=== PATIENT | female | born 1950 | race Caucasian/White ===

== ENCOUNTER → 2016-12-19 | Outpatient (CLI) | payer OTHER ==
[~2016-12-19] MED LIST: ACET-1256 PO; ANSHCCR/ TOP; ASPI-428 PO; ATOR10TA88 PO; CALC0.2510 PO; CALC500C70 PO; CARI350T28 PO; CLOT10TR2 MT; CLOTCRE33 TOP; DIPH1TAB PO; DOCU100C PO; FLUC100T4 PO; GABA-113 PO; GEMF600T3 PO; INSDGI SC; LAMO100T16 PO; LEVA45AE INH; METO50TA16 PO; MULT-513 PO; NVLGI SQ; OMEP20TA PO; OXYC-164 PO; PHYT100T PO; PRED20TA PO; PRED20TA2 PO; ROSU5TAB PO; VENL150C56 PO; WARF5TAB90 PO; WARF7.5T PO; [UNRECOGNIZED DRUG - CODE] PO
[2016-12-19 12:00] LABS: BASO % 0.4 %; BASO ABS # 0.03 K/uL (0-0.2); COMPLETE YES; EOS % 2.4 %; HEMATOCRIT 36.4 % (37-47); IG% 0.3 %; LYMPH % 24.5 %; MEAN CELL VOLUME 84.1 fL (80-100); MEAN CORPUSCULAR HGB CONC 32.1 g/dl (32-36); MEAN PLATELET VOLUME 10.1 fL (7.4-10.4); MONO % 7.7 %; NEUT % 64.7 %; PLATELET COUNT 346 K/uL (130-400); RED BLOOD COUNT 4.33 M/uL (4.2-5.4); WHITE BLOOD COUNT 7.36 K/uL (4.8-10.8)
[2016-12-19 12:26] LABS: ALT/SGPT 22 U/L (12-78); AST/SGOT 23 U/L (15-37); BLOOD UREA NITROGEN 24 mg/dl (7-18); BUN/CREATININE RATIO 20.1 (10-20); CALCIUM 10.3 mg/dl (8.5-10.1); CARBON DIOXIDE 26 mmol/L (21-32); CHLORIDE 106 mmol/L (98-107); GLUCOSE 118 mg/dl (70-99); MAGNESIUM 2.3 mg/dl (1.8-2.4); POTASSIUM 4.8 mmol/L (3.5-5.1); SODIUM 140 mmol/L (136-145)
[2016-12-19 12:31] LABS: ESTIMATED AVERAGE GLUCOSE 128 mg/dl; HA1C FLAG Normal (Normal)
[2016-12-19 12:37] LABS: ALB/GLOB RATIO 0.9 (0.9-2); ALKALINE PHOSPHATASE 154 U/L (45-117); FERRITIN 17.8 ng/ml (8.0-388.0)
--- NOTE | 2016-12-25 12:09 | CODING QUERY MEDICAL NECESSITY ---
SUPPORTING DIAGNOSIS NEEDED Dr. Thurman, A supporting diagnosis is required for the test/procedure performed on this patient in order for us to be reimbursed by the patient's insurance. Please provide a supporting diagnosis for the following test/procedure listed below next to the test name along with your signature. *If there is no additional diagnosis for this patient that would support the following test/procedure please document that below next to the test/procedure. Test(s)/Procedure(s) that require a supporting diagnosis: * ([id number]) B12 VITAMIN LEVEL DIAGNOSIS: DATE OF SERVICE: 12/19/16 Provider Signature: Date: Thank you Yovanny Britton [facility] Information Management Once completed, please kindly fax back to [phone] For questions please call [phone]
== END | disposition home or self-care (01) ==
LOC: C.LAB1850 11:29
PROVIDERS: ATTEND Nurse Practitioner Family
DX: D64.9 Anemia, unspecified (principal); E11.9 Type 2 diabetes mellitus without complications; N18.3 Chronic kidney disease, stage 3 (moderate); I12.9 Hypertensive chronic kidney disease with stage 1 through stage 4 chronic kidney disease, or unspecified chronic kidney disease; E21.3 Hyperparathyroidism, unspecified

== ENCOUNTER → 2017-04-03 | Outpatient (CLI) | payer OTHER ==
[~2017-04-03] MED LIST changes: +ATOR10TA82 PO; -ATOR10TA88 PO; +AUG0.05C12 TOP; -DIPH1TAB PO; +DIPH1TAB87 PO; +ENOX120I SQ; +FLUO0.0566 TOP; +NOVOLOG INJ; +[UNRECOGNIZED DRUG - CODE] TOP
[2017-04-03 12:28] LABS: CALCIUM 10.2 mg/dl (8.5-10.1)
[2017-04-03 12:34] LABS: ALKALINE PHOSPHATASE 148 U/L (45-117); ALT/SGPT 20 U/L (12-78); AST/SGOT 20 U/L (15-37)
== END | disposition home or self-care (01) ==
LOC: C.LAB1850 10:18
PROVIDERS: ATTEND Nurse Practitioner Family
DX: N18.3 Chronic kidney disease, stage 3 (moderate) (principal); B35.3 Tinea pedis; B35.1 Tinea unguium; Z51.81 Encounter for therapeutic drug level monitoring; Z79.01 Long term (current) use of anticoagulants; I48.91 Unspecified atrial fibrillation

== ENCOUNTER 2017-05-16 15:36 | Emergency (ER) | payer OTHER ==
[~2017-05-16] VITALS: Ht 160 cm; Wt 109.9 kg
[~2017-05-16 15:36] MED LIST changes: -ATOR10TA82 PO; -AUG0.05C12 TOP; -CALC0.2510 PO; -CLOT10TR2 MT; -DIPH1TAB87 PO; -ENOX120I SQ; -FLUC100T4 PO; -FLUO0.0566 TOP; -LEVA45AE INH; -NOVOLOG INJ; -PHYT100T PO; -PRED20TA PO; -PRED20TA2 PO; -[UNRECOGNIZED DRUG - CODE] PO; -[UNRECOGNIZED DRUG - CODE] TOP
--- NOTE | 2017-05-16 15:58 | EMERGENCY ROOM VISIT NOTE ---
History Report prepared by Odalysibamado: Stephanie Trejo Under the Supervision of: Dr. Misha Mccollum D.O. First contact with patient: 15:50 Chief Complaint: SHORTNESS OF BREATH Stated Complaint: TROUBLE BALANCING, SOB, SO ITCHY Nursing Triage Summary: Pt c/o itchiness since day before yesterday, and seemed better yesterday but worse today. Pt c/o SOB x 2 days. Hx CHF. Feels similar, can't breathe when lying down. Swelling in bilateral lower legs, "normal" per patient. Dry cough at night when lying down. History of Present Illness The patient is a 66 year old female who presents to the Emergency Room with complaints of worsening shortness of breath for the past 3 days. She has a history of CHF and states her current symptoms feel similar to her usual CHF exacerbation. Her breathing worsens with lying down. The patient also complains of itching "all over" her body. She denies any recent rashes or changes in body lotions or laundry products. She has tried taking Benadryl, but states it has provided no relief. She notes both her legs are swollen, but states this is "normal" for her. She denies any coughing. She notes she does feel diaphoretic at night when she tries to sleep but doesn't think she's been running a fever. The patient denies any recent sick contacts or changes in medications. She does admit to some intermittent chest pains, but states "they aren't constant". She also complains of some increased heart palpitations recently. 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 A total of 10 systems reviewed and were otherwise negative. Past Medical & Surgical Medical Problems: (1) C. difficile colitis (2) Diabetes (3) djd l/s spine (4) History of bladder suspension (5) Hyperlipidemia (6) Hypertension (7) MRSA (methicillin resistant Staphylococcus aureus) (8) recurrent meningitis (9) sinusitis (10) SOB (shortness of breath) Surgical Problems: (1) History of appendectomy (2) History of back surgery (3) History of heart valve replacement (4) History of hysterectomy (5) S/P T&A (status post tonsillectomy and adenoidectomy) Family History Diabetes mellitus FHx: cancer FHx: gallbladder disease FHx: heart disease Hypertension Social History Smoking Status: Current Every Day Smoker Alcohol Use: none Drug Use: none Marital Status: Housing Status: lives with family Occupation Status: disabled Current/Historical Medications Scheduled Aspirin (Ecotrin Low Strength), 81 MG PO QAM Calcitriol (Rocaltrol Cap), 0.25 MCG PO BID Gabapentin (Neurontin), 300 MG PO HS Insulin Aspart (Novolog), 20 UNITS SQ QID Insulin Glargine (Lantus), 20 UNITS SC AMPM Lamotrigine (Lamictal), 100 MG PO BID Metoprolol Tartrate (Lopressor) (Lopressor), 50 MG PO QAM Multivitamins/Minerals (Mvi With Minerals), 1 TAB PO DAILY Omeprazole (Omeprazole), 20 MG PO BID Phytonadione (Vitamin K), 100 MCG PO PRN Prednisone (Prednisone Tab), 40 MG PO DAILY Prednisone (Prednisone), 2 TAB PO DAILY Rosuvastatin Calcium (Crestor), 10 MG PO HS Venlafaxine Hcl (Effexor Extended Rel), 150 MG PO DAILY Warfarin Sodium (Coumadin), 5 MG PO 4XWK Warfarin Sodium (Coumadin), 7.5 MG PO 3XWK Scheduled PRN Acetaminophen (Tylenol), 1,000 MG PO HS PRN for Pain Carisoprodol (Carisoprodol), 250 MG PO DAILY PRN for SPASMS Clotrimazole W/ Betamethasone (Lotrisone), 1 APPLN TOP BID PRN for . Docusate Sodium (Stool Softener), 100 MG PO DAILY PRN for Constipation Hydrocortisone (Hydrocortisone 2.5%), 1 APPLN TOP BID PRN for hemorrhoids Oxycodone Hcl (Oxycodone Hcl), 10 MG PO BID PRN for Pain Allergies Coded Allergies: Latex1 -Allergic Contact Dermititis (Verified Allergy, Intermediate, RASH , 11/29/16) Adhesives (Verified Allergy, Unknown, ., 11/29/16) Erythromycin (Verified Allergy, Unknown, 11/29/16) Levofloxacin (Verified Allergy, Unknown, HIVES, 12/31/16) Physical Exam Vital Signs Date Time Temp Pulse Resp B/P (MAP) Pulse Ox O2 Delivery O2 Flow Rate FiO2 05/16/17 18:51 36.5 82 22 167/86 93 05/16/17 18:36 82 22 167/86 93 Room Air 05/16/17 18:06 80 21 92 05/16/17 17:06 81 19 94 05/16/17 16:36 87 26 05/16/17 16:30 89 05/16/17 16:16 99 Room Air 05/16/17 15:44 99 Room Air 05/16/17 15:44 82 20 167/80 100 Room Air Physical Exam GENERAL: Patient is awake, alert, mildly anxious appearing and does not appear to be in pain. EYES: The conjunctivae are clear. The pupils are round and reactive. EARS, NOSE, MOUTH AND THROAT: The nose is without any evidence of any deformity. Mucous membranes are moist tongue is midline NECK: The neck is nontender and supple. RESPIRATORY: Normal respiratory effort is noted there is no evidence of wheezing rhonchi or rales CARDIOVASCULAR: Regular rate and rhythm to auscultation, metallic click noted to auscultation. GASTROINTESTINAL: The abdomen is soft. Bowel sounds are present in all quadrants. Abdomen is nontender MUSCULOSKELETAL/EXTREMITIES: There is no evidence of gross deformity full range of motion is noted in the hips and shoulders SKIN: Trace pedal edema bilaterally, excoriations on the lower extremities as well as on the back where the patient had been scratching. No definite rash noted. There are no petechiae, pallor or cyanosis noted. NEUROLOGIC: Patient is awake alert and oriented x3 Medical Decision & Procedures ER Provider Diagnostic Interpretation: Radiology results as stated below per my review and radiologist interpretation: CHEST ONE VIEW PORTABLE CLINICAL HISTORY: EVALUATE RESPIRATORY DISTRESS. DYSPNEA COMPARISON STUDY: 11/29/2016 FINDINGS: Prior median sternotomy. Mild stable cardiomegaly. Lungs are clear. Diaphragms smooth. IMPRESSION: Mild stable cardiomegaly. Otherwise negative study Electronically signed by: Hernandez Briones M.D. 05/16/2017 4:49 PM Laboratory Results 05/16/17 16:20 Red Blood Count 4.18, Mean Corpuscular Volume 80.6, Mean Corpuscular Hemoglobin 25.8, Mean Corpuscular Hemoglobin Concent 32.0, Mean Platelet Volume 8.9, Neutrophils (%) (Auto) 69.4, Lymphocytes (%) (Auto) 22.6, Monocytes (%) (Auto) 5.6, Eosinophils (%) (Auto) 2.0, Basophils (%) (Auto) 0.2, Neutrophils # (Auto) 5.60, Lymphocytes # (Auto) 1.82, Monocytes # (Auto) 0.45, Eosinophils # (Auto) 0.16, Basophils # (Auto) 0.02 05/16/17 16:20 Test 05/16/17 16:20 White Blood Count 8.07 K/uL (4.8-10.8) Red Blood Count 4.18 M/uL (4.2-5.4) Hemoglobin 10.8 g/dL (12.0-16.0) Hematocrit 33.7 % (37-47) Mean Corpuscular Volume 80.6 fL (80-100) Mean Corpuscular Hemoglobin 25.8 pg (25-34) Mean Corpuscular Hemoglobin Concent 32.0 g/dl (32-36) Platelet Count 328 K/uL (130-400) Mean Platelet Volume 8.9 fL (7.4-10.4) Neutrophils (%) (Auto) 69.4 % Lymphocytes (%) (Auto) 22.6 % Monocytes (%) (Auto) 5.6 % Eosinophils (%) (Auto) 2.0 % Basophils (%) (Auto) 0.2 % Neutrophils # (Auto) 5.60 K/uL (1.4-6.5) Lymphocytes # (Auto) 1.82 K/uL (1.2-3.4) Monocytes # (Auto) 0.45 K/uL (0.11-0.59) Eosinophils # (Auto) 0.16 K/uL (0-0.5) Basophils # (Auto) 0.02 K/uL (0-0.2) RDW Standard Deviation 45.9 fL (36.4-46.3) RDW Coefficient of Variation 15.6 % (11.5-14.5) Immature Granulocyte % (Auto) 0.2 % Immature Granulocyte # (Auto) 0.02 K/uL (0.00-0.02) Prothrombin Time 23.8 SECONDS (9.0-12.0) Prothromb Time International Ratio 2.2 (0.9-1.1) Activated Partial Thromboplast Time 41.8 SECONDS (21.0-31.0) Partial Thromboplastin Ratio 1.6 Anion Gap 9.0 mmol/L (3-11) Est Creatinine Clear Calc Drug Dose 65.9 ml/min Estimated GFR () 68.0 Estimated GFR (Non- 58.7 BUN/Creatinine Ratio 23.6 (10-20) Calcium Level 10.0 mg/dl (8.5-10.1) Magnesium Level 2.3 mg/dl (1.8-2.4) Total Bilirubin 0.3 mg/dl (0.2-1) Direct Bilirubin < 0.1 mg/dl (0-0.2) Aspartate Amino Transf (AST/SGOT) 46 U/L (15-37) Alanine Aminotransferase (ALT/SGPT) 33 U/L (12-78) Alkaline Phosphatase 129 U/L (45-117) Total Creatine Kinase 781 U/L (26-192) Creatine Kinase MB 13.1 ng/ml (0.5-3.6) Creatine Kinase MB Ratio 1.7 (0-3.0) Troponin I < 0.015 ng/ml (0-0.045) Pro-B-Type Natriuretic Peptide 301 pg/ml (0-900) Total Protein 8.0 gm/dl (6.4-8.2) Albumin 4.0 gm/dl (3.4-5.0) Laboratory results per my review. Medications Administered Medications (Trade) Dose Ordered Sig/Norm Route Start Time Stop Time Status Last Admin Dose Admin Dexamethasone Sodium Phosphate (Decadron Inj) 10 mg NOW ONCE IV 05/16/17 16:00 05/16/17 16:01 DC 05/16/17 16:00 10 MG ECG Indication: SOB/dyspnea Rate (beats per minute): 84 Rhythm: normal sinus (normal sinus rhythm) Findings: nonspecific-ST abn (Lateral), PVC Change: no significant change (No significant change when compared to EKG from January 29, 2016) ED Course 1554: The patient was evaluated in room B8. A complete history and physical examination were performed. 1600: Decadron 10 mg IV. 1800: I reevaluated the patient. She is feeling well. I discussed her results and discharge instructions and she verbalized complete understanding and agreement. Medical Decision Medication Reconciliation: I attest that I have personally reviewed the patient' s current medications list. Blood pressure screening: Patient was found to have a slightly elevated blood pressure, due to situational issues, and was referred to their primary doctor for routine follow up. Prior records/ancillary studies reviewed. Triage Nursing notes reviewed. Additional history obtained from the family. The patient's history was concerning for respiratory difficulties. Differential diagnosis: Etiologies such as infections, reactive airway disease, pneumonia, pneumothorax , COPD, CHF, cardiac ischemia, pulmonary embolism, musculoskeletal, gastrointestinal, as well as others were entertained. The patient is a 66-year-old female who presented to the emergency department with multiple complaints. She complained of pruritus as well as difficulty breathing. She doesn't a history of congestive heart failure. The patient did not have significant hypoxia considering her baseline status. She was not tachycardic. The patient was found have an elevated CPK. Currently I think this could be due to the patient's medications. She was encouraged to stop taking her Lopid at this time. She was also treated with Decadron for the pruritus. This seemed to improve her symptoms. She was encouraged to follow-up with her family doctor soon as possible and continue taking Benadryl as directed. She was encouraged to continue all other medications as prescribed except the Lopid until she was reevaluated by her primary care physician. Otherwise she was encouraged to rest and avoid any strenuous activity. She was also encouraged to return to the emergency department immediately if symptoms change worsen or the need arises. Impression Primary Impression: Generalized pruritus Additional Impression: Myositis Scribe Attestation The scribe's documentation has been prepared under my direction and personally reviewed by me in its entirety. I confirm that the note above accurately reflects all work, treatment, procedures, and medical decision making performed by me. Departure Information Dispostion Home / Self-Care Prescriptions Prednisone (Prednisone Tab) 20 Mg Tab 40 MG PO DAILY, #10 TAB Prov: Misha Mccollum, DO 05/16/17 Referrals Sanya Thurman III, CRNP (PCP) Patient Instructions ED Erythema, ED Myositis, [facility] Additional Instructions Stop taking your Lopid until he follow-up with your family this week. Continue taking Benadryl as directed. Continue all medications as prescribed. Follow-up with your doctor this week for reevaluation. Return to the emergency department immediately symptoms change worsen or the need arises. Problem Qualifiers Additional Impression: Myositis Myositis type: unspecified type Myositis location: multiple sites Qualified Codes: M60.9 - Myositis, unspecified
[2017-05-16] MEDS ORDERED: DEXAMETHASONE SOD INJ 10 MG/ML VIAL IV ONE (16:00)
[2017-05-16 16:16] VITALS: O2SAT 99; Ht 160 cm; Wt 109.9 kg
[2017-05-16] MEDS ORDERED: CALC0.2510 PO (16:26)
[2017-05-16] MEDS ORDERED: [UNRECOGNIZED DRUG - CODE] PO (16:27)
[2017-05-16 16:43] LABS: BASO % 0.2 %; BASO ABS # 0.02 K/uL (0-0.2); COMPLETE YES; HEMATOCRIT 33.7 % (37-47); IG% 0.2 %; LYMPH % 22.6 %; LYMPH ABS # 1.82 K/uL (1.2-3.4); MEAN CELL VOLUME 80.6 fL (80-100); MEAN CORPUSCULAR HEMOGLOBIN 25.8 pg (25-34); MEAN PLATELET VOLUME 8.9 fL (7.4-10.4); MONO % 5.6 %; NEUT % 69.4 %; PLATELET COUNT 328 K/uL (130-400); RED BLOOD COUNT 4.18 M/uL (4.2-5.4); WHITE BLOOD COUNT 8.07 K/uL (4.8-10.8)
[2017-05-16] MEDS ORDERED: PHYT100T PO (16:44)
--- NOTE | 2017-05-16 16:50 | DIAGNOSTIC IMAGING REPORT ---
CHEST ONE VIEW PORTABLE CLINICAL HISTORY: EVALUATE RESPIRATORY DISTRESS. DYSPNEA COMPARISON STUDY: 11/29/2016 FINDINGS: Prior median sternotomy. Mild stable cardiomegaly. Lungs are clear. Diaphragms smooth. IMPRESSION: Mild stable cardiomegaly. Otherwise negative study Electronically signed by: Hernandez Briones M.D. 05/16/2017 4:49 PM Dictated Date/Time: 05/16/2017 4:48 PM
[2017-05-16 16:55] LABS: INR 2.2 (0.9-1.1); PARTIAL THROMBOPLASTIN RATIO 1.6; PROTHROMBIN TIME (PATIENT) 23.8 SECONDS (9.0-12.0)
[2017-05-16 16:57] LABS: ALT/SGPT 33 U/L (12-78); AST/SGOT 46 U/L (15-37); BLOOD UREA NITROGEN 24 mg/dl (7-18); BUN/CREATININE RATIO 23.6 (10-20); CARBON DIOXIDE 24 mmol/L (21-32); CHLORIDE 109 mmol/L (98-107); GLUCOSE 90 mg/dl (70-99); MAGNESIUM 2.3 mg/dl (1.8-2.4); POTASSIUM 4.1 mmol/L (3.5-5.1); SODIUM 142 mmol/L (136-145)
[2017-05-16 17:02] LABS: ALKALINE PHOSPHATASE 129 U/L (45-117); CKMB/CK RATIO 1.7 (0-3.0)
[2017-05-16] MEDS ORDERED: PRED20TA2 PO (17:46)
[2017-05-16 18:51] VITALS: BP 167/86; PULSE 82; TEMP 36.5; O2SAT 93
[2017-05-17] MEDS ORDERED: PRED20TA PO (10:09)
[2017-05-29] MEDS ORDERED: CLOT10TR2 MT (11:04)
[2017-05-29] MEDS ORDERED: DIPH1TAB87 PO (11:04)
[2017-05-29] MEDS ORDERED: FLUC100T4 PO (21:11)
[2017-06-03] MEDS ORDERED: LEVA45AE INH (12:35)
[2017-06-08] MEDS ORDERED: ATOR10TA82 PO (10:27)
[2017-09-10] MEDS ORDERED: FLUO0.0566 TOP (11:30)
[2017-09-10] MEDS ORDERED: AUG0.05C12 TOP (11:30)
[2017-10-02] MEDS ORDERED: GABA-113 PO (10:32)
[2017-10-21] MEDS ORDERED: NOVOLOG INJ (09:03)
[2017-10-21] MEDS ORDERED: [UNRECOGNIZED DRUG - CODE] TOP (09:03)
[2017-10-21] MEDS ORDERED: INSDGI SC (09:06)
[2017-10-21] MEDS ORDERED: ENOX120I SQ (12:23)
== END 2017-05-16 18:52 | disposition home or self-care (01) ==
LOC: C.EDB 15:37
DX: L29.9 Pruritus, unspecified (principal); M60.9 Myositis, unspecified; A04.7 Enterocolitis due to Clostridium difficile; E11.9 Type 2 diabetes mellitus without complications; E78.5 Hyperlipidemia, unspecified; I10 Essential (primary) hypertension; A49.02 Methicillin resistant Staphylococcus aureus infection, unspecified site; Z83.3 Family history of diabetes mellitus; Z82.49 Family history of ischemic heart disease and other diseases of the circulatory system; F17.200 Nicotine dependence, unspecified, uncomplicated; Z79.82 Long term (current) use of aspirin; Z79.4 Long term (current) use of insulin; Z79.01 Long term (current) use of anticoagulants; Z51.81 Encounter for therapeutic drug level monitoring

== ENCOUNTER → 2017-06-15 | Outpatient (CLI) | payer OTHER ==
[~2017-06-15] MED LIST changes: +ATOR10TA88 PO; +AUG0.05C12 TOP; +CALC0.2510 PO; -CALC500C70 PO; -CARI350T28 PO; +DIPH1TAB PO; +FLUC100T4 PO; +FLUO0.0566 TOP; -GEMF600T3 PO; +LEVA45AE INH; +PHYT100T PO; -ROSU5TAB PO; +[UNRECOGNIZED DRUG - CODE] PO
[2017-06-15 12:25] LABS: ESTIMATED AVERAGE GLUCOSE 140 mg/dl; HA1C FLAG Normal (Normal)
[2017-06-15 12:47] LABS: ALT/SGPT 33 U/L (12-78); BLOOD UREA NITROGEN 17 mg/dl (7-18); BUN/CREATININE RATIO 13.9 (10-20); CALCIUM 10.5 mg/dl (8.5-10.1); CARBON DIOXIDE 29 mmol/L (21-32); CHLORIDE 103 mmol/L (98-107); GLUCOSE 122 mg/dl (70-99); POTASSIUM 4.5 mmol/L (3.5-5.1); SODIUM 137 mmol/L (136-145)
[2017-06-15 12:50] LABS: ALKALINE PHOSPHATASE 109 U/L (45-117); AST/SGOT 29 U/L (15-37)
== END | disposition home or self-care (01) ==
LOC: C.LAB1850 11:30
PROVIDERS: ATTEND Internal Medicine Endocrinology, Diabetes & Metabolism
DX: E21.3 Hyperparathyroidism, unspecified (principal); R74.8 Abnormal levels of other serum enzymes; E11.9 Type 2 diabetes mellitus without complications; I48.91 Unspecified atrial fibrillation; Z51.81 Encounter for therapeutic drug level monitoring; Z79.01 Long term (current) use of anticoagulants

== ENCOUNTER 2017-10-12 11:06 | Emergency (ER) | payer OTHER ==
[~2017-10-12] VITALS: Ht 160 cm; Wt 114.0 kg
[~2017-10-12 11:06] MED LIST changes: +ATOR10TA82 PO; -ATOR10TA88 PO; -DIPH1TAB PO; +DIPH1TAB87 PO; -FLUC100T4 PO; -WARF5TAB90 PO
[2017-10-12 11:08] VITALS: TEMP 36.7; Ht 160 cm; Wt 114.0 kg
[2017-10-12] MEDS ORDERED: ALBUT/IPRATROP 3MG/0.5MG NEB 3 ML VIAL INH STA (12:09)
[2017-10-12 12:20] VITALS: O2SAT 96
[2017-10-12 12:20] LABS: BASO % 0.3 %; BASO ABS # 0.03 K/uL (0-0.2); COMPLETE YES; HEMATOCRIT 32.4 % (37-47); IG% 0.3 %; LYMPH % 16.9 %; MEAN CELL VOLUME 78.3 fL (80-100); MEAN CORPUSCULAR HEMOGLOBIN 24.2 pg (25-34); MEAN CORPUSCULAR HGB CONC 30.9 g/dl (32-36); MEAN PLATELET VOLUME 9.4 fL (7.4-10.4); MONO % 8.2 %; NEUT % 72.3 %; PLATELET COUNT 265 K/uL (130-400); RED BLOOD COUNT 4.14 M/uL (4.2-5.4); WHITE BLOOD COUNT 8.88 K/uL (4.8-10.8)
[2017-10-12 12:27] LABS: INR 2.4 (0.9-1.1); PARTIAL THROMBOPLASTIN RATIO 1.5; PROTHROMBIN TIME (PATIENT) 27.1 SECONDS (9.0-12.0)
[2017-10-12 12:28] LABS: BUN/CREATININE RATIO 14.3 (10-20); CALCIUM 10.7 mg/dl (8.5-10.1); CREATININE 1.25 mg/dl (0.60-1.20); POTASSIUM 4.3 mmol/L (3.5-5.1)
[2017-10-12 12:34] LABS: ALB/GLOB RATIO 0.9 (0.9-2); CKMB/CK RATIO 2.4 (0-3.0)
--- NOTE | 2017-10-12 12:34 | DIAGNOSTIC IMAGING REPORT ---
CHEST ONE VIEW PORTABLE CLINICAL HISTORY: Shortness of breath. COMPARISON STUDY: 05/16/2017 FINDINGS: There are postsurgical changes of midline sternotomy and valvular replacement. The heart is mildly enlarged. There is no failure. There is no focal pulmonary consolidation. No pleural effusions are visualized.[ IMPRESSION: No active disease in the chest. Electronically signed by: Casey Larson M.D. 10/12/2017 12:33 PM Dictated Date/Time: 10/12/2017 12:32 PM
--- NOTE | 2017-10-12 13:35 | EMERGENCY ROOM VISIT NOTE ---
History Report prepared by Shar: Danielle Sigala Under the Supervision of: Dr. Douglas Hearn D.O. First contact with patient: 12:02 Chief Complaint: SHORTNESS OF BREATH Stated Complaint: SOB AND DIZZNESS (OFF BALANCE) Nursing Triage Summary: Pt presents stating she is to be having pre-op testing today for left shoulder surgery. Pt reports difficulty breathing and shaky. Pt states "I feel like nothing is moving or spinning, but I could fall down if I stand up." Pt reports hx of CHF and states felt similar last night. History of Present Illness The patient is a 66 year old female who presents to the Emergency Room with complaints of constant shortness of breath beginning last night. The patient states that her symptoms were worse at night especially with laying flat. She feels like she can't breathe when she lays down. The patient reports feeling like she was drowning, which she states is how she felt previously with her CHF. She also notes that today she is feeling "extremely off-balance and shaky. " The patient is supposed to be in the hospital today for pre-op testing for left shoulder surgery. She states that she was just feeling too unwell for this testing and came to the ED for further evaluation instead. Source of History: patient Onset: last night Position: chest (respiratory) Quality: other (shortness of breath) Timing: constant Modifying Factors (Worsening): other (laying flat) Note: Pt notes feeling off-balance and shaky. Review of Systems See HPI for pertinent positives & negatives. A total of 10 systems reviewed and were otherwise negative. Past Medical & Surgical Medical Problems: (1) C. difficile colitis (2) Diabetes (3) djd l/s spine (4) History of bladder suspension (5) Hyperlipidemia (6) Hypertension (7) MRSA (methicillin resistant Staphylococcus aureus) (8) recurrent meningitis (9) sinusitis (10) SOB (shortness of breath) Surgical Problems: (1) History of appendectomy (2) History of back surgery (3) History of heart valve replacement (4) History of hysterectomy (5) S/P T&A (status post tonsillectomy and adenoidectomy) Family History Diabetes mellitus FHx: cancer FHx: gallbladder disease FHx: heart disease Hypertension Social History Smoking Status: Current Every Day Smoker Alcohol Use: none Drug Use: none Marital Status: Housing Status: lives with family Occupation Status: disabled Current/Historical Medications Scheduled Aspirin (Ecotrin Low Strength), 81 MG PO QAM Atorvastatin (Lipitor), 10 MG PO DAILY Betamethasone Dipropionate Jun (Diprolene Af), 1 APPLN TOP BID Diphenhydramine Hcl (Benadryl Allergy), 25 MG PO DAILY Fluocinonide (Fluocinonide), 1 APPLN TOP BID Gabapentin (Neurontin), 600 MG PO HS Gabapentin (Neurontin), 300 MG PO QAM Insulin Aspart (Novolog), 20 UNITS SQ QID Insulin Glargine (Lantus), 20 UNITS SC AMPM Lamotrigine (Lamictal), 100 MG PO BID Metoprolol Tartrate (Lopressor) (Lopressor), 50 MG PO QAM Multivitamins/Minerals (Mvi With Minerals), 1 TAB PO DAILY Omeprazole (Omeprazole), 20 MG PO BID Phytonadione (Vitamin K), 100 MCG PO PRN Venlafaxine Hcl (Effexor Extended Rel), 150 MG PO DAILY Warfarin Sodium (Coumadin), 7.5 MG PO DAILY Scheduled PRN Acetaminophen (Tylenol), 1,000 MG PO HS PRN for Pain Carisoprodol (Carisoprodol), 250 MG PO DAILY PRN for SPASMS Clotrimazole W/ Betamethasone (Lotrisone), 1 APPLN TOP BID PRN for . Docusate Sodium (Stool Softener), 100 MG PO DAILY PRN for Constipation Hydrocortisone (Hydrocortisone 2.5%), 1 APPLN TOP BID PRN for hemorrhoids Levalbuterol Tartrate (Levalbuterol Tartrate Hfa), 2 PUFFS INH Q4H PRN for SOB/ Wheezing Oxycodone Hcl (Oxycodone Hcl), 10 MG PO BID PRN for Pain Allergies Coded Allergies: Latex1 -Allergic Contact Dermititis (Verified Allergy, Intermediate, RASH , 10/12/17) Adhesives (Verified Allergy, Unknown, ., 10/12/17) Erythromycin (Verified Allergy, Unknown, 10/12/17) Levofloxacin (Verified Allergy, Unknown, HIVES, 10/12/17) Physical Exam Vital Signs Date Time Temp Pulse Resp B/P (MAP) Pulse Ox O2 Delivery O2 Flow Rate FiO2 10/12/17 12:39 86 20 154/71 96 10/12/17 12:22 80 10/12/17 12:20 96 Room Air 10/12/17 11:21 95 Room Air 10/12/17 11:08 96 Room Air 10/12/17 11:08 36.7 79 20 145/67 96 Room Air Physical Exam VITAL SIGNS: were reviewed as above. GENERAL:Non-toxic in appearance. SKIN: Warm dry and pink. HEAD: Normocephalic and atraumatic. OROPHARYNX: Is clear and moist NECK: Supple without lymphadenopathy or meningismus. LUNGS: clear. HEART: Regular rate and rhythm. ABDOMEN: Soft and nontender. EXTREMITIES: Warm and well perfused. NEUROLOGICALLY: Awake alert and oriented without focal deficit. Cranial nerves 2 -12 are intact. There is no pronator drift. Cerebellar testing is within normal limits. There is no nystagmus. There is no facial droop. Speech is clear. Vision is grossly normal. MUSCULOSKELETAL: Good muscle tone. No evidence of trauma. Medical Decision & Procedures ER Provider Diagnostic Interpretation: Radiology results as stated below per my review and radiologist interpretation: CHEST ONE VIEW PORTABLE CLINICAL HISTORY: Shortness of breath. COMPARISON STUDY: 05/16/2017 FINDINGS: There are postsurgical changes of midline sternotomy and valvular replacement. The heart is mildly enlarged. There is no failure. There is no focal pulmonary consolidation. No pleural effusions are visualized.[ IMPRESSION: No active disease in the chest. Electronically signed by: Casey Larson M.D. 10/12/2017 12:33 PM Dictated Date/Time: 10/12/2017 12:32 PM Laboratory Results 10/12/17 11:25 Red Blood Count 4.14, Mean Corpuscular Volume 78.3, Mean Corpuscular Hemoglobin 24.2, Mean Corpuscular Hemoglobin Concent 30.9, Mean Platelet Volume 9.4, Neutrophils (%) (Auto) 72.3, Lymphocytes (%) (Auto) 16.9, Monocytes (%) (Auto) 8.2, Eosinophils (%) (Auto) 2.0, Basophils (%) (Auto) 0.3, Neutrophils # (Auto) 6.41, Lymphocytes # (Auto) 1.50, Monocytes # (Auto) 0.73, Eosinophils # (Auto) 0.18, Basophils # (Auto) 0.03 10/12/17 11:25 Test 10/12/17 11:25 White Blood Count 8.88 K/uL (4.8-10.8) Red Blood Count 4.14 M/uL (4.2-5.4) Hemoglobin 10.0 g/dL (12.0-16.0) Hematocrit 32.4 % (37-47) Mean Corpuscular Volume 78.3 fL (80-100) Mean Corpuscular Hemoglobin 24.2 pg (25-34) Mean Corpuscular Hemoglobin Concent 30.9 g/dl (32-36) Platelet Count 265 K/uL (130-400) Mean Platelet Volume 9.4 fL (7.4-10.4) Neutrophils (%) (Auto) 72.3 % Lymphocytes (%) (Auto) 16.9 % Monocytes (%) (Auto) 8.2 % Eosinophils (%) (Auto) 2.0 % Basophils (%) (Auto) 0.3 % Neutrophils # (Auto) 6.41 K/uL (1.4-6.5) Lymphocytes # (Auto) 1.50 K/uL (1.2-3.4) Monocytes # (Auto) 0.73 K/uL (0.11-0.59) Eosinophils # (Auto) 0.18 K/uL (0-0.5) Basophils # (Auto) 0.03 K/uL (0-0.2) RDW Standard Deviation 51.9 fL (36.4-46.3) RDW Coefficient of Variation 18.3 % (11.5-14.5) Immature Granulocyte % (Auto) 0.3 % Immature Granulocyte # (Auto) 0.03 K/uL (0.00-0.02) Prothrombin Time 27.1 SECONDS (9.0-12.0) Prothromb Time International Ratio 2.4 (0.9-1.1) Activated Partial Thromboplast Time 39.2 SECONDS (21.0-31.0) Partial Thromboplastin Ratio 1.5 Anion Gap 9.0 mmol/L (3-11) Est Creatinine Clear Calc Drug Dose 53.8 ml/min Estimated GFR () 51.9 Estimated GFR (Non- 44.8 BUN/Creatinine Ratio 14.3 (10-20) Calcium Level 10.7 mg/dl (8.5-10.1) Total Bilirubin 0.3 mg/dl (0.2-1) Aspartate Amino Transf (AST/SGOT) 44 U/L (15-37) Alanine Aminotransferase (ALT/SGPT) 48 U/L (12-78) Alkaline Phosphatase 103 U/L (45-117) Total Creatine Kinase 468 U/L (26-192) Creatine Kinase MB 11.1 ng/ml (0.5-3.6) Creatine Kinase MB Ratio 2.4 (0-3.0) Troponin I 0.030 ng/ml (0-0.045) Pro-B-Type Natriuretic Peptide 690 pg/ml (0-900) Total Protein 7.6 gm/dl (6.4-8.2) Albumin 3.6 gm/dl (3.4-5.0) Globulin 4.0 gm/dl (2.5-4.0) Albumin/Globulin Ratio 0.9 (0.9-2) Laboratory results as stated above per my review. Medications Administered Medications (Trade) Dose Ordered Sig/Norm Route Start Time Stop Time Status Last Admin Dose Admin Albuterol/ Ipratropium (Duoneb) 3 ml NOW STAT INH 10/12/17 12:09 10/12/17 12:12 DC 10/12/17 12:20 3 ML ECG Indication: SOB/dyspnea Rate (beats per minute): 85 Rhythm: sinus rhythm Findings: PVC, no acute ischemic change ED Course 1202: Previous medical records were reviewed. The patient was evaluated in room C3. A complete history and physical examination was performed. 1209: DuoNeb 3 ml INH 1337: I reassessed the patient at this time. She is feeling better and resting comfortably. I discussed the results and treatment plan with the patient. I answered all pertaining questions that she had. She expressed understanding and verbalized agreement. The patient will be discharged home. Medical Decision Differentials considered include acute myocardial infarction, acute coronary syndrome, myocarditis, pericarditis, pericardial effusions /tamponade, esophageal perforation, pulmonary embolism, pneumonia, pneumothorax, cardiomyopathy, congestive heart, anemia, and COPD/asthma exacerbation. This is a 66-year-old female who presents to the ED with a chief complaint of shakiness and off balance. She also feels a little short of breath. She states that her shortness of breath was mostly last night. The patient initially came here for evaluation for preop testing but decided to come to the ED instead. The patient has a normal or lodging exam. Her lungs are clear. Vital signs are normal. Chest x-ray did not show acute disease. BNP was normal. Troponin was normal. Twelve-lead EKG reveals a sinus rhythm at a rate of 85 with PVCs. No acute injury. Complete metabolic panel reveals some chronic-appearing anemia. INR is 2.4. She is on Coumadin. Creatinine was slightly elevated at 1.25. Chemistry panel was otherwise unremarkable. The patient was told the results of the test. She is felt to be stable for discharge and outpatient follow-up. Medication Reconcilliation Current Medication List: was personally reviewed by me Blood Pressure Screening Patient's blood pressure: Normal blood pressure Impression Primary Impression: Generally unsteady Additional Impression: Weak Scribe Attestation The scribe's documentation has been prepared under my direction and personally reviewed by me in its entirety. I confirm that the note above accurately reflects all work, treatment, procedures, and medical decision making performed by me. Departure Information Dispostion Home / Self-Care Referrals Sanya Thurman III, CRNP (PCP) Patient Instructions My [facility] Additional Instructions Test results today did not show any significant abnormalities. Your INR today is 2.4. Follow-up with your doctor for recheck in 1-2 days. Return here should symptoms worsen or if you develop new or worsening symptoms. Problem Qualifiers
[2017-10-12 13:51] VITALS: BP 154/71; PULSE 91; O2SAT 94
== END 2017-10-12 13:52 | disposition home or self-care (01) ==
LOC: C.EDB 11:07 → C.EDC 13:52
DX: R26.81 Unsteadiness on feet (principal); R53.1 Weakness; R06.02 Shortness of breath; E11.9 Type 2 diabetes mellitus without complications; E78.5 Hyperlipidemia, unspecified; I10 Essential (primary) hypertension; M47.897 Other spondylosis, lumbosacral region; F17.200 Nicotine dependence, unspecified, uncomplicated; Z95.2 Presence of prosthetic heart valve; Z79.01 Long term (current) use of anticoagulants; Z79.82 Long term (current) use of aspirin; Z79.4 Long term (current) use of insulin; Z86.14 Personal history of Methicillin resistant Staphylococcus aureus infection; Z90.89 Acquired absence of other organs; Z90.710 Acquired absence of both cervix and uterus; Z83.3 Family history of diabetes mellitus; Z83.79 Family history of other diseases of the digestive system; Z82.49 Family history of ischemic heart disease and other diseases of the circulatory system

== ENCOUNTER → 2017-10-21 | Outpatient (CLI) | payer OTHER ==
[~2017-10-21] VITALS: Ht 160 cm; Wt 114.6 kg
[~2017-10-21] MED LIST changes: -CALC0.2510 PO; +CEFAZOLIN 2000MG IV PUSH 10 ML IV SCH; +ENOX120I SQ; +ERGO500037 PO; +LACTATED RINGER'S 1000ML 1,000 ML IV SCH; +NOVOLOG INJ; +[UNRECOGNIZED DRUG - CODE] TOP
[2017-10-21 09:08] VITALS: Ht 160 cm; Wt 114.6 kg
--- NOTE | 2017-10-21 09:26 | PAT Medication Instructions ---
Service Date Oct 21, 2017. Current Home Medication List Acetaminophen (Tylenol), 1,000 MG PO HS PRN for Pain Aspirin (Ecotrin Low Strength), 81 MG PO QAM Atorvastatin (Lipitor), 10 MG PO QAM Betamethasone Dipropionate Aug (Augmented Betamethasone D), 1 DOSE TOP PRN Carisoprodol (Carisoprodol), 250 MG PO DAILY PRN for SPASMS Clotrimazole W/ Betamethasone (Lotrisone), 1 APPLN TOP BID PRN for . Diphenhydramine Hcl (Benadryl Allergy), 25 MG PO QAM Docusate Sodium (Stool Softener), 100 MG PO DAILY PRN for Constipation Fluocinonide (Fluocinonide), 1 APPLN TOP BID PRN for PRN Gabapentin (Neurontin), 600 MG PO HS Hydrocortisone (Hydrocortisone 2.5%), 1 APPLN TOP BID PRN for hemorrhoids Insulin Glargine (Lantus), 20 SC AMPM Lamotrigine (Lamictal), 100 MG PO BID Levalbuterol Tartrate (Levalbuterol Tartrate Hfa), 2 PUFFS INH Q4H PRN for SOB/ Wheezing Metoprolol Tartrate (Lopressor) (Lopressor), 50 MG PO QPM Multivitamins/Minerals (Mvi With Minerals), 1 TAB PO QAM Omeprazole (Omeprazole), 20 MG PO BID Oxycodone Hcl (Oxycodone Hcl), 10 MG PO BID PRN for Pain Venlafaxine Hcl (Effexor Extended Rel), 150 MG PO QAM Warfarin Sodium (Coumadin), 7.5 MG PO QPM [Novolog], 20 UNITS INJ QIDM Medication Instructions For Your Scheduled Surgery - Contact your prescriber ([facility]) for instructions: Warfarin Sodium (Coumadin), 7.5 MG PO QPM - Hold the following medications 24 hours prior to surgery: Betamethasone Dipropionate Jun (Augmented Betamethasone D), 1 DOSE TOP PRN Clotrimazole W/ Betamethasone (Lotrisone), 1 APPLN TOP BID PRN for . Hydrocortisone (Hydrocortisone 2.5%), 1 APPLN TOP BID PRN for hemorrhoids Fluocinonide (Fluocinonide), 1 APPLN TOP BID PRN for PRN - Hold the following medications the morning of surgery: Diphenhydramine Hcl (Benadryl Allergy), 25 MG PO QAM Multivitamins/Minerals (Mvi With Minerals), 1 TAB PO QAM Carisoprodol (Carisoprodol), 250 MG PO DAILY PRN for SPASMS Docusate Sodium (Stool Softener), 100 MG PO DAILY PRN for Constipation [Novolog], 20 UNITS INJ QIDM - Take the following medications the morning of surgery with a sip of water: Acetaminophen (Tylenol), 1,000 MG PO HS PRN for Pain (if needed, can be taken up to four hours before surgery) Aspirin (Ecotrin Low Strength), 81 MG PO QAM Atorvastatin (Lipitor), 10 MG PO QAM Lamotrigine (Lamictal), 100 MG PO BID Levalbuterol Tartrate (Levalbuterol Tartrate Hfa), 2 PUFFS INH Q4H PRN for SOB/ Wheezing (if needed, and bring with you the day of surgery) Omeprazole (Omeprazole), 20 MG PO BID Oxycodone Hcl (Oxycodone Hcl), 10 MG PO BID PRN for Pain (if needed, can be taken up to four hours before surgery) Venlafaxine Hcl (Effexor Extended Rel), 150 MG PO QAM - Take the following medications as scheduled the night before surgery: Acetaminophen (Tylenol), 1,000 MG PO HS PRN for Pain (if needed) Insulin Glargine (Lantus), 20 SC AMPM Carisoprodol (Carisoprodol), 250 MG PO DAILY PRN for SPASMS (if needed) Gabapentin (Neurontin), 600 MG PO HS Docusate Sodium (Stool Softener), 100 MG PO DAILY PRN for Constipation (if needed) Lamotrigine (Lamictal), 100 MG PO BID Levalbuterol Tartrate (Levalbuterol Tartrate Hfa), 2 PUFFS INH Q4H PRN for SOB/ Wheezing (if needed) Metoprolol Tartrate (Lopressor) (Lopressor), 50 MG PO QPM [Novolog], 20 UNITS INJ QIDM Omeprazole (Omeprazole), 20 MG PO BID Oxycodone Hcl (Oxycodone Hcl), 10 MG PO BID PRN for Pain (if needed) - For Insulin Dependent Diabetic patients: Test blood sugar A.M. of surgery. - If BLOOD SUGAR IS GREATER THAN 150, take half of your regular dose of: Insulin Glargine (Lantus), 20 SC AMPM (TAKE 10 UNITS) - If BLOOD SUGAR IS LESS THAN 150, do not take any: Insulin Glargine ( Lantus), 20 SC AMPM If you have any questions please call us at [phone] or [phone] or [phone]
[2017-10-21 11:07] LABS: HEMOGLOBIN A1C 6.3 % (4.5-5.6)
--- NOTE | 2017-11-02 10:41 | History and Physical ---
History & Physical Date Nov 02, 2017. Chief Complaint Left shoulder pain History of Present Illness The patient is a 66 year old female with complaints of Left shoulder pain for several years. She has tried pain medications, PT and injections with minimal relief. She would like to proceed with a left shoulder SAD, DCE, debridement. Past Medical/Surgical History Medical Problems: (1) C. difficile colitis (2) Diabetes (3) djd l/s spine (4) History of bladder suspension (5) Hyperlipidemia (6) Hypertension (7) MRSA (methicillin resistant Staphylococcus aureus) (8) recurrent meningitis (9) sinusitis (10) SOB (shortness of breath) Surgical Problems: (1) History of appendectomy (2) History of back surgery (3) History of heart valve replacement (4) History of hysterectomy (5) S/P T&A (status post tonsillectomy and adenoidectomy) Additional History Hepatic Disease: No Endocrine Disorder: Yes Kidney Disease: No Hypertension: No Heart Disease: Yes Bleeding Tendencies: No Infectious Diseases: No Allergies Coded Allergies: Latex1 -Allergic Contact Dermititis (Verified Allergy, Intermediate, RASH , 10/12/17) Adhesives (Verified Allergy, Unknown, RASH, 10/21/17) Levofloxacin (Verified Allergy, Unknown, HIVES, 10/12/17) Erythromycin (Unverified Adverse Reaction, Mild, VAGINAL INFECTION AFTERWARDS, 10/21/17) Home Medications Scheduled Aspirin (Ecotrin Low Strength), 81 MG PO QAM Atorvastatin (Lipitor), 10 MG PO QAM Betamethasone Dipropionate Aug (Augmented Betamethasone D), 1 DOSE TOP PRN Diphenhydramine Hcl (Benadryl Allergy), 25 MG PO QAM Gabapentin (Neurontin), 600 MG PO HS Insulin Glargine (Lantus), 20 SC AMPM Lamotrigine (Lamictal), 100 MG PO BID Metoprolol Tartrate (Lopressor) (Lopressor), 50 MG PO QPM Multivitamins/Minerals (Mvi With Minerals), 1 TAB PO QAM Omeprazole (Omeprazole), 20 MG PO BID Venlafaxine Hcl (Effexor Extended Rel), 150 MG PO QAM Warfarin Sodium (Coumadin), 7.5 MG PO QPM [Novolog], 20 UNITS INJ QIDM Scheduled PRN Acetaminophen (Tylenol), 1,000 MG PO HS PRN for Pain Carisoprodol (Carisoprodol), 250 MG PO DAILY PRN for SPASMS Clotrimazole W/ Betamethasone (Lotrisone), 1 APPLN TOP BID PRN for . Docusate Sodium (Stool Softener), 100 MG PO DAILY PRN for Constipation Enoxaparin (Lovenox), 120 MG SQ Q12H PRN for . Fluocinonide (Fluocinonide), 1 APPLN TOP BID PRN for PRN Hydrocortisone (Hydrocortisone 2.5%), 1 APPLN TOP BID PRN for hemorrhoids Levalbuterol Tartrate (Levalbuterol Tartrate Hfa), 2 PUFFS INH Q4H PRN for SOB/ Wheezing Oxycodone Hcl (Oxycodone Hcl), 10 MG PO BID PRN for Pain Physical Examination Skin: warm/dry, no rash Eyes: normal inspection, EOMI ENT: normal ENT inspection Head: normocephalic, atraumatic Neck: supple, no adenopathy Respiratory/Chest: lungs clear, normal breath sounds Cardiovascular: regular rate, rhythm, + pertinent finding (audible click due to mitral and aortic valve replacement) Abdomen / GI: normal bowel sounds, non tender Extremities: + pertinent finding (decreased ROM and strength) Neurologic/Psych: no motor/sensory deficits, alert, oriented x 3 Diagnosis Primary osteoarthritis of left shoulder Plan of Treatment Patient is scheduled for a left shoulder SAD, DCE and debridement. Patient has failed conservative therapy and would like to proceed with scheduled surgery. Risks and benefits to surgery were discussed with the patient. She understands these risks and wishes to proceed. All questions were answered to her satisfaction.
== END | disposition home or self-care (01) ==
LOC: C.LAB 08:00 → EDSTATUS 11-06 14:47
PROVIDERS: ATTEND Orthopaedic Surgery
DX: M19.019 Primary osteoarthritis, unspecified shoulder (principal)

== ENCOUNTER → 2017-10-26 | Outpatient (CLI) | payer OTHER ==
[~2017-10-26] MED LIST changes: -AUG0.05C12 TOP; -CEFAZOLIN 2000MG IV PUSH 10 ML IV SCH; -ERGO500037 PO; -LACTATED RINGER'S 1000ML 1,000 ML IV SCH; -NVLGI SQ; -PHYT100T PO
[2017-10-26 16:51] LABS: CALCIUM URINE 11.9 mg/dl; CREATININE, URINE 57.3 mg/dl
== END | disposition home or self-care (01) ==
LOC: C.LAB1850 14:55
PROVIDERS: ATTEND Internal Medicine Endocrinology, Diabetes & Metabolism
DX: E21.3 Hyperparathyroidism, unspecified (principal); F31.9 Bipolar disorder, unspecified; E83.52 Hypercalcemia

== ENCOUNTER → 2017-12-09 | Outpatient (CLI) | payer OTHER ==
[~2017-12-09] MED LIST changes: -ENOX120I SQ
[2017-12-09 12:27] LABS: ALBUMIN 3.6 gm/dl (3.4-5.0); ALT/SGPT 27 U/L (12-78); BLOOD UREA NITROGEN 21 mg/dl (7-18); CALCIUM 9.8 mg/dl (8.5-10.1); CARBON DIOXIDE 27 mmol/L (21-32); CREATININE 1.05 mg/dl (0.60-1.20); GLUCOSE 124 mg/dl (70-99); POTASSIUM 4.3 mmol/L (3.5-5.1); SODIUM 137 mmol/L (136-145)
[2017-12-09 12:28] LABS: HEMOGLOBIN A1C 6.3 % (4.5-5.6)
[2017-12-09 12:30] LABS: ALKALINE PHOSPHATASE 96 U/L (45-117); AST/SGOT 25 U/L (15-37); TOTAL PROTEIN 7.4 gm/dl (6.4-8.2)
== END | disposition home or self-care (01) ==
LOC: C.LAB1850 11:17
PROVIDERS: ATTEND Nurse Practitioner Family
DX: E11.42 Type 2 diabetes mellitus with diabetic polyneuropathy (principal); E21.3 Hyperparathyroidism, unspecified; E83.52 Hypercalcemia

== ENCOUNTER → 2018-01-22 | Outpatient (CLI) | payer OTHER ==
--- NOTE | 2018-01-22 12:38 | DIAGNOSTIC IMAGING REPORT ---
PELVIS/BILATERAL HIP 2 VIEWS CLINICAL HISTORY: HIP PAIN pain COMPARISON STUDY: None FINDINGS: Moderate degenerative narrowing right hip joint spaces bilaterally. Mild degenerative sclerosis of the sacroiliac joints. Postoperative changes low lumbar spine. No evidence for acetabular protrusion. Small focus of sclerosis central aspect right femoral head most likely degenerative. A bone island may present in similar fashion. IMPRESSION: Moderate degenerative change of the hips bilaterally. No acute process. The above report was generated using voice recognition software. It may contain grammatical, syntax or spelling errors. Electronically signed by: Hernandez Birones M.D. 01/22/2018 12:37 PM Dictated Date/Time: 01/22/2018 12:35 PM
== END | disposition home or self-care (01) ==
LOC: C.RAD1850 12:09
PROVIDERS: ATTEND Nurse Practitioner Family
DX: M25.559 Pain in unspecified hip (principal)

== ENCOUNTER → 2018-03-17 | Outpatient (CLI) | payer OTHER ==
[2018-03-17 13:45] LABS: ALBUMIN 3.8 gm/dl (3.4-5.0); ALT/SGPT 25 U/L (12-78); AST/SGOT 24 U/L (15-37); BLOOD UREA NITROGEN 17 mg/dl (7-18); CALCIUM 10.2 mg/dl (8.5-10.1); CARBON DIOXIDE 27 mmol/L (21-32); CREATININE 1.08 mg/dl (0.60-1.20); GLUCOSE 59 mg/dl (70-99); POTASSIUM 4.2 mmol/L (3.5-5.1); SODIUM 138 mmol/L (136-145)
[2018-03-17 13:48] LABS: ALKALINE PHOSPHATASE 121 U/L (45-117); TOTAL PROTEIN 7.5 gm/dl (6.4-8.2)
== END | disposition home or self-care (01) ==
LOC: C.LAB1850 11:51
PROVIDERS: ATTEND Internal Medicine Endocrinology, Diabetes & Metabolism
DX: E21.3 Hyperparathyroidism, unspecified (principal)

== ENCOUNTER → 2018-07-13 | Outpatient (CLI) | payer OTHER ==
[~2018-07-13] MED LIST changes: -ANSHCCR/ TOP; +ANTIFUNGAL POWDER EXT; -CLOTCRE33 TOP; -FLUO0.0566 TOP; -INSDGI SC; +LVMI SC; +METO25TA56 PO; -METO50TA16 PO; +MULT-506 PO; -MULT-513 PO; -NOVOLOG INJ; +NVLG SC; +PHYT100T PO; +TIZA4CAP PO; -[UNRECOGNIZED DRUG - CODE] PO; -[UNRECOGNIZED DRUG - CODE] TOP
== END | disposition home or self-care (01) ==
LOC: C.LAB1850 11:19
PROVIDERS: ATTEND Internal Medicine Endocrinology, Diabetes & Metabolism
DX: E21.3 Hyperparathyroidism, unspecified (principal); E83.52 Hypercalcemia

== ENCOUNTER 2020-05-10 12:32 | Inpatient (IN) ==
[2020-05-10 13:25] LABS: Basophils # (auto) 0.03 K/uL (0-0.2); Basophils % (auto) 0.4 %; Eosinophils # (auto) 0.19 K/uL (0-0.5); Eosinophils % (auto) 2.3 %; Hematocrit (blood only) 35.6 % (37-47); Hemoglobin 10.8 g/dL (12.0-16.0); Immature Granulocytes # (auto) 0.02 K/uL (0.00-0.02); Immature Granulocytes % (auto) 0.2 %; Lymphocytes # (auto) 1.02 K/uL (1.2-3.4); Lymphocytes % (auto) 12.1 %; Mean Corpuscular Hemoglobin 25.1 pg (25-34); Mean Corpuscular Hgb Conc 30.3 g/dL (32-36); Mean Corpuscular Volume 82.6 fL (80-100); Mean Platelet Volume 9.3 fL (7.4-10.4); Monocytes # (auto) 0.72 K/uL (0.11-0.59); Monocytes % (auto) 8.6 %; Neutrophils # (auto) 6.42 K/uL (1.4-6.5); Neutrophils % (auto) 76.4 %; Platelet Count 266 K/uL (130-400); RDW Coefficient of Variation 15.8 % (11.5-14.5); RDW Standard Deviation 47.9 fL (36.4-46.3); Red Blood Count 4.31 M/uL (4.2-5.4)
--- NOTE | 2020-05-10 13:30 | XRay Report ---
XR chest 1V portable CLINICAL HISTORY: Shortness of breath COMPARISON STUDY: 11/03/2019 FINDINGS: There are postsurgical changes of a midline sternotomy. The heart is enlarged. Valvular pro sthesis is visualized. There is radiographic evidence of mild congestive failure/fluid overload. Ther e are bilateral areas of subsegmental atelectasis. There is no lobar consolidation. There are no larg e pleural effusions. IMPRESSION: Cardiomegaly and radiographic evidence of mild congestive failure/fluid overload. ACT 112: Negative or not required by law. Electronically signed by: Casey Larson M.D. 05/10/2020 1:28 PM
[2020-05-10 13:44] LABS: Albumin Level 3.5 gm/dl (3.4-5.0); BUN Creatinine Ratio 19.1 (10-20); Calcium 9.9 mg/dl (8.5-10.1); Creatinine Clr Calc Pharmacy 62.9 ml/min; Est GFR (African American) 67.4; Est GFR (Non-African American) 58.1; Potassium 4.4 mmol/L (3.5-5.1)
[2020-05-10 13:52] LABS: INR 3.3 (0.9-1.1); Partial Thromboplastin Ratio 1.8
[2020-05-10 13:55] LABS: Bilirubin,Total 0.4 mg/dl (0.2-1); Globulin 3.7 gm/dl (2.5-4.0); Total Protein 7.2 gm/dl (6.4-8.2); Troponin I 0.058 ng/ml (0-0.045)
[2020-05-10] MEDS ORDERED: ASPIRIN CHEW 324 MG PO STA (14:13)
[2020-05-10] MEDS ORDERED: FUROSEMIDE 40 MG/4 ML VIAL IV STA (14:13)
[2020-05-10 14:25] LABS: Partial Thromboplastin Time 49.6 Seconds (21.0-31.0)
--- NOTE | 2020-05-10 14:50 | Emergency Department Note ---
Impression & Plan CHF (congestive heart failure), Chronic anticoagulation, Elevated troponin ED Provider Note NAME: AURY SOSA AGE: 69 SEX: F : 1950 ARRIVES VIA: Walk-In INFORMANT: Patient ED PROVIDER(S): Ron Harding DO CHIEF COMPLAINT: Shortness of breath HPI: Patient is a 69-year-old female who presents the ER for shortness of breath. This has been getting worse over the past 3 to 4 weeks. She notes now she cannot sleep laying down but rather has to sit up. Patient admits to history of CHF, COPD and asthma. She notes that she just started taking her L asix again and has lost 10 pounds but is still short of breath. She notes she is dyspneic with any conversation. Denies any fevers or new cough. No belly pain nausea vomiting or diarrhea. No chest pain. No other exacerbating or remitting factors. She does take Coumadin. She also has 2 valve replacements. ROS: See above HPI for pertinent positives & negatives. A total of 10 systems reviewed and were otherwise negative. PAST MEDICAL HISTORY:See Below PAST SURGICAL HISTORY:See Below FAMILY HISTORY:See Below SOCIAL HISTORY:See Below HOME MEDICATIONS:See Below ALLERGIES:See Below VITALS:See Below PHYSICAL EXAMINATION: GENERAL: Sitting up in bed, alert, ill-appearing, dyspneic with conversation EYE EXAM: normal conjunctiva. OROPHARYNX: no exudate, no erythema, lips, buccal mucosa, and tongue normal and mucous membranes are moist NECK: supple, no nuchal rigidity, no adenopathy, non-tender LUNGS: Diminished bilaterally. Normal chest wall mechanics HEART: no murmurs, S1 normal and S2 normal ABDOMEN: abdomen soft, non-tender, normo-active bowel sounds, no masses, no rebound or guarding. BACK: Back is symmetrical on inspection and there is no deformity, no midline tenderness, no CVA tenderness. SKIN: no rashes and no bruising UPPER EXTREMITIES: upper extremities are grossly normal. LOWER EXTREMITIES: Pitting edema in the bilateral lower extremities tracking up to abdomen NEURO EXAM: Normal sensorium, cranial nerves II-XII grossly intact, normal speech, no gross weakness of arms, no gross weakness of legs. MEDICAL DECISION MAKING: Patient is a 69-year-old female with a past medical history of COPD, asthma and CHF with bowel transplants on Coumadin that presents the ER for shortness of breath. Shortness of breath has been present for the past 3 to 4 weeks. She started taking Lasix in hopes that this would improve her symptoms. She has l ost 10 pounds recently but is still short of breath. IV was established blood work was obtained and shows no significant leukocytosis. There is a mild anemia 10.8 thousand. INR was at 3.3. BMP with LFTs bilirubin was unremarkable. Troponin was positive at 0.058. EKG was nondiagnostic. She was given IV Lasix and aspirin. She was placed on 3 L nasal cannula. She notes that she does feel slightly better. She was updated bedside. Discussed with hospitalist admitted for further work-up. We will hold on heparin at this time as I favor this is likely secondary to CHF. Triage Nursing notes reviewed. Prior medical records reviewed Vital Signs: reviewed and remarkable for no significant abnormalities Differential diagnosis: Differential diagnoses includes but is not limited to pneumonia, bronchitis, COPD/Asthma exacerbation, pneumothorax, pulmonary embolism, congestive heart failure, acute coronary syndrome ER treatment provided: See below Diagnostics interpreted by me: ECG: Sinus rhythm rate 86 Left axis Left bundle Normal QTC TWI in the high lateral leads No PVCs Cardiac Monitoring: An order was placed for continuous cardiac monitoring. The monitor shows a rate of 82 with sinus rhythm. Laboratory studies: As stated above and show below. Imaging studies: Portable AP upright 1 view of the chest shows CHF m Consultation(s): Discussed with Dr. Obie Singleton ED COURSE: Procedures: none Critical Care: None Past Med/Surg History Social History Preferred Language: Romansh Communication Ability: Effective Visual Impairment: No Limitations Hearing Ability: Hard of Hearing Weeder Required: No Beliefs That Will Affect Care: None marital status: Single Current Living Situation: Family Current Living Situation Comment: lives with daughter current occupational status: retired Other Information That Helps Us Care for You: No Feels Safe at Home: Yes Safety Concerns: Feels Safe At This Time Smoking Status: Current every day smoker Tobacco Type: cigarettes ; Cigarettes Per Day: 15 ; Second Hand Exposure: No ; Hx Alcohol Use: No Hx Substance Use: No Childhood Exposure to Second-Hand Smoke: Yes Dental Care, Regularly: No Physical Activity Frequency: Does not Exercise Seatbelt Use: always Sunscreen Use: Yes Allergies Allergies Allergy/AdvReac Type Severity Reaction Status Date / Time fluticasone Allergy Unknown NAUSEA Verified 05/10/20 13:48 [From Advair Diskus] VOMITING lactose Allergy Unknown Diarrhea Verified 05/10/20 13:48 adhesive Allergy Rash Verified 05/10/20 13:48 cinacalcet [From Sensipar] Allergy Swelling Verified 05/10/20 13:48 of the Eye latex Allergy Rash Verified 05/10/20 13:48 levofloxacin [From Levaquin] Allergy Hives Verified 05/10/20 13:48 salmeterol Allergy NAUSEA Verified 05/10/20 13:48 [From Advair Diskus] VOMITING erythromycin base AdvReac Mild VAGINAL Verified 05/10/20 13:48 [From Erythrocin] INFECTION Home Meds Home Medications Medication Instructions Recorded Confirmed acetaminophen 1,000 mg PO HS 08/03/18 05/10/20 aspirin 81 mg PO QAM 08/03/18 05/10/20 albuterol sulfate [Ventolin HFA] 1 - 2 puff INH Q4 PRN 11/03/19 05/10/20 polyethylene glycol 3350 17 gram 10 gm PO DAILY PRN ea 12/02/19 05/10/20 oral powder packet salmeterol 50 mcg/dose blister 1 puffs INH BID PRN ea 12/02/19 05/10/20 powder for inhalation phytonadione (vitamin K1) 100 mcg 100 mcg PO UD PRN tab 12/28/19 05/10/20 tablet calcitriol 0.5 mcg capsule 0.5 mcg PO BID cap 01/10/20 05/10/20 venlafaxine [Effexor XR] 150 mg PO QAM 01/12/20 05/10/20 metoprolol succinate 25 mg 50 mg PO QAM tab 02/10/20 05/10/20 tablet,extended release 24 hr Previous Rx's Medication Instructions Recorded walker #1 ea 06/16/19 montelukast 10 mg tablet 10 mg PO DAILY PRN #90 tab 12/21/19 furosemide 40 mg tablet 40 mg PO DAILY PRN #90 tab 02/03/20 insulin aspart U-100 100 unit/mL 20 unit SUBCUT QID #70 ml 02/15/20 subcutaneous solution insulin detemir U-100 100 unit/mL 20 unit SUBCUT BID #40 ml 02/22/20 subcutaneous solution omeprazole 40 mg capsule,delayed 40 mg PO BID #90 cap 03/01/20 release tizanidine 4 mg tablet 4 mg PO TID PRN #90 tab 03/14/20 atorvastatin 40 mg tablet 40 mg PO QAM #90 tab 03/15/20 insulin syr/ndl U100 half tanner 0.3 #600 ea 03/15/20 mL 31 gauge x 5/16" warfarin 5 mg tablet 7.5 mg PO DAILY #60 tab 03/15/20 lamotrigine 100 mg tablet 100 mg PO BID #90 tab 03/16/20 gabapentin 600 mg tablet 600 mg PO BID 90 Days #180 tab 04/24/20 lisinopril 5 mg tablet 5 mg PO DAILY #90 tab 05/02/20 oxycodone 10 mg tablet 10 mg PO TID PRN #60 tab 05/10/20 Results & Data (ED) Vital Signs Vital Signs - 24 hr 05/10/20 12:35 05/10/20 13:14 05/10/20 13:30 Temperature 36.7 C Temperature Source Oral Pulse Rate 85 85 Pulse Rate from SpO2 Sensor 84 Pulse Rhythm Regular Pulse Strength Normal Respiratory Rate 28 H 17 Respiratory Effort / Characteristics Spontaneous Accessory Muscle Use Labored Short of Breath Respiratory Depth Retractive Respiratory Pattern Rapid/Shallow Blood Pressure 134/76 Blood Pressure Mean 95 Blood Pressure Position Sitting Pulse Oximetry 94 95 Oxygen Delivery Method Room Air Room Air Nasal Cannula Oxygen Flow Rate 2 Sepsis Recent Fever Within 48 Hours No Sepsis New/Unexplained Change in Mental Status No Sepsis Action Taken by Nursing No Action Required 05/10/20 13:39 05/10/20 14:00 05/10/20 14:16 Temperature Temperature Source Pulse Rate 80 88 Pulse Rate from SpO2 Sensor 80 88 Pulse Rhythm Pulse Strength Respiratory Rate 20 20 Respiratory Effort / Characteristics Respiratory Depth Respiratory Pattern Blood Pressure 141/66 H Blood Pressure Mean 91 Blood Pressure Position Pulse Oximetry 98 98 Oxygen Delivery Method Nasal Cannula Nasal Cannula Room Air Oxygen Flow Rate 2 2 Sepsis Recent Fever Within 48 Hours Sepsis New/Unexplained Change in Mental Status Sepsis Action Taken by Nursing 05/10/20 14:30 Temperature Temperature Source Pulse Rate 79 Pulse Rate from SpO2 Sensor 78 Pulse Rhythm Pulse Strength Respiratory Rate 14 Respiratory Effort / Characteristics Respiratory Depth Respiratory Pattern Blood Pressure 122/66 Blood Pressure Mean 85 Blood Pressure Position Pulse Oximetry 98 Oxygen Delivery Method Room Air Oxygen Flow Rate Sepsis Recent Fever Within 48 Hours Sepsis New/Unexplained Change in Mental Status Sepsis Action Taken by Nursing Laboratory Data Result diagrams: 05/10/20 13:05 05/10/20 13:05 Lab Results 05/10/20 05/10/20 05/10/20 Range/Units 13:05 13:05 13:05 WBC 8.40 (4.8-10.8) K/uL RBC 4.31 (4.2-5.4) M/uL Hgb 10.8 L (12.0-16.0) g/dL Hct 35.6 L (37-47) % MCV 82.6 (80-100) fL MCH 25.1 (25-34) pg MCHC 30.3 L (32-36) g/dL RDW Std Deviation 47.9 H (36.4-46.3) fL RDW Coeff of Bryon 15.8 H (11.5-14.5) % Plt Count 266 (130-400) K/uL MPV 9.3 (7.4-10.4) fL Immature Gran % (Auto) 0.2 % Neut % (Auto) 76.4 % Lymph % (Auto) 12.1 % [place] % (Auto) 8.6 % Eos % (Auto) 2.3 % Baso % (Auto) 0.4 % Immature Gran # (Auto) 0.02 (0.00-0.02) K/uL Neut # (Auto) 6.42 (1.4-6.5) K/uL Lymph # (Auto) 1.02 L (1.2-3.4) K/uL [place] # (Auto) 0.72 H (0.11-0.59) K/uL Eos # (Auto) 0.19 (0-0.5) K/uL Baso # (Auto) 0.03 (0-0.2) K/uL PT 33.0 H (9.0-12.0) Seconds INR 3.3 H (0.9-1.1) APTT 49.6 H* (21.0-31.0) Seconds PTT Ratio 1.8 Sodium 138 (136-145) mmol/L Potassium 4.4 (3.5-5.1) mmol/L Chloride 107 (98-107) mmol/L Carbon Dioxide 27 (21-32) mmol/L Anion Gap 5.0 (3-11) BUN 19 H (7-18) mg/dl Creatinine 0.99 (0.6-1.2) mg/dl Est Cr Clr Drug Dosing 62.9 ml/min Est GFR ( Amer) 67.4 Est GFR (Non-Af Amer) 58.1 BUN/Creatinine Ratio 19.1 (10-20) Glucose 142 H (70-99) mg/dl Calcium 9.9 (8.5-10.1) mg/dl Total Bilirubin 0.4 (0.2-1) mg/dl AST 18 (15-37) U/L ALT 20 (12-78) U/L Alkaline Phosphatase 111 (45-117) U/L Troponin I 0.058 H* (0-0.045) ng/ml Total Protein 7.2 (6.4-8.2) gm/dl Albumin 3.5 (3.4-5.0) gm/dl Globulin 3.7 (2.5-4.0) gm/dl Albumin/Globulin Ratio 1.0 (0.9-2) Administered Medications Insulin Aspart (Novolog Flexpen) 0 units SC ACHS [facility] Stop: 06/09/20 16:29 Last Admin: 05/10/20 18:13 Dose: 3 units Documented by: [id number] Cosigned by: [id number] Oxycodone HCl (Roxicodone Immediate Rel) 10 mg PO TID PRN PRN Reason: Pain Stop: 05/24/20 16:19 Last Admin: 05/10/20 17:18 Dose: 10 mg Documented by: [id number] Warfarin Sodium (Coumadin) 7.5 mg PO DAILY@1600 [facility] Stop: 06/09/20 17:29 Last Admin: 05/10/20 18:15 Dose: 7.5 mg Documented by: [id number] Discontinued Medications Aspirin (Aspirin) 324 mg PO NOW STA Stop: 05/10/20 14:14 Last Admin: 05/10/20 14:31 Dose: 324 mg Documented by: [id number] Furosemide (Lasix) 40 mg IV NOW STA Stop: 05/10/20 14:14 Last Admin: 05/10/20 14:31 Dose: 40 mg Documented by: [id number] Discharge Plan Visit Data *Final* Discharge Date/Time: 05/10/20 16:04 Chief Complaint: Respiratory Problems Stated Complaint: RESPIRATORY ISSUES ED Provider: oRn Harding Discharge Problem: CHF (congestive heart failure), Chronic anticoagulation, Elevated troponin Patient Disposition: Still a Patient Discharge Instructions Interventions: ED Discharge Assessment Last Done: 05/10/20 16:04 Discharge Problem: CHF (congestive heart failure) Qualifiers: Heart failure type: unspecified Heart failure chronicity: acute Qualified Code(s): I50.9 - Heart failure, unspecified
--- NOTE | 2020-05-10 16:14 | History & Physical Report ---
Date of Service May 10, 2020 Assessment & Plan (1) Chronic diastolic CHF (congestive heart failure): acute on chronic heart failure will check echocardiogram for EF she reports one month of progressive dyspnea, initially just on exertion now with dyspnea at rest, orthopnea (sleeps upright in recliner) CXR with pulmonary edema, has increased edema in legs she says her weight has been 235lbs at home she is not responding to Lasix at home like normally, she takes 40mg PO daily will give Lasix 40mg IV BID, fluid restrict to 1500mL/day, daily weights, strict I/O check BMP in the morning (2) Atrial fibrillation: h/o cardioversion INR is 3.3, continue Coumadin on Toprol 50mg daily (3) History of DVT (deep vein thrombosis): on Coumadin INR 3.3 (4) JOMAR (obstructive sleep apnea): admits to daytime somnolence not using her CPAP (5) Iron deficiency anemia: Hb is stable, > 10 (6) Chronic gastroesophageal reflux disease: no active symptoms continue PPI (7) COPD with chronic bronchitis: no wheezing on exam, no distress continue inhaled therapy (8) Major depression: (9) Chronic kidney disease (CKD), stage III (moderate): Cr is 0.99, electrolytes stable (10) Diabetes: continue Levemir at home dose Novolog diabetic diet monitor for hypoglycemia (11) Hypertension: BP well controlled History of Present Illness Chief Complaint: I feel short of breath Primary Care Provider: Sanya Thurman, III, CHEMICAL STRENGTH TESTER 69 yo female with history of chronic diastolic heart failure, presents to the ED with complaint of being short of breath for the past month. She says that it started as just dyspnea on exertion, was subtle at first. Then she noticed that she could not sleep flat, needed to sleep almost upright in recliner. Now she is short of breath at rest, cannot complete ADL and she was concerned so she came to the hospital. She says that she weighs herself and her weight has been around 235 consistently. She does admit to increased lower extremity edema. She is compliant with her Lasix 40mg every morning. She tries to limit her sodium and fluid intake. She says she gets an occasional stabbing chest pain on the left side, this is sporadic, does not occur with exertion to her recollection. She also says that she will have one to two spells a day where she loses consciousness. This only happens when she is sitting, she has not fallen at all. She has sleep apnea and she does not use CPAP due to claustrophobia. She admits to daytime somnolence. She says that the past few days she does not seem to be responding to Lasix as usual. In the ED she has evidence of CHF on her CXR and peripheral edema. She was given Lasix 40mg IV but it had not started working when I examined her. Vitals stable except that she required 2L NC for saturations > 90%, normally not on oxygen. CBC showed normal WBC, Hb 10.8m, INR 3.3 (on Coumadin), normal BMP, troponin 0.058. No ischemic changes on EKG. Allergies Allergy/AdvReac Type Severity Reaction Status Date / Time fluticasone Allergy Unknown NAUSEA Verified 05/10/20 13:48 [From Advair Diskus] VOMITING lactose Allergy Unknown Diarrhea Verified 05/10/20 13:48 adhesive Allergy Rash Verified 05/10/20 13:48 cinacalcet [From Sensipar] Allergy Swelling Verified 05/10/20 13:48 of the Eye latex Allergy Rash Verified 05/10/20 13:48 levofloxacin [From Levaquin] Allergy Hives Verified 05/10/20 13:48 salmeterol Allergy NAUSEA Verified 05/10/20 13:48 [From Advair Diskus] VOMITING erythromycin base AdvReac Mild VAGINAL Verified 05/10/20 13:48 [From Erythrocin] INFECTION Home Medications Home Medications Medication Instructions Recorded Confirmed Type acetaminophen 1,000 mg PO HS 08/03/18 05/10/20 History aspirin 81 mg PO QAM 08/03/18 05/10/20 History walker #1 ea 06/16/19 05/10/20 Rx albuterol sulfate [Ventolin HFA] 1 - 2 puff INH Q4 PRN 11/03/19 05/10/20 History polyethylene glycol 3350 17 gram 10 gm PO DAILY PRN ea 12/02/19 05/10/20 History oral powder packet salmeterol 50 mcg/dose blister 1 puffs INH BID PRN ea 12/02/19 05/10/20 History powder for inhalation montelukast 10 mg tablet 10 mg PO DAILY PRN #90 tab 12/21/19 05/10/20 Rx phytonadione (vitamin K1) 100 mcg 100 mcg PO UD PRN tab 12/28/19 05/10/20 History tablet calcitriol 0.5 mcg capsule 0.5 mcg PO BID cap 01/10/20 05/10/20 History venlafaxine [Effexor XR] 150 mg PO QAM 01/12/20 05/10/20 History furosemide 40 mg tablet 40 mg PO DAILY PRN #90 tab 02/03/20 05/10/20 Rx metoprolol succinate 25 mg 50 mg PO QAM tab 02/10/20 05/10/20 History tablet,extended release 24 hr insulin aspart U-100 100 unit/mL 20 unit SUBCUT QID #70 ml 02/15/20 05/10/20 Rx subcutaneous solution insulin detemir U-100 100 unit/mL 20 unit SUBCUT BID #40 ml 02/22/20 05/10/20 Rx subcutaneous solution omeprazole 40 mg capsule,delayed 40 mg PO BID #90 cap 03/01/20 05/10/20 Rx release tizanidine 4 mg tablet 4 mg PO TID PRN #90 tab 03/14/20 05/10/20 Rx atorvastatin 40 mg tablet 40 mg PO QAM #90 tab 03/15/20 05/10/20 Rx insulin syr/ndl U100 half tanner 0.3 #600 ea 03/15/20 05/10/20 Rx mL 31 gauge x 5/16" warfarin 5 mg tablet 7.5 mg PO DAILY #60 tab 03/15/20 05/10/20 Rx lamotrigine 100 mg tablet 100 mg PO BID #90 tab 03/16/20 05/10/20 Rx gabapentin 600 mg tablet 600 mg PO BID 90 Days #180 tab 04/24/20 05/10/20 Rx lisinopril 5 mg tablet 5 mg PO DAILY #90 tab 05/02/20 05/10/20 Rx oxycodone 10 mg tablet 10 mg PO TID PRN #60 tab 05/10/20 05/10/20 Rx Past Med/Surg History Social History Preferred Language: Nepalese Communication Ability: Effective Visual Impairment: No Limitations Hearing Ability: Hard of Hearing Nutrition Services Associate Required: No Beliefs That Will Affect Care: None marital status: Single Current Living Situation: Family Current Living Situation Comment: lives with daughter current occupational status: retired Other Information That Helps Us Care for You: No Feels Safe at Home: Yes Safety Concerns: Feels Safe At This Time Smoking Status: Current every day smoker Tobacco Type: cigarettes ; Cigarettes Per Day: 15 ; Second Hand Exposure: No ; Hx Alcohol Use: No Hx Substance Use: No Childhood Exposure to Second-Hand Smoke: Yes Dental Care, Regularly: No Physical Activity Frequency: Does not Exercise Seatbelt Use: always Sunscreen Use: Yes Review of Systems Review of Systems: All systems reviewed & are unremarkable except as noted in HPI & below Respiratory: + dyspnea and + dyspnea on exertion; no cough and no sputum production Cardiovascular: + chest pain, + dyspnea, + dyspnea at rest, + dyspnea on exertion, + orthopnea, + paroxysmal nocturnal dyspnea, + syncope and + edema; no chest pain with activity and no palpitations Physical Exam Constitutional: WD/WN, vitals as above + overweight; no acute distress Eyes: PERRL, conjunctivae normal, anicteric sclerae ENMT: external ear and nose normal, oropharynx normal Neck: trachea midline, no thyromegaly Respiratory: normal respiratory effort; no respiratory distress Auscultation: + rales (bases); no crackles, no rhonchi and no wheezes Cardiovascular: Rate/Rhythm: regular rate and regular rhythm Heart Sounds: normal S1 and normal S2 (artificial sounding); no murmur Vessels: + JVD Extremities: normal capillary refill and + edema (tense, to mid shins bilaterally) Gastrointestinal (Abdomen): normal bowel sounds, soft, nontender, no hepatosplenomegaly Musculoskeletal: no cyanosis or clubbing, extremities motor strength 5/5 Skin: no rashes, warm and dry Neurologic: patellar DTR's 2+ bilat, sensation intact and PERRL, EOMI, accommodation nl, no face palsy, no dysarthria Psychiatric: A+Ox3, euthymic affect Lymphatic: no cervical or axillary lymphadenopathy Results & Data Results & Data ([facility]) Vital Signs (Past 12 Hours) Vital Signs Temp Pulse Resp BP Pulse Ox 05/10/20 16:00 78 17 153/71 H 100 05/10/20 15:31 80 20 147/82 H 100 05/10/20 14:30 79 14 122/66 98 05/10/20 14:16 88 20 141/66 H 98 05/10/20 14:00 80 20 98 05/10/20 13:30 85 17 95 05/10/20 12:35 36.7 C 85 28 H 134/76 94 Laboratory Results Laboratory Results - last 24 hr 05/10/20 05/10/20 05/10/20 13:05 13:05 13:05 WBC 8.40 RBC 4.31 Hgb 10.8 L Hct 35.6 L MCV 82.6 MCH 25.1 MCHC 30.3 L RDW Std Deviation 47.9 H RDW Coeff of Bryon 15.8 H Plt Count 266 MPV 9.3 Immature Gran % (Auto) 0.2 Neut % (Auto) 76.4 Lymph % (Auto) 12.1 [place] % (Auto) 8.6 Eos % (Auto) 2.3 Baso % (Auto) 0.4 Immature Gran # (Auto) 0.02 Neut # (Auto) 6.42 Lymph # (Auto) 1.02 L [place] # (Auto) 0.72 H Eos # (Auto) 0.19 Baso # (Auto) 0.03 PT 33.0 H INR 3.3 H APTT 49.6 H* PTT Ratio 1.8 Sodium 138 Potassium 4.4 Chloride 107 Carbon Dioxide 27 Anion Gap 5.0 BUN 19 H Creatinine 0.99 Est Cr Clr Drug Dosing 62.9 Est GFR ( Amer) 67.4 Est GFR (Non-Af Amer) 58.1 BUN/Creatinine Ratio 19.1 Glucose 142 H POC Glucose Calcium 9.9 Total Bilirubin 0.4 AST 18 ALT 20 Alkaline Phosphatase 111 Troponin I 0.058 H* Total Protein 7.2 Albumin 3.5 Globulin 3.7 Albumin/Globulin Ratio 1.0 05/10/20 05/10/20 17:08 20:21 WBC RBC Hgb Hct MCV MCH MCHC RDW Std Deviation RDW Coeff of Bryon Plt Count MPV Immature Gran % (Auto) Neut % (Auto) Lymph % (Auto) [place] % (Auto) Eos % (Auto) Baso % (Auto) Immature Gran # (Auto) Neut # (Auto) Lymph # (Auto) [place] # (Auto) Eos # (Auto) Baso # (Auto) PT INR APTT PTT Ratio Sodium Potassium Chloride Carbon Dioxide Anion Gap BUN Creatinine Est Cr Clr Drug Dosing Est GFR ( Amer) Est GFR (Non-Af Amer) BUN/Creatinine Ratio Glucose POC Glucose 129 H 131 H Calcium Total Bilirubin AST ALT Alkaline Phosphatase Troponin I Total Protein Albumin Globulin Albumin/Globulin Ratio Diagnostic Findings XR chest 1V portable CLINICAL HISTORY: Shortness of breath COMPARISON STUDY: 11/03/2019 FINDINGS: There are postsurgical changes of a midline sternotomy. The heart is enlarged. Valvular prosthesis is visualized. There is radiographic evidence of mild congestive failure/fluid overload. There are bilateral areas of subsegmental atelectasis. There is no lobar consolidation. There are no large pleural effusions. IMPRESSION: Cardiomegaly and radiographic evidence of mild congestive failure/fluid overload. Code Status & VTE Plan VTE Prophylaxis Plan VTE Prophylaxis will be ordered: Yes PG Care Time/CCT Total # of Minutes Spent Total Time Spent with Patient: Total time spent is greater than 50% in coordination of care (as documented) at patient's floor/unit and/or counseling patient: Coding Level of Care Code 74646 Initial Inpt Care Lvl 3 Diagnoses Chronic diastolic CHF (congestive heart failure) I50.32 Atrial fibrillation I48.91 History of DVT (deep vein thrombosis) Z86.718 JOMAR (obstructive sleep apnea) G47.33 Iron deficiency anemia D50.9 Chronic gastroesophageal reflux disease K21.9 COPD with chronic bronchitis J44.9 Major depression F32.1 Active/Remission status: currently active Major depression episode severity: moderate Major depression recurrence: single episode Chronic kidney disease (CKD), stage III (moderate) N18.3 Diabetes E11.22; N18.3; Z79.4 Chronic kidney disease stage: stage 3 (moderate) Diabetes mellitus complication detail: with chronic kidney disease Diabetes mellitus complication status: with kidney complications Diabetes mellitus meterman insulin use: with meterman use Diabetes mellitus type: type 2 Hypertension I10 (1) Major depression Active/Remission status: currently active Major depression episode severity: moderate Major depression recurrence: single episode Qualified Code(s): F32.1 - Major depressive disorder, single episode, moderate (2) Diabetes Chronic kidney disease stage: stage 3 (moderate) Diabetes mellitus complication detail: with chronic kidney disease Diabetes mellitus complication status: with kidney complications Diabetes mellitus chcf insulin use: with chcf use Diabetes mellitus type: type 2 Qualified Code(s): E11.22 - Type 2 diabetes mellitus with diabetic chronic kidney disease; N18.3 - Chronic kidney disease, stage 3 (moderate); Z79.4 - shelter (current) use of insulin
[2020-05-10] MEDS ORDERED: POLYETHYLENE (MIRALAX) 17 GM PACK PO PRN (16:20)
[2020-05-10] MEDS ORDERED: ALBUTEROL HFA 8 GM INHALER INH PRN (16:20)
[2020-05-10] MEDS ORDERED: ONDANSETRON INJ 2 MG/ML 2 ML VIAL IV PRN (16:20)
[2020-05-10] MEDS: OXYCODONE HCL IR 5 MG TAB (IMMEDIATE RELEASE) PO PRN (17:18)
[2020-05-10] MEDS: INSULIN ASPART 100 UNITS/ML 3 ML PEN SC SCH ×2 (18:13→20:25)
[2020-05-10] MEDS: WARFARIN SOD 7.5 MG TAB PO SCH (18:15)
[2020-05-10] MEDS: ACETAMINOPHEN 500 MG TAB PO SCH (20:22)
[2020-05-10] MEDS: lamoTRIgine 100 MG TAB PO SCH (20:22)
[2020-05-10] MEDS: GABAPENTIN 600 MG TAB PO SCH (20:22)
[2020-05-10] MEDS: PANTOprazole 40 MG TAB PO SCH (20:22)
[2020-05-10] MEDS: TIZANIDINE HCL 4 MG TABLET PO PRN (20:22)
[2020-05-10] MEDS: FUROSEMIDE 40 MG in SYRINGE 0 ML IV SCH (20:25)
[2020-05-10] MEDS: INSULIN DETEMIR FLEXPEN/FLEX TOUCH 100 UNITS/ML 3ML SQ SCH (20:26)
--- NOTE | 2020-05-10 23:32 | Electrocardiogram Report ---
Test Reason : Blood Pressure : / mmHG Vent. Rate : 086 BPM Atrial Rate : 086 BPM P-R Int : 230 ms QRS Dur : 158 ms QT Int : 408 ms P-R-T Axes : 114 -49 100 degrees QTc Int : 488 ms Sinus rhythm with 1st degree A-V block Left axis deviation Left bundle branch block Abnormal ECG When compared with ECG of 03-NOV-2019 10:39, Premature ventricular complexes are no longer Present Confirmed by Mohamud Man ([id number]) on 05/10/2020 11:32:15 PM Referred By: Confirmed By:Mohamud Man
[2020-05-11 06:07] LABS: Hematocrit (blood only) 36.4 % (37-47); Hemoglobin 10.8 g/dL (12.0-16.0); Mean Corpuscular Hemoglobin 24.8 pg (25-34); Mean Corpuscular Hgb Conc 29.7 g/dL (32-36); Mean Corpuscular Volume 83.5 fL (80-100); Mean Platelet Volume 9.3 fL (7.4-10.4); Platelet Count 267 K/uL (130-400); RDW Coefficient of Variation 15.8 % (11.5-14.5); RDW Standard Deviation 48.1 fL (36.4-46.3); Red Blood Count 4.36 M/uL (4.2-5.4); White Blood Count 6.85 K/uL (4.8-10.8)
[2020-05-11 06:26] LABS: INR 3.1 (0.9-1.1); Prothrombin Time 30.8 Seconds (9.0-12.0)
[2020-05-11 06:39] LABS: BUN Creatinine Ratio 17.7 (10-20); Calcium 9.9 mg/dl (8.5-10.1); Creatinine Clr Calc Pharmacy 56.7 ml/min; Est GFR (Non-African American) 51.8; Potassium 4.4 mmol/L (3.5-5.1)
[2020-05-11] MEDS: ASPIRIN 81 MG ECTAB PO SCH (08:03)
[2020-05-11] MEDS: INSULIN ASPART 100 UNITS/ML 3 ML PEN SC SCH ×4 (08:03→20:27)
[2020-05-11] MEDS: PANTOprazole 40 MG TAB PO SCH ×2 (08:03→20:27)
[2020-05-11] MEDS: FUROSEMIDE 40 MG in SYRINGE 0 ML IV SCH ×2 (08:03→20:27)
[2020-05-11] MEDS: GABAPENTIN 600 MG TAB PO SCH ×2 (08:03→20:27)
[2020-05-11] MEDS: lamoTRIgine 100 MG TAB PO SCH ×2 (08:04→20:27)
[2020-05-11] MEDS: METOPROLOL SUCC 50MG EXT REL TAB PO SCH (08:04)
[2020-05-11] MEDS: ATORVASTATIN 40 MG TAB PO SCH (08:04)
[2020-05-11] MEDS: INSULIN DETEMIR FLEXPEN/FLEX TOUCH 100 UNITS/ML 3ML SQ SCH ×2 (08:04→20:28)
[2020-05-11] MEDS: lisinopriL 5 MG TAB PO SCH (08:04)
[2020-05-11] MEDS: VENLAFAXINE HCL XR 150 MG CAPXR PO SCH (08:04)
--- NOTE | 2020-05-11 09:29 | Cardiology Consultation ---
Date of Consultation May 11, 2020 Assessment & Plan (1) Acute on chronic combined systolic (congestive) and diastolic (congestive) heart failure: 2. Rheumatic heart disease --post mechanical AVR/MVR--mildly elevated transvalvular gradients 3. Atrial Flutter--sinus rhythm; on anticoagulation with warfarin 4. History of prosthetic mitral valve endocarditis 5. Hypertension 6. Chronic venous insufficiency--status post bilateral greater saphenous vein endovenous ablation 7. Cardiomyopathy 8. COPD/JOMAR 9. Depression 10. Type 2 diabetes Patient admitted with acute systolic congestive heart failure. She is responding well to IV Lasix 40 mg bid, negative >2L and weight down 2 kg. On exam appears well perfused with mild systemic vascular congestion. Continue current dose of Lasix. Monitor renal function/electrolytes. Daily weights. Low Na diet. CHF clinic on board. She continues to have atypical chest pain and also some chest tightness with exertion. Her echo shows further progression of her LV dysfunction and stress testing in the past was abnormal. Recommend ischemic evaluation with coronary angiography. She is agreeable and this will likely be performed Thursday morning. History of Present Illness Attending Physician: Gurvinder Ramires DO History of Present Illness Ms. Mendoza is a 69 year-old woman with a complex past medical history including rheumatic heart disease status post [facility] mechanical aortic and mitral valve replacement (2003), now with moderate LV dysfunction EF 35-40%, atrial flutter, diabetes, hypertension, hyperlipidemia, chronic kidney disease, obstructive sleep apnea, bipolar disease, hyperparathyroidism, prosthetic valve endocarditis (Strep Salivarius), and chronic venous insufficiency post bilateral GSV RFA. She is well known to us from the outpatient setting. She has a history of LV dysfunction dating back to 2018. She declined ischemic workup. In March 2019 echo showed progression in LV dysfunction with inferior/ septal wall motion abnormalities. In July 2019 endorsed atypical chest pain. Dobutamine stress echo again demonstrated severe inferior, septal resting wall motion abnormality with EF 35 to 40%. Remaining segments augmented appropriately with dobutamine. Cardiac catheterization was recommended but patient declined. She has also had difficulty with recurrent congestive heart failure. She was admitted yesterday with worsening shortness of breath and orthopnea. She states her symptoms started about 3-4 weeks ago and she has been sleeping in a recliner due to her orthopnea. She has shortness of breath with little exertion. No PND. Increased lower extremity edema. Not consistently weighing herself at home. She has been taking Lasix 40 mg daily. Also continues to have atypical chest pain she describes as "an arrow being shot from my left chest into the right side." The pain is sharp and occurs at random. Also has chest tightness/pressure when climbing her stairs with associated significant dyspnea. Chest xray on admission showed pulmonary vascular congestion. Placed on IV Lasix 40 mg bid with good diuresis, negative greater than 2L so far. Echo shows further decline of LV systolic function. Troponin is mildly elevated at 0.058. Allergies Allergy/AdvReac Type Severity Reaction Status Date / Time fluticasone Allergy Unknown NAUSEA Verified 05/10/20 13:48 [From Advair Diskus] VOMITING lactose Allergy Unknown Diarrhea Verified 05/10/20 13:48 adhesive Allergy Rash Verified 05/10/20 13:48 cinacalcet [From Sensipar] Allergy Swelling Verified 05/10/20 13:48 of the Eye latex Allergy Rash Verified 05/10/20 13:48 levofloxacin [From Levaquin] Allergy Hives Verified 05/10/20 13:48 salmeterol Allergy NAUSEA Verified 05/10/20 13:48 [From Advair Diskus] VOMITING erythromycin base AdvReac Mild VAGINAL Verified 05/10/20 13:48 [From Erythrocin] INFECTION Home Medications Home Medications Medication Instructions Recorded Confirmed Type acetaminophen 1,000 mg PO HS 08/03/18 05/10/20 History aspirin 81 mg PO QAM 08/03/18 05/10/20 History walker #1 ea 06/16/19 05/10/20 Rx albuterol sulfate [Ventolin HFA] 1 - 2 puff INH Q4 PRN 11/03/19 05/10/20 History polyethylene glycol 3350 17 gram 10 gm PO DAILY PRN ea 12/02/19 05/10/20 History oral powder packet salmeterol 50 mcg/dose blister 1 puffs INH BID PRN ea 12/02/19 05/10/20 History powder for inhalation montelukast 10 mg tablet 10 mg PO DAILY PRN #90 tab 12/21/19 05/10/20 Rx phytonadione (vitamin K1) 100 mcg 100 mcg PO UD PRN tab 12/28/19 05/10/20 History tablet calcitriol 0.5 mcg capsule 0.5 mcg PO BID cap 01/10/20 05/10/20 History venlafaxine [Effexor XR] 150 mg PO QAM 01/12/20 05/10/20 History furosemide 40 mg tablet 40 mg PO DAILY PRN #90 tab 02/03/20 05/10/20 Rx metoprolol succinate 25 mg 50 mg PO QAM tab 02/10/20 05/10/20 History tablet,extended release 24 hr insulin aspart U-100 100 unit/mL 20 unit SUBCUT QID #70 ml 02/15/20 05/10/20 Rx subcutaneous solution insulin detemir U-100 100 unit/mL 20 unit SUBCUT BID #40 ml 02/22/20 05/10/20 Rx subcutaneous solution omeprazole 40 mg capsule,delayed 40 mg PO BID #90 cap 03/01/20 05/10/20 Rx release tizanidine 4 mg tablet 4 mg PO TID PRN #90 tab 03/14/20 05/10/20 Rx atorvastatin 40 mg tablet 40 mg PO QAM #90 tab 03/15/20 05/10/20 Rx insulin syr/ndl U100 half tanner 0.3 #600 ea 03/15/20 05/10/20 Rx mL 31 gauge x /" warfarin 5 mg tablet 7.5 mg PO DAILY #60 tab 03/15/20 05/10/20 Rx lamotrigine 100 mg tablet 100 mg PO BID #90 tab 03/16/20 05/10/20 Rx gabapentin 600 mg tablet 600 mg PO BID 90 Days #180 tab 04/24/20 05/10/20 Rx lisinopril 5 mg tablet 5 mg PO DAILY #90 tab 05/02/20 05/10/20 Rx oxycodone 10 mg tablet 10 mg PO TID PRN #60 tab 05/10/20 05/10/20 Rx Patient History Social History Preferred Language: Azeri Communication Ability: Effective Visual Impairment: No Limitations Hearing Ability: Hard of Hearing Optical Element Coater Required: No Beliefs That Will Affect Care: None marital status: Single Current Living Situation: Family Current Living Situation Comment: lives with daughter current occupational status: retired Other Information That Helps Us Care for You: No Feels Safe at Home: Yes Safety Concerns: Feels Safe At This Time Smoking Status: Current every day smoker Tobacco Type: cigarettes ; Cigarettes Per Day: 15 ; Second Hand Exposure: No ; Hx Alcohol Use: No Hx Substance Use: No Childhood Exposure to Second-Hand Smoke: Yes Dental Care, Regularly: No Physical Activity Frequency: Does not Exercise Seatbelt Use: always Sunscreen Use: Yes Review of Systems Review of Systems: All systems reviewed & are unremarkable except as noted in HPI & below Physical Exam Physical Exam: General: No acute distress. Weight down 3 pounds HEENT: Head is normal. PERRLA. EOMI. Sclerae anicteric. Ears, nose and th roat unremarkable. Mucous membranes moist. Neck: JVD difficult to assess Lungs: Clear to auscultation bilaterally without rales, rhonchi or wheezes. Cardiac: Regular rate and rhythm. [place] mechanical valve sounds. Grade 2/6 systolic murmur. Abdomen: Soft and nontender. Bowel sounds normal. No mass or organomegaly. No CVA tenderness. No abdominal bruit. Extremities/vascular: --Well perfused. 1+ lower extremity edema bilaterally --Radial, DP and PT pulses 2+ bilaterally --few telangiectasias and reticular veins bilaterally Skin: No rash or abnormal lesions. Normal turgor. Neurologic: Nonfocal Psychiatric: Affect appropriate. Alert and oriented. Results & Data ([facility]) Vital Signs (Past 12 Hours) Vital Signs Temp Pulse Pulse Resp BP Pulse Ox 05/11/20 07:43 81 05/11/20 01:45 77 18 116/59 L 98 05/11/20 01:00 89 05/10/20 23:09 36.7 C 82 19 126/73 96 Laboratory Results Laboratory Results - last 24 hr 05/10/20 05/10/20 05/11/20 17:08 20:21 01:42 WBC RBC Hgb Hct MCV MCH MCHC RDW Std Deviation RDW Coeff of Bryon Plt Count MPV PT INR Sodium Potassium Chloride Carbon Dioxide Anion Gap BUN Creatinine Est Cr Clr Drug Dosing Est GFR ( Amer) Est GFR (Non-Af Amer) BUN/Creatinine Ratio Glucose POC Glucose 129 H 131 H 119 H Calcium 05/11/20 05/11/20 05/11/20 05:34 05:34 05:34 WBC 6.85 RBC 4.36 Hgb 10.8 L Hct 36.4 L MCV 83.5 MCH 24.8 L MCHC 29.7 L RDW Std Deviation 48.1 H RDW Coeff of Bryon 15.8 H Plt Count 267 MPV 9.3 PT 30.8 H INR 3.1 H Sodium 140 Potassium 4.4 Chloride 105 Carbon Dioxide 33 H Anion Gap 2.0 L BUN 19 H Creatinine 1.09 Est Cr Clr Drug Dosing 56.7 Est GFR ( Amer) 60.0 Est GFR (Non-Af Amer) 51.8 BUN/Creatinine Ratio 17.7 Glucose 102 H POC Glucose Calcium 9.9 05/11/20 05/11/20 07:16 11:33 WBC RBC Hgb Hct MCV MCH MCHC RDW Std Deviation RDW Coeff of Bryon Plt Count MPV PT INR Sodium Potassium Chloride Carbon Dioxide Anion Gap BUN Creatinine Est Cr Clr Drug Dosing Est GFR ( Amer) Est GFR (Non-Af Amer) BUN/Creatinine Ratio Glucose POC Glucose 115 H 113 H Calcium PG Care Time/CCT Total # of Minutes Spent Total Time Spent with Patient: Total time spent is greater than 50% in coordination of care (as documented) at patient's floor/unit and/or counseling patient: Coding Level of Care Code 19350 Initial Inpt Care Lvl 3 Diagnoses Acute on chronic combined systolic (congestive) and diastolic (congestive) heart failure I50.43
[2020-05-11] MEDS ORDERED: ACETAMINOPHEN 1,000 MG/100 ML VIAL IV STA (10:43)
--- NOTE | 2020-05-11 10:43 | Hospitalist Progress Note ---
Date of Service May 11, 2020 Assessment & Plan (1) Acute on chronic combined systolic (congestive) and diastolic (congestive) heart failure: she reports one month of progressive dyspnea, initially just on exertion now with dyspnea at rest, orthopnea (sleeps upright in recliner) CXR with pulmonary edema, has increased edema in legs she says her weight has been 235lbs at home she is not responding to Lasix at home like normally, she takes 40mg PO daily excellent response to Lasix 40mg IV BID, negative 2700mL so far, continue on Lasix BID Cr is stable, K is normal fluid restrict to 1500mL / day weight is 232lb today, follow daily appreciate input for Dr. Friedman, plan for heart cath today (2) Arteriosclerosis of coronary artery: h/o poor performance with stress echocardiogram refused heart cath in the past, now needs heart cath Dr. Friedman will take for [facility] this afternoon to assess severity of coronary disease and how much it is contributing to cardiomyopathy troponin 0.05 on admission has some intermittent chest pain when walking up stairs on aspirin, Lipitor, metoprolol (3) Chronic diastolic CHF (congestive heart failure): now with acute component diuresis with Lasix (4) Atrial fibrillation: h/o cardioversion INR is 3.1 on Toprol 50mg daily, HR is in 80's (5) History of DVT (deep vein thrombosis): on Coumadin INR 3.1 (6) JOMAR (obstructive sleep apnea): admits to daytime somnolence not using her CPAP (7) Iron deficiency anemia: Hb is stable, 10.8 (8) Chronic gastroesophageal reflux disease: no active symptoms continue PPI (9) COPD with chronic bronchitis: no wheezing on exam, no distress continue inhaled therapy (10) Major depression: (11) Chronic kidney disease (CKD), stage III (moderate): Cr is 0.99, electrolytes stable (12) Diabetes: continue Levemir at home dose Novolog diabetic diet monitor for hypoglycemia (13) Hypertension: BP well controlled (14) Headache: likely just tension headache give Tylenol 1000mg IV x 1 since she in NPO for heart cath Admission and Anticipated Discharge Date Admission Date: May 10, 2020 Subjective patient breathing better, diuresed 2700 thus far no chest pain/pressure today, she is c/o headache between eyes, gets better with Tylenol at home reviewed labs, Cr is stable, K normal, INR 3.1 discussed with cardiology, Dr. Friedman plans for heart cath this afternoon she has h/o EF of 35-40%, has refused work up in the past, had a poor stress test in the past she now admits that she gets shooting chest pain on left side when walking up steps echo was cancelled at this time, plan for heart cath Review of Systems Review of Systems: All systems reviewed & are unremarkable except as noted in HPI & below Constitutional: no fever, no fatigue and no weakness Respiratory: + dyspnea on exertion; no dyspnea Cardiovascular: + edema; no chest pain, no palpitations and no syncope Gastrointestinal: no abdominal pain, no nausea, no vomiting, no constipation and no diarrhea/loose stools Neurologic: + headache(s) (between eyes) Physical Exam Constitutional: WD/WN, vitals as above + overweight; no acute distress Eyes: PERRL, conjunctivae normal, anicteric sclerae ENMT: external ear and nose normal, oropharynx normal Neck: trachea midline, no thyromegaly Respiratory: normal respiratory effort; no respiratory distress Auscultation: + rales (bases); no crackles, no rhonchi and no wheezes Cardiovascular: Rate/Rhythm: regular rate and regular rhythm Heart Sounds: normal S1 and normal S2 (artificial sounding); no murmur Vessels: + JVD Extremities: normal capillary refill and + edema (improved today) Gastrointestinal (Abdomen): normal bowel sounds, soft, nontender, no hepatosplenomegaly Musculoskeletal: no cyanosis or clubbing, extremities motor strength 5/5 Skin: no rashes, warm and dry Neurologic: patellar DTR's 2+ bilat, sensation intact and PERRL, EOMI, accommodation nl, no face palsy, no dysarthria Psychiatric: A+Ox3, euthymic affect Lymphatic: no cervical or axillary lymphadenopathy Results & Data Results & Data ([facility]) Vital Signs (Past 12 Hours) Vital Signs Temp Pulse Pulse Resp BP Pulse Ox 05/11/20 09:00 91 05/11/20 07:43 81 05/11/20 01:45 77 18 116/59 L 98 05/11/20 01:00 89 05/10/20 23:09 36.7 C 82 19 126/73 96 Laboratory Results Laboratory Results - last 24 hr 05/10/20 05/10/2020 13:05 13:05 13:05 WBC 8.40 RBC 4.31 Hgb 10.8 L Hct 35.6 L MCV 82.6 MCH 25.1 MCHC 30.3 L RDW Std Deviation 47.9 H RDW Coeff of Bryon 15.8 H Plt Count 266 MPV 9.3 Immature Gran % (Auto) 0.2 Neut % (Auto) 76.4 Lymph % (Auto) 12.1 Lawrence % (Auto) 8.6 Eos % (Auto) 2.3 Baso % (Auto) 0.4 Immature Gran # (Auto) 0.02 Neut # (Auto) 6.42 Lymph # (Auto) 1.02 L Lawrence # (Auto) 0.72 H Eos # (Auto) 0.19 Baso # (Auto) 0.03 PT 33.0 H INR 3.3 H APTT 49.6 H* PTT Ratio 1.8 Sodium 138 Potassium 4.4 Chloride 107 Carbon Dioxide 27 Anion Gap 5.0 BUN 19 H Creatinine 0.99 Est Cr Clr Drug Dosing 62.9 Est GFR ( Amer) 67.4 Est GFR (Non-Af Amer) 58.1 BUN/Creatinine Ratio 19.1 Glucose 142 H POC Glucose Calcium 9.9 Total Bilirubin 0.4 AST 18 ALT 20 Alkaline Phosphatase 111 Troponin I 0.058 H* Total Protein 7.2 Albumin 3.5 Globulin 3.7 Albumin/Globulin Ratio 1.0 05/10/20 05/10/20 05/11/20 17:08 20:21 01:42 WBC RBC Hgb Hct MCV MCH MCHC RDW Std Deviation RDW Coeff of Bryon Plt Count MPV Immature Gran % (Auto) Neut % (Auto) Lymph % (Auto) Lawrence % (Auto) Eos % (Auto) Baso % (Auto) Immature Gran # (Auto) Neut # (Auto) Lymph # (Auto) Lawrence # (Auto) Eos # (Auto) Baso # (Auto) PT INR APTT PTT Ratio Sodium Potassium Chloride Carbon Dioxide Anion Gap BUN Creatinine Est Cr Clr Drug Dosing Est GFR ( Amer) Est GFR (Non-Af Amer) BUN/Creatinine Ratio Glucose POC Glucose 129 H 131 H 119 H Calcium Total Bilirubin AST ALT Alkaline Phosphatase Troponin I Total Protein Albumin Globulin Albumin/Globulin Ratio 05/11/20 05/11/20 05/11/20 05:34 05:34 05:34 WBC 6.85 RBC 4.36 Hgb 10.8 L Hct 36.4 L MCV 83.5 MCH 24.8 L MCHC 29.7 L RDW Std Deviation 48.1 H RDW Coeff of Bryon 15.8 H Plt Count 267 MPV 9.3 Immature Gran % (Auto) Neut % (Auto) Lymph % (Auto) Lawrence % (Auto) Eos % (Auto) Baso % (Auto) Immature Gran # (Auto) Neut # (Auto) Lymph # (Auto) Lawrence # (Auto) Eos # (Auto) Baso # (Auto) PT 30.8 H INR 3.1 H APTT PTT Ratio Sodium 140 Potassium 4.4 Chloride 105 Carbon Dioxide 33 H Anion Gap 2.0 L BUN 19 H Creatinine 1.09 Est Cr Clr Drug Dosing 56.7 Est GFR ( Amer) 60.0 Est GFR (Non-Af Amer) 51.8 BUN/Creatinine Ratio 17.7 Glucose 102 H POC Glucose Calcium 9.9 Total Bilirubin AST ALT Alkaline Phosphatase Troponin I Total Protein Albumin Globulin Albumin/Globulin Ratio 05/11/20 07:16 WBC RBC Hgb Hct MCV MCH MCHC RDW Std Deviation RDW Coeff of Bryon Plt Count MPV Immature Gran % (Auto) Neut % (Auto) Lymph % (Auto) Lawrence % (Auto) Eos % (Auto) Baso % (Auto) Immature Gran # (Auto) Neut # (Auto) Lymph # (Auto) Lawrence # (Auto) Eos # (Auto) Baso # (Auto) PT INR APTT PTT Ratio Sodium Potassium Chloride Carbon Dioxide Anion Gap BUN Creatinine Est Cr Clr Drug Dosing Est GFR ( Amer) Est GFR (Non-Af Amer) BUN/Creatinine Ratio Glucose POC Glucose 115 H Calcium Total Bilirubin AST ALT Alkaline Phosphatase Troponin I Total Protein Albumin Globulin Albumin/Globulin Ratio Medications Administered Current Inpatient Medications Acetaminophen (Tylenol) 1,000 mg PO HS МАРИНА Stop: 06/09/20 20:59 Last Admin: 05/10/20 20:22 Dose: 1,000 mg Documented by: Albuterol (Ventolin Hfa) 2 puffs INH Q4 PRN PRN Reason: shortness of breath or wheezin Stop: 06/09/20 16:19 Aspirin (Ecotrin Ectab) 81 mg PO QAM МАРИНА Stop: 07/12/20 08:59 Last Admin: 05/11/20 08:03 Dose: 81 mg Documented by: Atorvastatin Calcium (Lipitor) 40 mg PO QAM [facility] Stop: 06/10/20 08:59 Last Admin: 05/11/20 08:04 Dose: 40 mg Documented by: Gabapentin (Neurontin) 600 mg PO BID [facility] Stop: 06/09/20 20:59 Last Admin: 05/11/20 08:03 Dose: 600 mg Documented by: Furosemide 40 mg/ Syringe 4 mls @ 4 mls/min IV Q12 МАРИНА Stop: 06/09/20 20:59 Last Admin: 05/11/20 08:03 Dose: 4 mls/min Documented by: Insulin Aspart (Novolog Flexpen) 0 units SC ACHS МАРИНА Stop: 06/09/20 16:29 Last Admin: 05/11/20 08:03 Dose: 4 units Documented by: Insulin Detemir (Levemir Flextouch) 20 units SQ BID МАРИНА Stop: 06/09/20 20:59 Last Admin: 05/11/20 08:04 Dose: 20 units Documented by: Lamotrigine (Lamictal) 100 mg PO BID [facility] Stop: 06/09/20 20:59 Last Admin: 05/11/20 08:04 Dose: 100 mg Documented by: Lisinopril (Zestril) 5 mg PO DAILY [facility] Stop: 06/10/20 08:59 Last Admin: 05/11/20 08:04 Dose: 5 mg Documented by: Metoprolol Succinate (Toprol Xl) 50 mg PO QAM [facility] Stop: 06/10/20 08:59 Last Admin: 05/11/20 08:04 Dose: 50 mg Documented by: Ondansetron HCl (Zofran) 4 mg IV Q6H PRN PRN Reason: Nausea Stop: 06/09/20 16:19 Oxycodone HCl (Roxicodone Immediate Rel) 10 mg PO TID PRN PRN Reason: Pain Stop: 05/24/20 16:19 Last Admin: 05/10/20 17:18 Dose: 10 mg Documented by: Pantoprazole Sodium (Protonix) 40 mg PO BID [facility] Stop: 06/09/20 20:59 Last Admin: 05/11/20 08:03 Dose: 40 mg Documented by: Polyethylene Glycol (Miralax Powder Packet) 17 gm PO DAILY PRN PRN Reason: Constipation Stop: 06/09/20 16:19 Tizanidine HCl (Zanaflex) 4 mg PO TID PRN PRN Reason: muscle spasticity Stop: 06/09/20 16:19 Last Admin: 05/10/20 20:22 Dose: 4 mg Documented by: Venlafaxine HCl (Effexor Extended Release) 150 mg PO QAM [facility] Stop: 06/10/20 08:59 Last Admin: 05/11/20 08:04 Dose: 150 mg Documented by: Warfarin Sodium (Coumadin) 7.5 mg PO DAILY@1600 [facility] Stop: 06/09/20 17:29 Last Admin: 05/10/20 18:15 Dose: 7.5 mg Documented by: PG Care Time/CCT Total # of Minutes Spent Total Time Spent with Patient: Total time spent is greater than 50% in coordination of care (as documented) at patient's floor/unit and/or counseling patient: Coding Level of Care Code 39725 Subseq Hosp Care Lvl 3 Diagnoses Acute on chronic combined systolic (congestive) and diastolic (congestive) heart failure I50.43 Arteriosclerosis of coronary artery I25.10 Chronic diastolic CHF (congestive heart failure) I50.32 Atrial fibrillation I48.91 History of DVT (deep vein thrombosis) Z86.718 JOMAR (obstructive sleep apnea) G47.33 Iron deficiency anemia D50.9 Chronic gastroesophageal reflux disease K21.9 COPD with chronic bronchitis J44.9 Major depression F32.1 Major depression recurrence: single episode Active/Remission status: currently active Major depression episode severity: moderate Chronic kidney disease (CKD), stage III (moderate) N18.3 Diabetes E11.22; N18.3; Z79.4 Diabetes mellitus type: type 2 Diabetes mellitus senior living insulin use: with remote computer terminal operator use Diabetes mellitus complication status: with kidney complications Diabetes mellitus complication detail: with chronic kidney disease Chronic kidney disease stage: stage 3 (moderate) Hypertension I10 Headache R51 (1) Major depression Major depression recurrence: single episode Active/Remission status: currently active Major depression episode severity: moderate Qualified Code(s): F32.1 - Major depressive disorder, single episode, moderate (2) Diabetes Diabetes mellitus type: type 2 Diabetes mellitus remote computer terminal operator insulin use: with senior living use Diabetes mellitus complication status: with kidney complications Diabetes mellitus complication detail: with chronic kidney disease Chronic kidney disease stage: stage 3 (moderate) Qualified Code(s): E11.22 - Type 2 diabetes mellitus with diabetic chronic kidney disease; N18.3 - Chronic kidney disease, stage 3 (moderate); Z79.4 - intermediate (current) use of insulin
--- NOTE | 2020-05-11 14:32 | Heart Failure Progress Note ---
Date of Service May 11, 2020 Assessment & Plan (1) Acute on chronic combined systolic (congestive) and diastolic (congestive) heart failure: (2) Cardiomyopathy: Patient has been admitted with acute systolic congestive heart failure and progression of left ventricular systolic dysfunction. Patient has been referred to the heart failure program by the hospitalist. Met with the patient today and discussed the nature and goals of the heart failure program. She is agreeable to participation. Will initiate CHF protocol and facilitate heart failure discharge planning. Discharge date uncertain at this time but will continue to follow. Anticipate hospital follow up in the heart failure program within 7 days of discharge. She has a [facility] primary care provider so will also involve [facility] care coordination. Patient was also evaluated by general cardiology today, cardiac cath recommended and anticipated this afternoon. -Continue diuresis, responding well to Lasix at current dose, monitor labs. -Continue and eventually titrate appropriate GDMT- Lisinopril/Metoprolol. -Daily weights -Low sodium diet, less than 2,000 mg daily -HF program follow up within 7 days. Results & Data Vital Signs (Past 12 Hours) Vital Signs Temp Pulse Pulse Resp BP Pulse Ox 05/11/20 11:18 98.4 F 74 18 122/72 92 05/11/20 09:00 91 05/11/20 07:43 81 PG Care Time/CCT Total # of Minutes Spent Total Time Spent with Patient: Total time spent is greater than 50% in coordination of care (as documented) at patient's floor/unit and/or counseling patient: Coding Level of Care Code None Diagnoses Acute on chronic combined systolic (congestive) and diastolic (congestive) heart failure I50.43 Cardiomyopathy I42.9
[2020-05-11] MEDS: WARFARIN SOD 7.5 MG TAB PO SCH (15:58)
[2020-05-11] MEDS: OXYCODONE HCL IR 5 MG TAB (IMMEDIATE RELEASE) PO PRN (15:58)
[2020-05-11] MEDS: ACETAMINOPHEN 500 MG TAB PO SCH (20:27)
[2020-05-11] MEDS: TIZANIDINE HCL 4 MG TABLET PO PRN (21:16)
[2020-05-12] MEDS: OXYCODONE HCL IR 5 MG TAB (IMMEDIATE RELEASE) PO PRN ×3 (01:24→22:32)
[2020-05-12 07:18] LABS: Hematocrit (blood only) 38.1 % (37-47); Hemoglobin 11.1 g/dL (12.0-16.0); Mean Corpuscular Hemoglobin 24.2 pg (25-34); Mean Corpuscular Hgb Conc 29.1 g/dL (32-36); Mean Corpuscular Volume 83.2 fL (80-100); Mean Platelet Volume 9.2 fL (7.4-10.4); Platelet Count 280 K/uL (130-400); RDW Coefficient of Variation 15.9 % (11.5-14.5); RDW Standard Deviation 47.9 fL (36.4-46.3); Red Blood Count 4.58 M/uL (4.2-5.4); White Blood Count 7.28 K/uL (4.8-10.8)
[2020-05-12 07:46] LABS: INR 3.6 (0.9-1.1); Prothrombin Time 35.1 Seconds (9.0-12.0)
[2020-05-12 07:50] LABS: BUN Creatinine Ratio 20.8 (10-20); Calcium 9.3 mg/dl (8.5-10.1); Est GFR (African American) 50.3; Est GFR (Non-African American) 43.4; Potassium 4.2 mmol/L (3.5-5.1)
[2020-05-12] MEDS: INSULIN ASPART 100 UNITS/ML 3 ML PEN SC SCH ×4 (08:44→20:44)
[2020-05-12] MEDS: FUROSEMIDE 40 MG in SYRINGE 0 ML IV SCH (08:44)
[2020-05-12] MEDS: METOPROLOL SUCC 50MG EXT REL TAB PO SCH (08:44)
[2020-05-12] MEDS: VENLAFAXINE HCL XR 150 MG CAPXR PO SCH (08:44)
[2020-05-12] MEDS: lamoTRIgine 100 MG TAB PO SCH ×2 (08:45→20:43)
[2020-05-12] MEDS: PANTOprazole 40 MG TAB PO SCH ×2 (08:45→20:43)
[2020-05-12] MEDS: INSULIN DETEMIR FLEXPEN/FLEX TOUCH 100 UNITS/ML 3ML SQ SCH ×2 (08:45→20:43)
[2020-05-12] MEDS: ASPIRIN 81 MG ECTAB PO SCH (08:45)
[2020-05-12] MEDS: ATORVASTATIN 40 MG TAB PO SCH (08:45)
[2020-05-12] MEDS: GABAPENTIN 600 MG TAB PO SCH ×2 (08:45→20:43)
[2020-05-12] MEDS: lisinopriL 5 MG TAB PO SCH (08:45)
--- NOTE | 2020-05-12 12:23 | XCELERA ---
[id number]
--- NOTE | 2020-05-12 12:30 | Hospitalist Progress Note ---
Date of Service May 12, 2020 Assessment & Plan (1) Acute on chronic combined systolic (congestive) and diastolic (congestive) heart failure: she reports one month of progressive dyspnea, initially just on exertion now with dyspnea at rest, orthopnea (sleeps upright in recliner) CXR with pulmonary edema, has increased edema in legs she says her weight has been 235lbs at home she is not responding to Lasix at home like normally, she takes 40mg PO daily excellent response to Lasix 40mg IV BID, negative 3100mL so far Cr, BUN and HCO3 drifting up slightly, no more edema in legs, lungs clear, feel that she is intravascularly contracted change Lasix to 40mg PO qAM starting tomorrow, no IV Lasix this evening fluid restrict to 1500mL / day weight is inaccurate this morning, down 15 lbs overnight? plan for [facility] on Thursday (2) Arteriosclerosis of coronary artery: h/o poor performance with stress echocardiogram refused heart cath in the past, now needs heart cath Dr. Friedman will take for [facility] on Monday 05/14 troponin 0.05 on admission has some intermittent chest pain when walking up stairs on aspirin, Lipitor, metoprolol (3) Chronic diastolic CHF (congestive heart failure): now with acute component diuresis with Lasix, change to 40mg PO daily (4) Atrial fibrillation: h/o cardioversion INR is 3.6 on Toprol 50mg daily, HR is in 80's (5) History of DVT (deep vein thrombosis): on Coumadin INR 3.6 (6) JOMAR (obstructive sleep apnea): admits to daytime somnolence not using her CPAP (7) Iron deficiency anemia: Hb is stable, 10.8 (8) Chronic gastroesophageal reflux disease: no active symptoms continue PPI (9) COPD with chronic bronchitis: no wheezing on exam, no distress continue inhaled therapy (10) Major depression: (11) Chronic kidney disease (CKD), stage III (moderate): Cr is up to 1.2 with diuresis, electrolytes stable (12) Diabetes: continue Levemir at home dose Novolog SS diabetic diet monitor for hypoglycemia, no episodes (13) Hypertension: BP well controlled (14) Headache: likely just tension headache give Tylenol 1000mg IV x 1 since she in NPO for heart cath (15) History of heart valve replacement: mechanical AVR and MVR due to rheumatic heart disease done 2003 at [place] on Coumadin chronically, goal INR is 2.5-3.5, it is 3.6 today Admission and Anticipated Discharge Date Admission Date: May 10, 2020 Subjective patient breathing a lot better, no dyspnea when she walks to the bathroom she still has not tried to lay flat, this makes her nervous no chest pain or dyspnea at rest, no fever, no cough, she is eating well talked with Dr. Friedman, cath cancelled yesterday due to emergent caths that came in plan for C on Thursday, patient agrees with this reviewed labs, Cr and BUN and HCO3 drifting up slightly, will cut back Lasix to 40mg daily Review of Systems Review of Systems: All systems reviewed & are unremarkable except as noted in HPI & below Physical Exam Constitutional: WD/WN, vitals as above + overweight; no acute distress Eyes: PERRL, conjunctivae normal, anicteric sclerae ENMT: external ear and nose normal, oropharynx normal Neck: trachea midline, no thyromegaly Respiratory: normal respiratory effort; no respiratory distress Auscultation: lungs clear to auscultation bilaterally; no crackles, no rales, no rhonchi and no wheezes Cardiovascular: Rate/Rhythm: regular rate and regular rhythm Heart Sounds: normal S1 and normal S2 (artificial sounding); no murmur Vessels: no JVD Extremities: normal capillary refill; no edema Gastrointestinal (Abdomen): normal bowel sounds, soft, nontender, no hepatosplenomegaly Musculoskeletal: no cyanosis or clubbing, extremities motor strength 5/5 Skin: no rashes, warm and dry Neurologic: patellar DTR's 2+ bilat, sensation intact and PERRL, EOMI, accommodation nl, no face palsy, no dysarthria Psychiatric: A+Ox3, euthymic affect Lymphatic: no cervical or axillary lymphadenopathy Results & Data Results & Data ([facility]) Vital Signs (Past 12 Hours) Vital Signs Temp Pulse Pulse Resp BP Pulse Ox 05/12/20 11:27 36.5 C 71 18 109/65 99 05/12/20 08:19 36.7 C 72 18 119/51 L 98 05/12/20 07:42 71 05/12/20 03:51 36.8 C 86 18 108/66 94 Laboratory Results Laboratory Results - last 24 hr 05/11/20 05/11/20 05/12/20 16:55 19:56 06:59 WBC 7.28 RBC 4.58 Hgb 11.1 L Hct 38.1 MCV 83.2 MCH 24.2 L MCHC 29.1 L RDW Std Deviation 47.9 H RDW Coeff of Bryon 15.9 H Plt Count 280 MPV 9.2 PT INR Sodium Potassium Chloride Carbon Dioxide Anion Gap BUN Creatinine Est Cr Clr Drug Dosing Est GFR ( Amer) Est GFR (Non-Af Amer) BUN/Creatinine Ratio Glucose POC Glucose 112 H 147 H Calcium 05/12/20 05/12/20 05/12/20 06:59 06:59 07:48 WBC RBC Hgb Hct MCV MCH MCHC RDW Std Deviation RDW Coeff of Bryon Plt Count MPV PT 35.1 H INR 3.6 H Sodium 138 Potassium 4.2 Chloride 102 Carbon Dioxide 32 Anion Gap 4.0 BUN 26 H Creatinine 1.26 H Est Cr Clr Drug Dosing 47.0 Est GFR ( Amer) 50.3 Est GFR (Non-Af Amer) 43.4 BUN/Creatinine Ratio 20.8 H Glucose 94 POC Glucose 105 H Calcium 9.3 05/12/20 11:36 WBC RBC Hgb Hct MCV MCH MCHC RDW Std Deviation RDW Coeff of Bryon Plt Count MPV PT INR Sodium Potassium Chloride Carbon Dioxide Anion Gap BUN Creatinine Est Cr Clr Drug Dosing Est GFR ( Amer) Est GFR (Non-Af Amer) BUN/Creatinine Ratio Glucose POC Glucose 94 Calcium Medications Administered Current Inpatient Medications Acetaminophen (Tylenol) 1,000 mg PO [facility] Stop: 06/09/20 20:59 Last Admin: 05/11/20 20:27 Dose: 1,000 mg Documented by: Albuterol (Ventolin Hfa) 2 puffs INH Q4 PRN PRN Reason: shortness of breath or wheezin Stop: 06/09/20 16:19 Aspirin (Ecotrin Ectab) 81 mg PO [facility] Stop: 06/10/20 08:59 Last Admin: 05/12/20 08:45 Dose: 81 mg Documented by: Atorvastatin Calcium ([facility]) [facility] [place] [facility] Stop: 06/10/20 08:59 Last Admin: 05/12/20 08:45 Dose: 40 mg Documented by: Furosemide (Lasix) 40 mg PO [facility] Stop: 06/12/20 08:59 Gabapentin (Neurontin) 600 mg PO BID [facility] Stop: 06/09/20 20:59 Last Admin: 05/12/20 08:45 Dose: 600 mg Documented by: Insulin Aspart (Novolog Flexpen) 0 units SC ACHS [facility] Stop: 06/09/20 16:29 Last Admin: 05/12/20 12:17 Dose: 7 units Documented by: Insulin Detemir (Levemir Flextouch) 20 units SQ BID [facility] Stop: 06/09/20 20:59 Last Admin: 05/12/20 08:45 Dose: 20 units Documented by: Lamotrigine (Lamictal) 100 mg PO BID [facility] Stop: 06/09/20 20:59 Last Admin: 05/12/20 08:45 Dose: 100 mg Documented by: Lisinopril (Zestril) 5 mg PO DAILY [facility] Stop: 06/10/20 08:59 Last Admin: 05/12/20 08:45 Dose: 5 mg Documented by: Metoprolol Succinate (Toprol Xl) [facility] [place] Stop: 06/10/20 08:59 Last Admin: 05/12/20 08:44 Dose: 50 mg Documented by: Ondansetron HCl (Zofran) 4 mg IV Q6H PRN PRN Reason: Nausea Stop: 06/09/20 16:19 Oxycodone HCl (Roxicodone Immediate Rel) 10 mg PO TID PRN PRN Reason: Pain Stop: 05/24/20 16:19 Last Admin: 05/12/20 01:24 Dose: 10 mg Documented by: Pantoprazole Sodium (Protonix) 40 mg PO BID [facility] Stop: 06/09/20 20:59 Last Admin: 05/12/20 08:45 Dose: 40 mg Documented by: Polyethylene Glycol (Miralax Powder Packet) 17 gm PO DAILY PRN PRN Reason: Constipation Stop: 06/09/20 16:19 Tizanidine HCl (Zanaflex) 4 mg PO TID PRN PRN Reason: muscle spasticity Stop: 06/09/20 16:19 Last Admin: 05/11/20 21:16 Dose: 4 mg Documented by: Venlafaxine HCl (Effexor Extended Release) 150 [facility] [place] Stop: 06/10/20 08:59 Last Admin: 05/12/20 08:44 Dose: 150 mg Documented by: Warfarin Sodium (Coumadin) 7.5 mg PO DAILY@1600 [facility] Stop: 06/09/20 17:29 Last Admin: 05/11/20 15:58 Dose: 7.5 mg Documented by: PG Care Time/CCT Total # of Minutes Spent Total Time Spent with Patient: Total time spent is greater than 50% in coordination of care (as documented) at patient's floor/unit and/or counseling patient: Coding Level of Care Code 07518 Subseq Hosp Care Lvl 3 Diagnoses Acute on chronic combined systolic (congestive) and diastolic (congestive) heart failure I50.43 Arteriosclerosis of coronary artery I25.10 Chronic diastolic CHF (congestive heart failure) I50.32 Atrial fibrillation I48.91 History of DVT (deep vein thrombosis) Z86.718 JOMAR (obstructive sleep apnea) G47.33 Iron deficiency anemia D50.9 Chronic gastroesophageal reflux disease K21.9 COPD with chronic bronchitis J44.9 Major depression F32.1 Major depression recurrence: single episode Active/Remission status: currently active Major depression episode severity: moderate Chronic kidney disease (CKD), stage III (moderate) N18.3 Diabetes E11.22; N18.3; Z79.4 Diabetes mellitus type: type 2 Diabetes mellitus mcc insulin use: with mcc use Diabetes mellitus complication status: with kidney complications Diabetes mellitus complication detail: with chronic kidney disease Chronic kidney disease stage: stage 3 (moderate) Hypertension I10 Headache R51 History of heart valve replacement Z95.2 (1) Major depression Major depression recurrence: single episode Active/Remission status: currently active Major depression episode severity: moderate Qualified Code(s): F32.1 - Major depressive disorder, single episode, moderate (2) Diabetes Diabetes mellitus type: type 2 Diabetes mellitus mcc insulin use: with exterminator termite use Diabetes mellitus complication status: with kidney complications Diabetes mellitus complication detail: with chronic kidney disease Chronic kidney disease stage: stage 3 (moderate) Qualified Code(s): E11.22 - Type 2 diabetes mellitus with diabetic chronic kidney disease; N18.3 - Chronic kidney disease, stage 3 (moderate); Z79.4 - jail (current) use of insulin
--- NOTE | 2020-05-12 13:45 | Cardiology Progress Note ---
Date of Service May 12, 2020 Assessment & Plan (1) Acute on chronic combined systolic (congestive) and diastolic (congestive) heart failure: 2. Rheumatic heart disease --post mechanical AVR/MVR--mildly elevated transvalvular gradients 3. Paroxysmal atrial flutter 4. Severe LV dysfunction 5. Hypertension 6. COPD/JOMAR 7. Type 2 diabetes Breathing comfortably on room air. Well-perfused today with minimal residual congestion. Down 3 L since admission Agree with transition to p.o. diuretics tomorrow Continue Toprol-XL, lisinopril Plan for cardiac catheterization on Thursday We will plan on doing procedure via radial artery on therapeutic warfarin. Ideally would have INR closer to 2.5 Hold warfarin tonight and tomorrow. Admission and Anticipated Discharge Date Admission Date: May 10, 2020 Subjective Feeling okay today. No real chest pain. Occasional right-sided/flank pain brief lasting seconds. Breathing improved not quite at baseline. Telemetry unremarkable. Review of Systems Review of Systems: All systems reviewed & are unremarkable except as noted in HPI & below Physical Exam Physical Exam: General: Comfortable, no acute distress HEENT: Sclerae anicteric, mucous membranes moist Lungs: Scant crackles at bases Cardiac: Regular rate and rhythm, crisp mechanical closures of aortic, mitral valves. JVP around 7 Abdomen: Soft, nontender, nondistended, positive bowel sounds. Extremities: Warm, well perfused, trace edema Skin: No rashes or lesions. Neuro: Nonfocal Psych: Alert orient x3, normal affect and mood Results & Data ([facility]) Vital Signs (Past 12 Hours) Vital Signs Temp Pulse Pulse Resp BP Pulse Ox 05/12/20 11:27 97.7 F 71 18 109/65 99 05/12/20 08:19 98.1 F 72 18 119/51 L 98 05/12/20 07:42 71 05/12/20 03:51 98.2 F 86 18 108/66 94 PG Care Time/CCT Total # of Minutes Spent Total Time Spent with Patient: Total time spent is greater than 50% in coordination of care (as documented) at patient's floor/unit and/or counseling patient: Coding Level of Care Code 12801 Subseq Hosp Care Lvl 3 Diagnoses Acute on chronic combined systolic (congestive) and diastolic (congestive) heart failure I50.43
[2020-05-12] MEDS: ACETAMINOPHEN 500 MG TAB PO SCH (19:14)
[2020-05-12 19:29] LABS: BUN Creatinine Ratio 23.6 (10-20); Calcium 9.7 mg/dl (8.5-10.1); Creatinine Clr Calc Pharmacy 45.2 ml/min; Est GFR (Non-African American) 41.4; Potassium 4.3 mmol/L (3.5-5.1)
[2020-05-12 19:33] LABS: Troponin I 0.022 ng/ml (0-0.045)
[2020-05-13] MEDS: OXYCODONE HCL IR 5 MG TAB (IMMEDIATE RELEASE) PO PRN ×3 (06:22→20:51)
[2020-05-13 06:30] LABS: INR 2.8 (0.9-1.1); Prothrombin Time 27.7 Seconds (9.0-12.0)
[2020-05-13 06:54] LABS: BUN Creatinine Ratio 27.8 (10-20); Calcium 9.5 mg/dl (8.5-10.1); Creatinine Clr Calc Pharmacy 48.9 ml/min; Est GFR (African American) 50.8; Est GFR (Non-African American) 43.9; Potassium 4.3 mmol/L (3.5-5.1)
[2020-05-13] MEDS: PANTOprazole 40 MG TAB PO SCH ×2 (08:11→20:51)
[2020-05-13] MEDS: METOPROLOL SUCC 50MG EXT REL TAB PO SCH (08:11)
[2020-05-13] MEDS: ATORVASTATIN 40 MG TAB PO SCH (08:11)
[2020-05-13] MEDS: FUROSEMIDE 40 MG TAB PO SCH (08:12)
[2020-05-13] MEDS: ASPIRIN 81 MG ECTAB PO SCH (08:12)
[2020-05-13] MEDS: GABAPENTIN 600 MG TAB PO SCH ×2 (08:12→20:51)
[2020-05-13] MEDS: VENLAFAXINE HCL XR 150 MG CAPXR PO SCH (08:12)
[2020-05-13] MEDS: lisinopriL 5 MG TAB PO SCH (08:12)
[2020-05-13] MEDS: lamoTRIgine 100 MG TAB PO SCH ×2 (08:12→20:51)
[2020-05-13] MEDS: INSULIN ASPART 100 UNITS/ML 3 ML PEN SC SCH ×5 (08:14→20:50)
[2020-05-13] MEDS: INSULIN DETEMIR FLEXPEN/FLEX TOUCH 100 UNITS/ML 3ML SQ SCH ×2 (08:14→20:52)
--- NOTE | 2020-05-13 10:23 | Electrocardiogram Report ---
Test Reason : Blood Pressure : / mmHG Vent. Rate : 066 BPM Atrial Rate : 073 BPM P-R Int : 000 ms QRS Dur : 162 ms QT Int : 458 ms P-R-T Axes : 000 -57 096 degrees QTc Int : 480 ms Atrial fibrillation Left axis deviation Left bundle branch block Abnormal ECG When compared with ECG of 10-MAY-2020 12:52, Atrial fibrillation has replaced Sinus rhythm Confirmed by Matthew Ribera ([id number]) on 05/13/2020 10:23:30 AM Referred By: Sanya Thurman Confirmed By:Matthew Ribera
--- NOTE | 2020-05-13 13:45 | Hospitalist Progress Note ---
Date of Service May 13, 2020 Assessment & Plan (1) Acute on chronic combined systolic (congestive) and diastolic (congestive) heart failure: she reports one month of progressive dyspnea, initially just on exertion now with dyspnea at rest, orthopnea (sleeps upright in recliner) CXR with pulmonary edema, has increased edema in legs she says her weight has been 235lbs at home she is not responding to Lasix at home like normally, she takes 40mg PO daily excellent response to Lasix 40mg IV BID, negative 3300mL so far Cr, BUN and HCO3 drifting up slightly, no more edema in legs, lungs clear, feel that she is intravascularly contracted change Lasix to 40mg PO qAM starting today, no further IV Lasix fluid restrict to 1500mL / day weight is down to 227 from 232 on admission plan for [facility] on Monday 05/[address] Friedman (2) Arteriosclerosis of coronary artery: h/o poor performance with stress echocardiogram refused heart cath in the past, now needs heart cath Dr. Friedman will take for [facility] on Monday 05/14 troponin 0.05 on admission has some intermittent chest pain when walking up stairs had diaphoresis and un-easy feeling evening of 05/12 no ischemic changes on EKG, troponin negative on aspirin, Lipitor, metoprolol (3) Chronic diastolic CHF (congestive heart failure): now with acute component diuresis with Lasix, change to 40mg PO daily (4) Atrial fibrillation: h/o cardioversion INR is 2.8 on Toprol 50mg daily, HR is in 80's intermittently in afib while here (5) History of DVT (deep vein thrombosis): on Coumadin INR 2.8 (6) JOMAR (obstructive sleep apnea): admits to daytime somnolence not using her CPAP (7) Iron deficiency anemia: Hb is stable, 10.8 when last checked (8) Chronic gastroesophageal reflux disease: no active symptoms continue PPI (9) COPD with chronic bronchitis: no wheezing on exam, no distress continue inhaled therapy (10) Major depression: (11) Chronic kidney disease (CKD), stage III (moderate): Cr is stable at 1.2 with diuresis, electrolytes stable (12) Diabetes: continue Levemir at home dose Novolog diabetic diet monitor for hypoglycemia, no episodes (13) Hypertension: BP well controlled (14) Headache: resolved (15) History of heart valve replacement: mechanical AVR and MVR due to rheumatic heart disease done 2003 at [place] on Coumadin chronically, goal INR is 2.5-3.5, it is 2.8 today Admission and Anticipated Discharge Date Admission Date: May 10, 2020 Subjective patient had episode of diaphoresis last evening, felt poorly EKG without ischemic changes, she was in afib but rate controlled, h/o this troponin negative and BMP stable today she says she just "hurts all over, muscles and joints" otherwise she is doing well, no chest pain, no dyspnea at rest, less orthopnea reviewed labs, Cr down slightly to 1.2, BUN 35, HCO3 33, K 4.3 and INR is 2.8 plan for [facility] tomorrow with Dr. Friedman Review of Systems Review of Systems: All systems reviewed & are unremarkable except as noted in HPI & below Constitutional: + body aches, + fatigue, + malaise and + weakness; no fever Respiratory: + dyspnea on exertion; no cough and no dyspnea Cardiovascular: + orthopnea; no chest pain, no dyspnea at rest, no syncope and no edema Gastrointestinal: no abdominal pain, no nausea, no vomiting, no constipation and no diarrhea/loose stools Physical Exam Constitutional: WD/WN, vitals as above + overweight; no acute distress Eyes: PERRL, conjunctivae normal, anicteric sclerae ENMT: external ear and nose normal, oropharynx normal Neck: trachea midline, no thyromegaly Respiratory: normal respiratory effort; no respiratory distress Auscultation: lungs clear to auscultation bilaterally; no crackles, no rales, no rhonchi and no wheezes Cardiovascular: Rate/Rhythm: regular rate and + irregularly irregular Heart Sounds: normal S1 and normal S2 (artificial sounding); no murmur Vessels: no JVD Extremities: normal capillary refill; no edema Gastrointestinal (Abdomen): normal bowel sounds, soft, nontender, no hepatosplenomegaly Musculoskeletal: no cyanosis or clubbing, extremities motor strength 5/5 Skin: no rashes, warm and dry Neurologic: patellar DTR's 2+ bilat, sensation intact and PERRL, EOMI, accommodation nl, no face palsy, no dysarthria Psychiatric: A+Ox3, euthymic affect Lymphatic: no cervical or axillary lymphadenopathy Results & Data Results & Data ([place]) Vital Signs (Past 12 Hours) Vital Signs Temp Pulse Pulse Resp BP Pulse Ox 05/13/20 12:26 36.6 C 62 22 128/71 91 05/13/20 07:31 36.7 C 62 17 116/53 L 96 05/13/20 07:14 67 05/13/20 03:48 36.7 C 62 18 118/75 92 Laboratory Results Laboratory Results - last 24 hr 05/12/20 05/12/20 05/12/20 16:55 18:54 20:12 PT INR Sodium 138 Potassium 4.3 Chloride 101 Carbon Dioxide 33 H Anion Gap 4.0 BUN 31 H Creatinine 1.31 H Est Cr Clr Drug Dosing 45.2 Est GFR ( Amer) 48.0 Est GFR (Non-Af Amer) 41.4 BUN/Creatinine Ratio 23.6 H Glucose 93 POC Glucose 124 H 115 H Calcium 9.7 Troponin I 0.022 05/13/20 05/13/20 05/13/20 05:30 05:30 07:52 PT 27.7 H INR 2.8 H Sodium 138 Potassium 4.3 Chloride 101 Carbon Dioxide 33 H Anion Gap 4.0 BUN 35 H Creatinine 1.25 H Est Cr Clr Drug Dosing 48.9 Est GFR ( Amer) 50.8 Est GFR (Non-Af Amer) 43.9 BUN/Creatinine Ratio 27.8 H Glucose 88 POC Glucose 105 H Calcium 9.5 Troponin I 05/13/20 11:45 PT INR Sodium Potassium Chloride Carbon Dioxide Anion Gap BUN Creatinine Est Cr Clr Drug Dosing Est GFR ( Amer) Est GFR (Non-Af Amer) BUN/Creatinine Ratio Glucose POC Glucose 113 H Calcium Troponin I Medications Administered Current Inpatient Medications Acetaminophen (Tylenol) 1,000 mg PO [facility] Stop: 06/09/20 20:59 Last Admin: 05/12/20 19:14 Dose: 1,000 mg Documented by: Albuterol (Ventolin Hfa) 2 puffs INH Q4 PRN PRN Reason: shortness of breath or wheezin Stop: 06/09/20 16:19 Aspirin (Ecotrin Ectab) 81 mg PO [facility] Stop: 06/10/20 08:59 Last Admin: 05/13/20 08:12 Dose: 81 mg Documented by: Atorvastatin Calcium (Lipitor) 40 mg PO [facility] Stop: 06/10/20 08:59 Last Admin: 05/13/20 08:11 Dose: 40 mg Documented by: Furosemide (Lasix) 40 mg PO QAM [facility] Stop: 06/12/20 08:59 Last Admin: 05/13/20 08:12 Dose: 40 mg Documented by: Gabapentin (Neurontin) 600 mg PO BID [facility] Stop: 06/09/20 20:59 Last Admin: 05/13/20 08:12 Dose: 600 mg Documented by: Insulin Aspart (Novolog Flexpen) 0 units SC [facility] Stop: 06/09/20 16:29 Last Admin: 05/13/20 12:25 Dose: 4 units Documented by: Insulin Detemir (Levemir Flextouch) 20 units SQ BID [facility] Stop: 06/09/20 20:59 Last Admin: 05/13/20 08:14 Dose: 20 units Documented by: Lamotrigine (Lamictal) 100 mg PO BID [facility] Stop: 06/09/20 20:59 Last Admin: 05/13/20 08:12 Dose: 100 mg Documented by: Lisinopril (Zestril) 5 mg PO DAILY [facility] Stop: 06/10/20 08:59 Last Admin: 05/13/20 08:12 Dose: 5 mg Documented by: Metoprolol Succinate (Toprol Xl) 50 mg PO [facility] Stop: 06/10/20 08:59 Last Admin: 05/13/20 08:11 Dose: 50 mg Documented by: Ondansetron HCl (Zofran) 4 mg IV Q6H PRN PRN Reason: Nausea Stop: 06/09/20 16:19 Oxycodone HCl (Roxicodone Immediate Rel) 10 mg PO TID PRN PRN Reason: Pain Stop: 05/24/20 16:19 Last Admin: 05/13/20 06:22 Dose: 10 mg Documented by: Pantoprazole Sodium (Protonix) 40 mg PO BID [facility] Stop: 06/09/20 20:59 Last Admin: 05/13/20 08:11 Dose: 40 mg Documented by: Polyethylene Glycol (Miralax Powder Packet) 17 gm PO DAILY PRN PRN Reason: Constipation Stop: 06/09/20 16:19 Tizanidine HCl (Zanaflex) 4 mg PO TID PRN PRN Reason: muscle spasticity Stop: 06/09/20 16:19 Last Admin: 05/11/20 21:16 Dose: 4 mg Documented by: Venlafaxine HCl (Effexor Extended Release) 150 mg PO QAM [facility] Stop: 06/10/20 08:59 Last Admin: 05/13/20 08:12 Dose: 150 mg Documented by: Warfarin Sodium (Coumadin) 7.5 mg PO DAILY@1600 [facility] Stop: 06/09/20 17:29 Last Admin: 05/11/20 15:58 Dose: 7.5 mg Documented by: PG Care Time/CCT Total # of Minutes Spent Total Time Spent with Patient: Total time spent is greater than 50% in coordination of care (as documented) at patient's floor/unit and/or counseling patient: Coding Level of Care Code 10106 Subseq Hosp Care Lvl 3 Diagnoses Acute on chronic combined systolic (congestive) and diastolic (congestive) heart failure I50.43 Arteriosclerosis of coronary artery I25.10 Chronic diastolic CHF (congestive heart failure) I50.32 Atrial fibrillation I48.91 History of DVT (deep vein thrombosis) Z86.718 JOMAR (obstructive sleep apnea) G47.33 Iron deficiency anemia D50.9 Chronic gastroesophageal reflux disease K21.9 COPD with chronic bronchitis J44.9 Major depression F32.1 Major depression recurrence: single episode Active/Remission status: currently active Major depression episode severity: moderate Chronic kidney disease (CKD), stage III (moderate) N18.3 Diabetes E11.22; N18.3; Z79.4 Diabetes mellitus type: type 2 Diabetes mellitus client services coordinator insulin use: with long-term use Diabetes mellitus complication status: with kidney complications Diabetes mellitus complication detail: with chronic kidney disease Chronic kidney disease stage: stage 3 (moderate) Hypertension I10 Headache R51 History of heart valve replacement Z95.2 (1) Major depression Major depression recurrence: single episode Active/Remission status: currently active Major depression episode severity: moderate Qualified Code(s): F32.1 - Major depressive disorder, single episode, moderate (2) Diabetes Diabetes mellitus type: type 2 Diabetes mellitus long-term insulin use: with long-term use Diabetes mellitus complication status: with kidney complications Diabetes mellitus complication detail: with chronic kidney disease Chronic kidney disease stage: stage 3 (moderate) Qualified Code(s): E11.22 - Type 2 diabetes mellitus with diabetic chronic kidney disease; N18.3 - Chronic kidney disease, stage 3 (moderate); Z79.4 - manager action (current) use of insulin
[2020-05-13] MEDS: ACETAMINOPHEN 500 MG TAB PO SCH (20:51)
[2020-05-13] MEDS: TIZANIDINE HCL 4 MG TABLET PO PRN (20:55)
[2020-05-14 07:35] LABS: BUN Creatinine Ratio 32.4 (10-20); Calcium 9.1 mg/dl (8.5-10.1); Creatinine Clr Calc Pharmacy 46.7 ml/min; Est GFR (African American) 48.9; Est GFR (Non-African American) 42.2; Potassium 4.4 mmol/L (3.5-5.1)
[2020-05-14] MEDS: INSULIN ASPART 100 UNITS/ML 3 ML PEN SC SCH ×4 (08:41→21:31)
[2020-05-14] MEDS: METOPROLOL SUCC 50MG EXT REL TAB PO SCH (08:52)
[2020-05-14] MEDS: ASPIRIN 81 MG ECTAB PO SCH (08:55)
[2020-05-14] MEDS: GABAPENTIN 600 MG TAB PO SCH ×2 (08:55→21:21)
[2020-05-14] MEDS: VENLAFAXINE HCL XR 150 MG CAPXR PO SCH (08:55)
[2020-05-14] MEDS: INSULIN DETEMIR FLEXPEN/FLEX TOUCH 100 UNITS/ML 3ML SQ SCH ×2 (08:55→21:31)
[2020-05-14] MEDS: lisinopriL 5 MG TAB PO SCH (08:55)
[2020-05-14] MEDS: ATORVASTATIN 40 MG TAB PO SCH (08:55)
[2020-05-14] MEDS: lamoTRIgine 100 MG TAB PO SCH ×2 (08:55→21:20)
[2020-05-14] MEDS: PANTOprazole 40 MG TAB PO SCH ×2 (08:55→21:21)
[2020-05-14] MEDS: FUROSEMIDE 40 MG TAB PO SCH (08:55)
--- NOTE | 2020-05-14 10:09 | Cardiology Progress Note ---
Date of Service May 14, 2020 Assessment & Plan (1) Acute on chronic combined systolic (congestive) and diastolic (congestive) heart failure: 2. Rheumatic heart disease --post mechanical AVR/MVR--mildly elevated transvalvular gradients 3. Paroxysmal atrial flutter 4. Severe LV dysfunction 5. Hypertension 6. COPD/JOMAR 7. Type 2 diabetes Proceed with cardiac catheterization today. Resume coumadin this evening. Further recs pending cath findings. Admission and Anticipated Discharge Date Admission Date: May 10, 2020 Subjective feeling fine this morning. still with intermittent episodes of right sided chest discomfort. one episode of diaphoresis over weekend. Review of Systems Review of Systems: All systems reviewed & are unremarkable except as noted in HPI & below Physical Exam Physical Exam: General: Comfortable, no acute distress HEENT: Sclerae anicteric, mucous membranes moist Lungs: clear Cardiac: Regular rate and rhythm, crisp mechanical closures of aortic, mitral valves. JVP around 7 Abdomen: Soft, nontender, nondistended, positive bowel sounds. Extremities: Warm, well perfused, trace edema Skin: No rashes or lesions. Neuro: Nonfocal Psych: Alert orient x3, normal affect and mood Results & Data ([facility]) Vital Signs (Past 12 Hours) Vital Signs Temp Pulse Pulse Resp BP BP Pulse Ox 05/14/20 09:28 64 16 120/36 L 90 05/14/20 08:51 58 L 116/63 05/14/20 07:32 60 05/14/20 07:30 98.1 F 59 L 18 94/41 L 96 05/14/20 03:58 99.0 F 65 20 90/51 L 97 05/14/20 00:10 64 05/13/20 22:19 98.1 F 47 L 20 100/56 L 97 PG Care Time/CCT Total # of Minutes Spent Total Time Spent with Patient: Total time spent is greater than 50% in coordination of care (as documented) at patient's floor/unit and/or counseling patient: Coding Level of Care Code 89930 Subseq Hosp Care Lvl 2 Diagnoses Acute on chronic combined systolic (congestive) and diastolic (congestive) heart failure I50.43
[2020-05-14] MEDS ORDERED: NiCARDipine HCL INJ 2.5 MG/ML 10 ML AMP ONE (10:16)
[2020-05-14] MEDS ORDERED: HEPARIN (PORCINE) 1000 UNIT/ML 10 ML (CATH LAB USE ONLY) ONE (10:16)
[2020-05-14] MEDS ORDERED: NITROGLYCERIN/D5W 100MCG/ML 20ML SYR ONE (10:17)
[2020-05-14] MEDS ORDERED: MIDAZOLAM HCL 1 MG/ML 2ML VIAL ONE ×2 (10:17→11:18)
[2020-05-14] MEDS ORDERED: fentaNYL citrate 100 MCG/2 ML VIAL ONE (10:17)
--- NOTE | 2020-05-14 10:22 | Pre Anesthesia Assessment ---
Date of Service May 14, 2020 Pre Sedation Assessment Vital Signs Temp Pulse Pulse Resp BP BP Pulse Ox 05/14/20 09:28 64 16 120/36 L 90 05/14/20 08:51 58 L 116/63 05/14/20 07:32 60 05/14/20 07:30 98.1 F 59 L 18 94/41 L 96 05/14/20 03:58 99.0 F 65 20 90/51 L 97 05/14/20 00:10 64 05/13/20 22:19 98.1 F 47 L 20 100/56 L 97 05/13/20 19:57 97.3 F L 65 20 98/61 L 93 05/13/20 15:24 98.2 F 64 18 110/67 93 05/13/20 14:50 62 05/13/20 12:26 97.9 F 62 22 128/71 91 Cardiovascular RRR, no murmur, no edema Respiratory normal respiratory effort, lungs clear to auscultation Pre-Sedation Airway Assessment Smoking Status: Current every day smoker Hx Sleep Apnea: Yes Hx Difficult Intubation: No Short, Thick Neck: No Thyromental Distance: > or= 3.5 Finger Breadths Oral Cavity: + Dentures Mallampati Class: III ASA: ASA4 NPO Status Date of Last Intake of Fluids: 05/14/20 Time of Last Intake of Fluids: 08:00 Last Oral Intake of Fluids Comment: sip with meds Date of Last Intake of Solid Food: 05/13/20 Time of Last Intake of Solid Foods: 18:30 Procedure Planning Contraindications for Sedation: none Current Medications Reviewed: Yes Notes The planned sedation has been discussed with the patient. Informed Consent was obtained. I have identified the patient, determined the appropriateness of sedation and have assessed the patient immediately prior to the procedure. All medicine(s) and interventions are by my order.
[2020-05-14] MEDS ORDERED: ADENOSINE IV SOLN 3 MG/ML 20 ML VIAL IV ONE (10:45)
[2020-05-14] MEDS ORDERED: CLOPIDOGREL BISULFATE 300 MG TAB ONE ×2 (11:28→11:50)
--- NOTE | 2020-05-14 11:37 | Post Anesthesia Assessment ---
Date of Service May 14, 2020 Post Sedation Assessment Vital Signs Temp Pulse Pulse Resp BP BP Pulse Ox 05/14/20 09:28 64 16 120/36 L 90 05/14/20 08:51 58 L 116/63 05/14/20 07:32 60 05/14/20 07:30 98.1 F 59 L 18 94/41 L 96 05/14/20 03:58 99.0 F 65 20 90/51 L 97 05/14/20 00:10 64 05/13/20 22:19 98.1 F 47 L 20 100/56 L 97 05/13/20 19:57 97.3 F L 65 20 98/61 L 93 05/13/20 15:24 98.2 F 64 18 110/67 93 05/13/20 14:50 62 05/13/20 12:26 97.9 F 62 22 128/71 91 Recovery Score Activity: Moves 4 extremities Respiration: Deep Breath/Cough Circulation: +/-20% PreAnes Value Consciousness: Fully Awake Oxygen Saturation: O2 needed for >90% Discharge Sedation Level of Care: Fast Track Phase II Post Sedation Plan On clinical assessment, the patient appears to have tolerated the sedation without complications. Patient is recovering as anticipated. Patient will continue to be monitored by nursing and may be discharged when sedation discharge criteria are met per below protocol. Upon Completions of procedure up to 15 minutes continue every 5 minute vital signs and the P.A.R. score; then discharge to a Phase I or Fast Track to Phase II per the following guidelines: * Discharge Patient to appropriate Phase II area if PAR is 8 or greater or return to pre- procedure baseline. The post - procedure orders will be as directed. * If PAR score is less than 8 or not return to pre-procedure baseline then patient will follow Phase I monitoring till PAR is reached for Phase II. The Phase I may be done in procedure room or may call to secure a Phase I area. * If naloxone or flumazenil are used for reversal, hold in Phase I for continued monitoring from when last reversal dose was given for a minimum of 60 minutes or longer pending the nurse and/or physician discretion of patient condition before discharge to Phase II. Please call the Sedation Physician to re-evaluate and complete post-note for discharge to Phase II area. Do NOT discharge from procedure sedation or Phase 1 until post- sedation evaluation note is complete by procedure /sedation MD Sedation Discharge Instructions to be given to the patient at discharge to home.
[2020-05-14] MEDS ORDERED: SODIUM CHLORIDE 0.9% 1000ML 1,000 ML IV SCH (11:45)
--- NOTE | 2020-05-14 11:46 | Cardiac Catheterization ---
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 Cardiac Status Clinical evaluation leading to the procedure CAD Presenation: Non STEMI Anginal Classification: CCS IV Heart Failure: NYHA Class: CCS IV Cardiogenic Shock within 24 Hours: No Cardiac Arrest within 24 Hours: No Imaging Studies Past 6 Months: Yes Stress Studies Past 6 Months: No Diagnostic Physicians Name: Thierno Friedman MD Status: Elective Closure Device Percutaneous Entry Location: Radial Closure Device: Radial Band Recommendations: PCI without planned CABG PCI Indication: PCI for high risk Non-KEN Lesion Segment Name: Mid LAD Culprit Artery: Yes Chronic Total Occlusion: No IVUS: No FFR: Yes Ratio: greater than 0.75% Pre-Procedure ANGELIQUE Flow: 2 Previously Treated Lesion: No Lesion Complexity: Non-High/Non-C Lesion Length (mm): 12 Thrombus Present: No Bifurcation Lesion: No Guidewire Across Lesion: Stenosis Post-Procedure (%): 0 Post-Procedure ANGELIQUE Flow: 3 Devices(s) Deployed: Yes Yes Intraprocedure Events Significant Disection: No Perforation: No Cardiac Cath Procedure Full Procedure Date May 14, 2020 Pre-Procedure Diagnosis Pre-Procedure Diagnosis: Non STEMI, CHF and Cardiomyopathy AUC Score AUC Score: 7 Post-Procedure Diagnosis Post-Procedure Diagnosis: Severe CAD and Successful PCI Procedure(s) Performed Procedure(s) Performed: Coronary Angiography, Drug Eluting Stent and Fractional Flow [place] Geodetic Surveyor Thierno Friedman MD [employer] Business Administrator(s) Melissa Estimated Blood Loss Estimated Blood Loss: 10 Medication(s) Medication(s): Adenosine, Clopidogrel, Fentanyl, Heparin, Lidocaine 1%, Nicardipine, Nitroglycerin and Versed Summary of Findings Indication: Cardiomyopathy, acute systolic heart failure, NSTEMI Access: 6 Fr slender right radial artery Catheters: [place], JL 3.5, EBU 3.5 guide Findings: LM -large caliber, angiographically normal LAD -medium caliber vessel, 30% proximal stenosis, 70% mid stenosis after takeoff of large second diagonal. Distal vessel is small and wraps around apex. Second diagonal without significant disease. Circumflex -dominant, large caliber, proximal luminal irregularities. Gives off to medium caliber OM's, 1 left PLB and small caliber left PDA without significant disease. RCA -medium caliber, nondominant FFR of mid LAD Left main cannulated with EBU 3.5 guide BMW wire placed into distal LAD ACIST FFR placed across mid LAD stenosis Pd/Pa 0.85 FFR 0.79 -- PCI -- Antithrombotic therapy: Heparin, clopidogrel Procedure: ACIST FFR catheter removed from LAD Pro-water wire placed into second diagonal Mid LAD lesion predilated with 2.5 compliant balloon Dilated lesion stented with 2.5 x 15 mm [place] drug-eluting stent Stent post-dilated with 2.75 noncompliant balloon IC vasodilators administered for spasm Post procedure ANGELIQUE 3 flow, stent well expanded with minimal residual stenosis and no apparent cardiac complications. Arterial Closure: TR band Summary: 1. Severe single vessel coronary artery disease -70% mid LAD (FFR 0.79) 2. Successful PCI of mid LAD with single drug-eluting stent (2.5 x 15 mm Alli; postdilated with 2.75 NC). Recommendations: To PCU for continued monitoring Loaded with clopidogrel 600 mg in Acid Crane Operator Continue triple therapy with aspirin, clopidogrel, Coumadin while hospitalized. Discharged on dual therapy with clopidogrel, Coumadin LV dysfunction out of proportion to coronary artery disease. Continue guideline directed medical therapy for severe LV dysfunction. Hemodynamics Rest Ao:: 121/51/76 Final Ao: 122/53/82 LV: -- Recommendations Recommendations: PCI without planned CABG Radiation Exposure (mGy) 3079 Contrast (mls) 180 Drains Drains: None Anesthesia Moderate Procedural Complication(s) None Disposition PCU I attest to the content of the Intraoperative Record and any orders documented therein. Any exceptions are noted below. [facility] Card Cath Procedure Codes Cardiac Catheterization Procedure 1: Cardiovascular Cath Procedures: 46395 Coronaries Procedure 2: Cardiovascular Cath Procedures: 65997 (Doppler) Pressure Wire Moderate Sedation Procedure 1: Sedation/Anesthesia: 85235 Mod Sedation by the same physician;Init15 Min Child Age 5 & Up Procedure 2: Sedation/Anesthesia: 67437 Mod Sedation by the same physician; Ea [id number] Minutes Stenting Procedure 1: Cardiovascular Stent Procedures: 36290 Perc transcatheter placement of intracoronary stent(s), with ang PG Care Time/CCT Total # of Minutes Spent Total Time Spent with Patient: Total time spent is greater than 50% in coordination of care (as documented) at patient's floor/unit and/or counseling patient:
[2020-05-14] MEDS: WARFARIN SOD 7.5 MG TAB PO SCH (16:09)
--- NOTE | 2020-05-14 16:31 | Hospitalist Progress Note ---
Date of Service May 14, 2020 Assessment & Plan (1) Acute on chronic combined systolic (congestive) and diastolic (congestive) heart failure: she reports one month of progressive dyspnea, initially just on exertion now with dyspnea at rest, orthopnea (sleeps upright in recliner) CXR with pulmonary edema, has increased edema in legs on admission she says her weight has been 235lbs at home she was not responding to Lasix at home like normally, she takes 40mg PO daily She has had an excellent response to Lasix 40mg IV BID, negative 2.6 L thus far but did gain some fluid weight back since yesterday, weight is down 5.8 kg Cr, BUN and HCO3 were drifting up slightly, no more edema in legs, lungs clear, feel that she is intravascularly contracted, remains with some orthopnea -Continue Lasix 40mg PO qAM Continue to fluid restrict to 1500mL / day Now status post [facility] on Monday 05/[address] Friedman-with 70% stenosis in the mid LAD with SENA placed x1-does not explain her degree of severe cardiomyopathy -Continue medical management with lisinopril 5 mg daily, Toprol-XL 50 mg daily -Needs outpatient [id number] reports she would decline an ICD if recommended in the future -Continue daily weights, strict I's and O's, low-sodium diet -Follow BMP, magnesium (2) Arteriosclerosis of coronary artery: h/o poor performance with stress echocardiogram and wall motion abnormalities refused heart cath in the past, now status post heart cath as above with SENA to the mid LAD troponin 0.05 on admission has some intermittent chest pain when walking up stairs had diaphoresis and un-easy feeling evening of 05/12 no ischemic changes on EKG, troponin negative -Continue on aspirin, and added Plavix along with Coumadin-cardiology recommends triple therapy while in the hospital and then discharging to home only on Coumadin and Plavix -Continue Lipitor, metoprolol (3) Chronic diastolic CHF (congestive heart failure): now with acute component diuresis with Lasix, as above (4) Atrial fibrillation: h/o cardioversion, is in sinus bradycardia and normal sinus rhythm here now but has been intermittently in A. fib INR is 2.8 on 05/13-INR was not checked today -Held Coumadin for 2 days and now will restart on 05/14 on Toprol 50mg daily, HR is in 80's (5) History of DVT (deep vein thrombosis): on Coumadin INR 2.8 (6) JOMAR (obstructive sleep apnea): admits to daytime somnolence not using her CPAP (7) Iron deficiency anemia: Hb is stable, 10.8 when last checked (8) Chronic gastroesophageal reflux disease: no active symptoms continue PPI (9) COPD with chronic bronchitis: no wheezing on exam, no distress continue inhaled therapy (10) Major depression: Has declined psychiatric evaluation in the past Follows with PCP -Continue venlafaxine 150 mg once daily and lamotrigine 100 mg p.o. twice daily (11) Chronic kidney disease (CKD), stage III (moderate): Cr is stable at 1.2 with diuresis, electrolytes stable -Avoid nephrotoxins -renally dose meds when appropriate -follow BMP (12) Diabetes: Blood glucose well controlled here -Continue Levemir at home dose Novolog SS diabetic diet monitor for hypoglycemia, no episodes (13) Hypertension: BP well controlled -Continue metoprolol, lisinopril (14) Headache: resolved (15) History of heart valve replacement: mechanical AVR and MVR due to rheumatic heart disease, also with a history of prosthetic valve endocarditis done 2003 at [place] on Coumadin chronically, goal INR is 2.5-3.5, it is 2.8 as of 05/13 -Resuming Coumadin on 05/14 -Follow INR in the morning (16) DVT prophylaxis: Coumadin Disposition-hopeful for discharge to home tomorrow if doing well CODE STATUS-patient wishes adamantly to be a DNR/DNI-I have changed this order today Admission and Anticipated Discharge Date Admission Date: May 10, 2020 Subjective Patient had just returned from cardiac catheterization when I saw her. Her TR band was still in place and she had a stent placed in the mid LAD. She was complaining of pain in the wrist and continued shortness of breath with lying flat. She also complains of chronic pain in her neck and lower back and a lot of her joints. When discussing her severe CHF and the possibility for an ICD in the future, she stated "I am ready to ." She denies depressed mood, but states that she has a lot of chronic pain issues and has had numerous surgeries and does not want to go through any more procedures. She has no thoughts of harming herself, but notes that if she has cardiac arrest, she does not want to be resuscitated. Telemetry with sinus rhythm with first-degree AV block with rates in the 50s to 70s with PVCs Review of Systems Review of Systems: All systems reviewed & are unremarkable except as noted in HPI & below Physical Exam Constitutional: WD/WN, vitals as above + obese Eyes: + anicteric sclerae Neck: trachea midline, no thyromegaly Respiratory: normal respiratory effort, lungs clear to auscultation Cardiovascular: Rate/Rhythm: regular rate and regular rhythm Heart Sounds: + murmur (2/6 at the left lower sternal border) Chest (Breasts): Chest: normal inspection of chest Gastrointestinal (Abdomen): normal bowel sounds, soft, nontender, no hepatosplenomegaly Musculoskeletal: Extremities: + extremities abnormal to inspection (Right wrist with TR band in place without hematoma or bleeding), no cyanosis and no clubbing Skin: no rashes, warm and dry Neurologic: moves all extremities and awake; no focal motor deficits Psychiatric: A+Ox3, euthymic affect Lymphatic: no lymphedema Results & Data Results & Data ([facility]) Vital Signs (Past 12 Hours) Vital Signs Temp Pulse Pulse Resp BP BP Pulse Ox 05/14/20 15:23 72 16 93/53 L 95 05/14/20 15:01 63 05/14/20 14:23 65 16 95/44 L 99 05/14/20 13:23 62 16 101/51 L 98 05/14/20 12:53 60 18 106/65 97 05/14/20 12:34 61 05/14/20 12:23 18 105/55 L 96 05/14/20 12:21 36.4 C L 62 18 100/55 L 98 05/14/20 11:54 61 18 111/45 L 97 05/14/20 11:40 64 18 92/72 L 93 05/14/20 09:28 64 16 120/36 L 90 05/14/20 08:51 58 L 116/63 05/14/20 07:32 60 05/14/20 07:30 36.7 C 59 L 18 94/41 L 96 Laboratory Results 05/14/20 05/14/20 05/14/20 Range/Units 16:51 13:07 11:11 Activ Coag Time Kaolin 230 H (94-140) SECONDS Sodium (136-145) mmol/L Potassium (3.5-5.1) mmol/L Chloride (98-107) mmol/L Carbon Dioxide (21-32) mmol/L Anion Gap (3-11) BUN (7-18) mg/dl Creatinine (0.6-1.2) mg/dl Est Cr Clr Drug Dosing ml/min Est GFR ( Amer) Est GFR (Non-Af Amer) BUN/Creatinine Ratio (10-20) Glucose (70-99) mg/dl POC Glucose 124 H 101 H (70-99) mg/dl Calcium (8.5-10.1) mg/dl 05/14/20 05/14/20 Range/Units 07:20 06:44 Activ Coag Time Kaolin (94-140) SECONDS Sodium 138 (136-145) mmol/L Potassium 4.4 (3.5-5.1) mmol/L Chloride 102 (98-107) mmol/L Carbon Dioxide 33 H (21-32) mmol/L Anion Gap 3.0 (3-11) BUN 42 H (7-18) mg/dl Creatinine 1.29 H (0.6-1.2) mg/dl Est Cr Clr Drug Dosing 46.7 ml/min Est GFR ( Amer) 48.9 Est GFR (Non-Af Amer) 42.2 BUN/Creatinine Ratio 32.4 H (10-20) Glucose 121 H (70-99) mg/dl POC Glucose 127 H (70-99) mg/dl Calcium 9.1 (8.5-10.1) mg/dl PG Care Time/CCT Total # of Minutes Spent Total Time Spent with Patient: Total time spent is greater than 50% in coordination of care (as documented) at patient's floor/unit and/or counseling patient: Coding Level of Care Code 83764 Subseq Hosp Care Lvl 3 Diagnoses Acute on chronic combined systolic (congestive) and diastolic (congestive) heart failure I50.43 Arteriosclerosis of coronary artery I25.10 Chronic diastolic CHF (congestive heart failure) I50.32 Atrial fibrillation I48.91 History of DVT (deep vein thrombosis) Z86.718 JOMAR (obstructive sleep apnea) G47.33 Iron deficiency anemia D50.9 Chronic gastroesophageal reflux disease K21.9 COPD with chronic bronchitis J44.9 Major depression F32.1 Active/Remission status: currently active Major depression episode severity: moderate Major depression recurrence: single episode Chronic kidney disease (CKD), stage III (moderate) N18.3 Diabetes E11.22; N18.3; Z79.4 Chronic kidney disease stage: stage 3 (moderate) Diabetes mellitus complication detail: with chronic kidney disease Diabetes mellitus complication status: with kidney complications Diabetes mellitus vermin exterminator insulin use: with vermin exterminator use Diabetes mellitus type: type 2 Hypertension I10 Headache R51 History of heart valve replacement Z95.2 DVT prophylaxis Z29.9 (1) Major depression Active/Remission status: currently active Major depression episode severity: moderate Major depression recurrence: single episode Qualified Code(s): F32.1 - Major depressive disorder, single episode, moderate (2) Diabetes Chronic kidney disease stage: stage 3 (moderate) Diabetes mellitus complication detail: with chronic kidney disease Diabetes mellitus complication status: with kidney complications Diabetes mellitus halfway insulin use: with halfway use Diabetes mellitus type: type 2 Qualified Code(s): E11.22 - Type 2 diabetes mellitus with diabetic chronic kidney disease; N18.3 - Chronic kidney disease, stage 3 (moderate); Z79.4 - exterminator (current) use of insulin
[2020-05-14] MEDS ORDERED: FUROSEMIDE 40 MG in SYRINGE 0 ML IV ONE (18:15)
[2020-05-14] MEDS: DOCUSATE SODIUM/SENNA 50/8.6MG TAB PO SCH (21:20)
[2020-05-14] MEDS: ACETAMINOPHEN 500 MG TAB PO SCH (21:21)
[2020-05-14] MEDS: OXYCODONE HCL IR 5 MG TAB (IMMEDIATE RELEASE) PO PRN (21:32)
[2020-05-14] MEDS: TIZANIDINE HCL 4 MG TABLET PO PRN (21:47)
[2020-05-15 08:02] LABS: INR 1.4 (0.9-1.1); Prothrombin Time 14.9 Seconds (9.0-12.0)
[2020-05-15 08:24] LABS: Calcium 9.4 mg/dl (8.5-10.1); Creatinine Clr Calc Pharmacy 54.3 ml/min; Est GFR (Non-African American) 50.1; Magnesium 2.3 mg/dl (1.8-2.4); Potassium 4.1 mmol/L (3.5-5.1)
[2020-05-15] MEDS: INSULIN ASPART 100 UNITS/ML 3 ML PEN SC SCH ×2 (08:41→12:24)
[2020-05-15] MEDS: ASPIRIN 81 MG ECTAB PO SCH (08:43)
[2020-05-15] MEDS: PANTOprazole 40 MG TAB PO SCH (08:44)
[2020-05-15] MEDS: FUROSEMIDE 40 MG TAB PO SCH (08:44)
[2020-05-15] MEDS: METOPROLOL SUCC 50MG EXT REL TAB PO SCH (08:44)
[2020-05-15] MEDS: ATORVASTATIN 40 MG TAB PO SCH (08:45)
[2020-05-15] MEDS: DOCUSATE SODIUM/SENNA 50/8.6MG TAB PO SCH (08:45)
[2020-05-15] MEDS: GABAPENTIN 600 MG TAB PO SCH (08:45)
[2020-05-15] MEDS: lisinopriL 5 MG TAB PO SCH (08:45)
[2020-05-15] MEDS: lamoTRIgine 100 MG TAB PO SCH (08:46)
[2020-05-15] MEDS: INSULIN DETEMIR FLEXPEN/FLEX TOUCH 100 UNITS/ML 3ML SQ SCH (08:46)
[2020-05-15] MEDS: VENLAFAXINE HCL XR 150 MG CAPXR PO SCH (08:46)
[2020-05-15] MEDS ORDERED: CLOPIDOGREL BISULFATE 75 MG TAB PO SCH (09:00)
[2020-05-15] MEDS ORDERED: ENOXAPARIN 1 MG/KG SQ SCH (09:00)
--- NOTE | 2020-05-15 09:00 | Cardiology Progress Note ---
Date of Service May 15, 2020 Assessment & Plan (1) Acute on chronic combined systolic (congestive) and diastolic (congestive) heart failure: 2. Rheumatic heart disease --post mechanical AVR/MVR--mildly elevated transvalvular gradients 3. Paroxysmal atrial flutter/atrial tachycardia 4. Severe LV dysfunction 5. Hypertension 6. COPD/JOMAR 7. Type 2 diabetes Chest pain-free. Hemodynamically electrically stable overnight. Good urine output from IV diuretic with improved dyspnea, and minimal residual congestion on exam No access site complications post procedure INR subtherapeutic Okay with discharge later today if stable off oxygen Will need to be bridged with Lovenox until therapeutic INR Can discontinue aspirin and continue on clopidogrel and Coumadin long-term Continue Toprol-XL, lisinopril Home on Lasix 40 mg daily Follow-up with me in 2 weeks and with heart failure clinic Admission and Anticipated Discharge Date Admission Date: May 10, 2020 Subjective Feeling better today. Feels breathing at baseline and orthopnea improved. Reports good urine output after IV Lasix yesterday. Telemetry reviewedbrief periods of atrial tachycardia but largely well rate controlled Review of Systems Review of Systems: All systems reviewed & are unremarkable except as noted in HPI & below Physical Exam Physical Exam: General: Comfortable, no acute distress HEENT: Sclerae anicteric, mucous membranes moist Lungs: Clear this morning Cardiac: Regular rate and rhythm, crisp mechanical closures of aortic, mitral valves. Abdomen: Soft, nontender, nondistended, positive bowel sounds. Extremities: Warm, well perfused, trace edema. Right radial artery access site with no ecchymosis, hematoma. Distal pulse and sensation intact. Skin: No rashes or lesions. Neuro: Nonfocal Psych: Alert orient x3, normal affect and mood Results & Data ([facility]) Vital Signs (Past 12 Hours) Vital Signs Temp Pulse Pulse Pulse Resp BP Pulse Ox 05/15/20 07:35 98.2 F 71 17 120/66 97 05/15/20 04:20 98.2 F 78 18 106/68 95 05/14/20 23:38 98.4 F 70 19 108/69 95 05/14/20 23:20 73 PG Care Time/CCT Total # of Minutes Spent Total Time Spent with Patient: Total time spent is greater than 50% in coordination of care (as documented) at patient's floor/unit and/or counseling patient: Coding Level of Care Code 34432 Subseq Hosp Care Lvl 3 Diagnoses Acute on chronic combined systolic (congestive) and diastolic (congestive) heart failure I50.43
[2020-05-15] MEDS: ENOXAPARIN 100 MG/1ML SYR SQ SCH ×2 (09:55→12:26)
--- NOTE | 2020-05-15 12:32 | Discharge Summary ---
Date of Service May 15, 2020 Admission HPI Per Admitting Provider 69 yo female with history of chronic diastolic heart failure, presents to the ED with complaint of being short of breath for the past month. She says that it started as just dyspnea on exertion, was subtle at first. Then she noticed that she could not sleep flat, needed to sleep almost upright in recliner. Now she is short of breath at rest, cannot complete ADL and she was concerned so she came to the hospital. She says that she weighs herself and her weight has been around 235 consistently. She does admit to increased lower extremity edema. She is compliant with her Lasix 40mg every morning. She tries to limit her sodium and fluid intake. She says she gets an occasional stabbing chest pain on the left side, this is sporadic, does not occur with exertion to her recollection. She also says that she will have one to two spells a day where she loses consciousness. This only happens when she is sitting, she has not fallen at all. She has sleep apnea and she does not use CPAP due to claustrophobia. She admits to daytime somnolence. She says that the past few days she does not seem to be responding to Lasix as usual. In the ED she has evidence of CHF on her CXR and peripheral edema. She was given Lasix 40mg IV but it had not started working when I examined her. Vitals stable except that she required 2L NC for saturations > 90%, normally not on oxygen. CBC showed normal WBC, Hb 10.8m, INR 3.3 (on Coumadin), normal BMP, troponin 0.058. No ischemic changes on EKG. Principal Diagnosis Acute on chronic systolic CHF, CAD Discharge Exam Constitutional WD/WN, vitals as above + obese Eyes + anicteric sclerae Neck trachea midline, no thyromegaly Respiratory normal respiratory effort, lungs clear to auscultation Cardiovascular Rate/Rhythm: regular rate and regular rhythm Heart Sounds: + murmur (2/6 at the left lower sternal border) Chest (Breasts) Chest: normal inspection of chest Gastrointestinal (Abdomen) normal bowel sounds, soft, nontender, no hepatosplenomegaly Musculoskeletal Extremities: no cyanosis and no clubbing Skin no rashes, warm and dry Neurologic moves all extremities and awake; no focal motor deficits Psychiatric A+Ox3, euthymic affect Lymphatic no lymphedema Discharge Data Allergies Allergy/AdvReac Type Severity Reaction Status Date / Time fluticasone Allergy Unknown NAUSEA Verified 05/10/20 13:48 [From Advair Diskus] VOMITING lactose Allergy Unknown Diarrhea Verified 05/10/20 13:48 adhesive Allergy Rash Verified 05/10/20 13:48 cinacalcet [From Sensipar] Allergy Swelling Verified 05/10/20 13:48 of the Eye latex Allergy Rash Verified 05/10/20 13:48 levofloxacin [From Levaquin] Allergy Hives Verified 05/10/20 13:48 salmeterol Allergy NAUSEA Verified 05/10/20 13:48 [From Advair Diskus] VOMITING erythromycin base AdvReac Mild VAGINAL Verified 05/10/20 13:48 [From Erythrocin] INFECTION Consultations 05/10/20 14:26 ED Decision to Admit Stat 05/10/20 16:20 Consult Case Management - Discharge Planning Routine [facility] CHF Program Referral Routine 05/11/20 10:32 Consult Cardiology Routine 05/14/20 11:39 Consult Cardiac Rehabilitation Routine Procedures Performed Operation Date: 05/11/20 15:00 <No data on this case meets the specified criteria> Operation Date: 05/14/20 09:30 Actual Procedures p Cath, Left with Cors and Vent - Deuce Friedman MD s Drug Eluting Stent SGl Vessel - Deuce Friedman MD s Cineradiography w/Routine Exam - Deuce Friedman MD s Fraction Flow [place] SGL Ves - Deuce Friedman MD Ordered Studies ECHO CXR 05/11/20 09:22 CL Cath Imgs for PACS use only Stat 05/14/20 10:08 CL Cath Imgs for PACS use only Stat Hospital Course (1) Acute on chronic combined systolic (congestive) and diastolic (congestive) heart failure: she reports one month of progressive dyspnea, initially just on exertion now with dyspnea at rest, orthopnea (sleeps upright in recliner) CXR with pulmonary edema, has increased edema in legs on admission she says her weight has been 235lbs at home she was not responding to Lasix at home like normally, she takes 40mg PO daily She has had an excellent response to Lasix 40mg IV BID, negative 1.8 L and lost 3kg BW, orthopnea improved -Continue Lasix 40mg PO qAM Now status post [facility] on Monday 05/[address] Friedman-with 70% stenosis in the mid LAD with SENA placed x1-does not explain her degree of severe cardiomyopathy -Continue medical management with lisinopril 5 mg daily, Toprol-XL 50 mg daily -Needs outpatient [id number] reports she would decline an ICD if recommended in the future -Continue daily weights, low-sodium diet, fluid restriction at home although question if will be compliant as complained about fluid restriction here (2) Arteriosclerosis of coronary artery: h/o poor performance with stress echocardiogram and wall motion abnormalities refused heart cath in the past, now status post heart cath as above with SENA to the mid LAD troponin 0.05 on admission had some intermittent chest pain when walking up stairs prior to admission had diaphoresis and un-easy feeling evening of 05/12 no ischemic changes on EKG, troponin negative No chest pain or symptoms since stent placement -Continue on aspirin, and added Plavix along with Coumadin-cardiology recommends triple therapy while in the hospital and then discharging to home only on Coumadin and Plavix -Continue Lipitor, metoprolol (3) Chronic diastolic CHF (congestive heart failure): now with acute component diuresis with Lasix, as above (4) Atrial fibrillation: h/o cardioversion, is in sinus bradycardia and normal sinus rhythm here now but has been intermittently in A. fib -Held Coumadin for 2 days and then was restarted on 05/14 INR subtherapeutic at discharge--. bridging with Lovenox on Toprol 50mg daily, HR is in 80's (5) History of DVT (deep vein thrombosis): on Coumadin INR 1.4 on day of discharge bridge with Lovenox (6) JOMAR (obstructive sleep apnea): admits to daytime somnolence not using her CPAP (7) Iron deficiency anemia: Hb is stable, 10.8 when last checked f/u as outpt (8) Chronic gastroesophageal reflux disease: no active symptoms continue PPI (9) COPD with chronic bronchitis: no wheezing on exam, no distress continue inhaled therapy (10) Major depression: Has declined psychiatric evaluation in the past Follows with PCP -Continue venlafaxine 150 mg once daily and lamotrigine 100 mg p.o. twice daily (11) Chronic kidney disease (CKD), stage III (moderate): Cr is stable at 1.12 with diuresis, electrolytes stable -Avoid nephrotoxins -renally dose meds when appropriate -follow BMP (12) Diabetes: Blood glucose well controlled here -Continue Levemir at home dose Novolog SS diabetic diet (13) Hypertension: BP well controlled -Continue metoprolol, lisinopril (14) Headache: resolved (15) History of heart valve replacement: mechanical AVR and MVR due to rheumatic heart disease, also with a history of prosthetic valve endocarditis done 2003 at [place] on Coumadin chronically, goal INR is 2.5-3.5, it is 1.4 on day of discharge -Resumed Coumadin on 05/14 -Follow INR in 2 days, bridge with Lovenox (16) Obesity: Morbid obesity (17) DVT prophylaxis: Coumadin Disposition- discharge to home today Passed 2 step walk test, no O2 required DNR/DNI Total Time Total Time Spent Total Time Spent (In Minutes): >30 min Total Time Includes: Examination of the Patient, Discharge Planning, Medication Reconciliation and Communication With Other Providers (Cardiology) Discharge Plan Discharge Items Patient Disposition: Home - Self-Care Reason For Visit: ACUTE ON CHRONIC HEART FAILURE Discharge Diagnosis: Acute on chronic systolic CHF, CAD Condition on Discharge: Fair Activity: As commented below Exercise/Sports: As tolerated Non-emergency contact: Primary Care Provider and [employer]pper Call non-emergency contact if: you have any medication questions and your symptoms worsen Follow-up/Referrals: Sanya Thurman III, CRNP [Primary Care Provider] - 05/22/20 9:20 am Jhoana Ramirez MD, PhD [Pathologist] - 05/17/20 10:30 am Deuce Friedman MD [Physician] - (Please follow up in the CHF clinic within 2 weeks-Ms. Mayra Starr PA-C will be contacting you with the appointment information.) Diet: Carb Consistent or DM2 and Low Sodium (2gm) Fluids: 1800ml (7 cups) Addtl Attending Provider Instructions: Please continue the Lovenox injections twice daily until your INR is back in goal range. Please go to the [facility] clinic as scheduled on at 10:30 to have your INR checked. Continue the lasix 40mg once daily for your water pill to keep fluid off so you don't have to come back to the hospital. You were started on Plavix as a blood thinner because of the stent placed in your heart. You should STOP taking your aspirin. You will also continue on your Coumadin as usual (and the temporary Lovenox until your INR is in goal range). Call your Primary Care doctor if any of the following symptoms or problems start or get worse: * Shortness of breath or difficulty breathing * Wake up at night short of breath * Chest pain * Cough * Swelling of your hands, feet, or legs * More fatigued or tired with your normal activity * Palpitations - sudden fast heart beats WEIGHT * Weigh yourself every morning after using the bathroom. * Use the same scale. * Wear the same amount of clothing. * Write your weight down on a chart. * Call your Primary Care doctor if you gain more than 2-3 pounds in 1-2 days. MEDICATIONS * Use this discharge instruction sheet for medication instructions. * Take your medications at the time your doctor ordered. * Do not skip a dose of your medicines. * If you miss a dose of medicine, take it as soon as possible, but DO NOT DOUBLE A DOSE. * Read your medicine information when you get home. * Know all of the side effects of your medicine. If in doubt, ask your pharmacist * Call your Primary Care doctor's office if you have any side effects. * Be sure all of your doctors know what medicine and herbs you take (including cold, flu, and herbal medicine). Take the following with you to your follow-up doctor appointments: * Weight Chart * Medication List * List of questions Do not drink excessive alcohol, beer or wine. ACTIVITY RECOMMENDATIONS: Excess manipulation of the wrist should be avoided for the next 24-48 hours. * No lifting over 2 pounds (approximately a 1/2 gallon of milk) with the utilized arm for 24 hours. * No strenuous activity such as bowling or tennis for 3 days. * Keep the site of the procedure covered with a bandage for 24 hours. *You may shower the day after the procedure. Do not take a tub bath or submerge the puncture site in water for the next 3 days. *Do not operate any motorized equipment for 3 days. SPECIAL CARE INSTRUCTIONS: The site may be slightly bruised and sore following your procedure. Should any of the following occur, contact the DrSammy who performed your procedure. 1. Redness/inflammation, swelling, chills, or fever, or colored drainage at procedure site within 3-7 days after your procedure. 2. Coldness, discoloration, ongoing numbness, severe pain, or swelling. Expect mild tingling of hand and tenderness at the puncture site for up to three days. If this persists beyond three days, or other symptoms develop, notify the Dr. who performed your procedure. BLEEDING: If the procedure site on your wrist begins to bleed, do not panic 1. Place 1 or 2 fingers firmly just slightly above the insertion site to stop the bleeding. You may be able to feel your pulse as you hold pressure. 2. Lift your finger after 5 minutes to see if the bleeding has stopped. 3. Once the bleeding has stopped, gently wipe the wrist area clean with a bandage. * If the bleeding from your wrist does not stop after 10 minutes, or if there is a large amount of bleeding or spurting, call 911 (do not drive yourself to the hospital). SKIN IRRITATION: * You may experience some redness and/or swelling in the area where radiation was administered. If any skin irritation occurs, please contact your family physician. FOLLOW UP VISIT: Keep any scheduled doctor appointments. Pending Studies at Discharge: No Stand-Alone Forms: [facility], Smoking Cessation Medications and DC Order Prescriptions: New clopidogrel 75 mg Tablet 75 mg PO QAM Qty: 30 RF: 0 Continued acetaminophen 500 mg Tablet 1,000 mg PO HS RF: 0 phytonadione (vitamin K1) 100 mcg tablet 100 mcg PO UD PRN (Reason: Bleeding) RF: 0 calcitriol 0.5 mcg capsule 0.5 mcg PO BID RF: 0 polyethylene glycol 3350 [Miralax] 17 gram powder in packet 10 gm PO DAILY PRN (Reason: constipation) RF: 0 Serevent Diskus 50 mcg/dose blister with device 1 puffs INH BID PRN (Reason: Shortness Of Breath Or Wheezing) RF: 0 montelukast 10 mg tablet 10 mg PO DAILY PRN (Reason: Allergy Symptoms) Qty: 90 RF: 1 Novolog U-100 Insulin aspart 100 unit/mL solution 20 unit SUBCUT QID Qty: 70 RF: 1 Levemir U-100 Insulin 100 unit/mL solution 20 unit SUBCUT BID Qty: 40 RF: 1 omeprazole 40 mg capsule,delayed release(DR/EC) 40 mg PO BID Qty: 90 RF: 1 tizanidine 4 mg tablet 4 mg PO TID PRN (Reason: muscle spasticity) Qty: 90 RF: 1 warfarin 5 mg tablet 7.5 mg PO DAILY Qty: 60 RF: 3 (DME) BD Insulin Syringe Half Unit 0.3 mL 31 gauge x 5/16" syringe See Dose Instructions .ROUTE .MEDSUPPLY Qty: 600 RF: 1 atorvastatin 40 mg tablet 40 mg PO QAM Qty: 90 RF: 1 lamotrigine [Lamictal] 100 mg tablet 100 mg PO BID Qty: 90 RF: 2 gabapentin 600 mg tablet 600 mg PO BID 90 Days Qty: 180 RF: 1 lisinopril 5 mg tablet 5 mg PO DAILY Qty: 90 RF: 2 (DME) walker misc See Dose Instructions .ROUTE .MEDSUPPLY Qty: 1 RF: 0 oxycodone 10 mg tablet 10 mg PO TID PRN (Reason: PAIN) Qty: 60 RF: 0 albuterol sulfate [Ventolin HFA] 90 mcg/actuation HFA aerosol inhaler 1 - 2 puff INH Q4 PRN (Reason: shortness of breath or wheezing) RF: 0 venlafaxine [Effexor XR] 150 mg capsule,extended release 24hr 150 mg PO QAM RF: 0 metoprolol succinate 25 mg tablet extended release 24 hr 50 mg PO QAM RF: 0 Changed furosemide [Lasix] 40 mg tablet 40 mg PO DAILY Qty: 90 RF: 3 Discontinued aspirin 81 mg Tablet,Delayed Release (Dr/Ec) 81 mg PO QAM RF: 0 No Action enoxaparin 100 mg/mL syringe 100 mg subcut BID Qty: 10 RF: 1 Discharge Orders: Discharge Order (Routine); Ordered 05/15/20 Ordered By: Neha Francis/Other Patient Handouts: Having Cardiac Catheterization, Cardiac Catheterization Dc, Enoxaparin injection, Clopidogrel tablets Admission Data Admit Date/Time: 05/10/20 15:13 Attending Provider: Neha Patel Admit Provider: Gurvinder Ramires Primary Care Provider: Sanya Thurman III Other Providers: Obie Singleton ; Mayra Starr ; Deuce Friedman Other Interventions: Discharge Summary Assessment (RN) Last Done: 05/15/20 12:46 DC Date/Time DO NOT enter until pt leaves facility: 05/15/20 13:38 Coding Level of Care Code D/C Day Management >30 mins Diagnoses Acute on chronic combined systolic (congestive) and diastolic (congestive) heart failure I50.43 Arteriosclerosis of coronary artery I25.10 Chronic diastolic CHF (congestive heart failure) I50.32 Atrial fibrillation I48.91 History of DVT (deep vein thrombosis) Z86.718 JOMAR (obstructive sleep apnea) G47.33 Iron deficiency anemia D50.9 Chronic gastroesophageal reflux disease K21.9 COPD with chronic bronchitis J44.9 Major depression F32.1 Active/Remission status: currently active Major depression episode severity: moderate Major depression recurrence: single episode Chronic kidney disease (CKD), stage III (moderate) N18.3 Diabetes E11.22; N18.3; Z79.4 Chronic kidney disease stage: stage 3 (moderate) Diabetes mellitus complication detail: with chronic kidney disease Diabetes mellitus complication status: with kidney complications Diabetes mellitus senior living insulin use: with senior living use Diabetes mellitus type: type 2 Hypertension I10 Headache R51 History of heart valve replacement Z95.2 Obesity E66.9 DVT prophylaxis Z29.9
== END 2020-05-15 13:38 | disposition home or self-care (01) | DRG 246 ==
LOC: ED 12:32 → SUATTDRO 15:13 → 2W 15:13 → 2S 05-14 12:18
DX: J44.9 Chronic obstructive pulmonary disease, unspecified; I48.91 Unspecified atrial fibrillation; Z66 Do not resuscitate; G47.33 Obstructive sleep apnea (adult) (pediatric); I50.41 Acute combined systolic (congestive) and diastolic (congestive) heart failure; N18.3 Chronic kidney disease, stage 3 (moderate); E11.22 Type 2 diabetes mellitus with diabetic chronic kidney disease; Z68.41 Body mass index [BMI] 40.0-44.9, adult; R51 Headache; I48.92 Unspecified atrial flutter; I13.0 Hypertensive heart and chronic kidney disease with heart failure and stage 1 through stage 4 chronic kidney disease, or unspecified chronic kidney disease; Z86.718 Personal history of other venous thrombosis and embolism; F17.210 Nicotine dependence, cigarettes, uncomplicated; D64.9 Anemia, unspecified; Z79.4 Long term (current) use of insulin; E66.01 Morbid (severe) obesity due to excess calories; F32.9 Major depressive disorder, single episode, unspecified; Z79.01 Long term (current) use of anticoagulants; K21.9 Gastro-esophageal reflux disease without esophagitis

== ENCOUNTER 2020-05-25 20:50 | Inpatient (IN) ==
[2020-05-25] MEDS ORDERED: HYDROmorphone INJ 0.5 MG/0.5 ML SYR IV PRN (23:00)
[2020-05-25] MEDS ORDERED: ONDANSETRON INJ 2 MG/ML 2 ML VIAL IV STA (23:00)
[2020-05-25] MEDS ORDERED: MAGNESIUM SULFATE / D5W 1 GM/100 ML BAG IV ONE (23:00)
[2020-05-25 23:15] LABS: Basophils # (auto) 0.01 K/uL (0-0.2); Basophils % (auto) 0.1 %; Eosinophils # (auto) 0.17 K/uL (0-0.5); Hematocrit (blood only) 35.8 % (37-47); Immature Granulocytes # (auto) 0.02 K/uL (0.00-0.02); Immature Granulocytes % (auto) 0.2 %; Lymphocytes % (auto) 17.7 %; Mean Corpuscular Hgb Conc 30.7 g/dL (32-36); Mean Corpuscular Volume 81.4 fL (80-100); Mean Platelet Volume 9.4 fL (7.4-10.4); Monocytes # (auto) 0.72 K/uL (0.11-0.59); Monocytes % (auto) 8.5 %; Neutrophils # (auto) 6.05 K/uL (1.4-6.5); Neutrophils % (auto) 71.5 %; Platelet Count 295 K/uL (130-400); RDW Coefficient of Variation 16.1 % (11.5-14.5); RDW Standard Deviation 47.7 fL (36.4-46.3); White Blood Count 8.47 K/uL (4.8-10.8)
[2020-05-25 23:29] LABS: INR 3.2 (0.9-1.1); Partial Thromboplastin Ratio 1.6; Partial Thromboplastin Time 44.3 Seconds (21.0-31.0); Prothrombin Time 31.4 Seconds (9.0-12.0)
[2020-05-25 23:39] LABS: Alanine Aminotransferase 24 U/L (12-78); Albumin Level 3.8 gm/dl (3.4-5.0); Aspartate Aminotransferase 18 U/L (15-37); BUN Creatinine Ratio 22.2 (10-20); Blood Urea Nitrogen 23 mg/dl (7-18); C Reactive Protein 0.65 mg/dl (0-0.29); Calcium 10.2 mg/dl (8.5-10.1); Carbon Dioxide 29 mmol/L (21-32); Chloride 108 mmol/L (98-107); Est GFR (African American) 64.2; Est GFR (Non-African American) 55.4; Glucose 100 mg/dl (70-99); Lipase 150 U/L (73-393); Potassium 4.4 mmol/L (3.5-5.1); Sodium 140 mmol/L (136-145)
[2020-05-25] MEDS ORDERED: OPTIRAY 320 125ml IV PRN (23:44)
[2020-05-25] MEDS ORDERED: NITROGLYCERIN 2% OINTMENT 30GM TUBE EXT SCH (23:45)
[2020-05-25 23:49] LABS: Albumin Globulin Ratio 0.9 (0.9-2); Alkaline Phosphatase 114 U/L (45-117); Bilirubin,Total 0.3 mg/dl (0.2-1); Creatine Kinase 192 U/L (26-192); Creatine Kinase MB 7.2 ng/ml (0.5-3.6); Ferritin 40.3 ng/ml (8-388); Globulin 4.1 gm/dl (2.5-4.0); NT Pro B Type Natriuretic Pept 3162 pg/ml (0-900); Total Protein 7.9 gm/dl (6.4-8.2); Troponin I 0.136 ng/ml (0-0.045)
[2020-05-25] MEDS ORDERED: ASPIRIN CHEW 324 MG PO STA (23:55)
--- NOTE | 2020-05-25 23:55 | Emergency Department Note ---
History of Present Illness General Chief complaint: Cardiac Assessment Stated complaint: SOB, CHEST PAINS - STENT PUT IN WEEK AGO Time Seen by Provider: 05/25/20 22:18 Source: patient, RN notes reviewed and old records reviewed Mode of arrival: ambulatory Limitations: no limitations History of Present Illness Provider complaint: chest pain Onset (ago): day(s) 1 Location: chest Radiation: extremity Severity: moderate Pain Consistency: + colicky Maximum Pain Intensity: 6 Current Pain Intensity: 6 Quality: + burning Relieved By: + immobilization Exacerbated By: + movement Associated symptoms: + denies other symptoms; no fever/chills, no headaches, no malaise, no nausea/vomiting and no shortness of breath Treatments prior to arrival: none This is a 69-year-old female who presents emergency department complaining of chest pain. The patient rates the chest pain as a burning sensation radiates into her left arm. She reports it is on the left side of her chest. She reports immobilization makes the chest pain better however exertion makes the chest pain worse. She has not taken anything for the pain. Home Medications Home Medications Medication Instructions Recorded Confirmed Type acetaminophen 1,000 mg PO HS 08/03/18 05/26/20 History walker #1 ea 06/16/19 05/22/20 Rx albuterol sulfate [Ventolin HFA] 1 - 2 puff INH Q4 PRN 11/03/19 05/26/20 History polyethylene glycol 3350 17 gram 10 gm PO DAILY PRN ea 12/02/19 05/26/20 History oral powder packet salmeterol 50 mcg/dose blister 1 puffs INH BID PRN ea 12/02/19 05/26/20 History powder for inhalation montelukast 10 mg tablet 10 mg PO DAILY PRN #90 tab 12/21/19 05/26/20 Rx phytonadione (vitamin K1) 100 mcg 100 mcg PO UD PRN tab 12/28/19 05/26/20 History tablet calcitriol 0.5 mcg capsule 0.5 mcg PO BID cap 01/10/20 05/26/20 History venlafaxine [Effexor XR] 150 mg PO QAM 01/12/20 05/26/20 History metoprolol succinate 25 mg 25 mg PO QAM tab 02/10/20 05/26/20 History tablet,extended release 24 hr insulin aspart U-100 100 unit/mL 20 unit SUBCUT QID #70 ml 02/15/20 05/26/20 Rx subcutaneous solution insulin detemir U-100 100 unit/mL 20 unit SUBCUT BID #40 ml 02/22/20 05/26/20 Rx subcutaneous solution omeprazole 40 mg capsule,delayed 40 mg PO BID #90 cap 03/01/20 05/26/20 Rx release tizanidine 4 mg tablet 4 mg PO TID PRN #90 tab 03/14/20 05/26/20 Rx atorvastatin 40 mg tablet 40 mg PO QAM #90 tab 03/15/20 05/26/20 Rx insulin syr/ndl U100 half tanner 0.3 #600 ea 03/15/20 05/22/20 Rx mL 31 gauge x 04/14" warfarin 5 mg tablet 7.5 mg PO DAILY #60 tab 03/15/20 05/26/20 Rx lamotrigine 100 mg tablet 100 mg PO BID #90 tab 03/16/20 05/26/20 Rx gabapentin 600 mg tablet 600 mg PO BID 90 Days #180 tab 04/24/20 05/26/20 Rx lisinopril 5 mg tablet 5 mg PO DAILY #90 tab 05/02/20 05/26/20 Rx oxycodone 10 mg tablet 10 mg PO TID PRN #60 tab 05/10/20 05/26/20 Rx clopidogrel 75 mg PO QAM #30 tab 05/15/20 05/26/20 Rx furosemide [Lasix] 40 mg PO DAILY #90 tab 05/15/20 05/26/20 Rx tramadol 50 mg tablet See Rx Instructions PO TID PRN #60 05/22/20 05/26/20 Rx tab triamcinolone acetonide 0.5 % 1 appln TOP TID #15 gm 05/22/20 05/26/20 Rx topical cream Allergies Allergy/AdvReac Type Severity Reaction Status Date / Time levofloxacin [From Levaquin] Allergy Intermediate Hives Verified 05/26/20 00:26 adhesive Allergy Mild Rash Verified 05/26/20 00:26 cinacalcet [From Sensipar] Allergy Mild Swelling Verified 05/26/20 00:26 of the Eye fluticasone AdvReac Intermediate NAUSEA Verified 05/26/20 00:26 [From Advair Diskus] VOMITING lactose AdvReac Intermediate Diarrhea Verified 05/26/20 00:26 salmeterol AdvReac Intermediate NAUSEA Verified 05/26/20 00:26 [From Advair Diskus] VOMITING erythromycin base AdvReac Mild VAGINAL Verified 05/26/20 00:26 [From Erythrocin] INFECTION latex AdvReac Mild Rash Verified 05/26/20 00:26 Past Med/Surg History Medical History Anemia Anxiety Arteriosclerosis of coronary artery Asthma RESCUE INHALER 1-2x per month Atrial fibrillation Dx "many years ago" - s/p cardioversion - follows w/ Dr. Stein - on warfarin Atrial flutter Balance problem (Resolved) Bipolar disorder Chronic anticoagulation (Acute) Chronic back pain Chronic kidney disease Chronic kidney disease (CKD), stage III (moderate) F/U DR RUBY Chronic obstructive pulmonary disease Chronic pain Congestive heart failure Depression Diabetes mellitus, type 2 Diabetic peripheral neuropathy Fibromyalgia GERD (gastroesophageal reflux disease) Hx MRSA infection Per infection control 10/21/17: "Patient has a history of MRSA in 2007, but has since been cleared with multiple negative cultures and nasal screens. No contact precautions necessary." Hx of deep venous thrombosis 1968 - RL Hypercalcemia Hyperlipidemia Hyperparathyroidism Major depression Meralgia paresthetica Microalbuminuria Mild neurocognitive disorder Morbid obesity with BMI of 40.0-44.9, adult Obesity Osteoarthritis Osteoarthritis Osteopenia Peripheral neuropathy ALL OVER Rheumatic heart disease Sleep apnea noncompliant with CPAP SOB (shortness of breath) on exertion Valvular disease Venous insufficiency (chronic) (peripheral) Vitamin D deficiency Surgical History Fusion of spine LUMBAR History of appendectomy History of arthroscopy RIGHT AND LEFT KNEE History of back surgery History of bladder surgery History of bowel resection partial colectomy History of cardiac cath multiple caths -[facility] - no stents/angioplasty - most recent 2013 [facility] History of cardioversion History of carpal tunnel release LEFT/RIGHT History of colonoscopy History of esophagogastroduodenoscopy (EGD) History of heart valve replacement 2004 [facility], MITRAL AND AORTIC VALVE, F/U WITH DR STEIN (NOT GOOD HISTORIAN) History of hysterectomy total abdominal hysterectomy with removal of both ovaries History of parathyroidectomy History of shoulder replacement - 07/2018 [facility] S/P cardiac catheterization 05/14/20 Dr. Thierno Stein- 1 SENA to mid LAD S/P T&A (status post tonsillectomy and adenoidectomy) Family History Mother , in her 40s Cardiomyopathy Myocardial infarction Father , in his 50s Myocardial infarction Daughter , age 17 Heart disease Congenital heart disease Other Diabetes Hypertension Denies family history of Pancreatic cancer Ovarian cancer Prostate cancer Breast cancer Colorectal cancer Uterine cancer Social History Preferred Language: Icelandic Communication Ability: Effective Visual Impairment: No Limitations Hearing Ability: Hard of Hearing Parts Identification Technician Required: No Beliefs That Will Affect Care: None marital status: Single Current Living Situation: Family Current Living Situation Comment: lives with daughter current occupational status: retired Other Information That Helps Us Care for You: No Feels Safe at Home: Yes Safety Concerns: Feels Safe At This Time Smoking Status: Current every day smoker Tobacco Type: cigarettes ; Cigarettes Per Day: 15 ; Do You Dip or Chew Tobacco: No ; Second Hand Exposure: No ; Tobacco Cessation Education Requested by Patient: No Hx Alcohol Use: No Hx Substance Use: No Childhood Exposure to Second-Hand Smoke: Yes Dental Care, Regularly: No Physical Activity Frequency: Does not Exercise Seatbelt Use: always Sunscreen Use: Yes Review of Systems A total of 10 systems reviewed and were otherwise negative Physical Exam Vital Signs Vital Signs - 24 hr 05/25/20 22:35 05/25/20 22:40 05/25/20 22:46 Pulse Rate 73 74 73 Pulse Rate [Right Finger] Pulse Rate from SpO2 Sensor 73 73 Respiratory Rate 23 24 20 Respiratory Depth Blood Pressure 122/65 Blood Pressure [Right Arm] Blood Pressure Mean 72 Blood Pressure Mean [Right Arm] Blood Pressure Position [Right Arm] Pulse Oximetry 95 95 96 Oxygen Delivery Method Room Air Oxygen Flow Rate 05/26/20 00:05 05/26/20 00:30 05/26/20 01:39 Pulse Rate Pulse Rate [Right Finger] 70 67 65 Pulse Rate from SpO2 Sensor Respiratory Rate 16 18 18 Respiratory Depth Normal Normal Normal Blood Pressure Blood Pressure [Right Arm] 117/56 L 114/54 L 116/51 L Blood Pressure Mean Blood Pressure Mean [Right Arm] 76 74 72 Blood Pressure Position [Right Arm] Lying Lying Pulse Oximetry 96 98 96 Oxygen Delivery Method Nasal Cannula Nasal Cannula Room Air Oxygen Flow Rate 2 2 VITAL SIGNS - Vital signs and nursing notes were reviewed. GENERAL - 69-year-old female appearing stated age who is in no acute distress. Communicates well with provider and answers questions appropriately. SKIN - Without rashes. HEAD - NC/AT. EYES - PERRL with EOMI bilaterally. Sclera anicteric. Palpebral conjunctiva pink and moist with no injection noted. EARS - No deformities of external structures noted on gross examination b ilaterally. No pain elicited with palpation of the tragus bilaterally. External auditory canals without discharge or otorrhea. Tympanic membranes pearly giles without retraction or bulging. No fluid or purulent material visualized behind the TM. Handle of malleus, umbo, cone of light, pars tensa/flaccid all easily visualized. NOSE - Midline and without cyanosis. No epistaxis or purulent drainage noted. Septum midline without deviation or septal hematoma noted. MOUTH/OROPHARYNX - Without perioral cyanosis. Buccal mucosa pink and moist and without leukoplakia. Tongue midline with equal elevation of palate bilaterally. No tonsillar hypertrophy, erythema, or exudates noted. dentition noted. NECK - Neck with FROM. Supple to palpation. lymphadenopathy noted. No nuchal rigidity. LUNGS - Chest wall symmetric without accessory muscle use, intercostals retractions, or central cyanosis. Normal vesicular breath sounds CTA B/L. No wheezes, rales, or rhonchi appreciated. CARDIAC - RRR with S1/S2. No murmur, rubs, or gallops appreciated. ABDOMEN - Abdominal contour without pulsations or visible masses. BS normoactive all four quadrants. No tenderness, palpable masses, hepatosplenomegaly, or ascites noted. EXTREMITIES - No clubbing or peripheral cyanosis. No pretibial edema present. +3/5 radial, posterior tibial, and dorsalis pedis pulses palpated throughout. +5/5 strength noted in UE/LE bilaterally. NEUROLOGIC - Cranial nerves II through XII grossly intact. Sensory intact to light touch throughout. Patellar reflexes +2/4. PSYCH - A&Ox3 and cooperates fully with examiner. Pt is very pleasant and interacts well with examiner. Course Administered Medications Acetaminophen (Tylenol) 1,000 mg PO HS МАРИНА Stop: 06/25/20 20:59 Last Admin: 05/28/20 20:07 Dose: 1,000 mg Documented by: [id number] Admin: 05/27/20 20:22 Dose: 1,000 mg Documented by: [id number] Admin: 05/26/20 20:40 Dose: 1,000 mg Documented by: [id number] Atorvastatin Calcium (Lipitor) 40 mg PO [facility] Stop: 06/25/20 08:59 Last Admin: 05/29/20 08:21 Dose: 40 mg Documented by: [id number] Admin: 05/28/20 07:56 Dose: 40 mg Documented by: [id number] Admin: 05/27/20 08:32 Dose: 40 mg Documented by: [id number] Admin: 05/26/20 08:37 Dose: 40 mg Documented by: [id number] Calcitriol (Rocaltrol) 0.5 mcg PO BID [facility] Stop: 06/25/20 08:59 Last Admin: 05/29/20 08:20 Dose: 0.5 mcg Documented by: [id number] Admin: 05/28/20 20:07 Dose: 0.5 mcg Documented by: [id number] Admin: 05/28/20 07:56 Dose: 0.5 mcg Documented by: [id number] Admin: 05/27/20 20:30 Dose: 0.5 mcg Documented by: [id number] Admin: 05/27/20 08:32 Dose: 0.5 mcg Documented by: [id number] Admin: 05/26/20 20:42 Dose: 0.5 mcg Documented by: [id number] Admin: 05/26/20 08:37 Dose: 0.5 mcg Documented by: [id number] Clopidogrel Bisulfate (Plavix) 75 mg PO [facility] Stop: 06/25/20 08:59 Last Admin: 05/29/20 08:22 Dose: 75 mg Documented by: [id number] Admin: 05/28/20 07:56 Dose: 75 mg Documented by: [id number] Admin: 05/27/20 08:32 Dose: 75 mg Documented by: [id number] Admin: 05/26/20 08:37 Dose: 75 mg Documented by: [id number] Diclofenac Sodium (Voltaren 1% Top) 2 gm EXT BID [facility] Stop: 06/26/20 16:59 Last Admin: 05/29/20 08:22 Dose: 2 gm Documented by: [id number] Admin: 05/28/20 20:09 Dose: 2 gm Documented by: [id number] Admin: 05/28/20 07:53 Dose: 2 gm Documented by: [id number] Admin: 05/27/20 20:29 Dose: 2 gm Documented by: [id number] Admin: 05/27/20 16:48 Dose: 2 gm Documented by: [id number] Gabapentin (Neurontin) 600 mg PO BID МАРИНА Stop: 06/25/20 08:59 Last Admin: 05/29/20 08:20 Dose: 600 mg Documented by: [id number] Admin: 05/28/20 20:07 Dose: 600 mg Documented by: [id number] Admin: 05/28/20 07:57 Dose: 600 mg Documented by: [id number] Admin: 05/27/20 20:31 Dose: 600 mg Documented by: [id number] Admin: 05/27/20 08:32 Dose: 600 mg Documented by: [id number] Admin: 05/26/20 20:41 Dose: 600 mg Documented by: [id number] Admin: 05/26/20 08:37 Dose: 600 mg Documented by: [id number] Furosemide 40 mg/ Syringe 4 mls @ 4 mls/min IV BID17 МАРИНА Stop: 06/28/20 16:59 Last Admin: 05/29/20 16:24 Dose: 4 mls/min Documented by: [id number] Insulin Aspart (Novolog Flexpen) 0 units SC ACHS МАРИНА Stop: 06/25/20 07:29 Last Admin: 05/29/20 17:39 Dose: 5 units Documented by: [id number] Cosigned by: [id number] Admin: 05/29/20 12:15 Dose: 5 units Documented by: [id number] Cosigned by: [id number] Admin: 05/29/20 08:24 Dose: 5 units Documented by: [id number] Cosigned by: [id number] Admin: 05/28/20 21:35 Dose: Not Given Documented by: [id number] Cosigned by: [id number] Admin: 05/28/20 17:35 Dose: 5 units Documented by: [id number] Cosigned by: [id number] Admin: 05/28/20 13:09 Dose: 9 units Documented by: [id number] Cosigned by: [id number] Admin: 05/28/20 08:32 Dose: 6 units Documented by: [id number] Cosigned by: [id number] Admin: 05/27/20 20:27 Dose: 1 units Documented by: [id number] Cosigned by: [id number] Admin: 05/27/20 17:25 Dose: 3 units Documented by: [id number] Cosigned by: [id number] Admin: 05/27/20 12:10 Dose: 8 units Documented by: [id number] Cosigned by: [id number] Admin: 05/27/20 08:30 Dose: 5 units Documented by: [id number] Cosigned by: [id number] Admin: 05/26/20 20:40 Dose: Not Given Documented by: [id number] Cosigned by: [id number] Admin: 05/26/20 17:13 Dose: 7 units Documented by: [id number] Cosigned by: [id number] Admin: 05/26/20 12:38 Dose: 7 units Documented by: [id number] Cosigned by: [id number] Admin: 05/26/20 08:39 Dose: 5 units Documented by: [id number] Cosigned by: [id number] Insulin Detemir (Levemir Flextouch) 15 units SC BID МАРИНА Stop: 06/25/20 08:59 Last Admin: 05/29/20 09:06 Dose: 15 units Documented by: [id number] Cosigned by: [id number] Admin: 05/28/20 21:34 Dose: 15 units Documented by: [id number] Cosigned by: [id number] Admin: 05/28/20 08:33 Dose: 15 units Documented by: [id number] Cosigned by: [id number] Admin: 05/27/20 20:28 Dose: 15 units Documented by: [id number] Cosigned by: [id number] Admin: 05/27/20 08:30 Dose: 15 units Documented by: [id number] Cosigned by: [id number] Admin: 05/26/20 20:38 Dose: 15 units Documented by: [id number] Cosigned by: [id number] Admin: 05/26/20 08:39 Dose: 15 units Documented by: [id number] Cosigned by: [id number] Lamotrigine (Lamictal) 100 mg PO BID МАРИНА Stop: 06/25/20 08:59 Last Admin: 05/29/20 08:20 Dose: 100 mg Documented by: [id number] Admin: 05/28/20 20:08 Dose: 100 mg Documented by: [id number] Admin: 05/28/20 07:55 Dose: 100 mg Documented by: [id number] Admin: 05/27/20 20:29 Dose: 100 mg Documented by: [id number] Admin: 05/27/20 08:33 Dose: 100 mg Documented by: [id number] Admin: 05/26/20 20:39 Dose: 100 mg Documented by: [id number] Admin: 05/26/20 08:38 Dose: 100 mg Documented by: [id number] Lisinopril (Zestril) 5 mg PO DAILY МАРИНА Stop: 06/25/20 08:59 Last Admin: 05/29/20 08:22 Dose: 5 mg Documented by: [id number] Admin: 05/28/20 07:54 Dose: 5 mg Documented by: [id number] Admin: 05/27/20 08:32 Dose: 5 mg Documented by: [id number] Admin: 05/26/20 10:06 Dose: Not Given Documented by: [id number] Metoprolol Succinate (Toprol Xl) 25 mg PO QAM МАРИНА Stop: 06/25/20 08:59 Last Admin: 05/29/20 08:21 Dose: 25 mg Documented by: [id number] Admin: 05/28/20 07:55 Dose: 25 mg Documented by: [id number] Admin: 05/27/20 08:33 Dose: 25 mg Documented by: [id number] Admin: 05/26/20 10:06 Dose: Not Given Documented by: [id number] Nitroglycerin (Nitrostat) 0.4 mg SL PRN PRN PRN Reason: Chest Pain Stop: 06/25/20 02:51 Last Admin: 05/28/20 09:48 Dose: 0.4 mg Documented by: [id number] Oxycodone HCl (Roxicodone Immediate Rel) 10 mg PO TID PRN PRN Reason: Pain Stop: 06/09/20 02:51 Last Admin: 05/28/20 15:28 Dose: 10 mg Documented by: [id number] Admin: 05/27/20 20:23 Dose: 10 mg Documented by: [id number] Admin: 05/27/20 08:44 Dose: 10 mg Documented by: [id number] Admin: 05/26/20 15:57 Dose: 10 mg Documented by: [id number] Pantoprazole Sodium (Protonix) 40 mg PO BID [facility] Stop: 06/25/20 08:59 Last Admin: 05/29/20 08:20 Dose: 40 mg Documented by: [id number] Admin: 05/28/20 20:07 Dose: 40 mg Documented by: [id number] Admin: 05/28/20 07:55 Dose: 40 mg Documented by: [id number] Admin: 05/27/20 20:32 Dose: 40 mg Documented by: [id number] Admin: 05/27/20 08:33 Dose: 40 mg Documented by: [id number] Admin: 05/26/20 20:43 Dose: 40 mg Documented by: [id number] Admin: 05/26/20 08:37 Dose: 40 mg Documented by: [id number] Polyethylene Glycol (Miralax Powder Packet) 10 gm PO DAILY PRN PRN Reason: constipation Stop: 06/25/20 02:51 Last Admin: 05/29/20 10:37 Dose: 10 gm Documented by: [id number] Tizanidine HCl (Zanaflex) 4 mg PO TID PRN PRN Reason: muscle spasticity Stop: 06/25/20 02:51 Last Admin: 05/26/20 22:49 Dose: 4 mg Documented by: [id number] Triamcinolone Acetonide (Kenalog 0.5%) 1 appln TOP TID [facility] Stop: 06/25/20 08:59 Last Admin: 05/29/20 14:23 Dose: 1 appln Documented by: [id number] Admin: 05/29/20 08:28 Dose: 1 appln Documented by: [id number] Admin: 05/28/20 20:06 Dose: 1 appln Documented by: [id number] Admin: 05/28/20 13:09 Dose: 1 appln Documented by: [id number] Admin: 05/28/20 07:54 Dose: 1 appln Documented by: [id number] Admin: 05/27/20 20:28 Dose: 1 appln Documented by: [id number] Admin: 05/27/20 15:37 Dose: 1 appln Documented by: [id number] Admin: 05/27/20 08:33 Dose: 1 appln Documented by: [id number] Admin: 05/26/20 20:38 Dose: 1 appln Documented by: [id number] Admin: 05/26/20 14:44 Dose: 1 appln Documented by: [id number] Admin: 05/26/20 11:04 Dose: 1 appln Documented by: [id number] [facility]lafaxine [facility] ([facility]xor Extended Release) [facility] Stop: 06/25/20 08:59 Last Admin: 05/29/20 08:19 Dose: 150 mg Documented by: [id number] Admin: 05/28/20 07:55 Dose: 150 mg Documented by: [id number] Admin: 05/27/20 08:32 Dose: 150 mg Documented by: [id number] Admin: 05/26/20 08:37 Dose: 150 mg Documented by: [id number] Warfarin Sodium (Coumadin) 7.5 mg PO DAILY@1600 [facility] Stop: 06/25/20 15:59 Last Admin: 05/29/20 16:52 Dose: 7.5 mg Documented by: [id number] Admin: 05/28/20 15:29 Dose: 7.5 mg Documented by: [id number] Admin: 05/27/20 16:50 Dose: 7.5 mg Documented by: [id number] Admin: 05/26/20 15:58 Dose: 7.5 mg Documented by: [id number] Discontinued Medications Aspirin (Aspirin) 324 mg PO NOW STA Stop: 05/25/20 23:56 Last Admin: 05/26/20 00:08 Dose: 324 mg Documented by: [id number] Bisacodyl (Dulcolax) 5 mg PO NOW ONE Stop: 05/29/20 10:36 Last Admin: 05/29/20 12:17 Dose: 5 mg Documented by: [id number] Enoxaparin Sodium (Lovenox) 100 mg SQ Q12H МАРИНА Stop: 06/27/20 08:59 Last Admin: 05/29/20 08:23 Dose: 100 mg Documented by: [id number] Admin: 05/28/20 20:09 Dose: 100 mg Documented by: [id number] Admin: 05/28/20 09:32 Dose: 100 mg Documented by: [id number] Furosemide (Lasix) 40 mg PO DAILY МАРИНА Stop: 06/25/20 08:59 Last Admin: 05/26/20 08:37 Dose: 40 mg Documented by: [id number] Furosemide (Lasix) 40 mg PO BID МАРИНА Stop: 06/25/20 20:59 Last Admin: 05/28/20 20:08 Dose: 40 mg Documented by: [id number] Admin: 05/28/20 07:55 Dose: 40 mg Documented by: [id number] Admin: 05/27/20 20:31 Dose: 40 mg Documented by: [id number] Admin: 05/27/20 08:33 Dose: 40 mg Documented by: [id number] Admin: 05/26/20 20:43 Dose: 40 mg Documented by: [id number] Hydromorphone HCl (Dilaudid) 0.5 mg IV Q15M PRN PRN Reason: Pain Stop: 06/08/20 22:59 Last Admin: 05/25/20 23:36 Dose: 0.5 mg Documented by: [id number] Magnesium Sulfate/Dextrose (Magnesium Sulfate / D5w) 1 gm in 100 mls @ 50 mls/hr IV ONE ONE Stop: 05/26/20 00:59 Last Infusion: 05/26/20 01:36 Dose: 0 mls/hr Documented by: [id number] Admin: 05/25/20 23:36 Dose: 50 mls/hr Documented by: [id number] Furosemide 40 mg/ Syringe 4 mls @ 4 mls/min IV ONE ONE Stop: 05/26/20 03:16 Last Admin: 05/26/20 03:28 Dose: 4 mls/min Documented by: [id number] Furosemide 40 mg/ Syringe 4 mls @ 4 mls/min IV ONE ONE Stop: 05/29/20 07:51 Last Admin: 05/29/20 08:19 Dose: 4 mls/min Documented by: [id number] Ioversol (Optiray 320 125ml) 119 ml IV ONCE PRN PRN Reason: Interaction Checking Stop: 05/29/20 23:43 Last Admin: 05/25/20 23:45 Dose: 119 ml Documented by: [id number] Nitroglycerin (Nitro-Bid 2%) 1 inch EXT Q6H МАРИНА Stop: 06/24/20 23:44 Last Admin: 05/26/20 00:08 Dose: 1 inch Documented by: [id number] Ondansetron HCl (Zofran) 4 mg IV NOW STA Stop: 05/25/20 23:01 Last Admin: 05/25/20 23:35 Dose: 4 mg Documented by: [id number] Warfarin Sodium (Coumadin) 2.5 mg PO NOW ONE Stop: 05/27/20 17:01 Last Admin: 05/27/20 16:49 Dose: 2.5 mg Documented by: [id number] Medical Decision Making Differential Diagnosis Cardiac ischemia, aortic dissection, pulmonary embolism, pneumothorax, pneumonia, pericarditis, myocarditis, esophageal rupture, GERD, cholecystitis, pancreatitis, musculoskeletal, as well as other pathologies. Medical Records Attestation: I reviewed the patient's medical records. Home Medications Current Medication List: was personally reviewed by me Laboratory Data Attestation: I reviewed the patient's lab results. Result diagrams: 05/29/20 07:53 05/29/20 07:53 Lab Results 05/25/20 05/25/20 05/25/20 Range/Units 23:05 23:05 23:05 WBC (4.8-10.8) K/uL RBC (4.2-5.4) M/uL Hgb (12.0-16.0) g/dL Hct (37-47) % MCV (80-100) fL MCH (25-34) pg MCHC (32-36) g/dL RDW Std Deviation (36.4-46.3) fL RDW Coeff of Bryon (11.5-14.5) % Plt Count (130-400) K/uL MPV (7.4-10.4) fL Immature Gran % (Auto) % Neut % (Auto) % Lymph % (Auto) % [place] % (Auto) % Eos % (Auto) % Baso % (Auto) % Neut # (Auto) (1.4-6.5) K/uL Lymph # (Auto) (1.2-3.4) K/uL [place] # (Auto) (0.11-0.59) K/uL Eos # (Auto) (0-0.5) K/uL Baso # (Auto) (0-0.2) K/uL Immature Gran # (Auto) (0.00-0.02) K/uL ESR 26 H (0-21) mm/hr PT (9.0-12.0) Seconds INR (0.9-1.1) APTT (21.0-31.0) Seconds PTT Ratio Sodium 140 (136-145) mmol/L Potassium 4.4 (3.5-5.1) mmol/L Chloride 108 H (98-107) mmol/L Carbon Dioxide 29 (21-32) mmol/L Anion Gap 2.0 L (3-11) BUN 23 H (7-18) mg/dl Creatinine 1.03 (0.6-1.2) mg/dl Est Cr Clr Drug Dosing Not Reportable Est GFR ( Amer) 64.2 Est GFR (Non-Af Amer) 55.4 BUN/Creatinine Ratio 22.2 H (10-20) Glucose 100 H (70-99) mg/dl POC Glucose (70-99) mg/dl Calcium 10.2 H (8.5-10.1) mg/dl Magnesium (1.8-2.4) mg/dl Ferritin 40.3 (8-388) ng/ml Total Bilirubin 0.3 (0.2-1) mg/dl AST 18 (15-37) U/L ALT 24 (12-78) U/L Alkaline Phosphatase 114 (45-117) U/L Lactate Dehydrogenase 307 H (84-246) U/L Total Creatine Kinase 192 (26-192) U/L CK-MB (CK-2) 7.2 H (0.5-3.6) ng/ml CK/CKMB % Calc 3.8 H (0-3.0) Troponin I 0.136 H* (0-0.045) ng/ml C-Reactive Protein 0.65 H (0-0.29) mg/dl NT-Pro-B Natriuret Pep 3162 H (0-900) pg/ml Total Protein 7.9 (6.4-8.2) gm/dl Albumin 3.8 (3.4-5.0) gm/dl Globulin 4.1 H (2.5-4.0) gm/dl Albumin/Globulin Ratio 0.9 (0.9-2) Lipase 150 (73-393) U/L 05/25/20 05/25/20 05/26/20 Range/Units 23:05 23:05 07:24 WBC 8.47 (4.8-10.8) K/uL RBC 4.40 (4.2-5.4) M/uL Hgb 11.0 L (12.0-16.0) g/dL Hct 35.8 L (37-47) % MCV 81.4 (80-100) fL MCH 25.0 (25-34) pg MCHC 30.7 L (32-36) g/dL RDW Std Deviation 47.7 H (36.4-46.3) fL RDW Coeff of Bryon 16.1 H (11.5-14.5) % Plt Count 295 (130-400) K/uL MPV 9.4 (7.4-10.4) fL Immature Gran % (Auto) 0.2 % Neut % (Auto) 71.5 % Lymph % (Auto) 17.7 % [place] % (Auto) 8.5 % Eos % (Auto) 2.0 % Baso % (Auto) 0.1 % Neut # (Auto) 6.05 (1.4-6.5) K/uL Lymph # (Auto) 1.50 (1.2-3.4) K/uL [place] # (Auto) 0.72 H (0.11-0.59) K/uL Eos # (Auto) 0.17 (0-0.5) K/uL Baso # (Auto) 0.01 (0-0.2) K/uL Immature Gran # (Auto) 0.02 (0.00-0.02) K/uL ESR (0-21) mm/hr PT 31.4 H (9.0-12.0) Seconds INR 3.2 H (0.9-1.1) APTT 44.3 H (21.0-31.0) Seconds PTT Ratio 1.6 Sodium (136-145) mmol/L Potassium (3.5-5.1) mmol/L Chloride (98-107) mmol/L Carbon Dioxide (21-32) mmol/L Anion Gap (3-11) BUN (7-18) mg/dl Creatinine (0.6-1.2) mg/dl Est Cr Clr Drug Dosing Est GFR ( Amer) Est GFR (Non-Af Amer) BUN/Creatinine Ratio (10-20) Glucose (70-99) mg/dl POC Glucose 148 H (70-99) mg/dl Calcium (8.5-10.1) mg/dl Magnesium (1.8-2.4) mg/dl Ferritin (8-388) ng/ml Total Bilirubin (0.2-1) mg/dl AST (15-37) U/L ALT (12-78) U/L Alkaline Phosphatase (45-117) U/L Lactate Dehydrogenase (84-246) U/L Total Creatine Kinase (26-192) U/L CK-MB (CK-2) (0.5-3.6) ng/ml CK/CKMB % Calc (0-3.0) Troponin I (0-0.045) ng/ml C-Reactive Protein (0-0.29) mg/dl NT-Pro-B Natriuret Pep (0-900) pg/ml Total Protein (6.4-8.2) gm/dl Albumin (3.4-5.0) gm/dl Globulin (2.5-4.0) gm/dl Albumin/Globulin Ratio (0.9-2) Lipase (73-393) U/L 05/26/20 05/26/20 05/26/20 Range/Units 07:45 11:37 12:31 WBC (4.8-10.8) K/uL RBC (4.2-5.4) M/uL Hgb (12.0-16.0) g/dL Hct (37-47) % MCV (80-100) fL MCH (25-34) pg MCHC (32-36) g/dL RDW Std Deviation (36.4-46.3) fL RDW Coeff of Bryon (11.5-14.5) % Plt Count (130-400) K/uL MPV (7.4-10.4) fL Immature Gran % (Auto) % Neut % (Auto) % Lymph % (Auto) % H[place] % (Auto) % Eos % (Auto) % Baso % (Auto) % Neut # (Auto) (1.4-6.5) K/uL Lymph # (Auto) (1.2-3.4) K/uL Horry # (Auto) (0.11-0.59) K/uL Eos # (Auto) (0-0.5) K/uL Baso # (Auto) (0-0.2) K/uL Immature Gran # (Auto) (0.00-0.02) K/uL ESR (0-21) mm/hr PT (9.0-12.0) Seconds INR (0.9-1.1) APTT (21.0-31.0) Seconds PTT Ratio Sodium (136-145) mmol/L Potassium (3.5-5.1) mmol/L Chloride (98-107) mmol/L Carbon Dioxide (21-32) mmol/L Anion Gap (3-11) BUN (7-18) mg/dl Creatinine (0.6-1.2) mg/dl Est Cr Clr Drug Dosing Est GFR ( Amer) Est GFR (Non-Af Amer) BUN/Creatinine Ratio (10-20) Glucose (70-99) mg/dl POC Glucose 122 H (70-99) mg/dl Calcium (8.5-10.1) mg/dl Magnesium (1.8-2.4) mg/dl Ferritin (8-388) ng/ml Total Bilirubin (0.2-1) mg/dl AST (15-37) U/L ALT (12-78) U/L Alkaline Phosphatase (45-117) U/L Lactate Dehydrogenase (84-246) U/L Total Creatine Kinase (26-192) U/L CK-MB (CK-2) (0.5-3.6) ng/ml CK/CKMB % Calc (0-3.0) Troponin I 0.136 H* 0.137 H* (0-0.045) ng/ml C-Reactive Protein (0-0.29) mg/dl NT-Pro-B Natriuret Pep (0-900) pg/ml Total Protein (6.4-8.2) gm/dl Albumin (3.4-5.0) gm/dl Globulin (2.5-4.0) gm/dl Albumin/Globulin Ratio (0.9-2) Lipase (73-393) U/L 05/26/20 05/26/20 05/27/20 Range/Units 16:27 20:05 06:55 WBC (4.8-10.8) K/uL RBC (4.2-5.4) M/uL Hgb (12.0-16.0) g/dL Hct (37-47) % MCV (80-100) fL MCH (25-34) pg MCHC (32-36) g/dL RDW Std Deviation (36.4-46.3) fL RDW Coeff of Bryon (11.5-14.5) % Plt Count (130-400) K/uL MPV (7.4-10.4) fL Immature Gran % (Auto) % Neut % (Auto) % Lymph % (Auto) % [place] % (Auto) % Eos % (Auto) % Baso % (Auto) % Neut # (Auto) (1.4-6.5) K/uL Lymph # (Auto) (1.2-3.4) K/uL H[place] # (Auto) (0.11-0.59) K/uL Eos # (Auto) (0-0.5) K/uL Baso # (Auto) (0-0.2) K/uL Immature Gran # (Auto) (0.00-0.02) K/uL ESR (0-21) mm/hr PT 22.2 H (9.0-12.0) Seconds INR 2.2 H (0.9-1.1) APTT (21.0-31.0) Seconds PTT Ratio Sodium (136-145) mmol/L Potassium (3.5-5.1) mmol/L Chloride (98-107) mmol/L Carbon Dioxide (21-32) mmol/L Anion Gap (3-11) BUN (7-18) mg/dl Creatinine (0.6-1.2) mg/dl Est Cr Clr Drug Dosing Est GFR ( Amer) Est GFR (Non-Af Amer) BUN/Creatinine Ratio (10-20) Glucose (70-99) mg/dl POC Glucose 131 H 118 H (70-99) mg/dl Calcium (8.5-10.1) mg/dl Magnesium (1.8-2.4) mg/dl Ferritin (8-388) ng/ml Total Bilirubin (0.2-1) mg/dl AST (15-37) U/L ALT (12-78) U/L Alkaline Phosphatase (45-117) U/L Lactate Dehydrogenase (84-246) U/L Total Creatine Kinase (26-192) U/L CK-MB (CK-2) (0.5-3.6) ng/ml CK/CKMB % Calc (0-3.0) Troponin I (0-0.045) ng/ml C-Reactive Protein (0-0.29) mg/dl NT-Pro-B Natriuret Pep (0-900) pg/ml Total Protein (6.4-8.2) gm/dl Albumin (3.4-5.0) gm/dl Globulin (2.5-4.0) gm/dl Albumin/Globulin Ratio (0.9-2) Lipase (73-393) U/L 05/27/20 05/27/20 05/27/20 Range/Units 07:34 07:47 07:47 WBC 6.23 (4.8-10.8) K/uL RBC 3.93 L (4.2-5.4) M/uL Hgb 9.8 L (12.0-16.0) g/dL Hct 32.2 L (37-47) % MCV 81.9 (80-100) fL MCH 24.9 L (25-34) pg MCHC 30.4 L (32-36) g/dL RDW Std Deviation 48.4 H (36.4-46.3) fL RDW Coeff of Bryon 16.2 H (11.5-14.5) % Plt Count 225 (130-400) K/uL MPV 9.0 (7.4-10.4) fL Immature Gran % (Auto) % Neut % (Auto) % Lymph % (Auto) % [place] % (Auto) % Eos % (Auto) % Baso % (Auto) % Neut # (Auto) (1.4-6.5) K/uL Lymph # (Auto) (1.2-3.4) K/uL [place] # (Auto) (0.11-0.59) K/uL Eos # (Auto) (0-0.5) K/uL Baso # (Auto) (0-0.2) K/uL Immature Gran # (Auto) (0.00-0.02) K/uL ESR (0-21) mm/hr PT (9.0-12.0) Seconds INR (0.9-1.1) APTT (21.0-31.0) Seconds PTT Ratio Sodium 138 (136-145) mmol/L Potassium 4.0 (3.5-5.1) mmol/L Chloride 104 (98-107) mmol/L Carbon Dioxide 29 (21-32) mmol/L Anion Gap 4.0 (3-11) BUN 25 H (7-18) mg/dl Creatinine 1.08 (0.6-1.2) mg/dl Est Cr Clr Drug Dosing 56.7 Est GFR ( Amer) 60.7 Est GFR (Non-Af Amer) 52.3 BUN/Creatinine Ratio 23.0 H (10-20) Glucose 101 H (70-99) mg/dl POC Glucose 114 H (70-99) mg/dl Calcium 9.5 (8.5-10.1) mg/dl Magnesium 2.1 (1.8-2.4) mg/dl Ferritin (8-388) ng/ml Total Bilirubin (0.2-1) mg/dl AST (15-37) U/L ALT (12-78) U/L Alkaline Phosphatase (45-117) U/L Lactate Dehydrogenase (84-246) U/L Total Creatine Kinase (26-192) U/L CK-MB (CK-2) (0.5-3.6) ng/ml CK/CKMB % Calc (0-3.0) Troponin I (0-0.045) ng/ml C-Reactive Protein (0-0.29) mg/dl NT-Pro-B Natriuret Pep (0-900) pg/ml Total Protein (6.4-8.2) gm/dl Albumin (3.4-5.0) gm/dl Globulin (2.5-4.0) gm/dl Albumin/Globulin Ratio (0.9-2) Lipase (73-393) U/L 05/27/20 Range/Units 11:38 WBC (4.8-10.8) K/uL RBC (4.2-5.4) M/uL Hgb (12.0-16.0) g/dL Hct (37-47) % MCV (80-100) fL MCH (25-34) pg MCHC (32-36) g/dL RDW Std Deviation (36.4-46.3) fL RDW Coeff of Bryon (11.5-14.5) % Plt Count (130-400) K/uL MPV (7.4-10.4) fL Immature Gran % (Auto) % Neut % (Auto) % Lymph % (Auto) % [place] % (Auto) % Eos % (Auto) % Baso % (Auto) % Neut # (Auto) (1.4-6.5) K/uL Lymph # (Auto) (1.2-3.4) K/uL [place] # (Auto) (0.11-0.59) K/uL Eos # (Auto) (0-0.5) K/uL Baso # (Auto) (0-0.2) K/uL Immature Gran # (Auto) (0.00-0.02) K/uL ESR (0-21) mm/hr PT (9.0-12.0) Seconds INR (0.9-1.1) APTT (21.0-31.0) Seconds PTT Ratio Sodium (136-145) mmol/L Potassium (3.5-5.1) mmol/L Chloride (98-107) mmol/L Carbon Dioxide (21-32) mmol/L Anion Gap (3-11) BUN (7-18) mg/dl Creatinine (0.6-1.2) mg/dl Est Cr Clr Drug Dosing Est GFR ( Amer) Est GFR (Non-Af Amer) BUN/Creatinine Ratio (10-20) Glucose (70-99) mg/dl POC Glucose 103 H (70-99) mg/dl Calcium (8.5-10.1) mg/dl Magnesium (1.8-2.4) mg/dl Ferritin (8-388) ng/ml Total Bilirubin (0.2-1) mg/dl AST (15-37) U/L ALT (12-78) U/L Alkaline Phosphatase (45-117) U/L Lactate Dehydrogenase (84-246) U/L Total Creatine Kinase (26-192) U/L CK-MB (CK-2) (0.5-3.6) ng/ml CK/CKMB % Calc (0-3.0) Troponin I (0-0.045) ng/ml C-Reactive Protein (0-0.29) mg/dl NT-Pro-B Natriuret Pep (0-900) pg/ml Total Protein (6.4-8.2) gm/dl Albumin (3.4-5.0) gm/dl Globulin (2.5-4.0) gm/dl Albumin/Globulin Ratio (0.9-2) Lipase (73-393) U/L Imaging Data Attestation: I personally reviewed and interpreted this imaging study as follows: My Impression: 1 view of the chest was interpreted by me shows an enlarged heart as well as what appears to be pulmonary edema versus pneumonia ECG Data Attestation: I personally reviewed and interpreted this ECG as follows: Indication: + chest pain Rate (beats per minute): 76 Rhythm: + normal sinus ECG Intervals/blocks: + Left bundle branch block and + Normal QT-c (490) ECG Nebo: + Left axis deviation ECG ST segments: no ST depression and no ST elevation Comparison ECG Date: from (05/12/2020) Change: the following changes noted (NSR has replaced A fib) Blood Pressure Blood Pressure Findings: Normal blood pressure MDM Narrative Patient was seen and evaluated as above in room B9. Review was performed of nursing notes and vital signs. I did review pertinent previous visits and patient history. After obtaining a thorough history and physical examination the above work up was performed. This is a 69-year-old female who presents emergency department complaining of left-sided chest pain. Patient reports she feels she is back in congestive heart failure. Her EKG shows a left bundle branch block which is unchanged from previous although she is now in a normal sinus rhythm. Her troponin is slightly elevated. Here in the emergency department the patient was given nitro as well as Dilaudid for her pain. I did discuss her case with the hospitalist service who did agree to meet the patient. An order was placed for continuous cardiac monitoring. The monitor shows a rate of 73 with Normal Sinus rhythm. I attest that I have personally reviewed the patient medication list. The patient was evaluated during the global COVID-19 pandemic, and that diagnosis was suspected/considered upon their initial presentation. Their evaluation, treatment and testing was consistent with current guidelines for patients who present with complaints or symptoms that may be related to COVID-1 9. Impression & Plan Chest pain, CHF (congestive heart failure) Discharge Plan Visit Data *Final* Discharge Date/Time: 05/26/20 02:31 Chief Complaint: Cardiac Assessment Stated Complaint: SOB, CHEST PAINS - STENT PUT IN WEEK AGO ED Provider: Douglas Louie Discharge Problem: Chest pain, CHF (congestive heart failure) Patient Disposition: Admitted As Inpatient Discharge Instructions Interventions: ED Discharge Assessment Last Done: 05/26/20 02:31 Discharge Problem: Chest pain Qualifiers: Chest pain type: unspecified Qualified Code(s): R07.9 - Chest pain, unspecified CHF (congestive heart failure) Qualifiers: Heart failure type: unspecified Heart failure chronicity: unspecified Qualified Code(s): I50.9 - Heart failure, unspecified
[2020-05-26] MEDS ORDERED: DEXTROSE 50% 50 ML SYRINGE IV PRN (02:52)
[2020-05-26] MEDS ORDERED: CARBOHYDRATES FOR HYPOGLYCEMIA PO PRN (02:52)
[2020-05-26] MEDS ORDERED: FUROSEMIDE 40 MG/4 ML VIAL IV STA (02:52)
[2020-05-26] MEDS ORDERED: GLUCOSE 40% GEL 15 GM TUBE PO PRN (02:52)
[2020-05-26] MEDS ORDERED: GLUCOSE 10 TABS/TUBE PO PRN (02:52)
[2020-05-26] MEDS ORDERED: GLUCAGON FOR INJ 1 MG VIAL SQ PRN (02:52)
[2020-05-26] MEDS ORDERED: POLYETHYLENE (MIRALAX) 17 GM PACK PO PRN (02:52)
[2020-05-26] MEDS ORDERED: NITROGLYCERIN SL 0.4 MG/TAB TAB SL PRN (02:52)
[2020-05-26] MEDS ORDERED: ALBUTEROL HFA 8 GM INHALER INH PRN (02:52)
[2020-05-26] MEDS ORDERED: ONDANSETRON INJ 2 MG/ML 2 ML VIAL IV PRN (02:52)
[2020-05-26] MEDS ORDERED: FUROSEMIDE 40 MG in SYRINGE 0 ML IV ONE (03:15)
[2020-05-26] MEDS ORDERED: OLODATEROL HCL 2.5MCG/ACTUATION 60 PUFFS/INHALER INH PRN (03:33)
--- NOTE | 2020-05-26 06:20 | History & Physical Report ---
Date of Service May 26, 2020 Assessment & Plan (1) Shortness of breath: Concern for CHF as etiology of SOB -Admit to med/tele -Trend troponin q 8 hours x 3 sets -Lasix 40mg IV x 1, monitor output, daily weights, electrolytes and renal function -Continue Lasix 40mg po daily -Cardiology consultation appreciated - patient with recent catheterization with SENA placed to mid-LAD Present on Admission?: Yes (2) S/P cardiac catheterization: Cath with SENA to LAD on 05/14. Patient on DAPT briefly with ASA and Plavix, Was discharged home on Plavix and Coumadin -Continue Plavix, Atorvastatin, Lisinoprol, Toprol XL -Continue Coumadin Present on Admission?: Yes (3) Cardiomyopathy: As above Present on Admission?: Yes (4) Diabetes: Chronic. HM=760 -Continue Levemir 15u BID -ISS -Continue to monitor Present on Admission?: Yes (5) Hypertension: Blood pressure stable -Continue Metoprolol, Lisinopril -Continue to monitor Present on Admission?: Yes (6) Atrial fibrillation: Rate controlled, INR=3.2 -Continue Metoprolol -Continue Coumadin -Monitor INR Present on Admission?: Yes (7) COPD with chronic bronchitis: Chronic. Stable. No wheeze -Continue Albuterol PRN, Olodaterol (8) Bipolar disorder: Chronic. Stable -Continue Venlavaxine 150mg po qAM -Continue Lamictal -Continue to monitor Present on Admission?: Yes (9) Mechanical heart valve present: Mechanical AVR and MVR due to rheumatic heart disease, also with a history of prosthetic valve endocarditis. Valves placed in 2003 at [facility] -Continue Coumadin,goal INR is 2.5-3.5 Present on Admission?: Yes (10) Hyperlipidemia: Chronic. Stable -Continue Atorvastatin F/E/N - Hearth healthy/CC diet as tolerated Ppx - Conitnue Protonix, Coumadin for AF as above Code - DNR/DNI per discussion with patient Dispo - Observation to med/tele Present on Admission?: Yes Admission and Anticipated Discharge Date Admission Date: May 26, 2020 History of Present Illness Chief Complaint: SOB Primary Care Provider: Sanya Thurman III, CRNP Jennifer Mendoza is a 69yo C female with history of chronic diastolic heart failure, CAD, Asthma, AF, CKD, COPD and Bipolar disorder presenting with SOB. Patient was recently admitted to [facility] on 05/10/20 with complaint of one month of progressive SOB, orthopnea and left sided stabbing chest pain. She was successfully treated with IV Lasix for presumed CHF exacerbation. She had a left heart catheterization performed by Dr. Friedman on 05/14/20 which revealed 70% stenosis of the mid-LAD. She had DEX x 1 placed and was discharged home in stable condition with PO Lasix. She reports compliance with all her medications. She returns to the ER today with complaint of SOB, orthopnea, inability to lay flat. She slept in the rocking chair last night due to symptoms. Weight has been stable 219-220# on her home scale. +dry cough +chills +intermitted chest discomfort, shooting/sharp in nature, last appx one hour, non-exertiona./non-positional/non-pleuritic +palpitations +Headache and neck stiffness. Allergies Allergy/AdvReac Type Severity Reaction Status Date / Time levofloxacin [From Levaquin] Allergy Intermediate Hives Verified 05/26/20 00:26 adhesive Allergy Mild Rash Verified 05/26/20 00:26 cinacalcet [From Sensipar] Allergy Mild Swelling Verified 05/26/20 00:26 of the Eye fluticasone AdvReac Intermediate NAUSEA Verified 05/26/20 00:26 [From Advair Diskus] VOMITING lactose AdvReac Intermediate Diarrhea Verified 05/26/20 00:26 salmeterol AdvReac Intermediate NAUSEA Verified 05/26/20 00:26 [From Advair Diskus] VOMITING erythromycin base AdvReac Mild VAGINAL Verified 05/26/20 00:26 [From Erythrocin] INFECTION latex AdvReac Mild Rash Verified 05/26/20 00:26 Home Medications Home Medications Medication Instructions Recorded Confirmed Type acetaminophen 1,000 mg PO HS 08/03/18 05/26/20 History walker #1 ea 06/16/19 05/22/20 Rx albuterol sulfate [Ventolin HFA] 1 - 2 puff INH Q4 PRN 11/03/19 05/26/20 History polyethylene glycol 3350 17 gram 10 gm PO DAILY PRN ea 12/02/19 05/26/20 History oral powder packet salmeterol 50 mcg/dose blister 1 puffs INH BID PRN ea 12/02/19 05/26/20 History powder for inhalation montelukast 10 mg tablet 10 mg PO DAILY PRN #90 tab 12/21/19 05/26/20 Rx phytonadione (vitamin K1) 100 mcg 100 mcg PO UD PRN tab 12/28/19 05/26/20 History tablet calcitriol 0.5 mcg capsule 0.5 mcg PO BID cap 01/10/20 05/26/20 History venlafaxine [Effexor XR] 150 mg PO QAM 01/12/20 05/26/20 History metoprolol succinate 25 mg 25 mg PO QAM tab 02/10/20 05/26/20 History tablet,extended release 24 hr insulin aspart U-100 100 unit/mL 20 unit SUBCUT QID #70 ml 02/15/20 05/26/20 Rx subcutaneous solution insulin detemir U-100 100 unit/mL 20 unit SUBCUT BID #40 ml 02/22/20 05/26/20 Rx subcutaneous solution omeprazole 40 mg capsule,delayed 40 mg PO BID #90 cap 03/01/20 05/26/20 Rx release tizanidine 4 mg tablet 4 mg PO TID PRN #90 tab 03/14/20 05/26/20 Rx atorvastatin 40 mg tablet 40 mg PO QAM #90 tab 03/15/20 05/26/20 Rx insulin syr/ndl U100 half tanner 0.3 #600 ea 03/15/20 05/22/20 Rx mL 31 gauge x 04/14" warfarin 5 mg tablet 7.5 mg PO DAILY #60 tab 03/15/20 05/26/20 Rx lamotrigine 100 mg tablet 100 mg PO BID #90 tab 03/16/20 05/26/20 Rx gabapentin 600 mg tablet 600 mg PO BID 90 Days #180 tab 04/24/20 05/26/20 Rx lisinopril 5 mg tablet 5 mg PO DAILY #90 tab 05/02/20 05/26/20 Rx oxycodone 10 mg tablet 10 mg PO TID PRN #60 tab 05/10/20 05/26/20 Rx clopidogrel 75 mg PO QAM #30 tab 05/15/20 05/26/20 Rx furosemide [Lasix] 40 mg PO DAILY #90 tab 05/15/20 05/26/20 Rx tramadol 50 mg tablet See Rx Instructions PO TID PRN #60 05/22/20 05/26/20 Rx tab triamcinolone acetonide 0.5 % 1 appln TOP TID #15 gm 05/22/20 05/26/20 Rx topical cream Past Med/Surg History Social History Preferred Language: Maltese Communication Ability: Effective Visual Impairment: No Limitations Hearing Ability: Hard of Hearing 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 Required: No Beliefs That Will Affect Care: None marital status: Single Current Living Situation: Family Current Living Situation Comment: lives with daughter current occupational status: retired Other Information That Helps Us Care for You: No Feels Safe at Home: Yes Safety Concerns: Feels Safe At This Time Smoking Status: Current every day smoker Tobacco Type: cigarettes ; Cigarettes Per Day: 15 ; Do You Dip or Chew Tobacco: No ; Second Hand Exposure: No ; Tobacco Cessation Education Requested by Patient: No Hx Alcohol Use: No Hx Substance Use: No Childhood Exposure to Second-Hand Smoke: Yes Dental Care, Regularly: No Physical Activity Frequency: Does not Exercise Seatbelt Use: always Sunscreen Use: Yes Review of Systems Review of Systems: All systems reviewed & are unremarkable except as noted in HPI & below Physical Exam Physical Exam: Lab Results 05/25/20 05/25/20 05/25/20 Range/Units 23:05 23:05 23:05 WBC (4.8-10.8) K/uL RBC (4.2-5.4) M/uL Hgb (12.0-16.0) g/dL Hct (37-47) % MCV (80-100) fL MCH (25-34) pg MCHC (32-36) g/dL RDW Std Deviation (36.4-46.3) fL RDW Coeff of Bryon (11.5-14.5) % Plt Count (130-400) K/uL MPV (7.4-10.4) fL Immature Gran % (A uto) % Neut % (Auto) % Lymph % (Auto) % Meade % (Auto) % Eos % (Auto) % Baso % (Auto) % Neut # (Auto) (1.4-6.5) K/uL Lymph # (Auto) (1.2-3.4) K/uL Meade # (Auto) (0.11-0.59) K/uL Eos # (Auto) (0-0.5) K/uL Baso # (Auto) (0-0.2) K/uL Immature Gran # (A uto) (0.00-0.02) K/uL ESR 26 H (0-21) mm/hr PT (9.0-12.0) Secon ds INR (0.9-1.1) APTT (21.0-31.0) Seco nds PTT Ratio Sodium 140 (136-145) mmol/L Potassium 4.4 (3.5-5.1) mmol/L Chloride 108 H (98-107) mmol/L Carbon Dioxide 29 (21-32) mmol/L Anion Gap 2.0 L (3-11) BUN 23 H (7-18) mg/dl Creatinine 1.03 (0.6-1.2) mg/dl Est Cr Clr Drug Do sing Not Reportable Est GFR ( A kelsey) 64.2 Est GFR (Non-Af Am er) 55.4 BUN/Creatinine Rat io 22.2 H (10-20) Glucose 100 H (70-99) mg/dl Calcium 10.2 H (8.5-10.1) mg/dl Ferritin 40.3 (8-388) ng/ml Total Bilirubin 0.3 (0.2-1) mg/dl AST 18 (15-37) U/L ALT 24 (12-78) U/L Alkaline Phosphata se 114 (45-117) U/L Lactate Dehydrogen ase 307 H (84-246) U/L Total Creatine Kin ase 192 (26-192) U/L CK-MB (CK-2) 7.2 H (0.5-3.6) ng/ml CK/CKMB % Calc 3.8 H (0-3.0) Troponin I 0.136 H* (0-0.045) ng/ml C-Reactive Protein 0.65 H (0-0.29) mg/dl NT-Pro-B Natriuret Pep 3162 H (0-900) pg/ml Total Protein 7.9 (6.4-8.2) gm/dl Albumin 3.8 (3.4-5.0) gm/dl Globulin 4.1 H (2.5-4.0) gm/dl Albumin/Globulin R atio 0.9 (0.9-2) Lipase 150 (73-393) U/L 05/25/20 05/25/20 Range/Units 23:05 23:05 WBC 8.47 (4.8-10.8) K/uL RBC 4.40 (4.2-5.4) M/uL Hgb 11.0 L (12.0-16.0) g/dL Hct 35.8 L (37-47) % MCV 81.4 (80-100) fL MCH 25.0 (25-34) pg MCHC 30.7 L (32-36) g/dL RDW Std Deviation 47.7 H (36.4-46.3) fL RDW Coeff of Bryon 16.1 H (11.5-14.5) % Plt Count 295 (130-400) K/uL MPV 9.4 (7.4-10.4) fL Immature Gran % (A uto) 0.2 % Neut % (Auto) 71.5 % Lymph % (Auto) 17.7 % Meade % (Auto) 8.5 % Eos % (Auto) 2.0 % Baso % (Auto) 0.1 % Neut # (Auto) 6.05 (1.4-6.5) K/uL Lymph # (Auto) 1.50 (1.2-3.4) K/uL Meade # (Auto) 0.72 H (0.11-0.59) K/uL Eos # (Auto) 0.17 (0-0.5) K/uL Baso # (Auto) 0.01 (0-0.2) K/uL Immature Gran # (A uto) 0.02 (0.00-0.02) K/uL ESR (0-21) mm/hr PT 31.4 H (9.0-12.0) Secon ds INR 3.2 H (0.9-1.1) APTT 44.3 H (21.0-31.0) Seco nds PTT Ratio 1.6 Sodium (136-145) mmol/L Potassium (3.5-5.1) mmol/L Chloride (98-107) mmol/L Carbon Dioxide (21-32) mmol/L Anion Gap (3-11) BUN (7-18) mg/dl Creatinine (0.6-1.2) mg/dl Est Cr Clr Drug Do sing Est GFR ( A kelsey) Est GFR (Non-Af Am er) BUN/Creatinine Rat io (10-20) Glucose (70-99) mg/dl Calcium (8.5-10.1) mg/dl Ferritin (8-388) ng/ml Total Bilirubin (0.2-1) mg/dl AST (15-37) U/L ALT (12-78) U/L Alkaline Phosphata se (45-117) U/L Lactate Dehydrogen ase (84-246) U/L Total Creatine Kin ase (26-192) U/L CK-MB (CK-2) (0.5-3.6) ng/ml CK/CKMB % Calc (0-3.0) Troponin I (0-0.045) ng/ml C-Reactive Protein (0-0.29) mg/dl NT-Pro-B Natriuret Pep (0-900) pg/ml Total Protein (6.4-8.2) gm/dl Albumin (3.4-5.0) gm/dl Globulin (2.5-4.0) gm/dl Albumin/Globulin R atio (0.9-2) Lipase (73-393) U/L Results & Data Results & Data ([facility]) Vital Signs (Past 12 Hours) Vital Signs Temp Pulse Pulse Resp BP BP Pulse Ox 05/26/20 05:28 69 05/26/20 05:02 69 05/26/20 02:52 36.7 C 65 18 108/55 L 92 05/26/20 02:31 66 20 108/60 96 05/26/20 01:39 65 18 116/51 L 96 05/26/20 00:30 67 18 114/54 L 98 05/26/20 00:05 70 16 117/56 L 96 05/25/20 22:46 73 20 96 05/25/20 22:40 74 24 95 05/25/20 22:35 73 23 122/65 95 05/25/20 20:54 36.7 C 71 20 107/59 L 96 Laboratory Results Lab Results 05/25/20 05/25/20 05/25/20 Range/Units 23:05 23:05 23:05 WBC (4.8-10.8) K/uL RBC (4.2-5.4) M/uL Hgb (12.0-16.0) g/dL Hct (37-47) % MCV (80-100) fL MCH (25-34) pg MCHC (32-36) g/dL RDW Std Deviation (36.4-46.3) fL RDW Coeff of Bryon (11.5-14.5) % Plt Count (130-400) K/uL MPV (7.4-10.4) fL Immature Gran % (Auto) % Neut % (Auto) % Lymph % (Auto) % Meade % (Auto) % Eos % (Auto) % Baso % (Auto) % Neut # (Auto) (1.4-6.5) K/uL Lymph # (Auto) (1.2-3.4) K/uL Meade # (Auto) (0.11-0.59) K/uL Eos # (Auto) (0-0.5) K/uL Baso # (Auto) (0-0.2) K/uL Immature Gran # (Auto) (0.00-0.02) K/uL ESR 26 H (0-21) mm/hr PT (9.0-12.0) Seconds INR (0.9-1.1) APTT (21.0-31.0) Seconds PTT Ratio Sodium 140 (136-145) mmol/L Potassium 4.4 (3.5-5.1) mmol/L Chloride 108 H (98-107) mmol/L Carbon Dioxide 29 (21-32) mmol/L Anion Gap 2.0 L (3-11) BUN 23 H (7-18) mg/dl Creatinine 1.03 (0.6-1.2) mg/dl Est Cr Clr Drug Dosing Not Reportable Est GFR ( Amer) 64.2 Est GFR (Non-Af Amer) 55.4 BUN/Creatinine Ratio 22.2 H (10-20) Glucose 100 H (70-99) mg/dl Calcium 10.2 H (8.5-10.1) mg/dl Ferritin 40.3 (8-388) ng/ml Total Bilirubin 0.3 (0.2-1) mg/dl AST 18 (15-37) U/L ALT 24 (12-78) U/L Alkaline Phosphatase 114 (45-117) U/L Lactate Dehydrogenase 307 H (84-246) U/L Total Creatine Kinase 192 (26-192) U/L CK-MB (CK-2) 7.2 H (0.5-3.6) ng/ml CK/CKMB % Calc 3.8 H (0-3.0) Troponin I 0.136 H* (0-0.045) ng/ml C-Reactive Protein 0.65 H (0-0.29) mg/dl NT-Pro-B Natriuret Pep 3162 H (0-900) pg/ml Total Protein 7.9 (6.4-8.2) gm/dl Albumin 3.8 (3.4-5.0) gm/dl Globulin 4.1 H (2.5-4.0) gm/dl Albumin/Globulin Ratio 0.9 (0.9-2) Lipase 150 (73-393) U/L 05/25/20 05/25/20 Range/Units 23:05 23:05 WBC 8.47 (4.8-10.8) K/uL RBC 4.40 (4.2-5.4) M/uL Hgb 11.0 L (12.0-16.0) g/dL Hct 35.8 L (37-47) % MCV 81.4 (80-100) fL MCH 25.0 (25-34) pg MCHC 30.7 L (32-36) g/dL RDW Std Deviation 47.7 H (36.4-46.3) fL RDW Coeff of Bryon 16.1 H (11.5-14.5) % Plt Count 295 (130-400) K/uL MPV 9.4 (7.4-10.4) fL Immature Gran % (Auto) 0.2 % Neut % (Auto) 71.5 % Lymph % (Auto) 17.7 % Meade % (Auto) 8.5 % Eos % (Auto) 2.0 % Baso % (Auto) 0.1 % Neut # (Auto) 6.05 (1.4-6.5) K/uL Lymph # (Auto) 1.50 (1.2-3.4) K/uL Meade # (Auto) 0.72 H (0.11-0.59) K/uL Eos # (Auto) 0.17 (0-0.5) K/uL Baso # (Auto) 0.01 (0-0.2) K/uL Immature Gran # (Auto) 0.02 (0.00-0.02) K/uL ESR (0-21) mm/hr PT 31.4 H (9.0-12.0) Seconds INR 3.2 H (0.9-1.1) APTT 44.3 H (21.0-31.0) Seconds PTT Ratio 1.6 Sodium (136-145) mmol/L Potassium (3.5-5.1) mmol/L Chloride (98-107) mmol/L Carbon Dioxide (21-32) mmol/L Anion Gap (3-11) BUN (7-18) mg/dl Creatinine (0.6-1.2) mg/dl Est Cr Clr Drug Dosing Est GFR ( Amer) Est GFR (Non-Af Amer) BUN/Creatinine Ratio (10-20) Glucose (70-99) mg/dl Calcium (8.5-10.1) mg/dl Ferritin (8-388) ng/ml Total Bilirubin (0.2-1) mg/dl AST (15-37) U/L ALT (12-78) U/L Alkaline Phosphatase (45-117) U/L Lactate Dehydrogenase (84-246) U/L Total Creatine Kinase (26-192) U/L CK-MB (CK-2) (0.5-3.6) ng/ml CK/CKMB % Calc (0-3.0) Troponin I (0-0.045) ng/ml C-Reactive Protein (0-0.29) mg/dl NT-Pro-B Natriuret Pep (0-900) pg/ml Total Protein (6.4-8.2) gm/dl Albumin (3.4-5.0) gm/dl Globulin (2.5-4.0) gm/dl Albumin/Globulin Ratio (0.9-2) Lipase (73-393) U/L Diagnostic Findings CXR - bilateral airspace disease CT Chest wtih contrast - No PE. THoracic aorta is mildly calcified. No di ssection, No LAD or mass. Moderate cardiomegaly with sternotomy changes and previous mitral valvuloplasty. Severe coronary calcification? No pericardial effusion. Prominent pulmonary vascularity tih infrahilar haziness suggesting mild pulmonary edema. ECG Additional Comments: No acute ischemic changes Code Status & VTE Plan Code Status DNR/DNI PG Care Time/CCT Total # of Minutes Spent Total Time Spent with Patient: Total time spent is greater than 50% in coordination of care (as documented) at patient's floor/unit and/or counseling patient: Coding Level of Care Code 17912 OBS Care - Level 3 Diagnoses Shortness of breath R06.02 S/P cardiac catheterization Z98.890 Cardiomyopathy I42.9 Diabetes E11.22; N18.3; Z79.4 Chronic kidney disease stage: stage 3 (moderate) Diabetes mellitus complication detail: with chronic kidney disease Diabetes mellitus complication status: with kidney complications 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 mellitus exterminator helper insulin use: with halfway use Diabetes mellitus type: type 2 Hypertension I10 Hypertension type: essential hypertension Atrial fibrillation I48.91 Atrial fibrillation type: unspecified COPD with chronic bronchitis J44.9 Bipolar disorder F31.9 Active/Remission status: remission status unspecified Mechanical heart valve present Z95.2 Hyperlipidemia E78.5 (1) Diabetes Chronic kidney disease stage: stage 3 (moderate) Diabetes mellitus complication detail: with chronic kidney disease Diabetes mellitus complication status: with kidney complications Diabetes mellitus halfway insulin use: with exterminator helper use Diabetes mellitus type: type 2 Qualified Code(s): E11.22 - Type 2 diabetes mellitus with diabetic chronic kidney disease; N18.3 - Chronic kidney disease, stage 3 (moderate); Z79.4 - buttermaker continuous churn (current) use of insulin (2) Bipolar disorder Active/Remission status: remission status unspecified Qualified Code(s): F31.9 - Bipolar disorder, unspecified (3) Atrial fibrillation Atrial fibrillation type: unspecified Qualified Code(s): I48.91 - Unspecified atrial fibrillation (4) Hypertension Hypertension type: essential hypertension Qualified Code(s): I10 - Essential (primary) hypertension
--- NOTE | 2020-05-26 06:30 | XRay Report ---
XR chest 1V portable CLINICAL HISTORY: Chest Pain dyspnea COMPARISON STUDY: 05/10/2020 FINDINGS: Moderate cardiomegaly. Prior median sternotomy and valve replacement. Prominent pulmonary vasculature. IMPRESSION: Mild congestive heart failure ACT 112: Negative or not required by law. The above report was generated using voice recognition software. It may contain grammatical, syntax or spelling errors. Electronically signed by: Hernandez Briones M.D. 05/26/2020 6:29 AM
--- NOTE | 2020-05-26 06:53 | CT Scan Report ---
CT angio chest PE protocol CT DOSE: 901.33 mGy.cm HISTORY: Dyspnea PE TECHNIQUE: Multiaxial CT images of the chest were performed following the intravenous administration of contrast to evaluate the pulmonary arteries. Maximal intensity projection images were also obtaine d. A dose lowering technique was utilized adhering to the principles of ALARA. COMPARISON STUDY: None. FINDINGS: There is a normal caliber thoracic aorta with no evidence for dissection. There is no evide nce for pulmonary embolus. No pleural effusions. No pneumothorax. The liver and spleen are unremarkab le. No mediastinal or hilar lymphadenopathy. The central airways are patent. The lungs are clear. Mil d prominence of pulmonary vasculature suggesting component of cardiac decompensation. IMPRESSION: 1. No evidence of pulmonary embolus. 2. Moderate cardiomegaly with findings of mild congestive failure. ACT 112: Negative or not required by law. The above report was generated using voice recognition software. It may contain grammatical, syntax or spelling errors. Electronically signed by: Hernandez Briones M.D. 05/26/2020 6:52 AM
[2020-05-26] MEDS: VENLAFAXINE HCL XR 150 MG CAPXR PO SCH (08:37)
[2020-05-26] MEDS: CLOPIDOGREL BISULFATE 75 MG TAB PO SCH (08:37)
[2020-05-26] MEDS: GABAPENTIN 600 MG TAB PO SCH ×2 (08:37→20:41)
[2020-05-26] MEDS: PANTOprazole 40 MG TAB PO SCH ×2 (08:37→20:43)
[2020-05-26] MEDS: ATORVASTATIN 40 MG TAB PO SCH (08:37)
[2020-05-26] MEDS: CALCITRIOL 0.25 MCG CAPSULE PO SCH ×2 (08:37→20:42)
[2020-05-26] MEDS: lamoTRIgine 100 MG TAB PO SCH ×2 (08:38→20:39)
[2020-05-26] MEDS: INSULIN ASPART 100 UNITS/ML 3 ML PEN SC SCH ×4 (08:39→20:40)
[2020-05-26] MEDS: INSULIN DETEMIR FLEXPEN/FLEX TOUCH 100 UNITS/ML 3ML SC SCH ×2 (08:39→20:38)
[2020-05-26] MEDS ORDERED: FUROSEMIDE 40 MG TAB PO SCH (09:00)
[2020-05-26] MEDS: lisinopriL 5 MG TAB PO SCH (10:06)
[2020-05-26] MEDS: METOPROLOL SUCC 25MG EXT REL TAB PO SCH (10:06)
--- NOTE | 2020-05-26 10:13 | Cardiology Consultation ---
Date of Consultation May 26, 2020 Assessment & Plan (1) CHF (congestive heart failure): While her weight is appear to be study at home, her symptoms are consistent with pulmonary edema. She has some findings on examination as well as chest x-ray and CT scan suggestive of mild pulmonary edema. Her N terminal proBNP is also markedly elevated, more so than during her last admission. I would continue diuresis. I would increase her current dose of Lasix to 40 milligrams IV twice daily to affect better diuresis. We can monitor her electrolytes and renal function closely. She was advised to consider less sodium in her diet. This would affect better diuresis at home. She will likely require high dose of diuretic at the time of discharge. Perhaps 80 milligrams daily be sufficient. A change to Bumex 1 milligram daily could also be entertained. I think we will see how she does w ith her diuresis in the hospital make a determination on her outpatient regimen prior to discharge. (2) Cardiomyopathy: Likely nonischemic given her known coronary anatomy. She has been maintained on lisinopril and metoprolol succinate. Her LV function can be reassessed in a couple of months in her heart failure regimen intensified to include an aldosterone antagonist and possibly switch to Entresto if her LV function continues to be low. In the absence of improvement of her ejection fraction, consideration could be given for an ICD as primary prevention against sudden cardiac . Use of an ICD in her population has some controversy as the etiology of her cardiomyopathy appears to be nonischemic. (3) Mechanical heart valve present: She was noted to have mildly elevated transvalvular gradient some both her mitral and aortic prosthesis during her last admission. Unlikely this degree of dysfunction results in her current symptoms. She will continue her systemic anticoagulation. (4) Atrial fibrillation: Currently in sinus rhythm. Recent outpatient monitoring did not reveal any atrial arrhythmias. It does not sound like periods of atrial fibrillation or other arrhythmia contributed to her current decompensation. She will continue on systemic anticoagulation (5) Arteriosclerosis of coronary artery: Recently discovered to have obstructive disease involving the left anterior descending artery. She has been continued on warfarin, Plavix and high- dose atorvastatin. (6) Chest pain: Her symptoms are atypical. I think hours of symptoms every day would have resulted in much higher elevations in her biomarkers. Also, acute stent thrombosis which would be the likely mechanism of an acute coronary syndrome at this stage would likely presented much more dramatic fashion. She has had a variety of atypical chest pains over the years. I do not think we need to pursue ischemic evaluation currently. Unfortunately, her left bundle branch block precludes use of the EKG for diagnostic purposes. History of Present Illness Reason for Consultation: Shortness of breath, chest pain Requesting Physician: Gadiel Attending Physician: Adrian Hagen MD History of Present Illness The patient is a 69-year-old woman with a history rheumatic heart disease status post mechanical aortic valve replacement and mechanical mitral valve replacement who also suffers from a nonischemic cardiomyopathy and recently underwent percutaneous intervention to the mid LAD. Patient initially presented earlier this month with symptoms of dyspnea and chest discomfort. She was known to have an element of reduced LV systolic dysfunction leading up to her admission and had previously undergone stress testing suggestive of ischemic heart disease. She underwent a diuresis and cardiac catheterization which did reveal a significant lesion in the mid LAD. She underwent percutaneous intervention at that site and was discharged the following day. Patient states that even upon returning to home she continued to have an element of dyspnea. This dyspnea apparently became progressively worse over the course of the past 2 weeks to the point where she has significant orthopnea breathing difficulty with little exertion and lower extremity edema. She has been monitoring her weight at home and states that it has been stable between 219 and 220 pounds. She claims to be compliant with her medical therapy including a daily dose of diuretic. She admits to a diet high in sodium intake. She has also been having symptoms of chest discomfort. She describes this discomfort as a bubble in the left axillary area. This tends to transit the precordium and also involved the right chest. The symptoms occur randomly without any particular provocation. Patient states that they generally last from 30 minutes to an hour. They resolved spontaneously and then recurred again throughout the day. She states she has several episodes per day and has had these episodes since discharge. Patient did have some chest discomfort leading up to her last admission she feels the symptoms are somewhat distinct from her prior symptoms. She does not experience presyncope but does admit to being dizzy. This dizziness is not new and is unchanged. It does not appear to be positional in nature. She also endorses symptoms of fluttering. This involves very trans ient sensation of a rapid heartbeat it also occurs randomly. Allergies Allergy/AdvReac Type Severity Reaction Status Date / Time levofloxacin [From Levaquin] Allergy Intermediate Hives Verified 05/26/20 00:26 adhesive Allergy Mild Rash Verified 05/26/20 00:26 cinacalcet [From Sensipar] Allergy Mild Swelling Verified 05/26/20 00:26 of the Eye fluticasone AdvReac Intermediate NAUSEA Verified 05/26/20 00:26 [From Advair Diskus] VOMITING lactose AdvReac Intermediate Diarrhea Verified 05/26/20 00:26 salmeterol AdvReac Intermediate NAUSEA Verified 05/26/20 00:26 [From Advair Diskus] VOMITING erythromycin base AdvReac Mild VAGINAL Verified 05/26/20 00:26 [From Erythrocin] INFECTION latex AdvReac Mild Rash Verified 05/26/20 00:26 Home Medications Home Medications Medication Instructions Recorded Confirmed Type acetaminophen 1,000 mg PO HS 08/03/18 05/26/20 History walker #1 ea 06/16/19 05/22/20 Rx albuterol sulfate [Ventolin HFA] 1 - 2 puff INH Q4 PRN 11/03/19 05/26/20 History polyethylene glycol 3350 17 gram 10 gm PO DAILY PRN ea 12/02/19 05/26/20 History oral powder packet salmeterol 50 mcg/dose blister 1 puffs INH BID PRN ea 12/02/19 05/26/20 History powder for inhalation montelukast 10 mg tablet 10 mg PO DAILY PRN #90 tab 12/21/19 05/26/20 Rx phytonadione (vitamin K1) 100 mcg 100 mcg PO UD PRN tab 12/28/19 05/26/20 History tablet calcitriol 0.5 mcg capsule 0.5 mcg PO BID cap 01/10/20 05/26/20 History venlafaxine [Effexor XR] 150 mg PO QAM 01/12/20 05/26/20 History metoprolol succinate 25 mg 25 mg PO QAM tab 02/10/20 05/26/20 History tablet,extended release 24 hr insulin aspart U-100 100 unit/mL 20 unit SUBCUT QID #70 ml 02/15/20 05/26/20 Rx subcutaneous solution insulin detemir U-100 100 unit/mL 20 unit SUBCUT BID #40 ml 02/22/20 05/26/20 Rx subcutaneous solution omeprazole 40 mg capsule,delayed 40 mg PO BID #90 cap 03/01/20 05/26/20 Rx release tizanidine 4 mg tablet 4 mg PO TID PRN #90 tab 03/14/20 05/26/20 Rx atorvastatin 40 mg tablet 40 mg PO QAM #90 tab 03/15/20 05/26/20 Rx insulin syr/ndl U100 half tanner 0.3 #600 ea 03/15/20 05/22/20 Rx mL 31 gauge x 04/14" warfarin 5 mg tablet 7.5 mg PO DAILY #60 tab 03/15/20 05/26/20 Rx lamotrigine 100 mg tablet 100 mg PO BID #90 tab 03/16/20 05/26/20 Rx gabapentin 600 mg tablet 600 mg PO BID 90 Days #180 tab 04/24/20 05/26/20 Rx lisinopril 5 mg tablet 5 mg PO DAILY #90 tab 05/02/20 05/26/20 Rx oxycodone 10 mg tablet 10 mg PO TID PRN #60 tab 05/10/20 05/26/20 Rx clopidogrel 75 mg PO QAM #30 tab 05/15/20 05/26/20 Rx furosemide [Lasix] 40 mg PO DAILY #90 tab 05/15/20 05/26/20 Rx tramadol 50 mg tablet See Rx Instructions PO TID PRN #60 05/22/20 05/26/20 Rx tab triamcinolone acetonide 0.5 % 1 appln TOP TID #15 gm 05/22/20 05/26/20 Rx topical cream Patient History Medical History Anemia Anxiety Arteriosclerosis of coronary artery Asthma RESCUE INHALER 1-2x per month Atrial fibrillation Dx "many years ago" - s/p cardioversion - follows w/ Dr. Stein - on warfarin Atrial flutter Balance problem (Resolved) Bipolar disorder Chronic anticoagulation (Acute) Chronic back pain Chronic kidney disease Chronic kidney disease (CKD), stage III (moderate) F/U DR RUBY Chronic obstructive pulmonary disease Chronic pain Congestive heart failure Depression Diabetes mellitus, type 2 Diabetic peripheral neuropathy Fibromyalgia GERD (gastroesophageal reflux disease) Hx MRSA infection Per infection control 10/21/17: "Patient has a history of MRSA in 2007, but has since been cleared with multiple negative cultures and nasal screens. No contact precautions necessary." Hx of deep venous thrombosis 1968 - [facility] Hypercalcemia Hyperlipidemia Hyperparathyroidism Major depression Meralgia paresthetica Microalbuminuria Mild neurocognitive disorder Morbid obesity with BMI of 40.0-44.9, adult Obesity Osteoarthritis Osteoarthritis Osteopenia Peripheral neuropathy ALL OVER Rheumatic heart disease Sleep apnea noncompliant with CPAP SOB (shortness of breath) on exertion Valvular disease Venous insufficiency (chronic) (peripheral) Vitamin D deficiency Surgical History Fusion of spine LUMBAR History of appendectomy History of arthroscopy RIGHT AND LEFT KNEE History of back surgery History of bladder surgery History of bowel resection partial colectomy History of cardiac cath multiple caths -[facility] - no stents/angioplasty - most recent 2013 [facility] History of cardioversion History of carpal tunnel release LEFT/RIGHT History of colonoscopy History of esophagogastroduodenoscopy (EGD) History of heart valve replacement 2003 [facility], MITRAL AND AORTIC VALVE, F/U WITH DR STEIN (NOT GOOD HISTORIAN) History of hysterectomy total abdominal hysterectomy with removal of both ovaries History of parathyroidectomy History of shoulder replacement - 07/2018 [facility] S/P cardiac catheterization 05/14/20 Dr. 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 Processing Required: No Beliefs That Will Affect Care: None marital status: Single Current Living Situation: Family Current Living Situation Comment: lives with daughter current occupational status: retired Other Information That Helps Us Care for You: No Feels Safe at Home: Yes Safety Concerns: Feels Safe At This Time Smoking Status: Current every day smoker Tobacco Type: cigarettes ; Cigarettes Per Day: 15 ; Do You Dip or Chew Tobacco: No ; Second Hand Exposure: No ; Tobacco Cessation Education Requested by Patient: No Hx Alcohol Use: No Hx Substance Use: No Childhood Exposure to Second-Hand Smoke: Yes Dental Care, Regularly: No Physical Activity Frequency: Does not Exercise Seatbelt Use: always Sunscreen Use: Yes Review of Systems Review of Systems: All systems reviewed & are unremarkable except as noted in HPI & below No recent fevers or chills. No swelling in the arms. Does suffer from back discomfort as well which limits mobility. Generally ambulates with a 4 wheeled walker. Physical Exam Physical Exam: She is alert and oriented x3. Mood affect appear normal. She answered all questions appropriately. HEENT: Sclerae are anicteric. Pupils are equal and reactive to light and accommodation. Extraocular movements were intact. Neuro: Cranial nerves intact Neck: Examination of the submandibular region did not reveal any significant lymphadenopathy. Carotids are palpable bilaterally and free of bruits on auscultation. There was no evidence of jugular venous distention. The thyroid was not enlarged. Some tenderness with palpation of the left neck in the trapezius area. Lungs: Some crackles at the bases bilaterally. No expiratory wheezing. Normal respiratory effort. Cardiac: The rhythm was regular. Mechanical S1 and S2. Very soft holosystolic murmur. The PMI was not markedly displaced on palpation. Abdomen: The abdomen was soft and nontender. Extremities: Patient has bilateral radial pulses that are equal in intensity. There is no evidence cyanosis or clubbing. Mild to moderate lower extremity edema. Skin: There are no rashes noted on examination today. Results & Data ([facility]) Vital Signs (Past 12 Hours) Vital Signs Temp Pulse Pulse Resp BP BP Pulse Ox 05/26/20 07:36 36.6 C 71 16 115/55 L 99 05/26/20 07:22 64 05/26/20 05:28 69 05/26/20 05:02 69 05/26/20 02:52 36.7 C 65 18 108/55 L 92 05/26/20 02:31 66 20 108/60 96 05/26/20 01:39 65 18 116/51 L 96 05/26/20 00:30 67 18 114/54 L 98 05/26/20 00:05 70 16 117/56 L 96 05/25/20 22:46 73 20 96 05/25/20 22:40 74 24 95 05/25/20 22:35 73 23 122/65 95 Laboratory Results Abnormal Lab Results 05/25/20 05/25/20 05/25/20 23:05 23:05 23:05 WBC RBC Hgb Hct MCV MCH MCHC RDW Std Deviation RDW Coeff of Bryon Plt Count MPV Immature Gran % (Auto) Neut % (Auto) Lymph % (Auto) Appling % (Auto) Eos % (Auto) Baso % (Auto) Neut # (Auto) Lymph # (Auto) Appling # (Auto) Eos # (Auto) Baso # (Auto) Immature Gran # (Auto) ESR 26 H PT INR APTT PTT Ratio Sodium 140 Potassium 4.4 Chloride 108 H Carbon Dioxide 29 Anion Gap 2.0 L BUN 23 H Creatinine 1.03 Est Cr Clr Drug Dosing Not Reportable Est GFR ( Amer) 64.2 Est GFR (Non-Af Amer) 55.4 BUN/Creatinine Ratio 22.2 H Glucose 100 H POC Glucose Calcium 10.2 H Ferritin 40.3 Total Bilirubin 0.3 AST 18 ALT 24 Alkaline Phosphatase 114 Lactate Dehydrogenase 307 H Total Creatine Kinase 192 CK-MB (CK-2) 7.2 H CK/CKMB % Calc 3.8 H Troponin I 0.136 H* C-Reactive Protein 0.65 H NT-Pro-B Natriuret Pep 3162 H Total Protein 7.9 Albumin 3.8 Globulin 4.1 H Albumin/Globulin Ratio 0.9 Lipase 150 05/25/20 05/25/20 05/26/20 23:05 23:05 07:24 WBC 8.47 RBC 4.40 Hgb 11.0 L Hct 35.8 L MCV 81.4 MCH 25.0 MCHC 30.7 L RDW Std Deviation 47.7 H RDW Coeff of Bryon 16.1 H Plt Count 295 MPV 9.4 Immature Gran % (Auto) 0.2 Neut % (Auto) 71.5 Lymph % (Auto) 17.7 Appling % (Auto) 8.5 Eos % (Auto) 2.0 Baso % (Auto) 0.1 Neut # (Auto) 6.05 Lymph # (Auto) 1.50 Appling # (Auto) 0.72 H Eos # (Auto) 0.17 Baso # (Auto) 0.01 Immature Gran # (Auto) 0.02 ESR PT 31.4 H INR 3.2 H APTT 44.3 H PTT Ratio 1.6 Sodium Potassium Chloride Carbon Dioxide Anion Gap BUN Creatinine Est Cr Clr Drug Dosing Est GFR ( Amer) Est GFR (Non-Af Amer) BUN/Creatinine Ratio Glucose POC Glucose 148 H Calcium Ferritin Total Bilirubin AST ALT Alkaline Phosphatase Lactate Dehydrogenase Total Creatine Kinase CK-MB (CK-2) CK/CKMB % Calc Troponin I C-Reactive Protein NT-Pro-B Natriuret Pep Total Protein Albumin Globulin Albumin/Globulin Ratio Lipase 05/26/20 07:45 WBC RBC Hgb Hct MCV MCH MCHC RDW Std Deviation RDW Coeff of Bryon Plt Count MPV Immature Gran % (Auto) Neut % (Auto) Lymph % (Auto) Appling % (Auto) Eos % (Auto) Baso % (Auto) Neut # (Auto) Lymph # (Auto) Appling # (Auto) Eos # (Auto) Baso # (Auto) Immature Gran # (Auto) ESR PT INR APTT PTT Ratio Sodium Potassium Chloride Carbon Dioxide Anion Gap BUN Creatinine Est Cr Clr Drug Dosing Est GFR ( Amer) Est GFR (Non-Af Amer) BUN/Creatinine Ratio Glucose POC Glucose Calcium Ferritin Total Bilirubin AST ALT Alkaline Phosphatase Lactate Dehydrogenase Total Creatine Kinase CK-MB (CK-2) CK/CKMB % Calc Troponin I 0.136 H* C-Reactive Protein NT-Pro-B Natriuret Pep Total Protein Albumin Globulin Albumin/Globulin Ratio Lipase Diagnostic Findings Chest x-ray as well as CT scan of the chest both suggest an element of mild congestive heart failure. No evidence of pulmonary embolism. Echocardiogram performed 05/12/2020: Ejection fraction 25-30 percent. Global hypokinesis with akinesis of the inferior, mid inferolateral and inferoseptal shabazz. Severe left atrial dilation. Mild increase in the mitral and aortic transvalvular velocities suggestive of mild stenosis. The Dobutamine echocardiogram performed 10/26/2019: Ejection fraction 35-40 percent. Inferior and septal wall motion abnormalities noted. Cardiac catheterization 05/14/2020: 70 percent mid LAD lesion with FFR 0.79. 30 percent proximal LAD stenosis. Left dominant system without significant obstructive disease. PG Care Time/CCT Total # of Minutes Spent Total Time Spent with Patient: Total time spent is greater than 50% in coordination of care (as documented) at patient's floor/unit and/or counseling patient: Coding Level of Care Code 41657 OBS Care - Level 3 Diagnoses CHF (congestive heart failure) I50.9 Heart failure chronicity: acute Heart failure type: unspecified Cardiomyopathy I42.9 Mechanical heart valve present Z95.2 Atrial fibrillation I48.91 Atrial fibrillation type: unspecified Arteriosclerosis of coronary artery I25.10 Chest pain R07.9 (1) CHF (congestive heart failure) Heart failure chronicity: acute Heart failure type: unspecified Qualified Code(s): I50.9 - Heart failure, unspecified (2) Atrial fibrillation Atrial fibrillation type: unspecified Qualified Code(s): I48.91 - Unspecified atrial fibrillation
--- NOTE | 2020-05-26 10:49 | Electrocardiogram Report ---
Test Reason : Blood Pressure : / mmHG Vent. Rate : 076 BPM Atrial Rate : 076 BPM P-R Int : 190 ms QRS Dur : 168 ms QT Int : 436 ms P-R-T Axes : 034 -51 099 degrees QTc Int : 490 ms Normal sinus rhythm Left axis deviation Left bundle branch block Abnormal ECG When compared with ECG of 12-MAY-2020 18:39, Sinus rhythm has replaced Atrial fibrillation Confirmed by Thierno Richards ([id number]) on 05/26/2020 10:49:07 AM Referred By: REFERRED SELF Confirmed By:Rufino Richards
[2020-05-26] MEDS: TRIAMCINOLONE ACET 0.5% CR 15 GM TUBE TOP SCH ×3 (11:04→20:38)
[2020-05-26] MEDS: OXYCODONE HCL IR 5 MG TAB (IMMEDIATE RELEASE) PO PRN (15:57)
[2020-05-26] MEDS: WARFARIN SOD 7.5 MG TAB PO SCH (15:58)
--- NOTE | 2020-05-26 17:06 | History & Physical Bridge Note ---
Date of Service May 26, 2020 History & Physical Bridge Note Less shortness of breath today. Feeling better already, though not able to lie flat yet. - Continue diuresis - Monitor Cr; breathing
[2020-05-26] MEDS: ACETAMINOPHEN 500 MG TAB PO SCH (20:40)
[2020-05-26] MEDS: FUROSEMIDE 40 MG TAB PO SCH (20:43)
[2020-05-26] MEDS: TIZANIDINE HCL 4 MG TABLET PO PRN (22:49)
[2020-05-27 07:20] LABS: INR 2.2 (0.9-1.1); Prothrombin Time 22.2 Seconds (9.0-12.0)
[2020-05-27 07:59] LABS: Hematocrit (blood only) 32.2 % (37-47); Hemoglobin 9.8 g/dL (12.0-16.0); Mean Corpuscular Hemoglobin 24.9 pg (25-34); Mean Corpuscular Hgb Conc 30.4 g/dL (32-36); Mean Corpuscular Volume 81.9 fL (80-100); Platelet Count 225 K/uL (130-400); RDW Coefficient of Variation 16.2 % (11.5-14.5); RDW Standard Deviation 48.4 fL (36.4-46.3); Red Blood Count 3.93 M/uL (4.2-5.4); White Blood Count 6.23 K/uL (4.8-10.8)
[2020-05-27] MEDS: INSULIN ASPART 100 UNITS/ML 3 ML PEN SC SCH ×4 (08:30→20:27)
[2020-05-27] MEDS: INSULIN DETEMIR FLEXPEN/FLEX TOUCH 100 UNITS/ML 3ML SC SCH ×2 (08:30→20:28)
[2020-05-27] MEDS: CALCITRIOL 0.25 MCG CAPSULE PO SCH ×2 (08:32→20:30)
[2020-05-27] MEDS: CLOPIDOGREL BISULFATE 75 MG TAB PO SCH (08:32)
[2020-05-27] MEDS: ATORVASTATIN 40 MG TAB PO SCH (08:32)
[2020-05-27] MEDS: lisinopriL 5 MG TAB PO SCH (08:32)
[2020-05-27] MEDS: VENLAFAXINE HCL XR 150 MG CAPXR PO SCH (08:32)
[2020-05-27] MEDS: GABAPENTIN 600 MG TAB PO SCH ×2 (08:32→20:31)
[2020-05-27] MEDS: TRIAMCINOLONE ACET 0.5% CR 15 GM TUBE TOP SCH ×3 (08:33→20:28)
[2020-05-27] MEDS: PANTOprazole 40 MG TAB PO SCH ×2 (08:33→20:32)
[2020-05-27] MEDS: METOPROLOL SUCC 25MG EXT REL TAB PO SCH (08:33)
[2020-05-27] MEDS: FUROSEMIDE 40 MG TAB PO SCH ×2 (08:33→20:31)
[2020-05-27] MEDS: lamoTRIgine 100 MG TAB PO SCH ×2 (08:33→20:29)
[2020-05-27] MEDS: OXYCODONE HCL IR 5 MG TAB (IMMEDIATE RELEASE) PO PRN ×2 (08:44→20:23)
[2020-05-27 08:49] LABS: Calcium 9.5 mg/dl (8.5-10.1); Creatinine Clr Calc Pharmacy 56.7 ml/min; Est GFR (African American) 60.7; Est GFR (Non-African American) 52.3; Magnesium 2.1 mg/dl (1.8-2.4)
--- NOTE | 2020-05-27 11:31 | Cardiology Progress Note ---
Date of Service May 27, 2020 Assessment & Plan (1) CHF (congestive heart failure): Clinically improved. Unfortunately, no objective evidence of diuresis was recorded with the exception of a slight improvement in her weight. She appears to have lost about a kilogram. Her renal function is stable. I think she should continue her intravenous diuresis while she is here. Her BUN is rising suggesting an element of intravascular depletion. It is very possible that a lot of her symptoms are simply related to her cardiomyopathy and not overt pulmonary edema. I think we can obtain N terminal proBNP again in the morning compared to her admission value to see if we have achieved improvement. She will likely be able to be discharged tomorrow or the following day depending on her response. She will likely need to go home on intensified diuretic regimen. (2) Cardiomyopathy: Likely nonischemic. Continue outpatient regimen of lisinopril metoprolol succinate (3) Mechanical heart valve present: She was noted to have mildly elevated transvalvular gradient some both her mitral and aortic prosthesis during her last admission. Unlikely this degree of dysfunction results in her current symptoms. She will continue her systemic anticoagulation. INR slightly low today but her dose of warfarin will be increased. (4) Atrial fibrillation: Currently in sinus rhythm. (5) Arteriosclerosis of coronary artery: Recently discovered to have obstructive disease involving the left anterior descending artery. She has been continued on warfarin, Plavix and high- dose atorvastatin. (6) Chest pain: Her symptoms are atypical. Improved. Admission and Anticipated Discharge Date Admission Date: May 26, 2020 Subjective This morning patient claims to be feeling somewhat better than yesterday. She is able to sleep slightly more flat last night. She continues to have element of dyspnea with activity, but not at rest. The chest pain that she described re cently also appears to have improved. She states it is still present on occasion but much improved. She does have some back pain. Review of Systems Review of Systems: Per HPI Physical Exam Physical Exam: She is alert and oriented x3. Mood affect appear normal. She answered all questions appropriately. HEENT: Sclerae are anicteric. Pupils are equal and reactive to light and accommodation. Extraocular movements were intact. Neuro: Cranial nerves intact Neck: Examination of the submandibular region did not reveal any significant lymphadenopathy. Carotids are palpable bilaterally and free of bruits on auscultation. There was no evidence of jugular venous distention. The thyroid was not enlarged. Some tenderness with palpation of the left neck in the trapezius area. Lungs: Lung sound clear. Prep slightly diminished at the right base otherwise no rales. No expiratory wheezing. Normal respiratory effort. Cardiac: The rhythm was regular. Mechanical S1 and S2. Very soft holosystolic murmur. The PMI was not markedly displaced on palpation. Abdomen: The abdomen was soft and nontender. Extremities: Patient has bilateral radial pulses that are equal in intensity. There is no evidence cyanosis or clubbing. Mild to moderate lower extremity edema, possibly improved from yesterday. Skin: There are no rashes noted on examination today. Results & Data ([facility]) Vital Signs (Past 12 Hours) Vital Signs Temp Pulse Pulse Resp BP Pulse Ox 05/27/20 07:42 36.5 C 73 16 127/75 95 05/27/20 07:25 69 05/27/20 04:02 36.8 C 74 20 110/66 93 Laboratory Results Abnormal Lab Results 05/26/20 05/26/20 05/26/20 11:37 12:31 16:27 WBC RBC Hgb Hct MCV MCH MCHC RDW Std Deviation RDW Coeff of Bryon Plt Count MPV PT INR Sodium Potassium Chloride Carbon Dioxide Anion Gap BUN Creatinine Est Cr Clr Drug Dosing Est GFR ( Amer) Est GFR (Non-Af Amer) BUN/Creatinine Ratio Glucose POC Glucose 122 H 131 H Calcium Magnesium Troponin I 0.137 H* 05/26/20 05/27/20 05/27/20 20:05 06:55 07:34 WBC RBC Hgb Hct MCV MCH MCHC RDW Std Deviation RDW Coeff of Bryon Plt Count MPV PT 22.2 H INR 2.2 H Sodium Potassium Chloride Carbon Dioxide Anion Gap BUN Creatinine Est Cr Clr Drug Dosing Est GFR ( Amer) Est GFR (Non-Af Amer) BUN/Creatinine Ratio Glucose POC Glucose 118 H 114 H Calcium Magnesium Troponin I 05/27/20 05/27/20 07:47 07:47 WBC 6.23 RBC 3.93 L Hgb 9.8 L Hct 32.2 L MCV 81.9 MCH 24.9 L MCHC 30.4 L RDW Std Deviation 48.4 H RDW Coeff of Bryon 16.2 H Plt Count 225 MPV 9.0 PT INR Sodium 138 Potassium 4.0 Chloride 104 Carbon Dioxide 29 Anion Gap 4.0 BUN 25 H Creatinine 1.08 Est Cr Clr Drug Dosing 56.7 Est GFR ( Amer) 60.7 Est GFR (Non-Af Amer) 52.3 BUN/Creatinine Ratio 23.0 H Glucose 101 H POC Glucose Calcium 9.5 Magnesium 2.1 Troponin I ECG Additional Comments: Telemetry revealed sinus rhythm without significant arrhythmia PG Care Time/CCT Total # of Minutes Spent Total Time Spent with Patient: Total time spent is greater than 50% in coordination of care (as documented) at patient's floor/unit and/or counseling patient: Coding Level of Care Code 97992 Subseq Hosp Care Lvl 3 Diagnoses CHF (congestive heart failure) I50.9 Heart failure chronicity: acute Heart failure type: unspecified Cardiomyopathy I42.9 Mechanical heart valve present Z95.2 Atrial fibrillation I48.91 Atrial fibrillation type: unspecified Arteriosclerosis of coronary artery I25.10 Chest pain R07.9 (1) CHF (congestive heart failure) Heart failure chronicity: acute Heart failure type: unspecified Qualified Code(s): I50.9 - Heart failure, unspecified (2) Atrial fibrillation Atrial fibrillation type: unspecified Qualified Code(s): I48.91 - Unspecified atrial fibrillation
--- NOTE | 2020-05-27 16:13 | Hospitalist Progress Note ---
Date of Service May 27, 2020 Assessment & Plan (1) Shortness of breath: Concern for CHF as etiology of SOB. -Admit to med/tele -Cardiology consultation appreciated - patient with recent catheterization with SENA placed to mid-LAD - Continue Lasix 40 mg PO BID per cardiology; monitor I&Os, weights (2) S/P cardiac catheterization: Cath with SENA to LAD on 05/14. Patient on DAPT briefly with ASA and Plavix, Was discharged home on Plavix and Coumadin. -Continue Plavix, Atorvastatin, Lisinoprol, Toprol XL -Continue Coumadin (3) Cardiomyopathy: As above (4) Diabetes: Chronic. [id number] -Continue Levemir 15u BID -ISS -Continue to monitor (5) Hypertension: Blood pressure stable -Continue Metoprolol, Lisinopril -Continue to monitor (6) Atrial fibrillation: Rate controlled, INR=3.2 -Continue Metoprolol -Continue Coumadin -Monitor INR (7) COPD with chronic bronchitis: Chronic. Stable. No wheeze -Continue Albuterol PRN, Olodaterol (8) Bipolar disorder: Chronic. Stable -Continue Venlavaxine 150mg po qAM -Continue Lamictal -Continue to monitor (9) Mechanical heart valve present: Mechanical AVR and MVR due to rheumatic heart disease, also with a history of prosthetic valve endocarditis. Valves placed in 2003 at [place]. -Continue Coumadin,goal INR is 2.5-3.5. - Gave extra 2.5 mg on 05/27 (for a total of 10 mg) to bump INR above 2.5. (10) Hyperlipidemia: Chronic. Stable -Continue Atorvastatin F/E/N - Hearth healthy/CC diet as tolerated Ppx - Conitnue Protonix, Coumadin for AF as above Code - DNR/DNI per discussion with patient Dispo - Observation to med/tele Admission and Anticipated Discharge Date Admission Date: May 26, 2020 Subjective Improved shortness of breath today. Less swelling in the legs. Reports no fevers/chills, chest pain, abdominal pain, nausea, or vomiting. Physical Exam Constitutional: WD/WN, vitals as above Eyes: EOM intact bilaterally; no conjunctival abnormality ENMT: external ear and nose normal, oropharynx normal Neck: trachea midline, no thyromegaly normal visual inspection Respiratory: normal respiratory effort, lungs clear to auscultation no respiratory distress Cardiovascular: Rate/Rhythm: regular rate and regular rhythm Vessels: no JVD Extremities: + edema Gastrointestinal (Abdomen): Inspection/Auscultation: abdomen normal to inspection; abdomen not distended Musculoskeletal: no cyanosis or clubbing, extremities motor strength 5/5 Skin: no rashes, warm and dry Neurologic: moves all extremities and awake Psychiatric: Orientation: alert, oriented to person and cooperative Results & Data Results & Data ([facility]) Vital Signs (Past 12 Hours) Vital Signs Temp Pulse Pulse Resp BP Pulse Ox 05/27/20 15:00 36.7 C 69 16 104/51 L 94 05/27/20 11:55 36.7 C 70 16 119/76 96 05/27/20 07:42 36.5 C 73 16 127/75 95 05/27/20 07:25 69 PG Care Time/CCT Total # of Minutes Spent Total Time Spent with Patient: Total time spent is greater than 50% in coordination of care (as documented) at patient's floor/unit and/or counseling patient: Coding Level of Care Code 32589 Subseq Hosp Care Lvl 2 Diagnoses Shortness of breath R06.02 S/P cardiac catheterization Z98.890 Cardiomyopathy I42.9 Diabetes E11.22; N18.3; Z79.4 Diabetes mellitus type: type 2 Diabetes mellitus halfway insulin use: with bill clerk use Diabetes mellitus complication status: with kidney complications Diabetes mellitus complication detail: with chronic kidney disease Chronic kidney disease stage: stage 3 (moderate) Hypertension I10 Hypertension type: essential hypertension Atrial fibrillation I48.91 Atrial fibrillation type: unspecified COPD with chronic bronchitis J44.9 Bipolar disorder F31.9 Active/Remission status: remission status unspecified Mechanical heart valve present Z95.2 Hyperlipidemia E78.5 (1) Diabetes Diabetes mellitus type: type 2 Diabetes mellitus bill clerk insulin use: with halfway use Diabetes mellitus complication status: with kidney complications Diabetes mellitus complication detail: with chronic kidney disease Chronic kidney disease stage: stage 3 (moderate) Qualified Code(s): E11.22 - Type 2 diabetes mellitus with diabetic chronic kidney disease; N18.3 - Chronic kidney disease, stage 3 (moderate); Z79.4 - death claim clerk (current) use of insulin (2) Hypertension Hypertension type: essential hypertension Qualified Code(s): I10 - Essential (primary) hypertension (3) Atrial fibrillation Atrial fibrillation type: unspecified Qualified Code(s): I48.91 - Unspecified atrial fibrillation (4) Bipolar disorder Active/Remission status: remission status unspecified Qualified Code(s): F31.9 - Bipolar disorder, unspecified
[2020-05-27] MEDS: DICLOFENAC SOD 1% GEL 100 GM TUBE EXT SCH ×2 (16:48→20:29)
[2020-05-27] MEDS: WARFARIN SOD 7.5 MG TAB PO SCH (16:50)
[2020-05-27] MEDS ORDERED: WARFARIN SOD 2.5 MG TAB PO ONE (17:00)
[2020-05-27] MEDS: ACETAMINOPHEN 500 MG TAB PO SCH (20:22)
[2020-05-28 07:28] LABS: Hematocrit (blood only) 34.9 % (37-47); Hemoglobin 10.4 g/dL (12.0-16.0); Mean Corpuscular Hemoglobin 24.6 pg (25-34); Mean Corpuscular Hgb Conc 29.8 g/dL (32-36); Mean Corpuscular Volume 82.7 fL (80-100); Mean Platelet Volume 9.1 fL (7.4-10.4); Platelet Count 285 K/uL (130-400); RDW Coefficient of Variation 16.3 % (11.5-14.5); RDW Standard Deviation 49.2 fL (36.4-46.3); Red Blood Count 4.22 M/uL (4.2-5.4); White Blood Count 8.28 K/uL (4.8-10.8)
[2020-05-28] MEDS: DICLOFENAC SOD 1% GEL 100 GM TUBE EXT SCH ×2 (07:53→20:09)
[2020-05-28] MEDS: TRIAMCINOLONE ACET 0.5% CR 15 GM TUBE TOP SCH ×3 (07:54→20:06)
[2020-05-28] MEDS: lisinopriL 5 MG TAB PO SCH (07:54)
[2020-05-28] MEDS: METOPROLOL SUCC 25MG EXT REL TAB PO SCH (07:55)
[2020-05-28] MEDS: PANTOprazole 40 MG TAB PO SCH ×2 (07:55→20:07)
[2020-05-28] MEDS: VENLAFAXINE HCL XR 150 MG CAPXR PO SCH (07:55)
[2020-05-28] MEDS: FUROSEMIDE 40 MG TAB PO SCH ×2 (07:55→20:08)
[2020-05-28] MEDS: lamoTRIgine 100 MG TAB PO SCH ×2 (07:55→20:08)
[2020-05-28] MEDS: CLOPIDOGREL BISULFATE 75 MG TAB PO SCH (07:56)
[2020-05-28] MEDS: CALCITRIOL 0.25 MCG CAPSULE PO SCH ×2 (07:56→20:07)
[2020-05-28] MEDS: ATORVASTATIN 40 MG TAB PO SCH (07:56)
[2020-05-28] MEDS: GABAPENTIN 600 MG TAB PO SCH ×2 (07:57→20:07)
[2020-05-28 08:00] LABS: BUN Creatinine Ratio 21.6 (10-20); Calcium 9.5 mg/dl (8.5-10.1); Creatinine Clr Calc Pharmacy 47.5 ml/min; Est GFR (African American) 48.9; Est GFR (Non-African American) 42.2; Magnesium 2.2 mg/dl (1.8-2.4); Potassium 4.2 mmol/L (3.5-5.1)
[2020-05-28] MEDS ORDERED: ENOXAPARIN 1 MG/KG SQ SCH (08:00)
[2020-05-28] MEDS: INSULIN ASPART 100 UNITS/ML 3 ML PEN SC SCH ×4 (08:32→21:35)
[2020-05-28] MEDS: INSULIN DETEMIR FLEXPEN/FLEX TOUCH 100 UNITS/ML 3ML SC SCH ×2 (08:33→21:34)
[2020-05-28] MEDS: ENOXAPARIN 100 MG/1ML SYR SQ SCH ×3 (09:03→20:09)
--- NOTE | 2020-05-28 10:13 | Hospitalist Progress Note ---
Date of Service May 28, 2020 Assessment & Plan (1) CHF (congestive heart failure): Acute on chronic combined systolic and diastolic CHF Feels a little better than on admission but cannot tell accurately her I/Os. Weight down 1.6kg Has been on po lasix bid the last few days-now survey researcher increasing so will not revert back to IV lasix at this point -follow I/Os, daily weights, low Na+ diet (2) Chest pain: Recurrent, atypical, relieved with nitro LBBB on ECG serial trops mildly elevated and stable had recurrence of pain on AM of 05/28 -no evidence of in stent thrombosis follow and consider adding on antianginal medication if persists (3) S/P cardiac catheterization: Cath with SENA to LAD on 05/14. Patient on DAPT briefly with ASA and Plavix, Was discharged home on Plavix and Coumadin. -Continue Plavix, Atorvastatin, Lisinoprol, Toprol XL -Continue Coumadin (4) Cardiomyopathy: As above Nonischemic mostly LAD stent does not account for degree of severity of her CM (5) Diabetes: Chronic. ES=[id number] -Continue Levemir 15u BID -ISS -Continue to monitor (6) Hypertension: Blood pressure stable -Continue Metoprolol, Lisinopril -Continue to monitor (7) Atrial fibrillation: In sinus rhythm here Rate controlled, INR=2.0 today and has been low for several days (goal 2.5-3.5) -Continue Metoprolol -Continue Coumadin -Monitor INR and bridge with Lovenox (8) COPD with chronic bronchitis: Chronic. Stable. No wheeze -Continue Albuterol PRN, Olodaterol (9) Bipolar disorder: Chronic. Stable -Continue Venlafaxine 150mg po qAM -Continue Lamictal -Continue to monitor (10) Mechanical heart valve present: Mechanical AVR and MVR due to rheumatic heart disease, also with a history of prosthetic valve endocarditis. Valves placed in 2003 at [place]. -Continue Coumadin,goal INR is 2.5-3.5. - Gave extra 2.5 mg on 05/27 (for a total of 10 mg) and INR remains low at 2.0 today -bridge with Lovenox 1mg/kg q12 until therapeutic as has been subtherapeutic now for 3 days -continue coumadin 7.5mg daily today follow INR (11) JOMAR (obstructive sleep apnea): noncompliant with CPAP (12) Iron deficiency anemia: hgb stable at 10 follow (13) Chronic kidney disease (CKD), stage III (moderate): -Avoid nephrotoxins -renally dose meds when appropriate -follow BMP survey researcher at baseline 1.2 (14) Hyperlipidemia: Chronic. Stable -Continue Atorvastatin F/E/N - Hearth healthy/CC diet as tolerated Ppx - Conitnue Protonix, Coumadin for AF as above Code - DNR/DNI per discussion with patient Dispo - continued stay Admission and Anticipated Discharge Date Admission Date: May 27, 2020 Subjective Pt had some substernal CP this AM that was an 8/10 in severity, nonradiating, no associated diaphoresis or nausea, but did associate with some SOB. It went away after taking a nitroglycerin. SHe was sitting in the bed when it came on. Reports this feels very similar to all her previous chest pains recently. ECG showed LBBB no changes from previous. Trop serially stable and mildly elevated. Still has some orthopnea. Tele with NSR, IVCD, 1st degree AV block, PACs, PVCs, rates 70s-60s. Review of Systems Review of Systems: All systems reviewed & are unremarkable except as noted in HPI & below Physical Exam Constitutional: WD/WN, vitals as above Eyes: + anicteric sclerae ENMT: external ear and nose normal, oropharynx normal Neck: trachea midline, no thyromegaly Respiratory: Auscultation: + crackles (at bases bilat); no wheezes Cardiovascular: Rate/Rhythm: regular rate and regular rhythm Heart Sounds: + murmur (2/6 LILLIANA at apex) Chest (Breasts): Chest: normal inspection of chest Gastrointestinal (Abdomen): normal bowel sounds, soft, nontender, no hepatosplenomegaly Musculoskeletal: Extremities: extremities normal to inspection; no cyanosis and no clubbing Skin: no rashes, warm and dry Neurologic: moves all extremities and awake; no focal motor deficits Psychiatric: A+Ox3, euthymic affect Lymphatic: no lymphedema Results & Data Results & Data ([facility]) Vital Signs (Past 12 Hours) Vital Signs Temp Pulse Pulse Resp BP Pulse Ox 05/28/20 09:48 75 18 101/61 96 05/28/20 07:51 36.6 C 65 18 107/69 92 05/28/20 07:40 63 05/28/20 03:29 37.0 C 68 18 107/64 95 05/28/20 00:04 68 PG Care Time/CCT Total # of Minutes Spent Total Time Spent with Patient: Total time spent is greater than 50% in coor dination of care (as documented) at patient's floor/unit and/or counseling patient: Coding Level of Care Code 66503 Subseq Hosp Care Lvl 3 Diagnoses CHF (congestive heart failure) I50.9 Heart failure chronicity: acute Heart failure type: unspecified Chest pain R07.9 S/P cardiac catheterization Z98.890 Cardiomyopathy I42.9 Diabetes E11.22; N18.3; Z79.4 Chronic kidney disease stage: stage 3 (moderate) Diabetes mellitus complication detail: with chronic kidney disease Diabetes mellitus complication status: with kidney complications Diabetes mellitus intermodal owner operator truck driver insulin use: with intermodal owner operator truck driver use Diabetes mellitus type: type 2 Hypertension I10 Hypertension type: essential hypertension Atrial fibrillation I48.91 Atrial fibrillation type: unspecified COPD with chronic bronchitis J44.9 Bipolar disorder F31.9 Active/Remission status: remission status unspecified Mechanical heart valve present Z95.2 JOMAR (obstructive sleep apnea) G47.33 Iron deficiency anemia D50.9 Chronic kidney disease (CKD), stage III (moderate) N18.3 Hyperlipidemia E78.5 (1) Diabetes Chronic kidney disease stage: stage 3 (moderate) Diabetes mellitus complication detail: with chronic kidney disease Diabetes mellitus complication status: with kidney complications Diabetes mellitus intermodal owner operator truck driver insulin use: with detention use Diabetes mellitus type: type 2 Qualified Code(s): E11.22 - Type 2 diabetes mellitus with diabetic chronic kidney disease; N18.3 - Chronic kidney disease, stage 3 (moderate); Z79.4 - senior care (current) use of insulin (2) CHF (congestive heart failure) Heart failure chronicity: acute Heart failure type: unspecified Qualified Code(s): I50.9 - Heart failure, unspecified (3) Bipolar disorder Active/Remission status: remission status unspecified Qualified Code(s): F31.9 - Bipolar disorder, unspecified (4) Atrial fibrillation Atrial fibrillation type: unspecified Qualified Code(s): I48.91 - Unspecified atrial fibrillation (5) Hypertension Hypertension type: essential hypertension Qualified Code(s): I10 - Essential (primary) hypertension
--- NOTE | 2020-05-28 14:42 | Electrocardiogram Report ---
Test Reason : Blood Pressure : / mmHG Vent. Rate : 068 BPM Atrial Rate : 068 BPM P-R Int : 234 ms QRS Dur : 142 ms QT Int : 430 ms P-R-T Axes : 070 -37 123 degrees QTc Int : 457 ms Sinus rhythm with 1st degree A-V block Left axis deviation Left bundle branch block Abnormal ECG When compared with ECG of 25-MAY-2020 20:59, No significant change Confirmed by Brock Cummins ([id number]) on 05/28/2020 2:42:26 PM Referred By: REFERRED SELF Confirmed By:Brock Cummins
[2020-05-28] MEDS: OXYCODONE HCL IR 5 MG TAB (IMMEDIATE RELEASE) PO PRN (15:28)
[2020-05-28] MEDS: WARFARIN SOD 7.5 MG TAB PO SCH (15:29)
[2020-05-28] MEDS: ACETAMINOPHEN 500 MG TAB PO SCH (20:07)
[2020-05-29] MEDS ORDERED: FUROSEMIDE 40 MG in SYRINGE 0 ML IV ONE (07:50)
[2020-05-29 08:17] LABS: Basophils # (auto) 0.02 K/uL (0-0.2); Basophils % (auto) 0.4 %; Eosinophils # (auto) 0.16 K/uL (0-0.5); Eosinophils % (auto) 2.8 %; Hematocrit (blood only) 33.4 % (37-47); Hemoglobin 10.1 g/dL (12.0-16.0); Immature Granulocytes # (auto) 0.01 K/uL (0.00-0.02); Immature Granulocytes % (auto) 0.2 %; Lymphocytes % (auto) 17.8 %; Mean Corpuscular Hemoglobin 24.5 pg (25-34); Mean Corpuscular Hgb Conc 30.2 g/dL (32-36); Mean Corpuscular Volume 81.1 fL (80-100); Mean Platelet Volume 9.3 fL (7.4-10.4); Monocytes # (auto) 0.56 K/uL (0.11-0.59); Monocytes % (auto) 9.9 %; Neutrophils # (auto) 3.88 K/uL (1.4-6.5); Neutrophils % (auto) 68.9 %; Platelet Count 242 K/uL (130-400); RDW Coefficient of Variation 16.2 % (11.5-14.5); RDW Standard Deviation 47.2 fL (36.4-46.3); Red Blood Count 4.12 M/uL (4.2-5.4); White Blood Count 5.63 K/uL (4.8-10.8)
[2020-05-29] MEDS: VENLAFAXINE HCL XR 150 MG CAPXR PO SCH (08:19)
[2020-05-29] MEDS: CALCITRIOL 0.25 MCG CAPSULE PO SCH ×2 (08:20→20:51)
[2020-05-29] MEDS: GABAPENTIN 600 MG TAB PO SCH ×2 (08:20→20:53)
[2020-05-29] MEDS: lamoTRIgine 100 MG TAB PO SCH ×2 (08:20→20:51)
[2020-05-29] MEDS: PANTOprazole 40 MG TAB PO SCH ×2 (08:20→20:53)
[2020-05-29] MEDS: ATORVASTATIN 40 MG TAB PO SCH (08:21)
[2020-05-29] MEDS: METOPROLOL SUCC 25MG EXT REL TAB PO SCH (08:21)
[2020-05-29] MEDS: DICLOFENAC SOD 1% GEL 100 GM TUBE EXT SCH ×2 (08:22→20:52)
[2020-05-29] MEDS: CLOPIDOGREL BISULFATE 75 MG TAB PO SCH (08:22)
[2020-05-29] MEDS: lisinopriL 5 MG TAB PO SCH (08:22)
[2020-05-29] MEDS: ENOXAPARIN 100 MG/1ML SYR SQ SCH (08:23)
[2020-05-29] MEDS: INSULIN ASPART 100 UNITS/ML 3 ML PEN SC SCH ×4 (08:24→20:50)
[2020-05-29 08:25] LABS: INR 2.5 (0.9-1.1); Prothrombin Time 24.7 Seconds (9.0-12.0)
[2020-05-29] MEDS: TRIAMCINOLONE ACET 0.5% CR 15 GM TUBE TOP SCH ×3 (08:28→20:53)
[2020-05-29 08:47] LABS: Calcium 9.7 mg/dl (8.5-10.1); Creatinine Clr Calc Pharmacy 58.1 ml/min; Est GFR (African American) 62.8; Est GFR (Non-African American) 54.1; Magnesium 2.2 mg/dl (1.8-2.4); Potassium 4.1 mmol/L (3.5-5.1)
[2020-05-29] MEDS: INSULIN DETEMIR FLEXPEN/FLEX TOUCH 100 UNITS/ML 3ML SC SCH ×2 (09:06→20:49)
[2020-05-29] MEDS ORDERED: bisacodyL 5 MG TABEC PO ONE (10:35)
[2020-05-29] MEDS: FUROSEMIDE 40 MG in SYRINGE 0 ML IV SCH (16:24)
[2020-05-29] MEDS: WARFARIN SOD 7.5 MG TAB PO SCH (16:52)
--- NOTE | 2020-05-29 19:35 | Hospitalist Progress Note ---
Date of Service May 29, 2020 Assessment & Plan (1) CHF (congestive heart failure): Acute on chronic combined systolic and diastolic CHF Finally feeling better since being restarted on IV Lasix on 05/29, weight is down from admission, lower extremity edema improved -Follow BMP, continue Lasix 40 mg IV twice daily -follow I/Os, daily weights, low Na+ diet (2) Chest pain: Recurrent, atypical, relieved with nitro-none further since 05/28 LBBB on ECG serial trops mildly elevated and stable -no evidence of in stent thrombosis follow and consider adding on antianginal medication if persists Seems to be related to volume overload (3) S/P cardiac catheterization: Cath with SENA to LAD on 05/14. Patient on DAPT briefly with ASA and Plavix, Was discharged home on Plavix and Coumadin. -Continue Plavix, Atorvastatin, Lisinoprol, Toprol XL -Continue Coumadin (4) Cardiomyopathy: As above Nonischemic mostly LAD stent does not account for degree of severity of her CM Continue Toprol, lisinopril (5) Diabetes: Chronic. Blood sugars well controlled here -Continue Levemir 15u BID which is a reduction from home dose -ISS -Continue to monitor -Check hemoglobin A1c in the morning (6) Hypertension: Blood pressure controlled -Continue Metoprolol, Lisinopril, Lasix -Continue to monitor (7) Atrial fibrillation: Remains in sinus rhythm here Rate controlled, INR= 2.5 today and at goal -Continue Metoprolol -Continue Coumadin (8) COPD with chronic bronchitis: Chronic. Stable. No wheeze -Continue Albuterol PRN, Olodaterol (9) Bipolar disorder: Chronic. Stable -Continue Venlafaxine 150mg po qAM -Continue Lamictal -Continue to monitor (10) Mechanical heart valve present: Mechanical AVR and MVR due to rheumatic heart disease, also with a history of prosthetic valve endocarditis. Valves placed in 2003 at [place]. -Continue Coumadin,goal INR is 2.5-3.5. - INR finally up to goal at 2.5 -We will discontinue bridging Lovenox -continue coumadin 7.5mg daily follow INR (11) JOMAR (obstructive sleep apnea): noncompliant with CPAP (12) Iron deficiency anemia: hgb stable at 10 (13) Chronic kidney disease (CKD), stage III (moderate): -Avoid nephrotoxins -renally dose meds when appropriate -follow BMP maritime pilot at baseline 1.05 (14) Hyperlipidemia: Chronic. Stable -Continue Atorvastatin F/E/N - Hearth healthy/CC diet as tolerated Ppx - Conitnue Protonix, Coumadin as above Code - DNR/DNI per discussion with patient Dispo - continued stay but possible discharge tomorrow if continues to improve Admission and Anticipated Discharge Date Admission Date: May 27, 2020 Subjective Feeling better today, less SOB, denies any further chest pain. Has been urinating quite a bit with the IV Lasix today. Overall much improved. Feels her leg swelling is the best she seen in a very long time. She is not had a bowel movement in 5 days. She was given Dulcolax and MiraLAX today and is now having some mild right lower quadrant cramping. Telemetry with normal sinus rhythm rates in the 60s. Review of Systems Review of Systems: All systems reviewed & are unremarkable except as noted in HPI & below Physical Exam Constitutional: WD/WN, vitals as above Eyes: PERRL, conjunctivae normal, anicteric sclerae + anicteric sclerae Neck: trachea midline, no thyromegaly Respiratory: normal respiratory effort, lungs clear to auscultation Cardiovascular: Rate/Rhythm: regular rate and regular rhythm Heart Sounds: + murmur (2/6 LILLIANA at apex) Extremities: no edema Chest (Breasts): Chest: normal inspection of chest Gastrointestinal (Abdomen): normal bowel sounds, soft, nontender, no hepatosplenomegaly Musculoskeletal: Extremities: extremities normal to inspection; no cyanosis and no clubbing Skin: no rashes, warm and dry Neurologic: moves all extremities and awake; no focal motor deficits Psychiatric: A+Ox3, euthymic affect Lymphatic: no lymphedema Results & Data Results & Data ([facility]) Vital Signs (Past 12 Hours) Vital Signs Temp Pulse Pulse Resp BP Pulse Ox 05/29/20 15:15 36.8 C 67 20 106/67 97 05/29/20 15:07 65 05/29/20 11:44 36.7 C 68 18 101/65 97 05/29/20 07:43 36.8 C 48 L 16 120/70 95 Laboratory Results 05/29/20 05/29/20 05/29/20 Range/Units 16:36 11:32 07:53 WBC (4.8-10.8) K/uL RBC (4.2-5.4) M/uL Hgb (12.0-16.0) g/dL Hct (37-47) % MCV (80-100) fL MCH (25-34) pg MCHC (32-36) g/dL RDW Std Deviation (36.4-46.3) fL RDW Coeff of Bryon (11.5-14.5) % Plt Count (130-400) K/uL MPV (7.4-10.4) fL Immature Gran % (Auto) % Neut % (Auto) % Lymph % (Auto) % Hudson % (Auto) % Eos % (Auto) % Baso % (Auto) % Neut # (Auto) (1.4-6.5) K/uL Lymph # (Auto) (1.2-3.4) K/uL Hudson # (Auto) (0.11-0.59) K/uL Eos # (Auto) (0-0.5) K/uL Baso # (Auto) (0-0.2) K/uL Immature Gran # (Auto) (0.00-0.02) K/uL PT (9.0-12.0) Seconds INR (0.9-1.1) Sodium 140 (136-145) mmol/L Potassium 4.1 (3.5-5.1) mmol/L Chloride 105 (98-107) mmol/L Carbon Dioxide 31 (21-32) mmol/L Anion Gap 4.0 (3-11) BUN 24 H (7-18) mg/dl Creatinine 1.05 (0.6-1.2) mg/dl Est Cr Clr Drug Dosing 58.1 ml/min Est GFR ( Amer) 62.8 Est GFR (Non-Af Amer) 54.1 BUN/Creatinine Ratio 23.0 H (10-20) Glucose 77 (70-99) mg/dl POC Glucose 104 H 126 H (70-99) mg/dl Calcium 9.7 (8.5-10.1) mg/dl Magnesium 2.2 (1.8-2.4) mg/dl 05/29/20 05/29/20 05/29/20 Range/Units 07:53 07:53 07:43 WBC 5.63 (4.8-10.8) K/uL RBC 4.12 L (4.2-5.4) M/uL Hgb 10.1 L (12.0-16.0) g/dL Hct 33.4 L (37-47) % MCV 81.1 (80-100) fL MCH 24.5 L (25-34) pg MCHC 30.2 L (32-36) g/dL RDW Std Deviation 47.2 H (36.4-46.3) fL RDW Coeff of Bryon 16.2 H (11.5-14.5) % Plt Count 242 (130-400) K/uL MPV 9.3 (7.4-10.4) fL Immature Gran % (Auto) 0.2 % Neut % (Auto) 68.9 % Lymph % (Auto) 17.8 % Hudson % (Auto) 9.9 % Eos % (Auto) 2.8 % Baso % (Auto) 0.4 % Neut # (Auto) 3.88 (1.4-6.5) K/uL Lymph # (Auto) 1.00 L (1.2-3.4) K/uL Hudson # (Auto) 0.56 (0.11-0.59) K/uL Eos # (Auto) 0.16 (0-0.5) K/uL Baso # (Auto) 0.02 (0-0.2) K/uL Immature Gran # (Auto) 0.01 (0.00-0.02) K/uL PT 24.7 H (9.0-12.0) Seconds INR 2.5 H (0.9-1.1) Sodium (136-145) mmol/L Potassium (3.5-5.1) mmol/L Chloride (98-107) mmol/L Carbon Dioxide (21-32) mmol/L Anion Gap (3-11) BUN (7-18) mg/dl Creatinine (0.6-1.2) mg/dl Est Cr Clr Drug Dosing ml/min Est GFR ( Amer) Est GFR (Non-Af Amer) BUN/Creatinine Ratio (10-20) Glucose (70-99) mg/dl POC Glucose 90 (70-99) mg/dl Calcium (8.5-10.1) mg/dl Magnesium (1.8-2.4) mg/dl 05/28/20 Range/Units 20:45 WBC (4.8-10.8) K/uL RBC (4.2-5.4) M/uL Hgb (12.0-16.0) g/dL Hct (37-47) % MCV (80-100) fL MCH (25-34) pg MCHC (32-36) g/dL RDW Std Deviation (36.4-46.3) fL RDW Coeff of Bryon (11.5-14.5) % Plt Count (130-400) K/uL MPV (7.4-10.4) fL Immature Gran % (Auto) % Neut % (Auto) % Lymph % (Auto) % Hudson % (Auto) % Eos % (Auto) % Baso % (Auto) % Neut # (Auto) (1.4-6.5) K/uL Lymph # (Auto) (1.2-3.4) K/uL Hudson # (Auto) (0.11-0.59) K/uL Eos # (Auto) (0-0.5) K/uL Baso # (Auto) (0-0.2) K/uL Immature Gran # (Auto) (0.00-0.02) K/uL PT (9.0-12.0) Seconds INR (0.9-1.1) Sodium (136-145) mmol/L Potassium (3.5-5.1) mmol/L Chloride (98-107) mmol/L Carbon Dioxide (21-32) mmol/L Anion Gap (3-11) BUN (7-18) mg/dl Creatinine (0.6-1.2) mg/dl Est Cr Clr Drug Dosing ml/min Est GFR ( Amer) Est GFR (Non-Af Amer) BUN/Creatinine Ratio (10-20) Glucose (70-99) mg/dl POC Glucose 124 H (70-99) mg/dl Calcium (8.5-10.1) mg/dl Magnesium (1.8-2.4) mg/dl PG Care Time/CCT Total # of Minutes Spent Total Time Spent with Patient: Total time spent is greater than 50% in coordination of care (as documented) at patient's floor/unit and/or counseling patient: Coding Level of Care Code 33351 Subseq Hosp Care Lvl 3 Diagnoses CHF (congestive heart failure) I50.9 Heart failure chronicity: acute Heart failure type: unspecified Chest pain R07.9 S/P cardiac catheterization Z98.890 Cardiomyopathy I42.9 Diabetes E11.22; N18.3; Z79.4 Chronic kidney disease stage: stage 3 (moderate) Diabetes mellitus complication detail: with chronic kidney disease Diabetes mellitus complication status: with kidney complications Diabetes mellitus retirement insulin use: with terminal operator use Diabetes mellitus type: type 2 Hypertension I10 Hypertension type: essential hypertension Atrial fibrillation I48.91 Atrial fibrillation type: unspecified COPD with chronic bronchitis J44.9 Bipolar disorder F31.9 Active/Remission status: remission status unspecified Mechanical heart valve present Z95.2 JOMAR (obstructive sleep apnea) G47.33 Iron deficiency anemia D50.9 Chronic kidney disease (CKD), stage III (moderate) N18.3 Hyperlipidemia E78.5 (1) Diabetes Chronic kidney disease stage: stage 3 (moderate) Diabetes mellitus complication detail: with chronic kidney disease Diabetes mellitus complication status: with kidney complications Diabetes mellitus retirement insulin use: with retirement use Diabetes mellitus type: type 2 Qualified Code(s): E11.22 - Type 2 diabetes mellitus with diabetic chronic kidney disease; N18.3 - Chronic kidney disease, stage 3 (moderate); Z79.4 - [facility] (current) use of insulin (2) CHF (congestive heart failure) Heart failure chronicity: acute Heart failure type: unspecified Qualified Code(s): I50.9 - Heart failure, unspecified (3) Bipolar disorder Active/Remission status: remission status unspecified Qualified Code(s): F31.9 - Bipolar disorder, unspecified (4) Atrial fibrillation Atrial fibrillation type: unspecified Qualified Code(s): I48.91 - Unspecified atrial fibrillation (5) Hypertension Hypertension type: essential hypertension Qualified Code(s): I10 - Essential (primary) hypertension
[2020-05-29] MEDS: OXYCODONE HCL IR 5 MG TAB (IMMEDIATE RELEASE) PO PRN (20:47)
[2020-05-29] MEDS: ACETAMINOPHEN 500 MG TAB PO SCH (20:48)
[2020-05-30] MEDS: TIZANIDINE HCL 4 MG TABLET PO PRN (03:53)
[2020-05-30] MEDS: CALCITRIOL 0.25 MCG CAPSULE PO SCH ×2 (07:39→20:50)
[2020-05-30] MEDS: VENLAFAXINE HCL XR 150 MG CAPXR PO SCH (07:40)
[2020-05-30] MEDS: GABAPENTIN 600 MG TAB PO SCH ×2 (07:40→20:49)
[2020-05-30] MEDS: CLOPIDOGREL BISULFATE 75 MG TAB PO SCH (07:41)
[2020-05-30] MEDS: ATORVASTATIN 40 MG TAB PO SCH (07:41)
[2020-05-30] MEDS: METOPROLOL SUCC 25MG EXT REL TAB PO SCH (07:41)
[2020-05-30] MEDS: lamoTRIgine 100 MG TAB PO SCH ×2 (07:41→20:48)
[2020-05-30] MEDS: DICLOFENAC SOD 1% GEL 100 GM TUBE EXT SCH ×2 (07:42→20:50)
[2020-05-30] MEDS: TRIAMCINOLONE ACET 0.5% CR 15 GM TUBE TOP SCH ×3 (07:42→20:48)
[2020-05-30] MEDS: PANTOprazole 40 MG TAB PO SCH ×2 (07:43→20:49)
[2020-05-30 07:48] LABS: INR 2.4 (0.9-1.1); Prothrombin Time 24.2 Seconds (9.0-12.0)
[2020-05-30 08:02] LABS: BUN Creatinine Ratio 21.4 (10-20); Creatinine Clr Calc Pharmacy 47.8 ml/min; Est GFR (African American) 50.3; Est GFR (Non-African American) 43.4; Magnesium 2.4 mg/dl (1.8-2.4); Potassium 4.2 mmol/L (3.5-5.1)
[2020-05-30] MEDS: FUROSEMIDE 40 MG in SYRINGE 0 ML IV SCH ×2 (08:24→17:09)
[2020-05-30] MEDS: INSULIN DETEMIR FLEXPEN/FLEX TOUCH 100 UNITS/ML 3ML SC SCH ×2 (08:27→20:48)
[2020-05-30] MEDS: INSULIN ASPART 100 UNITS/ML 3 ML PEN SC SCH ×4 (08:27→20:49)
[2020-05-30 09:46] LABS: Estimated Average Glucose 126 mg/dl
[2020-05-30] MEDS: lisinopriL 5 MG TAB PO SCH (10:46)
[2020-05-30] MEDS ORDERED: WARFARIN SOD 10 MG TAB PO SCH (16:00)
--- NOTE | 2020-05-30 18:25 | Hospitalist Progress Note ---
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 Patient on DAPT briefly with ASA and Plavix, Was discharged home on Plavix and Coumadin. -Continue Plavix, Atorvastatin, Lisinoprol, Toprol XL -Continue Coumadin (4) Cardiomyopathy: As above Nonischemic mostly LAD stent does not account for degree of severity of her CM Continue Toprol, lisinopril (5) Diabetes: Chronic. Blood sugars well controlled here and HgbA1C only 6.0% -Continue Levemir 15u BID which is a reduction from home dose -ISS -Continue to monitor (6) Hypertension: Blood pressure controlled -Continue Metoprolol, Lisinopril, Lasix -Continue to monitor (7) Atrial fibrillation: Remains in sinus rhythm here Rate controlled, INR= 2.4 today which is slightly subtherapeutic -Continue Metoprolol -Continue Coumadin and increase dose today to 10mg (8) COPD with chronic bronchitis: Chronic. Stable. No wheeze -Continue Albuterol PRN, Olodaterol (9) Bipolar disorder: Chronic. Stable -Continue Venlafaxine 150mg po qAM -Continue Lamictal -Continue to monitor (10) Mechanical heart valve present: Mechanical AVR and MVR due to rheumatic heart disease, also with a history of prosthetic valve endocarditis. Valves placed in 2003 at [facility]. -Continue Coumadin,goal INR is 2.5-3.5. 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 Stable -Continue Atorvastatin (15) Constipation: No BM in 6 days. Thinks this is why she is feeling nauseated later in the day, requesting further bisacodyl -give another dose of bisacodyl 5mg now -continue Miralax prn (16) DVT prophylaxis: Coumadin Code - DNR/DNI per discussion with patient Dispo - continued stay but possible discharge tomorrow if feeling better than today Admission and Anticipated Discharge Date Admission Date: May 27, 2020 Anticipated date of discharge: 05/31/20 Subjective Pt very tired today. When I saw her earlier she was very drowsy and could barely stay awake to talk to me. She had been up for breakfast and then back to sleep.I saw her again later in the day and she was more awake but was not feeling up for going home. She reports her SOB is improved. She did walk with RT today and did not need O2, however when I saw her later, she had the O2 back on just for comfort and because she was feeling SOB. Also reported feeling a little nauseated and felt hot later in the day. Tele with NSR, 1st deg AV block, PVCs, and rates 60-70s. Review of Systems Review of Systems: All systems reviewed & are unremarkable except as noted in HPI & below Still no BM in 6 days Physical Exam Constitutional: WD/WN, vitals as above Eyes: + anicteric sclerae Neck: trachea midline, no thyromegaly Respiratory: normal respiratory effort, lungs clear to auscultation Cardiovascular: Rate/Rhythm: regular rate and regular rhythm Heart Sounds: + murmur (2/6 LILLIANA at apex) Extremities: no edema Chest (Breasts): Chest: normal inspection of chest Gastrointestinal (Abdomen): normal bowel sounds, soft, nontender, no hepatosplenomegaly Musculoskeletal: Extremities: extremities normal to inspection; no cyanosis and no clubbing Skin: no rashes, warm and dry Neurologic: moves all extremities and awake; no focal motor deficits Psychiatric: A+Ox3, euthymic affect Lymphatic: no lymphedema Results & Data Results & Data ([facility]) Vital Signs (Past 12 Hours) Vital Signs Temp Pulse Pulse Pulse Pulse Pulse Resp 05/30/20 14:57 36.9 C 66 18 05/30/20 14:20 67 05/30/20 13:26 76 70 68 05/30/20 11:26 36.9 C 61 18 05/30/20 07:19 36.5 C 64 18 05/30/20 07:00 62 Resp Resp Resp BP BP Pulse Ox Pulse Ox 05/30/20 14:57 124/79 90 05/30/20 14:20 05/30/20 13:26 20 20 16 95 05/30/20 11:26 131/81 98 05/30/20 07:19 115/72 98 05/30/20 07:00 Pulse Ox Pulse Ox 05/30/20 14:57 05/30/20 14:20 05/30/20 13:26 96 93 05/30/20 11:26 05/30/20 07:19 05/30/20 07:00 Laboratory Results 05/30/20 05/30/20 05/30/20 Range/Units 20:20 16:42 11:27 PT (9.0-12.0) Seconds INR (0.9-1.1) Sodium (136-145) mmol/L Potassium (3.5-5.1) mmol/L Chloride (98-107) mmol/L Carbon Dioxide (21-32) mmol/L Anion Gap (3-11) BUN (7-18) mg/dl Creatinine (0.6-1.2) mg/dl Est Cr Clr Drug Dosing ml/min Est GFR ( Amer) Est GFR (Non-Af Amer) BUN/Creatinine Ratio (10-20) Glucose (70-99) mg/dl POC Glucose 132 H 107 H 103 H (70-99) mg/dl Estimat Average Glucose mg/dl Hemoglobin A1c (4.5-5.6) % Calcium (8.5-10.1) mg/dl Magnesium (1.8-2.4) mg/dl 05/30/20 05/30/20 05/30/20 Range/Units 07:38 07:06 07:06 PT (9.0-12.0) Seconds INR (0.9-1.1) Sodium 139 (136-145) mmol/L Potassium 4.2 (3.5-5.1) mmol/L Chloride 102 (98-107) mmol/L Carbon Dioxide 34 H (21-32) mmol/L Anion Gap 3.0 (3-11) BUN 27 H (7-18) mg/dl Creatinine 1.26 H (0.6-1.2) mg/dl Est Cr Clr Drug Dosing 47.8 ml/min Est GFR ( Amer) 50.3 Est GFR (Non-Af Amer) 43.4 BUN/Creatinine Ratio 21.4 H (10-20) Glucose 89 (70-99) mg/dl POC Glucose 100 H (70-99) mg/dl Estimat Average Glucose 126 mg/dl Hemoglobin A1c 6.0 H (4.5-5.6) % Calcium 10.0 (8.5-10.1) mg/dl Magnesium 2.4 (1.8-2.4) mg/dl 05/30/20 Range/Units 07:06 PT 24.2 H (9.0-12.0) Seconds INR 2.4 H (0.9-1.1) Sodium (136-145) mmol/L Potassium (3.5-5.1) mmol/L Chloride (98-107) mmol/L Carbon Dioxide (21-32) mmol/L Anion Gap (3-11) BUN (7-18) mg/dl Creatinine (0.6-1.2) mg/dl Est Cr Clr Drug Dosing ml/min Est GFR ( Amer) Est GFR (Non-Af Amer) BUN/Creatinine Ratio (10-20) Glucose (70-99) mg/dl POC Glucose (70-99) mg/dl Estimat Average Glucose mg/dl Hemoglobin A1c (4.5-5.6) % Calcium (8.5-10.1) mg/dl Magnesium (1.8-2.4) mg/dl PG Care Time/CCT Total # of Minutes Spent Total Time Spent with Patient: Total time spent is greater than 50% in coordination of care (as documented) at patient's floor/unit and/or counseling patient: Coding Level of Care Code 87090 Subseq Hosp Care Lvl 2 Diagnoses CHF (congestive heart failure) I50.9 Heart failure chronicity: unspecified Heart failure type: unspecified Chest pain R07.9 S/P cardiac catheterization Z98.890 Cardiomyopathy I42.9 Diabetes E11.22; N18.3; Z79.4 Chronic kidney disease stage: stage 3 (moderate) Diabetes mellitus complication detail: with chronic kidney disease Diabetes mellitus complication status: with kidney complications Diabetes mellitus superintendent marine oil terminal insulin use: with nursing home use Diabetes mellitus type: type 2 Hypertension I10 Hypertension type: essential hypertension Atrial fibrillation I48.91 Atrial fibrillation type: unspecified COPD with chronic bronchitis J44.9 Bipolar disorder F31.9 Active/Remission status: remission status unspecified Mechanical heart valve present Z95.2 JOMAR (obstructive sleep apnea) G47.33 Iron deficiency anemia D50.9 Chronic kidney disease (CKD), stage III (moderate) N18.3 Hyperlipidemia E78.5 Constipation K59.00 DVT prophylaxis Z29.9 (1) Diabetes Chronic kidney disease stage: stage 3 (moderate) Diabetes mellitus complication detail: with chronic kidney disease Diabetes mellitus complication status: with kidney complications Diabetes mellitus superintendent marine oil terminal insulin use: with superintendent marine oil terminal use Diabetes mellitus type: type 2 Qualified Code(s): E11.22 - Type 2 diabetes mellitus with diabetic chronic kidney disease; N18.3 - Chronic kidney disease, stage 3 (moderate); Z79.4 - 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
[2020-05-30] MEDS ORDERED: bisacodyL 5 MG TABEC PO ONE ×2 (18:29→20:45)
[2020-05-30] MEDS: ACETAMINOPHEN 500 MG TAB PO SCH (20:49)
[2020-05-31] MEDS: OXYCODONE HCL IR 5 MG TAB (IMMEDIATE RELEASE) PO PRN (00:14)
[2020-05-31 05:27] LABS: Basophils # (auto) 0.02 K/uL (0-0.2); Basophils % (auto) 0.3 %; Eosinophils # (auto) 0.19 K/uL (0-0.5); Eosinophils % (auto) 3.1 %; Hematocrit (blood only) 35.8 % (37-47); Hemoglobin 10.5 g/dL (12.0-16.0); Immature Granulocytes # (auto) 0.01 K/uL (0.00-0.02); Immature Granulocytes % (auto) 0.2 %; Mean Corpuscular Hemoglobin 24.2 pg (25-34); Mean Corpuscular Hgb Conc 29.3 g/dL (32-36); Mean Corpuscular Volume 82.5 fL (80-100); Mean Platelet Volume 9.2 fL (7.4-10.4); Monocytes # (auto) 0.51 K/uL (0.11-0.59); Monocytes % (auto) 8.4 %; Neutrophils # (auto) 4.27 K/uL (1.4-6.5); Platelet Count 253 K/uL (130-400); RDW Coefficient of Variation 16.3 % (11.5-14.5); RDW Standard Deviation 49.5 fL (36.4-46.3); Red Blood Count 4.34 M/uL (4.2-5.4)
[2020-05-31 05:49] LABS: INR 2.2 (0.9-1.1); Prothrombin Time 22.5 Seconds (9.0-12.0)
[2020-05-31 05:59] LABS: BUN Creatinine Ratio 24.7 (10-20); Calcium 9.9 mg/dl (8.5-10.1); Creatinine Clr Calc Pharmacy 45.6 ml/min; Est GFR (African American) 47.6; Est GFR (Non-African American) 41.1; Magnesium 2.3 mg/dl (1.8-2.4); Potassium 4.1 mmol/L (3.5-5.1)
[2020-05-31] MEDS ORDERED: ENOXAPARIN 1 MG/KG SQ SCH (08:00)
[2020-05-31] MEDS ORDERED: FUROSEMIDE 40 MG TAB PO SCH (09:00)
[2020-05-31] MEDS ORDERED: ENOXAPARIN 100 MG/1ML SYR SQ SCH (09:00)
[2020-05-31] MEDS: INSULIN ASPART 100 UNITS/ML 3 ML PEN SC SCH ×2 (09:58→13:21)
[2020-05-31] MEDS: ATORVASTATIN 40 MG TAB PO SCH (10:03)
[2020-05-31] MEDS: TRIAMCINOLONE ACET 0.5% CR 15 GM TUBE TOP SCH ×3 (10:03→13:23)
[2020-05-31] MEDS: PANTOprazole 40 MG TAB PO SCH (10:03)
[2020-05-31] MEDS: CLOPIDOGREL BISULFATE 75 MG TAB PO SCH (10:03)
[2020-05-31] MEDS: VENLAFAXINE HCL XR 150 MG CAPXR PO SCH (10:03)
[2020-05-31] MEDS: lamoTRIgine 100 MG TAB PO SCH (10:03)
[2020-05-31] MEDS: CALCITRIOL 0.25 MCG CAPSULE PO SCH (10:03)
[2020-05-31] MEDS: GABAPENTIN 600 MG TAB PO SCH (10:03)
[2020-05-31] MEDS: DICLOFENAC SOD 1% GEL 100 GM TUBE EXT SCH ×2 (10:04→10:12)
[2020-05-31] MEDS: INSULIN DETEMIR FLEXPEN/FLEX TOUCH 100 UNITS/ML 3ML SC SCH (10:07)
[2020-05-31] MEDS: lisinopriL 5 MG TAB PO SCH (10:23)
[2020-05-31] MEDS: METOPROLOL SUCC 25MG EXT REL TAB PO SCH (11:04)
--- NOTE | 2020-05-31 14:07 | Discharge Summary ---
Date of Service May 31, 2020 Admission HPI Per Admitting Provider Jennifer Mendoza is a 69yo C female with history of chronic diastolic heart failure, CAD, Asthma, AF, CKD, COPD and Bipolar disorder presenting with SOB. Patient was recently admitted to [facility] on 05/10/20 with complaint of one month of progressive SOB, orthopnea and left sided stabbing chest pain. She was successfully treated with IV Lasix for presumed CHF exacerbation. She had a left heart catheterization performed by Dr. Friedman on 05/14/20 which revealed 70% stenosis of the mid-LAD. She had DEX x 1 placed and was discharged home in stable condition with PO Lasix. She reports compliance with all her medications . She returns to the ER today with complaint of SOB, orthopnea, inability to lay flat. She slept in the rocking chair last night due to symptoms. Weight has been stable 219-220# on her home scale. +dry cough +chills +intermitted chest discomfort, shooting/sharp in nature, last appx one hour, non-exertiona./non-positional/non-pleuritic +palpitations +Headache and neck stiffness. Principal Diagnosis Acute on chronic systolic CHF Discharge Exam Constitutional WD/WN, vitals as above Eyes + anicteric sclerae ENMT external ear and nose normal, oropharynx normal Neck trachea midline, no thyromegaly Respiratory normal respiratory effort, lungs clear to auscultation Cardiovascular Rate/Rhythm: regular rate and regular rhythm Heart Sounds: + murmur (2/6 LILLIANA at apex) Extremities: + edema (Trace pitting edema bilaterally legs) Chest (Breasts) Chest: normal inspection of chest Gastrointestinal (Abdomen) normal bowel sounds, soft, nontender, no hepatosplenomegaly Musculoskeletal Extremities: extremities normal to inspection; no cyanosis and no clubbing Skin no rashes, warm and dry Neurologic moves all extremities and awake; no focal motor deficits Psychiatric A+Ox3, euthymic affect Lymphatic no lymphedema Discharge Data Allergies Allergy/AdvReac Type Severity Reaction Status Date / Time levofloxacin [From Levaquin] Allergy Intermediate Hives Verified 05/26/20 00:26 adhesive Allergy Mild Rash Verified 05/26/20 00:26 cinacalcet [From Sensipar] Allergy Mild Swelling Verified 05/26/20 00:26 of the Eye fluticasone AdvReac Intermediate NAUSEA Verified 05/26/20 00:26 [From Advair Diskus] VOMITING lactose AdvReac Intermediate Diarrhea Verified 05/26/20 00:26 salmeterol AdvReac Intermediate NAUSEA Verified 05/26/20 00:26 [From Advair Diskus] VOMITING erythromycin base AdvReac Mild VAGINAL Verified 05/26/20 00:26 [From Erythrocin] INFECTION latex AdvReac Mild Rash Verified 05/26/20 00:26 Consultations 05/26/20 00:10 ED Decision to Admit Stat 05/26/20 02:52 Consult Cardiology Routine Ordered Studies 05/25/20 23:00 CT angio chest PE protocol Urgent Chest x-ray Hospital Course (1) CHF (congestive heart failure): Acute on chronic combined systolic and diastolic CHF Finally feeling better since being restarted on IV Lasix on 05/29, weight is down from admission, lower extremity edema improved Continues to diurese further today, 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 twice daily for discharge -continue Toprol XL, lisinopril at current doses -CHF instructions given-she will continue daily weights, low Na+ diet, and fluid restriction 1800 mL's per day -Follow-up with CHF clinic as scheduled (2) Chest pain: Recurrent, atypical, relieved with nitro-none further since 05/28 LBBB on ECG serial trops mildly elevated and stable -no evidence of in stent thrombosis follow and consider adding on antianginal medication if persists Seems to be related to volume overload (3) S/P cardiac catheterization: Cath with [facility] to LAD on 05/14. Patient on DAPT briefly with ASA and Plavix, Was discharged home on Plavix and Coumadin. -Continue Plavix, Atorvastatin, Lisinoprol, Toprol XL -Continue Coumadin (4) Cardiomyopathy: As above Nonischemic mostly LAD stent does not account for degree of severity of her CM Continue Toprol, lisinopril (5) Diabetes: Chronic. Blood sugars well controlled here and HgbA1C only 6.0% -Continue Levemir 15u BID which is a reduction from home dose -ISS with meals -Continue to monitor (6) Hypertension: Blood pressure controlled -Continue Metoprolol, Lisinopril, Lasix -Continue to monitor (7) Atrial fibrillation: Remains in sinus rhythm here Rate controlled, INR= 2.2 today which is slightly subtherapeutic again -Continue Metoprolol for rate control -Continue Coumadin-received an increased dose of 10 mg on 05/30, and will give 15 mg on 05/31-then revert to 7.5 mg daily and go to [facility] clinic on Thursday for repeat INR -Will not bridge with Lovenox as she will most likely be therapeutic by tomorrow and she will be unable to have her INR checked through the weekend (8) COPD with chronic bronchitis: Chronic. Stable. No wheeze -Continue Albuterol PRN, Olodaterol (9) Bipolar disorder: Chronic. Stable -Continue Venlafaxine 150mg po qAM -Continue Lamictal -Continue to monitor (10) Mechanical heart valve present: Mechanical AVR and MVR due to rheumatic heart disease, also with a history of prosthetic valve endocarditis. Valves placed in 2003 at [place]. -Continue Coumadin,goal INR is 2.5-3.5. 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 Stable -Continue Atorvastatin (15) Constipation: Finally had 2 small bowel movements after no bowel movement for the last 6 days Continue bowel movement regimen at home as needed (16) DVT prophylaxis: Coumadin Code - DNR/DNI per discussion with patient Dispo -otically stable for discharge to home today Total Time Total Time Spent Total Time Spent (In Minutes): Greater than 30 minutes Total Time Includes: Examination of the Patient, Discharge Planning and Medication Reconciliation Discharge Plan Discharge Items Patient Disposition: Home - Self-Care Reason For Visit: CHEST PAIN, SOB Discharge Diagnosis: Acute on chronic systolic congestive heart failure Chest pain Condition on Discharge: Fair Activity: Resume your previous activity Non-emergency contact: Primary Care Provider and Admin Dir Call non-emergency contact if: you have any medication questions and your symptoms worsen Follow-up/Referrals: Sanya Thurman III, CRNP [Primary Care Provider] - (Please follow-up with your PCP within 1 to 2 weeks.) Jhoana Ramirez MD, PhD [Pathologist] - 06/04/20 12:30 pm (A hospital follow up appt. has been made for you with the co[facility]. clinic pharmacist on June 04 at 12:30 pm. Please keep your Thursday06/08/20 appt. until seen on Thursday and they will further instruct you.) Mayra Starr PA-C [Physician Poultry Picking Machine Tender] - 06/04/20 2:00 pm (Congestive Heart Failure Program Appointment Information Early follow up is essential to managing your heart failure. An appointment has been scheduled for you with the [facility] Heart [facility] Program within 7 days of discharge. Anticipate this visit to be 30-60 minutes long. Please expect a customer support associate phone call from one of our nurses approximately 48 hours from discharge. They will also be placing an order for lab work to be completed 1-2 days prior to your heart failure follow up appointment. Please be sure to have this done so we can go over the results when you come in. Office Location The cardiology office building is located in front of the hospital at [address] [facility]. Bring the following with you to your follow-up doctor appointments: Please bring your daily weight log any discharge paperwork all of your medication bottles with you to this visit. ) Diet: Low Sodium (2gm) Fluids: 1800ml (7 cups) Addtl Attending Provider Instructions: You had extra fluid taken off with IV Lasix and your home Lasix dose will be increased to 40 mg by mouth twice a day. Please keep all of your follow-up appointments as scheduled for you above. Please take 15 mg of Coumadin today, and then return to 7.5 mg daily until your Coumadin clinic appointment on Thursday. Call your Primary Care doctor if any of the following symptoms or problems start or get worse: * Shortness of breath or difficulty breathing * Wake up at night short of breath * Chest pain * Cough * Swelling of your hands, feet, or legs * More fatigued or tired with your normal activity * Palpitations - sudden fast heart beats WEIGHT * Weigh yourself every morning after using the bathroom. * Use the same scale. * Wear the same amount of clothing. * Write your weight down on a chart. * Call your Primary Care doctor if you gain more than 2-3 pounds in 1-2 days. MEDICATIONS * Use this discharge instruction sheet for medication instructions. * Take your medications at the time your doctor ordered. * Do not skip a dose of your medicines. * If you miss a dose of medicine, take it as soon as possible, but DO NOT DOUBLE A DOSE. * Read your medicine information when you get home. * Know all of the side effects of your medicine. If in doubt, ask your pharmacist * Call your Primary Care doctor's office if you have any side effects. * Be sure all of your doctors know what medicine and herbs you take (including cold, flu, and herbal medicine). Take the following with you to your follow-up doctor appointments: * Weight Chart * Medication List * List of questions Do not drink excessive alcohol, beer or wine. Pending Studies at Discharge: No Stand-Alone Forms: My [facility] [employer], Smoking Cessation Medications and DC Order Prescriptions: New diclofenac sodium [Voltaren] 1 % Gel 2 g EXT BID Qty: 100 RF: 0 Continued acetaminophen 500 mg Tablet 1,000 mg PO HS RF: 0 phytonadione (vitamin K1) 100 mcg tablet 100 mcg PO UD PRN (Reason: Bleeding) RF: 0 calcitriol 0.5 mcg capsule 0.5 mcg PO BID RF: 0 polyethylene glycol 3350 [Miralax] 17 gram powder in packet 10 gm PO DAILY PRN (Reason: constipation) RF: 0 Serevent Diskus 50 mcg/dose blister with device 1 puffs INH BID PRN (Reason: Shortness Of Breath Or Wheezing) RF: 0 montelukast 10 mg tablet 10 mg PO DAILY PRN (Reason: Allergy Symptoms) Qty: 90 RF: 1 Novolog U-100 Insulin aspart 100 unit/mL solution 20 unit SUBCUT QID Qty: 70 RF: 1 omeprazole 40 mg capsule,delayed release(DR/EC) 40 mg PO BID Qty: 90 RF: 1 tizanidine 4 mg tablet 4 mg PO TID PRN (Reason: muscle spasticity) Qty: 90 RF: 1 (DME) BD Insulin Syringe Half Unit 0.3 mL 31 gauge x 5/16" syringe See Dose Instructions .ROUTE .MEDSUPPLY Qty: 600 RF: 1 atorvastatin 40 mg tablet 40 mg PO QAM Qty: 90 RF: 1 lamotrigine [Lamictal] 100 mg tablet 100 mg PO BID Qty: 90 RF: 2 gabapentin 600 mg tablet 600 mg PO BID 90 Days Qty: 180 RF: 1 lisinopril 5 mg tablet 5 mg PO DAILY Qty: 90 RF: 2 (DME) walker misc See Dose Instructions .ROUTE .MEDSUPPLY Qty: 1 RF: 0 oxycodone 10 mg tablet 10 mg PO TID PRN (Reason: PAIN) Qty: 60 RF: 0 triamcinolone acetonide 0.5 % cream 1 appln TOP TID Qty: 15 RF: 2 tramadol 50 mg tablet See Rx Instructions PO TID PRN (Reason: pain) Qty: 60 RF: 0 albuterol sulfate [Ventolin HFA] 90 mcg/actuation HFA aerosol inhaler 1 - 2 puff INH Q4 PRN (Reason: shortness of breath or wheezing) RF: 0 clopidogrel 75 mg Tablet 75 mg PO QAM Qty: 30 RF: 0 venlafaxine [Effexor XR] 150 mg capsule,extended release 24hr 150 mg PO QAM RF: 0 metoprolol succinate 25 mg tablet extended release 24 hr 25 mg PO QAM RF: 0 warfarin 5 mg tablet 7.5 mg PO DAILY Qty: 60 RF: 3 Changed furosemide [Lasix] 40 mg tablet 40 mg PO BID Qty: 60 RF: 0 Levemir U-100 Insulin 100 unit/mL solution 15 unit SUBCUT BID Qty: 40 RF: 1 Discharge Orders: Discharge Order (Routine); Ordered 05/31/20 Ordered By: Neha Patel Admission Data Admit Date/Time: 05/27/20 16:13 Attending Provider: Neha Patel Admit Provider: Oralia Ramesh Primary Care Provider: Sanya Thurman III Other Providers: Deuce Richards ; Adrian Hagen Coding Level of Care Code D/C Day Management >30 mins Diagnoses CHF (congestive heart failure) I50.9 Heart failure chronicity: unspecified Heart failure type: unspecified Chest pain R07.9 S/P cardiac catheterization Z98.890 Cardiomyopathy I42.9 Diabetes E11.22; N18.3; Z79.4 Diabetes mellitus type: type 2 Diabetes mellitus snf insulin use: with long term care administrator use Diabetes mellitus complication status: with kidney complications Diabetes mellitus complication detail: with chronic kidney disease Chronic kidney disease stage: stage 3 (moderate) Hypertension I10 Hypertension type: essential hypertension Atrial fibrillation I48.91 Atrial fibrillation type: unspecified COPD with chronic bronchitis J44.9 Bipolar disorder F31.9 Active/Remission status: remission status unspecified Mechanical heart valve present Z95.2 JOMAR (obstructive sleep apnea) G47.33 Iron deficiency anemia D50.9 Chronic kidney disease (CKD), stage III (moderate) N18.3 Hyperlipidemia E78.5 Constipation K59.00 DVT prophylaxis Z29.9
== END 2020-05-31 15:15 | disposition home or self-care (01) | DRG 291 ==
LOC: 2N 20:50 → ED 20:50 → SUATTDRO 05-26 02:10 → 2N 05-26 02:31 → SUATTDRO 05-27 16:13

== ENCOUNTER 2020-10-16 18:02 | Inpatient (IN) ==
[2020-10-16] MEDS ORDERED: ASPIRIN 81 MG CHEW PO STA (18:51)
[2020-10-16] MEDS ORDERED: ONDANSETRON INJ 2 MG/ML 2 ML VIAL IV STA (18:51)
--- NOTE | 2020-10-16 18:51 | Emergency Department Note ---
Impression & Plan Breathlessness, Acute exacerbation of CHF (congestive heart failure) ED Provider Note Provider: Javi Lucio MD DATE OF SERVICE:10/16/2020 CHIEF COMPLAINT: Shortness of breath HISTORY OF PRESENT ILLNESS: Patient is a 69-year-old female history of DVT, atrial fibrillation, hypertension, bipolar disorder, diastolic CHF presenting today from home complaining worsening shortness of breath over the last several days. Patient states he is noticed more leg swelling or shortness of breath and is unable to lie flat at all. Patient is just lie bolt upright. Patient states over the past 4 to 5 days she has noted some chest discomfort rating to the bilateral shoulders. Denies falls or trauma. Denies abdominal pain but states she has been nauseous at times and also states has had a little bit of feeling of having diarrhea but actually feels a bit constipated. Patient is noted no additional bleeding from her left toe after she was seen here last week for this. States there are has been fluctuating unsure of the last value but has been taking her Coumadin at home. Has been taking her Lasix at home and states she is been urinating the normal amount. Patient states she significantly dyspneic with any exertion even with trying to walk to the bathroom. Not on oxygen at home. States has had some subjective fevers at home last 3 PM at 99.6 Fahrenheit. Patient does not know of sick exposures. Patient does have a negative Covid test in the beginning of July. Patient states she had multiple admissions for CHF exacerbation over the last year. REVIEW OF SYSTEMS: A total of 10 review of systems was obtained and negative except as stated above in the HPI. PAST MEDICAL HISTORY: As noted above MEDICATIONS: Reviewed home medications with the patient including 120mg of Lasix twice a day SOCIAL HISTORY: Patient is a smoker and states she lives downstairs from her daughter. PHYSICAL EXAM: GENERAL: alert and oriented initially in a wheelchair assisted the stretcher becomes quite dyspneic with this. Head: normocephalic and atraumatic EYES: No injection, discharge or icterus. NECK: Trachea midline. Supple. ENT: Mucous membranes pink and moist. LUNGS: Airway patent. No retractions. But some mild to moderate tachypnea. HEART: Regular rate and rhythm. No chest wall tenderness ABDOMEN: Soft and non-tender, without guarding or rebound. SKIN: Acyanotic, warm, dry, without rashes EXTREMITIES: Bilateral 2+ swelling of the lower legs with some slight stasis c hange. The left third toe has some Surgicel on it without evidence of significant purulent discharge and no active bleeding. Still quite firmly attached. NEUROLOGICAL: No focal deficits. No aphasia. No facial droop or slurred speech. Ambulatory but very dyspneic with this. EK bpm normal sinus rhythm. No PVC or PAC. Left axis left bundle branch block is noted. No acute ST segment elevation is noted. CONTINUOUS CARDIAC MONITORING: was ordered and showed a heart rate of 80 bpm in sinus rhythm Patient's laboratory studies and imaging reviewed. Differential includes Reactive airway disease, pneumonia, pneumothorax, COPD, CHF, infections, cardiac ischemia, pulmonary embolism, musculoskeletal, gastrointestinal, as well as other pathologies. IMPRESSION/MEDICAL DECISION MAKING: Patient presents complaining of worsening shortness of breath and leg swelling. Patient also reports some chest discomfort and some slight nausea. Patient is anticoagulated Coumadin but states her levels been fluctuating. No further bleeding from the toe for which was seen here last week. Patient does have a history of diastolic dysfunction and question of possible fluid overload. Patient is still a smoker. Lower suspicion for PE given her anticoagulation and INR was checked. Lower suspicion for dissection at this time. Question possible pneumonia versus coronavirus infection and precautions were taken and Covid testing was ordered. Patient placed on oxygen with room air sats between 90 and 92% to help with her significant dyspnea. Given some Zofran for some nausea and some aspirin for her chest discomfort. Patient has benign abdominal exam and lower suspicion for acute intra-abdominal pathology such as perforation or diverticulitis. Patient received a dose of aspirin here for some of her chest discomfort she is been having as well Tylenol for headache. Patient does not appear meningitic and has no focal deficits indicative of acute CVA. Chest x-ray shows evidence of mild pulmonary edema but no evidence pneumothorax or pneumonia. INR 2.0. Mild stable anemia. No leukocytosis. Electrolytes without significant abnormality. Troponin just detectable but not abnormal and actually improved compared to previous. Renal function appears somewhat improved compared to previous. Coronavirus testing was negative. Patient desaturated 83% on room air with ambulation. Given a dose of Bumex to help with diuresis I think is predominantly fluid overload. Discussed the patient she is agreeable for evaluation here in the hospital. Hospitalist was contacted. Again I have a lower suspicion at this time of acute PE given her anticoagulation and acute aortic dissection. Believe the predominance of her symptoms are secondary to fluid overload. DIAGNOSIS: Shortness of breath CHF exacerbation DISPOSITION: Hospitalist will evaluate Patient was agreeable with this plan. Past Med/Surg History Medical History (Updated 10/16/20 @ 22:12 by Javi Lucio M.D.) Anemia HX OF Anxiety Arteriosclerosis of coronary artery Asthma RESCUE INHALER 1-2x per month Atrial fibrillation Dx "many years ago" - s/p cardioversion - follows w/ Dr. Stein - on warfarin Atrial flutter Balance problem Bipolar disorder Chronic anticoagulation Chronic back pain Chronic kidney disease Chronic kidney disease (CKD), stage III (moderate) F/U DR RUBY Chronic obstructive pulmonary disease Chronic pain Congestive heart failure "CHRONIC" - RECENT HOSPITALIZATION FOR APRIL 2020 Depression Diabetes mellitus, type 2 Diabetic peripheral neuropathy Encounter for pre-operative examination Fibromyalgia GERD (gastroesophageal reflux disease) History of meningitis Hx MRSA infection Per infection control 10/21/17: "Patient has a history of MRSA in 2007, but has since been cleared with multiple negative cultures and nasal screens. No contact precautions necessary." Hx of deep venous thrombosis 1968 - RLE Hypercalcemia Hyperlipidemia Hyperparathyroidism Major depression Meralgia paresthetica Microalbuminuria Mild neurocognitive disorder PT REPORTS SOME MEMORY PROBLEMS Obesity Obesity Osteoarthritis Osteopenia Peripheral neuropathy ALL OVER Rheumatic heart disease Sleep apnea CAN'T TOLERATE CPAP SOB (shortness of breath) on exertion Valvular disease Venous insufficiency (chronic) (peripheral) Vitamin D deficiency Surgical History Fusion of spine LUMBAR History of appendectomy History of arthroscopy RIGHT AND LEFT KNEE History of back surgery History of bladder surgery History of bowel resection partial colectomy History of cardiac cath multiple caths -[facility] REC[facility] APRIL 2020 STENT X 1 FOR BLOCKAGE History of cardioversion History of carpal tunnel release LEFT/RIGHT History of colonoscopy History of esophagogastroduodenoscopy (EGD) History of heart artery stent APRIL 2020 - BLOCKAGE - STENT X1 History of heart valve replacement 2004 SERGO, MITRAL AND AORTIC VALVE, F/U WITH DR STEIN (NOT GOOD HISTORIAN) History of hysterectomy total abdominal hysterectomy with removal of both ovaries History of parathyroidectomy History of shoulder replacement Lt - 07/2018 [facility] S/P cardiac catheterization 05/14/20 Dr. Thierno Stein- 1 SENA to mid LAD S/P T&A (status post tonsillectomy and adenoidectomy) Family History Mother , in her 40s Cardiomyopathy Myocardial infarction Father , in his 50s Myocardial infarction Daughter , age 17 Heart disease Congenital heart disease Other Diabetes Hypertension Denies family history of Pancreatic cancer Ovarian cancer Prostate cancer Breast cancer Colorectal cancer Uterine cancer Social History Smoking Status: Never smoker Cigarettes Per Day: 3/4PPD-1 PPD/ADVISED NPO; Second Hand Exposure: No; Hx Alcohol Use: No Hx Substance Use: No Preferred Language: Gabonese Communication Ability: Effective Visual Impairment: No Limitations Hearing Ability: Hard of Hearing Wheel Filler Required: No Beliefs That Will Affect Care: None marital status: Single Current Living Situation: Alone and Family Current Living Situation Comment: [facility] current occupational status: retired Feels Safe at Home: Yes Childhood Exposure to Second-Hand Smoke: Yes Dental Care, Regularly: No Physical Activity Frequency: Does not Exercise Seatbelt Use: always Sunscreen Use: Yes Assistive Devices: Denture - Upper, Denture - Lower, Glasses and Walker Allergies Allergies Allergy/AdvReac Type Severity Reaction Status Date / Time adhesive Allergy Unknown Rash Verified 10/16/20 22:22 cinacalcet [From Sensipar] Allergy Unknown Swelling Verified 10/16/20 22:22 of the Eye erythromycin base Allergy Unknown VAGINAL Verified 10/16/20 22:22 [From Erythrocin] INFECTION levofloxacin [From Levaquin] Allergy Unknown Hives Verified 10/16/20 22:22 fluticasone AdvReac Intermediate NAUSEA Verified 10/16/20 22:22 [From Advair Diskus] VOMITING lactose AdvReac Unknown Diarrhea Verified 10/16/20 22:22 latex AdvReac Unknown Rash Verified 10/16/20 22:22 salmeterol AdvReac Unknown NAUSEA Verified 10/16/20 22:22 [From Advair Diskus] VOMITING Home Meds Home Medications Medication Instructions Recorded Confirmed albuterol sulfate [Ventolin HFA] 1 - 2 puff INH Q4 PRN 11/03/19 10/16/20 calcitriol 0.5 mcg capsule 0.5 mcg PO BID cap 01/10/20 10/16/20 lisinopril 2.5 mg PO QAM 07/27/20 10/16/20 acetaminophen 500 mg tablet 1,000 mg PO HS tab 10/11/20 10/16/20 insulin detemir U-100 100 unit/mL 20 unit SUBCUT BID ml 10/11/20 10/16/20 subcutaneous solution montelukast 10 mg tablet 10 mg PO HS tab 10/11/20 10/16/20 salmeterol 50 mcg/dose blister 1 inh INH BID ea 10/11/20 10/16/20 powder for inhalation warfarin 5 mg tablet See Rx Instructions PO UD tab 10/11/20 10/16/20 Previous Rx's Medication Instructions Recorded walker #1 ea 06/16/19 tizanidine 4 mg tablet 4 mg PO TID PRN #90 tab 03/14/20 insulin syr/ndl U100 half tanner 0.3 #600 ea 03/15/20 mL 31 gauge x 5/16" diclofenac sodium 1 % topical gel 4 g TOP QID PRN #100 gm 06/07/20 atorvastatin 40 mg tablet 40 mg PO QAM #90 tab 06/08/20 blood sugar diagnostic #400 ea 07/03/20 blood-glucose meter #1 ea 07/03/20 lancets #400 ea 07/03/20 lancing device with lancets kit #1 ea 07/03/20 omeprazole 40 mg capsule,delayed 40 mg PO BID #180 cap 07/27/20 release clopidogrel 75 mg tablet 75 mg PO QAM #90 tab 07/30/20 insulin aspart U-100 100 unit/mL 20 unit SUBCUT QID #70 ml 08/09/20 subcutaneous solution oxycodone 10 mg tablet 10 mg PO TID PRN #60 tab 08/20/20 venlafaxine 150 mg 150 mg PO QAM #90 cap 08/31/20 capsule,extended release 24 hr lamotrigine 100 mg tablet 100 mg PO BID #90 tab 09/13/20 metoprolol succinate 25 mg 25 mg PO QAM #90 tab 09/13/20 tablet,extended release 24 hr furosemide 80 mg tablet 120 mg PO BID #180 tab 10/08/20 gabapentin 600 mg tablet 600 mg PO BID 90 Days #180 tab 10/16/20 Results & Data (ED) Vital Signs Vital Signs - 24 hr 10/16/20 18:05 10/16/20 19:28 10/16/20 19:45 Temperature 36.9 C Temperature Source Oral Pulse Rate 91 H 77 Pulse Rate [Finger] Pulse Rate from SpO2 Sensor 77 Pulse Rhythm Regular Pulse Rhythm [Finger] Pulse Strength Normal Respiratory Rate 26 H 19 Respiratory Effort / Characteristics Spontaneous Labored Respiratory Depth Normal Respiratory Pattern Blood Pressure 110/61 167/38 H Blood Pressure [Right Arm] Blood Pressure Mean 77 89 Blood Pressure Mean [Right Arm] Blood Pressure Position [Right Arm] Pulse Oximetry 98 98 Oxygen Delivery Method Room Air Nasal Cannula Oxygen Flow Rate 2 Sepsis Recent Fever Within 48 Hours No Sepsis New/Unexplained Change in Mental Status N/A Sepsis Action Taken by Nursing No Action Required Oxygen Flow Rate - Titration Pulse Oximetry Post Tiitration 10/16/20 19:53 10/16/20 20:00 10/16/20 20:32 Temperature Temperature Source Pulse Rate 75 77 Pulse Rate [Finger] 76 Pulse Rate from SpO2 Sensor 75 78 Pulse Rhythm Pulse Rhythm [Finger] Regular Pulse Strength Respiratory Rate 22 18 21 Respiratory Effort / Characteristics Spontaneous Labored Respiratory Depth Normal Respiratory Pattern Regular Blood Pressure 119/52 L 93/35 L Blood Pressure [Right Arm] 167/38 H Blood Pressure Mean 68 40 Blood Pressure Mean [Right Arm] 81 Blood Pressure Position [Right Arm] Lying Pulse Oximetry 99 99 100 Oxygen Delivery Method Room Air Oxygen Flow Rate Sepsis Recent Fever Within 48 Hours Sepsis New/Unexplained Change in Mental Status Sepsis Action Taken by Nursing Oxygen Flow Rate - Titration Pulse Oximetry Post Tiitration 10/16/20 20:50 10/16/20 21:12 10/16/20 21:30 Temperature Temperature Source Pulse Rate 78 77 77 Pulse Rate [Finger] Pulse Rate from SpO2 Sensor 78 77 76 Pulse Rhythm Pulse Rhythm [Finger] Pulse Strength Respiratory Rate 23 17 17 Respiratory Effort / Characteristics Respiratory Depth Respiratory Pattern Blood Pressure 111/63 123/56 L Blood Pressure [Right Arm] Blood Pressure Mean 72 69 Blood Pressure Mean [Right Arm] Blood Pressure Position [Right Arm] Pulse Oximetry 100 99 98 Oxygen Delivery Method Oxygen Flow Rate Sepsis Recent Fever Within 48 Hours Sepsis New/Unexplained Change in Mental Status Sepsis Action Taken by Nursing Oxygen Flow Rate - Titration Pulse Oximetry Post Tiitration 10/16/20 21:49 10/16/20 22:00 10/16/20 22:09 Temperature Temperature Source Pulse Rate 80 77 Pulse Rate [Finger] Pulse Rate from SpO2 Sensor 82 76 Pulse Rhythm Pulse Rhythm [Finger] Pulse Strength Respiratory Rate 20 24 Respiratory Effort / Characteristics Respiratory Depth Respiratory Pattern Blood Pressure 105/65 112/56 L Blood Pressure [Right Arm] Blood Pressure Mean 91 65 Blood Pressure Mean [Right Arm] Blood Pressure Position [Right Arm] Pulse Oximetry 100 100 83 L Oxygen Delivery Method Nasal Cannula Nasal Cannula Room Air Oxygen Flow Rate 4 4 Sepsis Recent Fever Within 48 Hours Sepsis New/Unexplained Change in Mental Status Sepsis Action Taken by Nursing Oxygen Flow Rate - Titration 4 Pulse Oximetry Post Tiitration 98 10/16/20 22:49 Temperature Temperature Source Pulse Rate Pulse Rate [Finger] 78 Pulse Rate from SpO2 Sensor Pulse Rhythm Pulse Rhythm [Finger] Pulse Strength Respiratory Rate 18 Respiratory Effort / Characteristics Spontaneous Short of Breath SOB on Exertion Respiratory Depth Respiratory Pattern Blood Pressure Blood Pressure [Right Arm] Blood Pressure Mean Blood Pressure Mean [Right Arm] Blood Pressure Position [Right Arm] Pulse Oximetry 99 Oxygen Delivery Method Nasal Cannula Oxygen Flow Rate 2 Sepsis Recent Fever Within 48 Hours Sepsis New/Unexplained Change in Mental Status Sepsis Action Taken by Nursing Oxygen Flow Rate - Titration Pulse Oximetry Post Tiitration Laboratory Data Result diagrams: 10/16/20 19:40 10/16/20 19:40 Lab Results 10/16/20 10/16/20 10/16/20 Range/Units 19:40 19:40 19:40 WBC 8.30 (4.8-10.8) K/uL RBC 4.28 (4.2-5.4) M/uL Hgb 9.7 L (12.0-16.0) g/dL Hct 33.1 L (37-47) % MCV 77.3 L (80-100) fL MCH 22.7 L (25-34) pg MCHC 29.3 L (32-36) g/dL RDW Std Deviation 48.7 H (36.4-46.3) fL RDW Coeff of Bryon 17.2 H (11.5-14.5) % Plt Count 283 (130-400) K/uL MPV 8.9 (7.4-10.4) fL Immature Gran % (Auto) 0.2 % Neut % (Auto) 79.8 % Lymph % (Auto) 11.8 % [place] % (Auto) 6.1 % Eos % (Auto) 2.0 % Baso % (Auto) 0.1 % Neut # (Auto) 6.61 H (1.4-6.5) K/uL Lymph # (Auto) 0.98 L (1.2-3.4) K/uL [place] # (Auto) 0.51 (0.11-0.59) K/uL Eos # (Auto) 0.17 (0-0.5) K/uL Baso # (Auto) 0.01 (0-0.2) K/uL Immature Gran # (Auto) 0.02 (0.00-0.02) K/uL PT 20.3 H (9.0-12.0) Seconds INR 2.0 H (0.9-1.1) APTT 33.5 H (21.0-31.0) Seconds PTT Ratio 1.2 Sodium 139 (136-145) mmol/L Potassium 4.1 (3.5-5.1) mmol/L Chloride 105 (98-107) mmol/L Carbon Dioxide 30 (21-32) mmol/L Anion Gap 4.0 (3-11) BUN 25 H (7-18) mg/dl Creatinine 1.10 (0.6-1.2) mg/dl Est Cr Clr Drug Dosing Not Reportable Est GFR ( Amer) 59.3 Est GFR (Non-Af Amer) 51.2 BUN/Creatinine Ratio 23.0 H (10-20) Glucose 146 H (70-99) mg/dl Calcium 9.6 (8.5-10.1) mg/dl Magnesium 2.2 (1.8-2.4) mg/dl Total Bilirubin 0.3 (0.2-1) mg/dl AST 23 (15-37) U/L ALT 19 (12-78) U/L Alkaline Phosphatase 139 H (45-117) U/L Troponin I 0.037 (0-0.045) ng/ml Total Protein 7.4 (6.4-8.2) gm/dl Albumin 3.5 (3.4-5.0) gm/dl Globulin 3.9 (2.5-4.0) gm/dl Albumin/Globulin Ratio 0.9 (0.9-2) COVID-19 Eval Order SARS-CoV-2, RNA, NAAT (NEGATIVE) 10/16/20 10/16/20 Range/Units 19:40 19:40 WBC (4.8-10.8) K/uL RBC (4.2-5.4) M/uL Hgb (12.0-16.0) g/dL Hct (37-47) % MCV (80-100) fL MCH (25-34) pg MCHC (32-36) g/dL RDW Std Deviation (36.4-46.3) fL RDW Coeff of Bryon (11.5-14.5) % Plt Count (130-400) K/uL MPV (7.4-10.4) fL Immature Gran % (Auto) % Neut % (Auto) % Lymph % (Auto) % [place] % (Auto) % Eos % (Auto) % Baso % (Auto) % Neut # (Auto) (1.4-6.5) K/uL Lymph # (Auto) (1.2-3.4) K/uL [place] # (Auto) (0.11-0.59) K/uL Eos # (Auto) (0-0.5) K/uL Baso # (Auto) (0-0.2) K/uL Immature Gran # (Auto) (0.00-0.02) K/uL PT (9.0-12.0) Seconds INR (0.9-1.1) APTT (21.0-31.0) Seconds PTT Ratio Sodium (136-145) mmol/L Potassium (3.5-5.1) mmol/L Chloride (98-107) mmol/L Carbon Dioxide (21-32) mmol/L Anion Gap (3-11) BUN (7-18) mg/dl Creatinine (0.6-1.2) mg/dl Est Cr Clr Drug Dosing Est GFR ( Amer) Est GFR (Non-Af Amer) BUN/Creatinine Ratio (10-20) Glucose (70-99) mg/dl Calcium (8.5-10.1) mg/dl Magnesium (1.8-2.4) mg/dl Total Bilirubin (0.2-1) mg/dl AST (15-37) U/L ALT (12-78) U/L Alkaline Phosphatase (45-117) U/L Troponin I (0-0.045) ng/ml Total Protein (6.4-8.2) gm/dl Albumin (3.4-5.0) gm/dl Globulin (2.5-4.0) gm/dl Albumin/Globulin Ratio (0.9-2) COVID-19 [facility], RNA, NAAT NEGATIVE (NEGATIVE) Administered Medications Discontinued Medications Acetaminophen (Acetaminophen 500 Mg Tab) 1,000 mg PO NOW STA Stop: 10/16/20 22:09 Last Admin: 10/16/20 22:17 Dose: 1,000 mg Documented by: [id number] Albuterol (Albut/Ipratrop 3mg/0.5mg Neb 3 Ml Vial) 3 ml NEB NOW STA Stop: 10/16/20 22:19 Last Admin: 10/16/20 22:48 Dose: 3 ml Documented by: [id number] Aspirin (Aspirin 81 Mg Chew) 324 mg PO NOW STA Stop: 10/16/20 18:52 Last Admin: 10/16/20 19:35 Dose: 324 mg Documented by: [id number] Bumetanide 1 mg/ Syringe 4 mls @ 4 mls/min IV NOW ONE Stop: 10/16/20 21:01 Last Admin: 10/16/20 21:12 Dose: 4 mls/min Documented by: [id number] Ondansetron HCl (Ondansetron Inj 2 Mg/Ml 2 Ml Vial) 4 mg IV NOW STA Stop: 10/16/20 18:52 Last Admin: 10/16/20 19:36 Dose: 4 mg Documented by: [id number] Discharge Plan Visit Data Chief Complaint: Flu Like Symptoms Stated Complaint: SOB, COUGH, FEVER, NAUSEA ED Provider: Javi Lucio Discharge Problem: Breathlessness, Acute exacerbation of CHF (congestive heart failure) Patient Disposition: Being Evaluated by Hospitalist Forms Stand Alone Forms: My [facility] Prescriptions Prescriptions: No Action acetaminophen 500 mg tablet 1,000 mg PO HS RF: 0 calcitriol 0.5 mcg capsule 0.5 mcg PO BID RF: 0 clopidogrel 75 mg tablet 75 mg PO QAM Qty: 90 RF: 1 Serevent Diskus 50 mcg/dose blister with device 1 inh INH BID RF: 0 Levemir U-100 Insulin 100 unit/mL solution 20 unit SUBCUT BID RF: 0 warfarin 5 mg tablet See Rx Instructions PO UD RF: 0 tizanidine 4 mg tablet 4 mg PO TID PRN (Reason: muscle spasticity) Qty: 90 RF: 1 (DME) BD Insulin Syringe Half Unit 0.3 mL 31 gauge x 5/16" syringe See Dose Instructions .ROUTE .MEDSUPPLY Qty: 600 RF: 1 atorvastatin 40 mg tablet 40 mg PO QAM Qty: 90 RF: 1 (DME) blood sugar diagnostic [Accu-Chek Guide test strips] Strip See Rx Instructions .ROUTE .MEDSUPPLY Qty: 400 RF: 1 (DME) blood-glucose meter [Accu-Chek Guide Glucose Meter] Misc See Rx Instructions .ROUTE .MEDSUPPLY Qty: 1 RF: 0 (DME) lancets [Accu-Chek Fastclix Lancet Drum] Misc See Rx Instructions .ROUTE .MEDSUPPLY Qty: 400 RF: 1 (DME) lancing device with lancets [Accu-Chek FastClix Lancing Dev] Kit See Rx Instructions .ROUTE .MEDSUPPLY Qty: 1 RF: 0 omeprazole 40 mg capsule,delayed release(DR/EC) 40 mg PO BID Qty: 180 RF: 1 Novolog U-100 Insulin aspart 100 unit/mL solution 20 unit SUBCUT QID Qty: 70 RF: 1 venlafaxine [Effexor XR] 150 mg capsule,extended release 24hr 150 mg PO QAM Qty: 90 RF: 0 metoprolol succinate 25 mg tablet extended release 24 hr 25 mg PO QAM Qty: 90 RF: 1 lamotrigine [Lamictal] 100 mg tablet 100 mg PO BID Qty: 90 RF: 2 gabapentin 600 mg tablet 600 mg PO BID 90 Days Qty: 180 RF: 1 (DME) walker misc See Dose Instructions .ROUTE .MEDSUPPLY Qty: 1 RF: 0 oxycodone 10 mg tablet 10 mg PO TID PRN (Reason: PAIN) Qty: 60 RF: 0 furosemide [Lasix] 80 mg tablet 120 mg PO BID Qty: 180 RF: 3 diclofenac sodium [Voltaren] 1 % gel 4 g TOP QID PRN (Reason: Joint Pain) Qty: 100 RF: 1 albuterol sulfate [Ventolin HFA] 90 mcg/actuation HFA aerosol inhaler 1 - 2 puff INH Q4 PRN (Reason: shortness of breath or wheezing) RF: 0 lisinopril 5 mg tablet 2.5 mg PO QAM RF: 0 montelukast 10 mg tablet 10 mg PO HS RF: 0 Referrals Referrals: Sanya Thurman III, CRNP [Primary Care Provider] - Discharge Problem: Acute exacerbation of CHF (congestive heart failure) Qualifiers: Heart failure type: diastolic Qualified Code(s): I50.33 - Acute on chronic diastolic (congestive) heart failure
--- NOTE | 2020-10-16 19:29 | XRay Report ---
XR chest 1V portable HISTORY: 69 years-old Female Dyspnea acute shortness of breath COMPARISON: Chest radiograph and CTA chest 05/25/2020 TECHNIQUE: Portable AP view of the chest FINDINGS: Cardiac silhouette is enlarged, unchanged. Prior median sternotomy with cardiac valvular prosthesis. Calcified plaque of the thoracic arch. Mild right hemidiaphragmatic elevation. Pulmonary vascular con gestion. No pneumothorax, large pleural effusion or airspace consolidation typical for pneumonia. Unc hanged mild linear scarring/atelectasis of the left midlung. Degenerative changes of the spine. Left shoulder total joint arthroplasty. IMPRESSION: Cardiomegaly with pulmonary vascular congestion. ACT 112: Negative or not required by law. The above report was generated using voice recognition software. It may contain grammatical, syntax o r spelling errors. Electronically signed by: Delroy Gallegos M.D. 10/16/2020 7:28 PM
[2020-10-16 19:57] LABS: Basophils # (auto) 0.01 K/uL (0-0.2); Basophils % (auto) 0.1 %; Eosinophils # (auto) 0.17 K/uL (0-0.5); Hematocrit (blood only) 33.1 % (37-47); Hemoglobin 9.7 g/dL (12.0-16.0); Immature Granulocytes # (auto) 0.02 K/uL (0.00-0.02); Immature Granulocytes % (auto) 0.2 %; Lymphocytes # (auto) 0.98 K/uL (1.2-3.4); Lymphocytes % (auto) 11.8 %; Mean Corpuscular Hemoglobin 22.7 pg (25-34); Mean Corpuscular Hgb Conc 29.3 g/dL (32-36); Mean Corpuscular Volume 77.3 fL (80-100); Mean Platelet Volume 8.9 fL (7.4-10.4); Monocytes # (auto) 0.51 K/uL (0.11-0.59); Monocytes % (auto) 6.1 %; Neutrophils # (auto) 6.61 K/uL (1.4-6.5); Neutrophils % (auto) 79.8 %; Platelet Count 283 K/uL (130-400); RDW Coefficient of Variation 17.2 % (11.5-14.5); RDW Standard Deviation 48.7 fL (36.4-46.3); Red Blood Count 4.28 M/uL (4.2-5.4)
[2020-10-16 20:10] LABS: Partial Thromboplastin Ratio 1.2; Partial Thromboplastin Time 33.5 Seconds (21.0-31.0); Prothrombin Time 20.3 Seconds (9.0-12.0)
[2020-10-16 20:15] LABS: Alanine Aminotransferase 19 U/L (12-78); Albumin Level 3.5 gm/dl (3.4-5.0); Aspartate Aminotransferase 23 U/L (15-37); Blood Urea Nitrogen 25 mg/dl (7-18); Calcium 9.6 mg/dl (8.5-10.1); Carbon Dioxide 30 mmol/L (21-32); Chloride 105 mmol/L (98-107); Est GFR (African American) 59.3; Est GFR (Non-African American) 51.2; Glucose 146 mg/dl (70-99); Magnesium 2.2 mg/dl (1.8-2.4); Potassium 4.1 mmol/L (3.5-5.1); Sodium 139 mmol/L (136-145)
[2020-10-16 20:22] LABS: Albumin Globulin Ratio 0.9 (0.9-2); Alkaline Phosphatase 139 U/L (45-117); Bilirubin,Total 0.3 mg/dl (0.2-1); Globulin 3.9 gm/dl (2.5-4.0); Total Protein 7.4 gm/dl (6.4-8.2); Troponin I 0.037 ng/ml (0-0.045)
[2020-10-16] MEDS ORDERED: BUMETANIDE 1 MG in SYRINGE 0 ML IV SCH (20:30)
[2020-10-16] MEDS ORDERED: BUMETANIDE 1 MG in SYRINGE 0 ML IV ONE (21:00)
[2020-10-16] MEDS ORDERED: ACETAMINOPHEN 500 MG TAB PO STA (22:08)
--- NOTE | 2020-10-16 22:12 | History & Physical Report ---
Date of Service October 16, 2020 Assessment & Plan (1) CAD (coronary artery disease): Pt is 69yo with a PMHx significant for CAD s/p stent placement, Hx of mechanical aortic valve, HFrEF, atrial fibrillation, HTN, HLD, DMII, COPD, asthma, GERD, and Bipolar Disorder who was admitted with acute hypoxic respiratory failure. Acute Hypoxic Respiratory Failure in the setting of CHF and COPD -Pt states she has been having SOB with exertion since May,peaked tonight -No oxygen use at baseline, O2 sat drop to 83 with ambulation noted in ED -COVID Negative -Duonebs scheduled QID -continue home albuterol inhaler PRN -oxygen supplementation as needed CHF -Echo April 2020: EF 25-30% with global hypokinesis, and akinesis of inferior, inferolateral, inferoseptal shabazz, LVH, dilated LV. -BNP of 3365 2 weeks ago, repeat with AM labs -Follows with CHF clinic, dry weight of 217. 232lbs on admission-~15lbs of water weight. -s/p one dose 1mg Bumex in ED -Hold home PO lasix 120mg BID -Ordered IV Lasix 80mg BID -daily weights, strict I/Os, low sodium diet -trend BMP q12h to monitor electrolytes, kidney function with new diuretic changes COPD with asthma -As above, pt with increasing SOB -chronic smoker for 50 years, pt states she smoked 5 cigarettes today even with her SOB -continue duonebs scheduled -continue home albuterol inhaler as needed -continue home singulair -hold home salmeterol given noted "allergy", consider formulary substitute -consider COPD exacerbation treatment if symptoms persistent (eg. IV steroids, macrolide abx, etc) A fib/CAD/hx of mechanical valve -Currently in sinus rhythm -EKG with NSR and LBBB, qtc 506, HR 77 -continue home metoprolol succinate 25mg -continue home warfarin 7.5mg daily, INR currently 2.0 (previously supratherapeutic to 4.8 on 10/11). Follows with anticoagulation clinic. -continue home plavix 75mg -PT/INR check in AM- goal 2.5 to 3.5 due to mech valve DMII -HgbA1c of 6.3 on 10/11/2020 -continue home insulin detemir 20U BID -ISS while hospitalized -pharm glycemic consult for further management HTN -continue home metoprolol as above -hold home lisinopril 2.5mg given hypotension currently HLD -continue home atorvastatin 40mg qAM GERD -continue home omeprazole 40mg BID Bipolar Disorder -continue home lamotrigine 100mg, venlafaxine 150mg Iron deficiency Anemia -fecal occult blood ordered FEN/GI: Low sodium diet CODE STATUS: DNR/DNI DVT prophylaxis: On warfarin and plavix Dispo: med surg/tele (2) Chronic systolic congestive heart failure: (3) Constipation: (4) Mechanical heart valve present: (5) Cardiomyopathy: (6) COPD with chronic bronchitis: (7) Chronic gastroesophageal reflux disease: (8) Iron deficiency anemia: (9) History of DVT (deep vein thrombosis): (10) Atrial fibrillation: (11) JOMAR (obstructive sleep apnea): (12) Hypertension: (13) Diabetes: (14) Bipolar disorder: (15) Acute exacerbation of CHF (congestive heart failure): History of Present Illness Primary Care Provider: Sanya Thurman, III, [facility] NURSE Pt is 69yo with a PMHx significant for CAD s/p stent placement, Hx of mechanical aortic valve, HFrEF, atrial fibrillation, HTN, HLD, DMII, COPD, asthma, GERD, and Bipolar Disorder who was admitted with acute hypoxic respiratory failure. States that she has been having increasing SOB since May but it peaked tonight and she felt like she could not breathe. She called her PCP who advised that she should come in. States she thought it might be COVID related as she has been having chills in the afternoon (no fevers), a dry cough, clear runny nose and mild periodic chest pain. Follows with Dr. Stein of Cardiology and has an upcoming appt in October. Also follows with the CHF and anticoagulation clinic. She is a chronic smoker for the last 50 years, almost a pack a day and has no desire to quit. States she had 5 cigarettes today even with her SOB and states that the amount she typically smokes has decreased considerably since May with the SOB. Lives in [place] in a home with her daughter, son-in-law and their kids. States she lives downstairs and they are available to help her if needed. Allergies Allergy/AdvReac Type Severity Reaction Status Date / Time adhesive Allergy Unknown Rash Verified 10/16/20 22:22 cinacalcet [From Sensipar] Allergy Unknown Swelling Verified 10/16/20 22:22 of the Eye erythromycin base Allergy Unknown VAGINAL Verified 10/16/20 22:22 [From Erythrocin] INFECTION levofloxacin [From Levaquin] Allergy Unknown Hives Verified 10/16/20 22:22 fluticasone AdvReac Intermediate NAUSEA Verified 10/16/20 22:22 [From Advair Diskus] VOMITING lactose AdvReac Unknown Diarrhea Verified 10/16/20 22:22 latex AdvReac Unknown Rash Verified 10/16/20 22:22 salmeterol AdvReac Unknown NAUSEA Verified 10/16/20 22:22 [From Advair Diskus] VOMITING Home Medications Medication Instructions Recorded Confirmed Type walker #1 ea 06/16/19 10/16/20 Rx albuterol sulfate [Ventolin HFA] 1 - 2 puff INH Q4 PRN 11/03/19 10/16/20 History calcitriol 0.5 mcg capsule 0.5 mcg PO BID cap 01/10/20 10/16/20 History tizanidine 4 mg tablet 4 mg PO TID PRN #90 tab 03/14/20 10/16/20 Rx insulin syr/ndl U100 half tanner 0.3 #600 ea 03/15/20 10/16/20 Rx mL 31 gauge x 04/14" diclofenac sodium 1 % topical gel 4 g TOP QID PRN #100 gm 06/07/20 10/16/20 Rx atorvastatin 40 mg tablet 40 mg PO QAM #90 tab 06/08/20 10/16/20 Rx blood sugar diagnostic #400 ea 07/03/20 10/16/20 Rx blood-glucose meter #1 ea 07/03/20 10/16/20 Rx lancets #400 ea 07/03/20 10/16/20 Rx lancing device with lancets kit #1 ea 07/03/20 10/16/20 Rx lisinopril 2.5 mg PO QAM 07/27/20 10/16/20 History omeprazole 40 mg capsule,delayed 40 mg PO BID #180 cap 07/27/20 10/16/20 Rx release clopidogrel 75 mg tablet 75 mg PO QAM #90 tab 07/30/20 10/16/20 Rx insulin aspart U-100 100 unit/mL 20 unit SUBCUT QID #70 ml 08/09/20 10/16/20 Rx subcutaneous solution oxycodone 10 mg tablet 10 mg PO TID PRN #60 tab 08/20/20 10/16/20 Rx venlafaxine 150 mg 150 mg PO QAM #90 cap 08/31/20 10/16/20 Rx capsule,extended release 24 hr lamotrigine 100 mg tablet 100 mg PO BID #90 tab 09/13/20 10/16/20 Rx metoprolol succinate 25 mg 25 mg PO QAM #90 tab 09/13/20 10/16/20 Rx tablet,extended release 24 hr furosemide 80 mg tablet 120 mg PO BID #180 tab 10/08/20 10/16/20 Rx acetaminophen 500 mg tablet 1,000 mg PO HS tab 10/11/20 10/16/20 History insulin detemir U-100 100 unit/mL 20 unit SUBCUT BID ml 10/11/20 10/16/20 History subcutaneous solution montelukast 10 mg tablet 10 mg PO HS tab 10/11/20 10/16/20 History salmeterol 50 mcg/dose blister 1 inh INH BID ea 10/11/20 10/16/20 History powder for inhalation warfarin 5 mg tablet See Rx Instructions PO UD tab 10/11/20 10/16/20 History gabapentin 600 mg tablet 600 mg PO BID 90 Days #180 tab 10/16/20 10/16/20 Rx Past Med/Surg History Medical History Anemia HX OF Anxiety Arteriosclerosis of coronary artery Asthma RESCUE INHALER 1-2x per month Atrial fibrillation Dx "many years ago" - s/p cardioversion - follows w/ Dr. Stein - on warfarin Atrial flutter Balance problem Bipolar disorder Chronic anticoagulation Chronic back pain Chronic kidney disease Chronic kidney disease (CKD), stage III (moderate) F/U DR RUBY Chronic obstructive pulmonary disease Chronic pain Congestive heart failure "CHRONIC" - RECENT HOSPITALIZATION FOR APRIL 2020 Depression Diabetes mellitus, type 2 Diabetic peripheral neuropathy Encounter for pre-operative examination Fibromyalgia GERD (gastroesophageal reflux disease) History of meningitis Hx MRSA infection Per infection control 10/21/17: "Patient has a history of MRSA in 2007, but has since been cleared with multiple negative cultures and nasal screens. No contact precautions necessary." Hx of deep venous thrombosis 1969 - RLE Hypercalcemia Hyperlipidemia Hyperparathyroidism Major depression Meralgia paresthetica Microalbuminuria Mild neurocognitive disorder PT REPORTS SOME MEMORY PROBLEMS Obesity Obesity Osteoarthritis Osteopenia Peripheral neuropathy ALL OVER Rheumatic heart disease Sleep apnea CAN'T TOLERATE CPAP SOB (shortness of breath) on exertion Valvular disease Venous insufficiency (chronic) (peripheral) Vitamin D deficiency Surgical History Fusion of spine LUMBAR History of appendectomy History of arthroscopy RIGHT AND LEFT KNEE History of back surgery History of bladder surgery History of bowel resection partial colectomy History of cardiac cath multiple caths -[facility] - MOST RECENT APRIL 2020 STENT X 1 FOR BLOCKAGE History of cardioversion History of carpal tunnel release LEFT/RIGHT History of colonoscopy History of esophagogastroduodenoscopy (EGD) History of heart artery stent APRIL 2020 - BLOCKAGE - STENT X1 History of heart valve replacement 2004 SERGO, MITRAL AND AORTIC VALVE, F/U WITH DR STEIN (NOT GOOD HISTORIAN) History of hysterectomy total abdominal hysterectomy with removal of both ovaries History of parathyroidectomy History of shoulder replacement Lt - 07/2018 [facility] S/P cardiac catheterization 05/14/20 Dr. Thierno Stein- 1 SENA to mid LAD S/P T&A (status post tonsillectomy and adenoidectomy) Family History Mother , in her 40s Cardiomyopathy Myocardial infarction Father , in his 50s Myocardial infarction Daughter , age 17 Heart disease Congenital heart disease Other Diabetes Hypertension Denies family history of Pancreatic cancer Ovarian cancer Prostate cancer Breast cancer Colorectal cancer Uterine cancer Social History Smoking Status: Never smoker Cigarettes Per Day: 3/4PPD-1 PPD/ADVISED NPO; Second Hand Exposure: No; Hx Alcohol Use: No Hx Substance Use: No Preferred Language: Liberian Communication Ability: Effective Visual Impairment: No Limitations Hearing Ability: Hard of Hearing Ventilated Rib Fitter Required: No Beliefs That Will Affect Care: None marital status: Single Current Living Situation: Family Current Living Situation Comment: [facility] current occupational status: retired Other Information That Helps Us Care for You: No Feels Safe at Home: Yes Safety Concerns: Feels Safe At This Time Childhood Exposure to Second-Hand Smoke: Yes Dental Care, Regularly: No Physical Activity Frequency: Does not Exercise Seatbelt Use: always Sunscreen Use: Yes Assistive Devices: Denture - Upper, Denture - Lower, Glasses and Walker Review of Systems Constitutional: + chills; no fever and no sweats Eyes: no worsening vision Ear, Nose, Mouth, Throat: + nasal congestion and + nasal discharge; no sore throat Respiratory: + cough, + dyspnea and + dyspnea on exertion Cardiovascular: + chest pain, + dyspnea, + dyspnea at rest, + dyspnea on exertion and + edema; no radiating jaw, neck or arm pain and no palpitations Gastrointestinal: + abdominal pain and + constipation; no nausea, no vomiting, no diarrhea/loose stools and no blood in stools Genitourinary: no dysuria and no hematuria Musculoskeletal: no back pain Integumentary: no rash Neurologic: no tingling, no numbness, no headache(s) and no confusion Psychiatric: no confusion Physical Exam Physical Exam: General: Alert, oriented. Mild distress, halting speech, difficulty breathing Skin: No noted rashes or bruises Psych: Appropriate mood and affect Neuro: No gross deficits HEENT: NC/AT Chest: Nontender to palpation. CV: RRR, Normal s1, s2. No murmurs appreciated Resp: Breath sounds clear and decreased bilaterally, ++ increased effort of breathing. Abdomen: Soft, mildly tender in RLQ, protuberant. No guarding. Extremities: ++++ edema in lower extremities bilaterally. Results & Data Results & Data ([facility]) Vital Signs (Past 12 Hours) Vital Signs Temp Pulse Pulse Resp BP BP Pulse Ox 10/16/20 22:09 83 L 10/16/20 22:00 77 24 112/56 L 100 10/16/20 21:49 80 20 105/65 100 10/16/20 21:30 77 17 123/56 L 98 10/16/20 21:12 77 17 111/63 99 10/16/20 20:50 78 23 100 10/16/20 20:32 77 21 93/35 L 100 10/16/20 20:00 75 18 119/52 L 99 10/16/20 19:53 76 22 167/38 H 99 10/16/20 19:45 77 19 167/38 H 98 10/16/20 19:28 98 10/16/20 18:05 36.9 C 91 H 26 H 110/61 Code Status & VTE Plan VTE Prophylaxis Plan VTE Prophylaxis will be ordered: Yes Supervising Physician Co-Signing Physician Notes Patient seen and examined, chart reviewed, case discussed with Dr. Moseley and I agree with her assessment and plan as above. Briefly, patient is a 69yo female with history of CAD, ICM with EF of 25-35%, mechanical aortic valve, presenting with progressive dyspnea, hypoxic respiratory failure requiring supplemental L2. Suspect CHF vs COPD On exam she is afebrile, HD stable, NAD, adequate oxygenation on 2L NC, no respiratory distress Skin - no rash HEENT - NC/AT, PERRL, EOMI, MMM, NO JVD Heart - +S1/S2, LILLIANA across precordium Lungs - diminished breath sounds throughout Abd - +BS, soft, NT/ND Ext - +nonpitting edema Labs and images reviewed Assessment/Plan: 69yo female with history of CAD, ICM with EF of 23-25%, mechanical aortic valve subtherapeutic on Coumadin presenting with hypoxic RF. Suspect COPD vs CHF exacerbation. Upon further questioning patient thinks her weight has been fairly stable, slightly increased from before. -Diuresis with Lasix 80mg IV BID, monitor weight, intake/output and labs -Nebs scheduled and PRN -Patient was recently supratherapeutic on Coumadin - had two doses held. Now INR=2, goal of 2.5-3.5 with mechanical aortic valve. Will continue routine home dosing and continue to monitor INR -Remainder of plan as above Resident Activity Tracking Resident Involvement: Resident Care Provided Care Provided: Adult Hospital Medicine (1) Acute exacerbation of CHF (congestive heart failure) Heart failure type: diastolic Qualified Code(s): I50.33 - Acute on chronic diastolic (congestive) heart failure (2) Diabetes Chronic kidney disease stage: stage 3 (moderate) Diabetes mellitus complication detail: with chronic kidney disease Diabetes mellitus complication status: with kidney complications Diabetes mellitus mcc insulin use: with termite control service representative use Diabetes mellitus type: type 2 Qualified Code(s): E11.22 - Type 2 diabetes mellitus with diabetic chronic kidney disease; N18.3 - Chronic kidney disease, stage 3 (moderate); Z79.4 - residential (current) use of insulin (3) Bipolar disorder Active/Remission status: remission status unspecified Qualified Code(s): F31.9 - Bipolar disorder, unspecified (4) Atrial fibrillation Atrial fibrillation type: unspecified Qualified Code(s): I48.91 - Unspecified atrial fibrillation (5) Hypertension Hypertension type: essential hypertension Qualified Code(s): I10 - Essential (primary) hypertension (6) Cardiomyopathy Cardiomyopathy type: ischemic Qualified Code(s): I25.5 - Ischemic cardiomyopathy
[2020-10-16] MEDS ORDERED: ALBUT/IPRATROP 3MG/0.5MG NEB 3 ML VIAL NEB STA (22:18)
[2020-10-16] MEDS ORDERED: GLUCOSE 40% GEL 15 GM TUBE PO PRN (23:54)
[2020-10-16] MEDS ORDERED: CARBOHYDRATES FOR HYPOGLYCEMIA PO PRN (23:54)
[2020-10-16] MEDS ORDERED: DEXTROSE 50% 50 ML SYRINGE IV PRN (23:54)
[2020-10-16] MEDS ORDERED: GLUCAGON FOR INJ 1 MG VIAL SQ PRN (23:54)
[2020-10-16] MEDS ORDERED: DICLOFENAC SOD 1% GEL 100 GM TUBE EXT PRN (23:54)
[2020-10-16] MEDS ORDERED: GLUCOSE 10 TABS/TUBE PO PRN (23:54)
[2020-10-16] MEDS ORDERED: ALBUTEROL HFA 8 GM INHALER INH PRN (23:54)
[2020-10-17] MEDS ORDERED: PHARMACY GLYCEMIC MGMT CONSULT PRN (00:18)
[2020-10-17] MEDS ORDERED: WARFARIN SOD 7.5 MG TAB PO ONE (00:45)
[2020-10-17] MEDS: INSULIN ASPART 100 UNITS/ML 3 ML PEN SC SCH ×5 (01:22→21:20)
--- NOTE | 2020-10-17 03:22 | Billing Data ---
Date of Service October 16, 2020 Coding Level of Care Code 33566 Initial Inpt Care Lvl 3
[2020-10-17] MEDS ORDERED: INSULIN DETEMIR FLEXPEN/FLEX TOUCH 100 UNITS/ML 3ML SC ONE ×2 (06:30→09:00)
[2020-10-17] MEDS: oxyCODONE HCL IR 5 MG TAB (IMMEDIATE RELEASE) PO PRN ×4 (06:32→19:29)
[2020-10-17 06:42] LABS: Basophils # (auto) 0.03 K/uL (0-0.2); Basophils % (auto) 0.4 %; Eosinophils # (auto) 0.19 K/uL (0-0.5); Eosinophils % (auto) 2.4 %; Hematocrit (blood only) 31.9 % (37-47); Hemoglobin 9.3 g/dL (12.0-16.0); Immature Granulocytes # (auto) 0.01 K/uL (0.00-0.02); Immature Granulocytes % (auto) 0.1 %; Lymphocytes # (auto) 1.23 K/uL (1.2-3.4); Lymphocytes % (auto) 15.5 %; Mean Corpuscular Hemoglobin 23.1 pg (25-34); Mean Corpuscular Hgb Conc 29.2 g/dL (32-36); Mean Corpuscular Volume 79.2 fL (80-100); Mean Platelet Volume 8.9 fL (7.4-10.4); Monocytes # (auto) 0.68 K/uL (0.11-0.59); Monocytes % (auto) 8.6 %; Neutrophils # (auto) 5.81 K/uL (1.4-6.5); Platelet Count 269 K/uL (130-400); RDW Coefficient of Variation 17.3 % (11.5-14.5); RDW Standard Deviation 49.5 fL (36.4-46.3); Red Blood Count 4.03 M/uL (4.2-5.4); White Blood Count 7.95 K/uL (4.8-10.8)
[2020-10-17 06:55] LABS: INR 2.3 (0.9-1.1); Prothrombin Time 22.9 Seconds (9.0-12.0)
[2020-10-17] MEDS: ALBUT/IPRATROP 3MG/0.5MG NEB 3 ML VIAL NEB SCH ×2 (07:13→10:46)
[2020-10-17] MEDS: ATORVASTATIN 40 MG TAB PO SCH (07:45)
[2020-10-17] MEDS: GABAPENTIN 600 MG TAB PO SCH ×2 (07:46→21:21)
[2020-10-17] MEDS: CLOPIDOGREL BISULFATE 75 MG TAB PO SCH (07:46)
[2020-10-17] MEDS: lamoTRIgine 100 MG TAB PO SCH ×2 (07:46→21:21)
[2020-10-17] MEDS: METOPROLOL SUCC 25MG EXT REL TAB PO SCH (07:46)
[2020-10-17] MEDS: PANTOprazole 40 MG TAB PO SCH ×2 (07:47→21:21)
[2020-10-17] MEDS: VENLAFAXINE HCL XR 150 MG CAPXR PO SCH (07:47)
[2020-10-17] MEDS: CALCITRIOL 0.25 MCG CAPSULE PO SCH ×2 (07:47→21:27)
[2020-10-17] MEDS: FUROSEMIDE 80 MG in SYRINGE 0 ML IV SCH ×2 (08:36→16:09)
[2020-10-17] MEDS ORDERED: FUROSEMIDE 40 MG/4 ML VIAL IV SCH (09:00)
[2020-10-17] MEDS ORDERED: PERFLUTREN LIPID MICROSPHERE (DEFINITY) IV ONE (09:48)
[2020-10-17] MEDS: ACETAMINOPHEN 325 MG TAB PO PRN ×2 (11:12→21:37)
--- NOTE | 2020-10-17 11:29 | Medical Student Progress Note ---
Date of Service October 17, 2020 Assessment & Plan (1) Acute exacerbation of CHF (congestive heart failure): Pt has a history of CHF with an ejection fraction of 23-25%. On physical exam pt has 2+ pedal edema with a normal RRR with no murmurs, clicks, rubs, or gallops. JVD is not predominantly evident. Whether or not the pt's acute symptoms on admittance was due to a CHF exacerbation or a COPD exacerbation will be reevaluated pending echocardiogram results. Until then pt will remain on regular home medications and Lasix. Pt will be monitored for worsening peripheral edema which can be treated with Lasix. Heart failure type: diastolic Qualified Code(s): I50.33 - Acute on chronic diastolic (congestive) heart failure Present on Admission?: Yes (2) Acute respiratory failure with hypoxia: Pt denies any shortness of breath or chest pain today and is on oxygen. Chest x-ray showed mild pulmonary edema. Pt has a history of COPD but does not require oxygen at home. On physical exam there was no evidence of pulmonary congestion or consolidation. Additionally pt had 2+ pedal edema with mild erythema on lower extremities. An echocardiogram was ordered. Pt will be monitored or worsening shortness of breath as results of echocardiogram is pending. Present on Admission?: Yes (3) Elevated INR: Pt is on Coumadin for mechanical aortic valve. Target INR is 2.5-3.5. Pt missed 2 Coumadin doses from her last ER visit but has taken her most recent two doses. Continue pt on home Coumadin therapy and monitor INR. Continue to monitor INR to return pt to target therapeutic range. Present on Admission?: Yes (4) Laceration of toe: Toe laceration shows signs of healing without any signs of pus or discharge that would be suggestive of an infection. Clean wound and replace bandages. Supply pt with bandages prior to discharge and monitor for signs and symptoms of infection. Damage to nail status: without damage Encounter type: initial encounter Foreign body presence: without foreign body Laterality: left Toe: lesser toe Qualified Code(s): S91.115A - Laceration without foreign body of left lesser toe(s) without damage to nail, initial encounter Present on Admission?: Yes Admission and Anticipated Discharge Date Admission Date: October 16, 2020 Supervising Attestation Medical Student Supervision Note: I was personally present during medical student patient encounter and indepe ndently interviewed and examined the patient and verified the daley history and physical, reviewed labs and image studies, discussed the case with Ron Vang and agree with the findings and care plan. 69 y/o F here with shortness of breath noted to be hypoxic in Ed Acute resp failure sec to acute on chronic systolic CHF exacerbtion - less likely pulmonary etiology. continue NC O2 Patient reports compliance with medication Last Echo with EF 23-25%. Recheck echo pending Unable to located the urine output from her ER stay after getting bumex. continue IV lasix bid. daily weights and follow I and O, renal function. Asthma continue home meds HTN BP controlled. continue home meds s/p Mechanical valve - INR 2.0. continue coumadin for target INR 2.5-3.5 Chronic pain On oxycodone. Look for possibility of aspiration from oversedation Toe wound consult wound care Subjective Pt is a 69 y/o female that with a past medical history of smoking, chronic diastolic congestive heart failure with and EF of 23-25%, atrial fibrillation, HTN, CAD, aortic mechanical valve, DVT, COPD, GERD, obstructive sleep apnea, and DMII that presents with worsening shortness of breath and leg swelling with chest discomfort and nausea. Upon arrival, pt was placed on oxygen with room air, Zofran for nausea, and aspirin for chest discomfort. Pt had chest x-ray ordered which showed mild pulmonary edema with no evidence of pneumothorax or pneumonia. Labs showed an INR of 2.0, mild stable anemia, BNP 3862, and troponin of 0.049 which is improved in comparison to previous measurement. Pt at 83% O2 sat with room air. Pt was given Bumex and lasix 80 mg. Today pt states that she is compliant with medications. She came in to the ER for a toe laceration on 10/13/20 which resulted in her missing two doses of Coumadin before restarting her dose. She took her Coumadin the last two nights and denies any recent changes in diet. Pt gets her INR checked regularly. However, pt states that she is sensitive to missed doses and thinks her drop in INR from her goal range of 2.5-3.5 for her mechanical aortic valve. Pt denies shortness of breath but pt is on oxygen today. Review of Systems Constitutional: no fever and no chills Respiratory: no dyspnea Cardiovascular: no chest pain Gastrointestinal: no abdominal pain Physical Exam Constitutional: comfortable Respiratory: normal respiratory effort, lungs clear to auscultation Cardiovascular: RRR, no murmur, no edema 2+ pedal edema, mild erythema/venous stasis changes on lower extremities Skin: Small laceration on tip of middle toe. No drainage or pus from wound. Surrounding of tissue is dry with scales. Results & Data ([facility]) Vital Signs (Past 12 Hours) Vital Signs Temp Pulse Pulse Resp BP Pulse Ox 10/17/20 10:46 72 16 96 10/17/20 07:13 72 18 95 10/17/20 05:41 78 10/17/20 03:25 37.0 C 83 20 131/79 96 10/17/20 00:04 37.0 C 68 16 116/80 94 10/17/20 00:00 36.6 C 79 20 109/63 98
[2020-10-17] MEDS ORDERED: ALBUT/IPRATROP 3MG/0.5MG NEB 3 ML VIAL NEB PRN (11:44)
--- NOTE | 2020-10-17 12:03 | Electrocardiogram Report ---
Test Reason : Blood Pressure : / mmHG Vent. Rate : 076 BPM Atrial Rate : 076 BPM P-R Int : 206 ms QRS Dur : 170 ms QT Int : 446 ms P-R-T Axes : 054 -51 095 degrees QTc Int : 501 ms Normal sinus rhythm Left axis deviation Left bundle branch block Abnormal ECG When compared with ECG of 28-MAY-2020 10:15, QRS duration has increased Confirmed by Misha Faulkner ([id number]) on 10/17/2020 12:03:03 PM Referred By: REFERRED SELF Confirmed By:Misha Faulkner
--- NOTE | 2020-10-17 12:10 | Pharmacy Report ---
Glycemic Control Consultation - Date of Service October 17, 2020 - Scope Scope: Glycemic Pharmacist consulted for glycemic control and to write orders per [facility] inpatient glycemic control protocol. - Objective Weight: 101.1 kg Accuchecks BSG (last 24hrs): 10/16/20 10/17/20 10/17/20 19:40 01:00 07:57 Glucose 146 H POC Glucose 180 H 101 H Laboratory Data (last 24hrs): 10/16/20 19:40 Potassium 4.1 Carbon Dioxide 30 Anion Gap 4.0 Creatinine 1.10 Est Cr Clr Drug Dosing Not Reportable - Recent Pertinent Medications Outpatient Anti-diabetic Regimen: * Levemir 20 units SC BID + Novolog 20 units SC ACHS (patient usually only takes AC) * A1c = 6.3% (10/11/2020) Risk Factors for Insulin Resistance: * Diet: * T2DM - Assessment & Plan Assessment & Plan: ASSESSMENT: * 69 yo F admitted secondary to shortness of breath. Pharmacy has been consulted for inpatient glycemic management. * Admission BSG was 146 mg/dL. An overnight check was 180 mg/dL which was corrected with 2 units of Novolog. * Fasting BSG this AM was 101 mg/dL. She had already received 20 units of Levemir at ~ 0630 this morning. * Will continue with BID basal insulin to match home schedule. Will likely reduce home dose slightly this evening to account for decrease oral intake vs outpatient intake. * Current Novolog parameters are reflective of weight/stress of 2. PLAN FOR INPATIENT GLYCEMIC CONTROL: * Basal insulin * Levemir 20 units SQ x 1 this AM * Levemir 10-18 units SQ BID per scale (starting at bedtime) * Bolus insulin * NovoLog per scale ACHS or Q6hrs while NPO * Goal Range: Low 110 mg/dL - High 140 mg/dL * Correction Factor: 20 mg/dL/unit * Nutritional / Prandial insulin per carb ratio of 1 unit per 7 grams CHO consumed DISCHARGE RECOMMENDATIONS: * HbA1c on 10/11/2020 was 6.3% which demonstrates excellent outpatient control of T2DM. Goal HbA1c for this patient would be in the 7% - 8% range given patients age and comorbidities. Patient may resume outpatient antidiabetic regimen upon discharge as long as she is not reporting any signs/symptoms of hypoglycemia. * Please note that the plan above was derived based on current level of insulin resistance and hospital stress. These recommendations are appropriate for inpatient admission only. Plan of care upon discharge will need to be reassessed to avoid potential outpatient hypo/hyperglycemia. Thank you.
[2020-10-17] MEDS ORDERED: ONDANSETRON INJ 2 MG/ML 2 ML VIAL IV STA (14:45)
--- NOTE | 2020-10-17 14:57 | XCELERA ---
[id number]
[2020-10-17] MEDS ORDERED: oxyCODONE HCL IR 5 MG TAB (IMMEDIATE RELEASE) PO STA (15:20)
[2020-10-17] MEDS ORDERED: tiZANidine HCL 4 MG TABLET PO ONE (15:21)
[2020-10-17] MEDS ORDERED: ONDANSETRON INJ 2 MG/ML 2 ML VIAL IV PRN (15:23)
--- NOTE | 2020-10-17 15:38 | Electrocardiogram Report ---
Test Reason : Blood Pressure : / mmHG Vent. Rate : 074 BPM Atrial Rate : 074 BPM P-R Int : 210 ms QRS Dur : 158 ms QT Int : 436 ms P-R-T Axes : 107 -70 102 degrees QTc Int : 483 ms Sinus rhythm with 1st degree A-V block Left axis deviation Left bundle branch block Abnormal ECG When compared with ECG of 16-OCT-2020 19:28, No significant change was found Confirmed by Misha Faulkner ([id number]) on 10/17/2020 3:38:24 PM Referred By: REFERRED SELF Confirmed By:Misha Faulkner
[2020-10-17] MEDS: WARFARIN SOD 7.5 MG TAB PO SCH (16:08)
[2020-10-17] MEDS: MONTELUKAST SODIUM 10 MG TABLET PO SCH (21:21)
[2020-10-17] MEDS: INSULIN DETEMIR FLEXPEN/FLEX TOUCH 100 UNITS/ML 3ML SC SCH (21:22)
[2020-10-17] MEDS: tiZANidine HCL 4 MG TABLET PO PRN (21:37)
[2020-10-18 07:41] LABS: INR 2.6 (0.9-1.1); Prothrombin Time 25.6 Seconds (9.0-12.0)
[2020-10-18] MEDS: tiZANidine HCL 4 MG TABLET PO PRN (07:56)
[2020-10-18] MEDS: FUROSEMIDE 80 MG in SYRINGE 0 ML IV SCH (07:56)
[2020-10-18] MEDS: ATORVASTATIN 40 MG TAB PO SCH (07:56)
[2020-10-18] MEDS: METOPROLOL SUCC 25MG EXT REL TAB PO SCH (07:57)
[2020-10-18] MEDS: GABAPENTIN 600 MG TAB PO SCH ×2 (07:57→20:36)
[2020-10-18] MEDS: lamoTRIgine 100 MG TAB PO SCH ×2 (07:57→20:36)
[2020-10-18] MEDS: VENLAFAXINE HCL XR 150 MG CAPXR PO SCH (07:57)
[2020-10-18] MEDS: PANTOprazole 40 MG TAB PO SCH ×2 (07:58→20:36)
[2020-10-18] MEDS: CALCITRIOL 0.25 MCG CAPSULE PO SCH ×2 (07:58→20:36)
[2020-10-18] MEDS: CLOPIDOGREL BISULFATE 75 MG TAB PO SCH (07:58)
[2020-10-18 08:09] LABS: Basophils # (auto) 0.04 K/uL (0-0.2); Basophils % (auto) 0.6 %; Eosinophils # (auto) 0.19 K/uL (0-0.5); Eosinophils % (auto) 2.6 %; Hematocrit (blood only) 33.6 % (37-47); Hemoglobin 9.5 g/dL (12.0-16.0); Immature Granulocytes # (auto) 0.02 K/uL (0.00-0.02); Immature Granulocytes % (auto) 0.3 %; Lymphocytes % (auto) 15.3 %; Mean Corpuscular Hemoglobin 22.6 pg (25-34); Mean Corpuscular Hgb Conc 28.3 g/dL (32-36); Mean Platelet Volume 9.2 fL (7.4-10.4); Monocytes # (auto) 0.57 K/uL (0.11-0.59); Monocytes % (auto) 7.9 %; Neutrophils # (auto) 5.25 K/uL (1.4-6.5); Neutrophils % (auto) 73.3 %; Platelet Count 269 K/uL (130-400); RDW Coefficient of Variation 17.1 % (11.5-14.5); White Blood Count 7.17 K/uL (4.8-10.8)
[2020-10-18 08:32] LABS: BUN Creatinine Ratio 25.6 (10-20); Calcium 9.3 mg/dl (8.5-10.1); Creatinine Clr Calc Pharmacy 40.7 ml/min; Est GFR (African American) 41.1; Est GFR (Non-African American) 35.5; Potassium 4.5 mmol/L (3.5-5.1)
[2020-10-18] MEDS: INSULIN DETEMIR FLEXPEN/FLEX TOUCH 100 UNITS/ML 3ML SC SCH ×2 (08:57→20:35)
[2020-10-18] MEDS: INSULIN ASPART 100 UNITS/ML 3 ML PEN SC SCH ×4 (08:57→20:35)
[2020-10-18] MEDS ORDERED: BUMETANIDE 2 MG in SYRINGE 0 ML IV ONE (11:00)
--- NOTE | 2020-10-18 11:07 | Medical Student Progress Note ---
Date of Service October 18, 2020 Assessment & Plan (1) Acute exacerbation of CHF (congestive heart failure): Most recent echocardiogram showed an EF of 20-25% which is consistent from prior echo. Pt has not passed urine this morning despite Lasix treatment. Pedal edema has decreased but chest congestion has persisted. Pt admitted to eating [place] food the day prior to arrive to hospital. Pt also states most of the food she eats is frozen "TV dinners". Pt will be switched to Bumex and monitored for urine output as well as worsening or improving peripheral edema and congestion. Cardiology consult put in regarding pt's diuresis. Pt needs to be counseled on how to decrease her sodium intake and which foods to avoid. Continue metoprolol, lisinopril. Heart failure type: diastolic Qualified Code(s): I50.33 - Acute on chronic diastolic (congestive) heart failure Present on Admission?: Yes (2) Acute respiratory failure with hypoxia: Pt presented with shortness of breath and congestion secondary to CHF exacerbation. Pt continues to have congestion and shortness of breath both at rest and with activity. Pt is being switched to Bumex and monitored for hypoxia. Pt will continue on nasal canula oxygen until hypoxia improves. Present on Admission?: Yes (3) Hallucination, visual: Pt states that she is compliant with medications but admits to having new hallucinations since her cataract surgery roughly four weeks ago. Hallucinations are visual and non-threatening. Pt admits that she needs new glasses but states she cannot afford them. Monitor pt for worsening hallucinations and rediscuss options for obtaining new glasses. Consider psych consult if hallucinations worsen or become threatening. (4) Mechanical heart valve present: Pt arrived with an INR below the 2.5-3.5 target therapeutic range. Today pt has an INR of 2.6. Keep pt on same Warfarin level and monitor for changes prior to discharge. (5) Laceration of toe: Laceration on toe still has not been treated with a new bandage. No sign of discharge, pus, erythema. Apply new bandage and monitor for changes in appearance or discharge. Damage to nail status: without damage Encounter type: initial encounter Foreign body presence: without foreign body Laterality: left Toe: lesser toe Qualified Code(s): S91.115A - Laceration without foreign body of left lesser toe(s) without damage to nail, initial encounter Present on Admission?: Yes Admission and Anticipated Discharge Date Admission Date: October 16, 2020 DVT Prophylaxis: Pt on Coumadin Code status: DNR/DNI FEN: No fluids, no electrolyte abnormality, heart healthy carb consistent diet Supervising Attestation Medical Student Supervision Note: I was personally present during medical student patient encounter and independently interviewed and examined the patient and verified the daley history and physical, reviewed labs and image studies, discussed the case with Ron Vang and agree with the findings and care plan. No change in breathing. very sleepy to get much history. continues to have right upper chest pain. O/E - JVD + Heart - RRR, edema + Lung - right base crackles -Acute respiratory failure sec to acute on chronic systolic chf NC O2 Hypervolemic. switch to bumex. consult cardiology. continue lisinopril and metoprolol -Severe CAD - home meds. -Mechanical valve - INR therapeutic -PAF - on AC. -?visual hallucination/visual change after cataract surgery- follow. Subjective Pt is a 69 y/o female that with a past medical history of smoking, chronic diastolic congestive heart failure with and EF of 23-25%, atrial fibrillation, HTN, CAD, aortic mechanical valve, DVT, COPD, GERD, obstructive sleep apnea, and DMII that presents with worsening shortness of breath and leg swelling with chest discomfort and nausea. Upon arrival, pt was placed on oxygen with room air, Zofran for nausea, and aspirin for chest discomfort. Pt had chest x-ray ordered which showed mild pulmonary edema with no evidence of pneumothorax or pneumonia. Labs showed an INR of 2.0, mild stable anemia, BNP 3862, and troponin of 0.049 which is improved in comparison to previous measurement. Pt at 83% O2 sat with room air. Pt was given Bumex and lasix 80 mg. Yesterday (10/17/20) pt states that she is compliant with medications. She came in to the ER for a toe laceration on 10/13/20 which resulted in her missing two doses of Coumadin before restarting her dose. She took her Coumadin the last two nights and denies any recent changes in diet. Pt gets her INR checked regularly. However, pt states that she is sensitive to missed doses and thinks her drop in INR from her goal range of 2.5-3.5 for her mechanical aortic valve. Pt denies shortness of breath but pt is on oxygen. Today (10/18/20) pt states that there is not much change in her symptoms from yesterday. Pt states that lasix is not doing much. Pt states that she only urinated twice yesterday with a moderate amount of urine. Pt feels like her lungs have congestion but they arent really coming out. Pt has a little bit of shortness of breath still. Walking to the bathroom makes her feel short of breath more than normal. Feels like the swelling in her legs has gone down some. Pt has a headache today and says that tylenol helped yesterday. Pt states she feels very tired all the time despite sleeping well. Pt states that she finds herself sitting down and falling asleep but hears voices before jolting back awake. Pt finds herself talking to people to people when she asleep and wakes up to herself talking. Pt sometimes falls asleep for hours on the toilet. Pt feels that she is hallucinating after cataract surgery (4 weeks ago-bilateral) where she sees things moving by the window at her house. Pt still needs to get glasses now but cant afford new glasses. Pt states that foods taste salty but doesnt add salt to anything. Pt states that she is very sensitive to the taste of salt. Prior to coming into the hospital the pt admits to eating TV dinners and processed food: eats [place] food. Eats frozen food. Pt denies missing any doses of her medication. Review of Systems Respiratory: Shortness of breath with and without activity, feels congestion. Couldnt breath out of left nostril this morning. Dried up blood clot came out of nostril today Cardiovascular: Additional Comments: Chest pain (03/09) that comes and goes, little less often than yesterday. Denies palpitations Gastrointestinal: No abdominal pain, diarrhea. Constipated a little more than normal. No bowel movements since Thursday (10/15/20). Ok with receiving half a cap of Miralax (any more and she gets diarrhea) Genitourinary: no dysuria Pt has not passed urine today. Psychiatric: Anxious about going home. Cant pay more than $300 a month that she spends on now for living situation. Doesnt want to stop seeing grandkids. Not interested in seeing a therapist: had trouble in the past finding someone she can connect with Physical Exam Eyes: PERRL, conjunctivae normal, anicteric sclerae Trouble tracking objects to her right with both eyes. Respiratory: normal respiratory effort, lungs clear to auscultation Cardiovascular: RRR, no murmur, no edema Vessels: no carotid bruit Gastrointestinal (Abdomen): Inspection/Auscultation: normal bowel sounds Pain on palpation of upper left and right quadrants Neurologic: deep tendon reflexes 2+ bilaterally Results & Data ([facility]) Vital Signs (Past 12 Hours) Vital Signs Temp Pulse Pulse Resp BP Pulse Ox 10/18/20 07:27 36.4 C L 79 20 111/45 L 96 10/18/20 07:13 66 10/18/20 03:00 36.7 C 61 18 104/68 98 10/18/20 00:21 65 10/17/20 23:00 36.9 C 79 20 109/78 94
--- NOTE | 2020-10-18 13:25 | Cardiology Consultation ---
Date of Consultation October 18, 2020 Assessment & Plan (1) Acute on chronic systolic (congestive) heart failure: (2) Cardiomyopathy: (3) Mechanical heart valve present: (4) CAD (coronary artery disease): (5) Chest pain: (6) Paroxysmal atrial flutter: ASSESSMENT/PLAN: 1. Acute on chronic systolic CHF: She appears hypervolemic. Currently ordered Bumex 2 mg IV twice daily, which is a new order for this hospitalization. Consider increasing to 3 or 4 mg twice daily if no significant output soon. Would try to achieve 1 L negative fluid balance today. Her creatinine is mildly elevated but has been so in the past as well. Monitor renal function and electrolytes carefully. Low-sodium diet. Strict I&Os. Monitor daily weights. 2. Cardiomyopathy: Her cardiomyopathy is out of proportion to the degree of CAD that has been described in the past, including severe LAD CAD that underwent PCI in April of 2020. She is tolerating metoprolol succinate and lisinopril. Titrate doses as tolerated if she is agreeable. She has declined Entresto. She declines ICD for primary prevention but also biventricular pacing which could improve her LV systolic function potentially. This was once again discussed with her today and she is very comfortable with her decision. 3. Mechanical aortic and mitral valves: History of endocarditis of prosthetic valve. Slightly elevated mitral transvalvular gradient. Can be followed over time if appropriate however she declines any further intervention. Continue anticoagulation therapy. Goal INR 2.5-3.5. 4. CAD s/p LAD PCI: She has been experiencing left-sided chest pressure over the past 3 weeks. Etiology uncertain but could be related to her difficulty in breathing and heart failure. She had no other severe CAD at the time of her cardiac catheterization in April of 2020. She declines any further intervention or procedure even if necessary. Continue medical therapy. If chest pain persists despite diuresis, perhaps she would reconsider and allow for further titration of her medications or initiation of isosorbide to see if it offers improved quality of life. 5. Paroxysmal atrial flutter: On anticoagulation therapy. In sinus rhythm. On beta-meet. 6. Chest pain: Plan as above. Hopefully she improved with diuresis and improved breathing. 7. Tobacco abuse: Stop smoking. 8. Disposition: Cardiology will continue to follow. She appears to be interested in palliative care. Consider palliative care consultation if there are available services for her as an outpatient. Patient care discussed with heart failure PA, Mayra Starr, who follows her as an outpatient. Thank you for allowing me to participate in the care of your patient. Please call for any other questions or concerns. Sincerely, Robert Man M.D. At home History of Present Illness Reason for Consultation: "Acute CHF" Requesting Physician: Dr. Mcarthur Attending Physician: Lyn Zuniga MD History of Present Illness Ms. Mendoza is a pleasant 69-year-old female with history significant for systolic CHF, CAD s/p LAD PCI (04/2020), rheumatic heart disease with mechanical aortic and mitral valve replacements in 2003, prosthetic valve endocarditis, chronic venous insufficiency s/p bilateral GSV RFA, cardiomyopathy, paroxysmal atrial flutter, hypertension, dyslipidemia, type 2 diabetes, COPD/asthma, and bipolar disorder. She was admitted on 10/16/2020 for acute hypoxic respiratory failure, felt to be due to CHF. Her primary repairer auto clocks is Dr. Stein. She follows in the Heart failure program with Mayra Starr. She has been followed for some time with reduced LV systolic function and systo lic CHF. She has made it clear that she does not wish to undergo ICD, even biventricular ICD which could offer benefit to her LV systolic function. She has refused changing medications as she is prepared to . She states that since her last hospitalization a few months ago, she has continued to feel short of breath chronically but over the past few days, her shortness of breath has significantly worsened. She short of breath both with exertion and at rest. She sleeps in a recliner, nearly upright due to orthopnea. This is a chronic issue however. She does not use supplemental oxygen at home. She is compliant with her Lasix, 120 mg twice daily at home. She does not add food but admits that she consumes mostly processed foods such as TV dinners. She weighs herself daily and states that her weight has been stable. She has not noted any significant swelling recently. While here, her breathing has improved somewhat and she believes it is due to diuretic therapy. She also experienced left-sided chest pressure approximately 3 weeks ago and since then at least once per day. Symptoms occur at rest and spontaneously resolve within 5-10 minutes. She did not have chest discomfort prior to her PCI and therefore has not been able to correlate it with prior ischemic heart disease. She has chronic, rare palpitations. She admits that she had a syncopal event only for a brief moment approximately 2 weeks ago while standing in her kitchen. She had no symptoms prior to that such as palpitations, chest pain, or lightheadedness but began to fall, and landed on her tailbone. She described the entire fall but does believe that she lost consciousness for only a brief moment. She has not had syncope prior to that. She denies melena, hematochezia, hematuria, or other bleeding. Review of systems: As above. Review of systems otherwise negative/unremarkable. Family history: Positive for CAD. Social history: Has smoked up to 1.5 packs per day in the past, but has mostly smoked less than 1 pack per day for many years. No significant alcohol or drug abuse. She lives with her daughter and son-in-law and their family. She is . A daughter at the age of 17. She is unaccompanied in her hospital room. Allergies Allergy/AdvReac Type Severity Reaction Status Date / Time adhesive Allergy Unknown Rash Verified 10/16/20 22:22 cinacalcet [From Sensipar] Allergy Unknown Swelling Verified 10/16/20 22:22 of the Eye erythromycin base Allergy Unknown VAGINAL Verified 10/16/20 22:22 [From Erythrocin] INFECTION levofloxacin [From Levaquin] Allergy Unknown Hives Verified 10/16/20 22:22 fluticasone AdvReac Intermediate NAUSEA Verified 10/16/20 22:22 [From Advair Diskus] VOMITING lactose AdvReac Unknown Diarrhea Verified 10/16/20 22:22 latex AdvReac Unknown Rash Verified 10/16/20 22:22 salmeterol AdvReac Unknown NAUSEA Verified 10/16/20 22:22 [From Advair Diskus] VOMITING Home Medications Medication Instructions Recorded Confirmed Type walker #1 ea 06/16/19 10/16/20 Rx albuterol sulfate [Ventolin HFA] 1 - 2 puff INH Q4 PRN 11/03/19 10/16/20 History calcitriol 0.5 mcg capsule 0.5 mcg PO BID cap 01/10/20 10/16/20 History tizanidine 4 mg tablet 4 mg PO TID PRN #90 tab 03/14/20 10/16/20 Rx insulin syr/ndl U100 half tanner 0.3 #600 ea 03/15/20 10/16/20 Rx mL 31 gauge x 04/14" diclofenac sodium 1 % topical gel 4 g TOP QID PRN #100 gm 06/07/20 10/16/20 Rx atorvastatin 40 mg tablet 40 mg PO QAM #90 tab 06/08/20 10/16/20 Rx blood sugar diagnostic #400 ea 07/03/20 10/16/20 Rx blood-glucose meter #1 ea 07/03/20 10/16/20 Rx lancets #400 ea 07/03/20 10/16/20 Rx lancing device with lancets kit #1 ea 07/03/20 10/16/20 Rx lisinopril 2.5 mg PO QAM 07/27/20 10/16/20 History omeprazole 40 mg capsule,delayed 40 mg PO BID #180 cap 07/27/20 10/16/20 Rx release clopidogrel 75 mg tablet 75 mg PO QAM #90 tab 07/30/20 10/16/20 Rx insulin aspart U-100 100 unit/mL 20 unit SUBCUT QID #70 ml 08/09/20 10/16/20 Rx subcutaneous solution oxycodone 10 mg tablet 10 mg PO TID PRN #60 tab 08/20/20 10/16/20 Rx venlafaxine 150 mg 150 mg PO QAM #90 cap 08/31/20 10/16/20 Rx capsule,extended release 24 hr lamotrigine 100 mg tablet 100 mg PO BID #90 tab 09/13/20 10/16/20 Rx metoprolol succinate 25 mg 25 mg PO QAM #90 tab 09/13/20 10/16/20 Rx tablet,extended release 24 hr furosemide 80 mg tablet 120 mg PO BID #180 tab 10/08/20 10/16/20 Rx acetaminophen 500 mg tablet 1,000 mg PO HS tab 10/11/20 10/16/20 History insulin detemir U-100 100 unit/mL 20 unit SUBCUT BID ml 10/11/20 10/16/20 History subcutaneous solution montelukast 10 mg tablet 10 mg PO HS tab 10/11/20 10/16/20 History salmeterol 50 mcg/dose blister 1 inh INH BID ea 10/11/20 10/16/20 History powder for inhalation warfarin 5 mg tablet See Rx Instructions PO UD tab 10/11/20 10/16/20 History gabapentin 600 mg tablet 600 mg PO BID 90 Days #180 tab 10/16/20 10/16/20 Rx Patient History Medical History Anemia HX OF Anxiety Arteriosclerosis of coronary artery Asthma RESCUE INHALER 1-2x per month Atrial fibrillation Dx "many years ago" - s/p cardioversion - follows w/ Dr. Stein - on warfarin Atrial flutter Balance problem Bipolar disorder Chronic anticoagulation Chronic back pain Chronic kidney disease Chronic kidney disease (CKD), stage III (moderate) F/U DR RUBY Chronic obstructive pulmonary disease Chronic pain Congestive heart failure "CHRONIC" - RECENT HOSPITALIZATION FOR APRIL 2020 Depression Diabetes mellitus, type 2 Diabetic peripheral neuropathy Encounter for pre-operative examination Fibromyalgia GERD (gastroesophageal reflux disease) History of meningitis Hx MRSA infection Per infection control 10/21/17: "Patient has a history of MRSA in 2007, but has since been cleared with multiple negative cultures and nasal screens. No contact precautions necessary." Hx of deep venous thrombosis 1968 - RLE Hypercalcemia Hyperlipidemia Hyperparathyroidism Major depression Meralgia paresthetica Microalbuminuria Mild neurocognitive disorder PT REPORTS SOME MEMORY PROBLEMS Obesity Obesity Osteoarthritis Osteopenia Peripheral neuropathy ALL OVER Rheumatic heart disease Sleep apnea CAN'T TOLERATE CPAP SOB (shortness of breath) on exertion Valvular disease Venous insufficiency (chronic) (peripheral) Vitamin D deficiency Surgical History Fusion of spine LUMBAR History of appendectomy History of arthroscopy RIGHT AND LEFT KNEE History of back surgery History of bladder surgery History of bowel resection partial colectomy History of cardiac cath multiple caths -[facility] - [facility] APRIL 2020 STENT X 1 FOR BLOCKAGE History of cardioversion History of carpal tunnel release LEFT/RIGHT History of colonoscopy History of esophagogastroduodenoscopy (EGD) History of heart artery stent APRIL 2020 - BLOCKAGE - STENT X1 History of heart valve replacement 2004 SERGO, MITRAL AND AORTIC VALVE, F/U WITH DR STEIN (NOT GOOD HISTORIAN) History of hysterectomy total abdominal hysterectomy with removal of both ovaries History of parathyroidectomy History of shoulder replacement Lt - 07/2018 [facility] S/P cardiac catheterization 05/14/20 Dr. Thierno Stein- 1 SENA to mid LAD S/P T&A (status post tonsillectomy and adenoidectomy) Family History Mother , in her 40s Cardiomyopathy Myocardial infarction Father , in his 50s Myocardial infarction Daughter , age 17 Heart disease Congenital heart disease Other Diabetes Hypertension Denies family history of Pancreatic cancer Ovarian cancer Prostate cancer Breast cancer Colorectal cancer Uterine cancer Social History Smoking Status: Never smoker Cigarettes Per Day: 3/4PPD-1 PPD/ADVISED NPO; Second Hand Exposure: No; Hx Alcohol Use: No Hx Substance Use: No Preferred Language: Chinese Communication Ability: Effective Visual Impairment: No Limitations Hearing Ability: Hard of Hearing Veterinary Laboratory Diagnostician Required: No Beliefs That Will Affect Care: None marital status: Single Current Living Situation: Family Current Living Situation Comment: [facility] current occupational status: retired Other Information That Helps Us Care for You: No Feels Safe at Home: Yes Safety Concerns: Feels Safe At This Time Childhood Exposure to Second-Hand Smoke: Yes Dental Care, Regularly: No Physical Activity Frequency: Does not Exercise Seatbelt Use: always Sunscreen Use: Yes Assistive Devices: Oxygen - Continuous and Walker Physical Exam Physical Exam: Gen.: No acute distress. Alert and oriented. HEENT: Anicteric sclera. Neck: JVD elevated, fdc to the mandible sitting upright. No bruits. Normal carotid upstrokes bilaterally. Cardiac: PMI was nonpalpable. No ventricular heave. Regular. Normal S1-S2. 1/6 systolic murmur. No rubs, or gallops. Pulmonary: Decreased breath sounds throughout with bibasilar rales. Abdomen: Soft, nontender, nondistended, with normoactive bowel sounds. No bruits noted. Extremities: 2+ radial pulses bilaterally. 1+ posterior tibialis pulses bilaterally. 1+ bilateral lower extremity edema nearly to the knees. No cyanosis. Psychiatric: Affect appears appropriate. Results & Data ([facility]) Vital Signs (Past 12 Hours) Vital Signs Temp Pulse Pulse Resp BP Pulse Ox 10/18/20 11:54 36.7 C 63 18 106/61 97 10/18/20 07:27 36.4 C L 79 20 111/45 L 96 10/18/20 07:13 66 10/18/20 03:00 36.7 C 61 18 104/68 98 Intake & Output 10/16/20 10/17/20 10/18/20 10/19/20 06:59 06:59 06:59 06:59 Intake Total 1495 / 1495 Balance 1495 / 1495 Weight 101.1 kg 102.1 kg Laboratory Results Laboratory Results - last 24 hr 10/17/20 10/17/20 10/18/20 16:23 21:00 06:46 WBC 7.17 RBC 4.20 Hgb 9.5 L Hct 33.6 L MCV 80.0 MCH 22.6 L MCHC 28.3 L RDW Std Deviation 50.0 H RDW Coeff of Bryon 17.1 H Plt Count 269 MPV 9.2 Immature Gran % (Auto) 0.3 Neut % (Auto) 73.3 Lymph % (Auto) 15.3 [place] % (Auto) 7.9 Eos % (Auto) 2.6 Baso % (Auto) 0.6 Neut # (Auto) 5.25 Lymph # (Auto) 1.10 L [place] # (Auto) 0.57 Eos # (Auto) 0.19 Baso # (Auto) 0.04 Immature Gran # (Auto) 0.02 PT INR Sodium Potassium Chloride Carbon Dioxide Anion Gap BUN Creatinine Est Cr Clr Drug Dosing Est GFR ( Amer) Est GFR (Non-Af Amer) BUN/Creatinine Ratio Glucose POC Glucose 125 H 109 H Calcium 10/18/20 10/18/20 10/18/20 06:46 06:46 07:37 WBC RBC Hgb Hct MCV MCH MCHC RDW Std Deviation RDW Coeff of Bryon Plt Count MPV Immature Gran % (Auto) Neut % (Auto) Lymph % (Auto) [place] % (Auto) Eos % (Auto) Baso % (Auto) Neut # (Auto) Lymph # (Auto) [place] # (Auto) Eos # (Auto) Baso # (Auto) Immature Gran # (Auto) PT 25.6 H INR 2.6 H Sodium 139 Potassium 4.5 Chloride 103 Carbon Dioxide 34 H Anion Gap 2.0 L BUN 38 H D Creatinine 1.49 H D Est Cr Clr Drug Dosing 40.7 Est GFR ( Amer) 41.1 Est GFR (Non-Af Amer) 35.5 BUN/Creatinine Ratio 25.6 H Glucose 103 H POC Glucose 120 H Calcium 9.3 10/18/20 11:40 WBC RBC Hgb Hct MCV MCH MCHC RDW Std Deviation RDW Coeff of Bryon Plt Count MPV Immature Gran % (Auto) Neut % (Auto) Lymph % (Auto) [place] % (Auto) Eos % (Auto) Baso % (Auto) Neut # (Auto) Lymph # (Auto) [place] # (Auto) Eos # (Auto) Baso # (Auto) Immature Gran # (Auto) PT INR Sodium Potassium Chloride Carbon Dioxide Anion Gap BUN Creatinine Est Cr Clr Drug Dosing Est GFR ( Amer) Est GFR (Non-Af Amer) BUN/Creatinine Ratio Glucose POC Glucose 136 H Calcium Diagnostic Findings Echo 10/17/2020: Severely reduced LV systolic function. EF 20-25%. Severe global hypokinesis. Bioprosthetic aortic valve with acceptable transvalvular velocity. Slightly elevated mitral transvalvular gradient. Telemetry personally reviewed: Sinus rhythm. ECG personally reviewed: ECG 10/16/2020 at 7:28 p.m.: Sinus rhythm 76 beats per minute. LBBB. ECG 10/17/2020 at 2:47 p.m.: Sinus rhythm first-degree AV block at 74 beats per minute. LBBB. Medications Administered Current Inpatient Medications Acetaminophen (Acetaminophen 325 Mg Tab) 650 mg PO Q4H PRN PRN Reason: Pain or Fever Stop: 11/16/20 10:36 Last Admin: 10/17/20 21:37 Dose: 650 mg Documented by: Albuterol (Albuterol Hfa 8 Gm Inhaler) 1 - 2 puffs INH Q4 PRN PRN Reason: shortness of breath or wheezing Stop: 11/15/20 23:53 Albuterol (Albut/Ipratrop 3mg/0.5mg Neb 3 Ml Vial) 3 ml NEB QIDR PRN PRN Reason: Shortness Of Breath Or Wheezing Stop: 11/16/20 06:59 Atorvastatin Calcium (Atorvastatin 40 Mg Tab) 40 mg PO QAM МАРИНА Stop: 11/16/20 08:59 Last Admin: 10/18/20 07:56 Dose: 40 mg Documented by: Calcitriol (Calcitriol 0.25 Mcg Capsule) 0.5 mcg PO BID МАРИНА Stop: 11/16/20 08:59 Last Admin: 10/18/20 07:58 Dose: 0.5 mcg Documented by: Clopidogrel Bisulfate (Clopidogrel Bisulfate 75 Mg Tab) 75 mg PO QAM [facility] Stop: 11/16/20 08:59 Last Admin: 10/18/20 07:58 Dose: 75 mg Documented by: Dextrose (Dextrose 50% 50 Ml Syringe) 25 - 50 ml IV UD PRN; Protocol PRN Reason: Hypoglycemia Protocol Stop: 11/15/20 23:53 Diclofenac Sodium (Diclofenac Sod 1% Gel 100 Gm Tube) 4 gm EXT QID PRN PRN Reason: Joint Pain Stop: 11/15/20 23:53 Gabapentin (Gabapentin 600 Mg Tab) 600 mg PO BID [facility] Stop: 11/16/20 08:59 Last Admin: 10/18/20 07:57 Dose: 600 mg Documented by: Glucagon (Glucagon For Inj 1 Mg Vial) 1 mg SQ UD PRN; Protocol PRN Reason: Hypoglycemia Protocol Stop: 11/15/20 23:53 Glucose (Glucose 10 Tabs/Tube) 4 - 8 tabs PO UD PRN; Protocol PRN Reason: Hypoglycemia Protocol Stop: 11/15/20 23:53 Glucose (Glucose 40% Gel 15 Gm Tube) 15 - 30 gm PO UD PRN; Protocol PRN Reason: Hypoglycemia Protocol Stop: 11/15/20 23:53 Bumetanide 2 mg/ Syringe 8 mls @ 4 mls/min IV BID@0900,1700 [facility] Stop: 11/17/20 16:59 Insulin Aspart (Insulin Aspart 100 Units/Ml 3 Ml Pen) 0 units SC ACHS [facility]; Protocol Stop: 11/16/20 00:29 Last Admin: 10/18/20 13:12 Dose: 7 units Documented by: Insulin Detemir (Insulin Detemir Flexpen/Flex Touch 100 Units/Ml 3ml) 0 units SC BID [facility]; Protocol Stop: 11/16/20 20:59 Last Admin: 10/18/20 08:57 Dose: 15 units Documented by: Lamotrigine (Lamotrigine 100 Mg Tab) 100 mg PO BID [facility] Stop: 11/16/20 08:59 Last Admin: 10/18/20 07:57 Dose: 100 mg Documented by: Metoprolol Succinate (Metoprolol Succ 25mg Ext Rel Tab) 25 mg [facility] [place] Stop: 11/16/20 08:59 Last Admin: 10/18/20 07:57 Dose: 25 mg Documented by: Miscellaneous (Carbohydrates For Hypoglycemia ) 15 - 30 gm PO UD PRN PRN Reason: Hypoglycemia Protocol Stop: 11/15/20 23:53 Miscellaneous Information (Pharmacy Glycemic Mgmt Consult) 1 ea N/A UD PRN; Protocol PRN Reason: Consult Stop: 11/16/20 00:17 Montelukast Sodium (Montelukast Sodium 10 Mg Tablet) 10 mg PO HS МАРИНА Stop: 11/16/20 20:59 Last Admin: 10/17/20 21:21 Dose: 10 mg Documented by: Ondansetron HCl (Ondansetron Inj 2 Mg/Ml 2 Ml Vial) 4 mg IV Q6H PRN PRN Reason: Nausea Stop: 11/16/20 15:22 Oxycodone HCl (Oxycodone Hcl Ir 5 Mg Tab (Immediate Release)) 10 mg PO Q6H PRN PRN Reason: Pain Stop: 10/30/20 23:53 Last Admin: 10/17/20 19:29 Dose: 10 mg Documented by: Pantoprazole Sodium (Pantoprazole 40 Mg Tab) 40 mg PO BID МАРИНА Stop: 11/16/20 08:59 Last Admin: 10/18/20 07:58 Dose: 40 mg Documented by: Tizanidine HCl (Tizanidine Hcl 4 Mg Tablet) 4 mg PO TID PRN PRN Reason: muscle spasticity Stop: 11/15/20 23:53 Last Admin: 10/18/20 07:56 Dose: 4 mg Documented by: Venlafaxine HCl (Venlafaxine Hcl Xr 150 Mg Capxr) 150 mg PO QAM МАРИНА Stop: 11/16/20 08:59 Last Admin: 10/18/20 07:57 Dose: 150 mg Documented by: Warfarin Sodium (Warfarin Sod 7.5 Mg Tab) 7.5 mg PO DAILY@1600 [facility] Stop: 11/16/20 15:59 Last Admin: 10/17/20 16:08 Dose: 7.5 mg Documented by: PG Care Time/CCT Total # of Minutes Spent Total Time Spent with Patient: Total time spent is greater than 50% in coordination of care (as documented) at patient's floor/unit and/or counseling patient: Coding Level of Care Code 07709 Initial Inpt Care Lvl 3 Diagnoses Acute on chronic systolic (congestive) heart failure I50.23 Cardiomyopathy I25.5 Cardiomyopathy type: ischemic Mechanical heart valve present Z95.2 CAD (coronary artery disease) I25.10 Chest pain R07.9 Paroxysmal atrial flutter I48.92 (1) Cardiomyopathy Cardiomyopathy type: ischemic Qualified Code(s): I25.5 - Ischemic cardiomyopathy
[2020-10-18 15:07] LABS: Appearance Urine Clear (Clear); Bacteria Urine Automated 2+ (Negative); Bilirubin Urine Negative (Negative); Blood Urine Negative (Negative); Color Urine Yellow; Epithelial Cell Urine Auto 0-5 /lpf (0-5); Glucose Urine UA Negative (Negative); Ketones Urine Negative (Negative); Leukocyte Esterase Urine Negative (Negative); Nitrite Urine Positive (Negative); Protein Urine Negative (Negative); RBC Urine Automated 0-4 /hpf (0-4); Specific Gravity Urine 1.014 (1.000-1.030); Urobilinogen Urine Negative (Negative)
[2020-10-18] MEDS ORDERED: BUMETANIDE 2 MG in SYRINGE 0 ML IV SCH (17:00)
[2020-10-18] MEDS ORDERED: BUMETANIDE 4 MG in SYRINGE 0 ML IV SCH (17:00)
[2020-10-18] MEDS: WARFARIN SOD 7.5 MG TAB PO SCH (17:14)
[2020-10-18] MEDS: BUMETANIDE 2 MG in SYRINGE 0 ML IV SCH (17:18)
[2020-10-18] MEDS: MONTELUKAST SODIUM 10 MG TABLET PO SCH (20:37)
[2020-10-18] MEDS: ACETAMINOPHEN 325 MG TAB PO PRN (20:42)
[2020-10-18] MEDS: oxyCODONE HCL IR 5 MG TAB (IMMEDIATE RELEASE) PO PRN (20:43)
[2020-10-19 07:00] LABS: Basophils # (auto) 0.02 K/uL (0-0.2); Basophils % (auto) 0.2 %; Eosinophils # (auto) 0.23 K/uL (0-0.5); Eosinophils % (auto) 2.8 %; Hematocrit (blood only) 31.2 % (37-47); Hemoglobin 8.8 g/dL (12.0-16.0); Immature Granulocytes # (auto) 0.02 K/uL (0.00-0.02); Immature Granulocytes % (auto) 0.2 %; Lymphocytes # (auto) 1.02 K/uL (1.2-3.4); Lymphocytes % (auto) 12.4 %; Mean Corpuscular Hemoglobin 22.4 pg (25-34); Mean Corpuscular Hgb Conc 28.2 g/dL (32-36); Mean Corpuscular Volume 79.4 fL (80-100); Mean Platelet Volume 9.4 fL (7.4-10.4); Monocytes # (auto) 0.57 K/uL (0.11-0.59); Monocytes % (auto) 6.9 %; Neutrophils # (auto) 6.37 K/uL (1.4-6.5); Neutrophils % (auto) 77.5 %; Platelet Count 244 K/uL (130-400); RDW Coefficient of Variation 16.9 % (11.5-14.5); RDW Standard Deviation 48.7 fL (36.4-46.3); Red Blood Count 3.93 M/uL (4.2-5.4); White Blood Count 8.23 K/uL (4.8-10.8)
[2020-10-19 07:10] LABS: INR 3.5 (0.9-1.1); Prothrombin Time 34.8 Seconds (9.0-12.0)
[2020-10-19 07:22] LABS: BUN Creatinine Ratio 29.8 (10-20); Calcium 9.2 mg/dl (8.5-10.1); Creatinine Clr Calc Pharmacy 45.4 ml/min; Est GFR (African American) 47.2; Est GFR (Non-African American) 40.7; Potassium 4.2 mmol/L (3.5-5.1)
[2020-10-19] MEDS: INSULIN ASPART 100 UNITS/ML 3 ML PEN SC SCH ×4 (07:31→20:24)
[2020-10-19] MEDS: BUMETANIDE 2 MG in SYRINGE 0 ML IV SCH ×2 (09:58→17:40)
[2020-10-19] MEDS: INSULIN DETEMIR FLEXPEN/FLEX TOUCH 100 UNITS/ML 3ML SC SCH ×2 (09:59→20:25)
[2020-10-19] MEDS: ATORVASTATIN 40 MG TAB PO SCH (09:59)
[2020-10-19] MEDS: PANTOprazole 40 MG TAB PO SCH ×2 (09:59→20:26)
[2020-10-19] MEDS: lamoTRIgine 100 MG TAB PO SCH ×2 (09:59→20:23)
[2020-10-19] MEDS: CLOPIDOGREL BISULFATE 75 MG TAB PO SCH (09:59)
[2020-10-19] MEDS: GABAPENTIN 600 MG TAB PO SCH ×2 (09:59→20:25)
[2020-10-19] MEDS: METOPROLOL SUCC 25MG EXT REL TAB PO SCH (10:00)
[2020-10-19] MEDS: CALCITRIOL 0.25 MCG CAPSULE PO SCH ×2 (10:00→20:26)
[2020-10-19] MEDS: VENLAFAXINE HCL XR 150 MG CAPXR PO SCH (10:49)
--- NOTE | 2020-10-19 11:04 | Pharmacy Report ---
Pharmacy Glycemic Short Note 2 - Date of Service October 19, 2020 - Glycemic Short BSG Results (Last 24 hours): 10/18/20 10/18/20 10/18/20 11:40 16:33 20:06 Glucose POC Glucose 136 H 135 H 155 H 10/19/20 10/19/20 06:24 07:53 Glucose 97 POC Glucose 100 H ASSESSMENT: 10/19: * Patient received total of 42 units of insulin yesterday, of which 30 were basal insulin * Fasting BSG 100 mg/dL - will continue with Levemir scale / will get lower dose this AM * No change in CF/CR / BSGs well controlled over last 24 hrs PLAN FOR INPATIENT GLYCEMIC CONTROL: * Basal insulin * Levemir 10-20 units BID based upon BSG value * Bolus insulin * NovoLog per scale ACHS or Q6hrs while NPO * Goal Range: Low 110 mg/dL - High 140 mg/dL * Correction Factor: 20 mg/dL/unit * Nutritional / Prandial insulin per carb ratio of 1 unit per 7 grams CHO consumed DISCHARGE RECOMMENDATIONS: * HbA1c on 10/11/2020 was 6.3% which demonstrates excellent outpatient control of T2DM. Goal HbA1c for this patient would be in the 7% - 8% range given patients age and comorbidities. Patient may resume outpatient antidiabetic regimen upon discharge as long as she is not reporting any signs/symptoms of hypoglycemia.
[2020-10-19] MEDS: oxyCODONE HCL IR 5 MG TAB (IMMEDIATE RELEASE) PO PRN (12:58)
--- NOTE | 2020-10-19 13:58 | Medical Student Progress Note ---
Date of Service October 19, 2020 Assessment & Plan (1) Acute exacerbation of CHF (congestive heart failure): Pt admitted to eating [place] food the day prior to arrive to hospital. Pt also states most of the food she eats is frozen "TV dinners". Most recent echocardiogram showed an EF of 20-25% which is consistent from prior echo. 2+ Pedal edema has returned but chest congestion is no longer present. Pt received increased dose of Bumex today. Pt urine output has not been measured but pt states that urine output has increased today. Pt is on increasing dose of Bumex and pt will be monitored for urine output as well as worsening or improving peripheral edema and changes in pulmonary fluid. Pt needs to be counseled on how to decrease her sodium intake and which foods to avoid. Continue metoprolol, lisinopril. Heart failure type: diastolic Qualified Code(s): I50.33 - Acute on chronic diastolic (congestive) heart failure Present on Admission?: Yes (2) Acute respiratory failure with hypoxia: Pt presented with shortness of breath and congestion secondary to CHF exacerbation. Pt denies any congestion and no shortness of breath at rest with oxygen via nasal canula. However, pt has shortness of breath today with activity. Pt's shortness of breath on exertion is likely secondary to CHF with rEF. Pt is not on oxygen at home. Pt will continue on increased dose of Bumex and will begin to transition off of oxygen via nasal canula while O2 sat and symptoms of hypoxia will be monitored. Present on Admission?: Yes (3) Hallucination, visual: Pt admits to having new hallucinations since her cataract surgery roughly four weeks ago. Hallucinations are visual and non-threatening and occur in the periphery bilaterally. Pt admits that she needs new glasses but states she cannot afford them. Today the pt states that she has a follow up visit with ophthalmology in the next couple of months. Due to visual hallucinations being described as shadows or black spots that have started since her cataract surgery, visual disturbances are likely ophthalmological in origin. Monitor pt for worsening hallucinations and rediscuss options for obtaining new glasses. Present on Admission?: Yes (4) Mechanical heart valve present: Pt arrived with an INR below the 2.5-3.5 target therapeutic range. Today pt has an INR of 3.5. Keep pt on same Warfarin level and monitor for changes prior to discharge. Present on Admission?: Yes (5) Laceration of toe: Laceration on toe was treated with Betadine. No sign of discharge, pus, erythema. Monitor for changes in appearance or discharge. Damage to nail status: without damage Encounter type: initial encounter Foreign body presence: without foreign body Laterality: left Toe: lesser toe Qualified Code(s): S91.115A - Laceration without foreign body of left lesser toe(s) without damage to nail, initial encounter Present on Admission?: Yes Admission and Anticipated Discharge Date Admission Date: October 16, 2020 DVT Prophylaxis: Pt on Coumadin Code status: DNR/DNI FEN: No fluids, no electrolyte abnormality, heart healthy carb consistent diet Supervising Attestation Medical Student Supervision Note: I was personally present during medical student patient encounter and independently interviewed and examined the patient and verified the daley history and physical, reviewed labs and image studies, discussed the case with Ron Vang and agree with the findings and care plan. Alert today. Breathing somewhat better. no chest pain. O/E - JVD + Heart - RRR, edema + Lung - clear -Acute respiratory failure sec to acute on chronic systolic chf NC O2 Diuresing with bumex. Hasn't had urine output measured. continue lisinopril and metoprolol -Severe CAD - home meds. CMP disproportionately worse. -Mechanical Aortic/Mitral valve - INR therapeutic -PAF - on AC. -?visual hallucination after having nights with minimal sleep- better. Patient expressed to cardiology about goals of care. will consult palliative care Subjective Pt is a 69 y/o female that with a past medical history of smoking, chronic diastolic congestive heart failure with and EF of 23-25%, atrial fibrillation, HTN, CAD, aortic mechanical valve, DVT, COPD, GERD, obstructive sleep apnea, and DMII that presents with worsening shortness of breath and leg swelling with chest discomfort and nausea. Upon arrival, pt was placed on oxygen with room air, Zofran for nausea, and aspirin for chest discomfort. Pt had chest x-ray ordered which showed mild pulmonary edema with no evidence of pneumothorax or pneumonia. Labs showed an INR of 2.0, mild stable anemia, BNP 3862, and troponin of 0.049 which is improved in comparison to previous measurement. Pt at 83% O2 sat with room air. Pt was given Bumex and lasix 80 mg. 10/17/20 pt states that she is compliant with medications. She came in to the ER for a toe laceration on 10/13/20 which resulted in her missing two doses of Coumadin before restarting her dose. She took her Coumadin the last two nights and denies any recent changes in diet. Pt gets her INR checked regularly. Rhina cerda pt states that she is sensitive to missed doses and thinks her drop in INR from her goal range of 2.5-3.5 for her mechanical aortic valve. Pt denies shortness of breath but pt is on oxygen. 10/18/20 pt states that there is not much change in her symptoms from 10/17/20. Pt states that lasix is not doing much. Pt states that she only urinated twice 10/17/20 with a moderate amount of urine. Pt feels like her lungs have congestion but they arent really coming out. Pt has a little bit of shortness of breath still. Walking to the bathroom makes her feel short of breath more than normal. Feels like the swelling in her legs has gone down some. Pt has a headache 10/18/20 and says that tylenol helped. Pt states she feels very tired all the time despite sleeping well. Pt states that she finds herself sitting down and falling asleep but hears voices before jolting back awake. Pt finds herself talking to people to people when she asleep and wakes up to herself talking. Pt sometimes falls asleep for hours on the toilet. Pt feels that she is hallucinating after cataract surgery (4 weeks ago-bilateral) where she sees things moving by the window at her house. Pt still needs to get glasses now but cant afford new glasses. Pt states that foods taste salty but doesnt add salt to anything. Pt states that she is very sensitive to the taste of salt. Prior to coming into the hospital the pt admits to eating TV dinners and processed food: eats [place] food. Eats frozen food. Pt denies missing any doses of her medication. Today (10/19/20) pt feels less shortness of breath. Pt doesn't feel like she has mucous she needs to cough up. Overall, pt states that she is feeling good but not great. Pt feels her pitting edema is a little worse today. Pt's headaches went away during the night. Pt states she still feels like she is seeing things and describes it like a shadow walking by in the periphery. Pt is still on oxygen and was a little short of breath while walking from the bathroom. Pt received Bumex in the late morning. Review of Systems Constitutional: no fever and no chills Respiratory: + dyspnea on exertion; no cough and no chest congestion Cardiovascular: no chest pain and no palpitations Gastrointestinal: no abdominal pain Physical Exam Eyes: normal visual monroy by confrontation, PERRL and + EOM movement deficit Respiratory: normal respiratory effort, lungs clear to auscultation Cardiovascular: Rate/Rhythm: regular rate and regular rhythm Vessels: + JVD; no carotid bruit 2+ pedal edema Gastrointestinal (Abdomen): Normal bowel sounds. Mild pain on palpation of upper left and right quadrant. Neurologic: deep tendon reflexes 2+ bilaterally Results & Data ([facility]) Vital Signs (Past 12 Hours) Vital Signs Temp Pulse Pulse Resp BP Pulse Ox 10/19/20 12:01 36.6 C 84 20 118/63 90 10/19/20 08:11 36.4 C L 62 18 106/61 100 10/19/20 08:00 59 L 10/19/20 04:00 36.6 C 66 20 111/62 100
--- NOTE | 2020-10-19 14:16 | Cardiology Progress Note ---
Date of Service October 19, 2020 Assessment & Plan (1) Acute on chronic systolic (congestive) heart failure: (2) Cardiomyopathy: (3) Mechanical heart valve present: (4) CAD (coronary artery disease): (5) Chest pain: (6) Paroxysmal atrial flutter: 1. Acute on chronic systolic CHF: She remains hypervolemic. Currently ordered Bumex 2 mg IV twice daily. Patient reports good output but difficult to tell without accurate I&Os. Patient educated on importance of measuring urine output. Consider increasing to 3 or 4 mg twice daily if no significant output soon. Would try to achieve 1-2 L negative fluid balance per day. Her creatinine is improving today. Monitor renal function and electrolytes carefully. Low-sodium diet. Strict I&Os. Monitor daily standing weights. 2. Cardiomyopathy: Her cardiomyopathy is out of proportion to the degree of CAD that has been described in the past, including severe LAD CAD that underwent PCI in April of 2020. She is tolerating metoprolol succinate and lisinopril. Titrate doses as tolerated if she is agreeable. She has declined Entresto. She declines ICD for primary prevention but also biventricular pacing which could improve her LV systolic function potentially. This was once again discussed with her today and she is very comfortable with her decision. 3. Mechanical aortic and mitral valves: History of endocarditis of prosthetic valve. Slightly elevated mitral transvalvular gradient. Can be followed over time if appropriate however she declines any further intervention. Continue anticoagulation therapy. Goal INR 2.5-3.5. 4. CAD s/p LAD PCI: She has been experiencing left-sided chest pressure over the past 3 weeks. Etiology uncertain but could be related to her difficulty in breathing and heart failure. She had no other severe CAD at the time of her cardiac catheterization in April of 2020. She declines any further intervention or procedure even if necessary. Continue medical therapy. If chest pain persists despite diuresis, perhaps she would reconsider and allow for further titration of her medications or initiation of isosorbide to see if it offers improved quality of life. 5. Paroxysmal atrial flutter: On anticoagulation therapy. In sinus rhythm. On beta-meet. 6. Chest pain: Plan as above. Hopefully she improved with diuresis and improved breathing. 7. Tobacco abuse: Stop smoking. 8. Goals of care: She is DNR. Patient prefers a conservative approach to her healthcare and has for some time. She does not feel she has a great quality of life and "is ready to " when it's her time. Patient denies being suicidal. She has a history of anxiety/depression/bipolar disorder and is being treated medically. Recommend further discussion with her PCP. She prefers non-aggressive cardiac management at this time. She would be a good candidate for outpatient palliative referral. Disposition: Cardiology will continue to follow. She appears to be interested in palliative care. Consider palliative care consultation if there are available services for her as an outpatient. Thank you for allowing me to participate in the care of your patient. Please call for any other questions or concerns. Admission and Anticipated Discharge Date Admission Date: October 16, 2020 Supervising Physician Co-Signing Physician Notes Patient seen and examined. Agree with assessment and plan as outlined by KEI Starr. Ms. Mendoza is well known to me from the outpatient setting and prior hospitalizations/procedures. Today breathing improved from admission but not at baseline. She appears depressed, tired but adequately perfused. Pulmonary/systemic venous congestion persists. Renal function improving. Agree with continued IV diuretics. Patient has made her wishes about goals of care repeatedly clear and agree with palliative care consult. Subjective Patient reports she's feeling slightly improved today. She continues to have fatigue, edema, and shortness of breath. She gets very dyspneic just walking to the bathroom. She reports good urine output but it is not being measured accur ately. Her weight is trending down. She denies chest pain, cough, palpitations. Review of Systems Review of Systems: As noted in HPI. All other ROS are reviewed and otherwise negative at this time. Physical Exam Physical Exam: Gen.: No acute distress. Alert and oriented. HEENT: Anicteric sclera. Neck: JVD elevated, fpc to the mandible sitting upright. No bruits. Normal carotid upstrokes bilaterally. Cardiac: PMI was nonpalpable. No ventricular heave. Regular. Normal S1-S2. 1/6 systolic murmur. No rubs, or gallops. Pulmonary: Decreased breath sounds throughout with bibasilar rales. Abdomen: Soft, nontender, nondistended, with normoactive bowel sounds. No bruits noted. Extremities: 2+ radial pulses bilaterally. 1+ posterior tibialis pulses bilaterally. 1+ bilateral lower extremity edema to the knees. No cyanosis. Psychiatric: Affect appears appropriate. Results & Data ([facility]) Vital Signs (Past 12 Hours) Vital Signs Temp Pulse Pulse Resp BP Pulse Ox 10/19/20 12:01 97.9 F 84 20 118/63 90 10/19/20 08:11 97.5 F L 62 18 106/61 100 10/19/20 08:00 59 L 10/19/20 04:00 97.9 F 66 20 111/62 100 PG Care Time/CCT Total # of Minutes Spent Total Time Spent with Patient: Total time spent is greater than 50% in coordination of care (as documented) at patient's floor/unit and/or counseling patient: Coding Level of Care Code 75612 Subseq Hosp Care Lvl 3 Diagnoses Acute on chronic systolic (congestive) heart failure I50.23 Cardiomyopathy I25.5 Cardiomyopathy type: ischemic Mechanical heart valve present Z95.2 CAD (coronary artery disease) I25.10 Chest pain R07.9 Paroxysmal atrial flutter I48.92 (1) Cardiomyopathy Cardiomyopathy type: ischemic Qualified Code(s): I25.5 - Ischemic cardiomyopathy
[2020-10-19] MEDS: ACETAMINOPHEN 325 MG TAB PO PRN (15:40)
[2020-10-19] MEDS: WARFARIN SOD 7.5 MG TAB PO SCH (15:41)
[2020-10-19] MEDS: MONTELUKAST SODIUM 10 MG TABLET PO SCH (20:26)
--- NOTE | 2020-10-20 06:44 | Hospitalist Progress Note ---
Date of Service October 20, 2020 Assessment & Plan (1) Acute exacerbation of CHF (congestive heart failure): 69 y/o F w/ hx of tobacco use, CHF (EF of 20-25%), atrial fibrillation, HTN, CAD, aortic mechanical valve, DVT, COPD, GERD, JOMAR, and DMII who presented with worsening shortness of breath and leg swelling. acute on systolic chronic CHF - EF 20-25% - currently on bumex 2mg BID. toprol xl 25 mg PO qam - Cr 1.33->1.10. kidney function good in context of ongoing diuresis - 1.1 L in 1.3 L out. 24 hours. cumulative 4.3 in. 2.4L out. Initial recordings may have been incomplete - cardiology following. previous note stated depending on UOP may titrate up bumex - palliative care consulted as per discussion with patient. Cardiomyopathy, CAD s/p LAD PCI - 04/2020 cath w/ PCI and stent 1. Severe single vessel coronary artery disease -70% mid LAD (FFR 0.79) 2. Successful PCI of mid LAD with single drug-eluting stent (2.5 x 15 mm [place]; postdilated with 2.75 NC). - on statin and plavix acute resp failure w/ hypoxia, likely 2/2 CHF - some sob at rest. rales on phys exam - satting 91 on 1.5L NC. intermittently on room air due to discomfort - continue supp O2 via NC mechanical mitral and aortic heart valve - coumadin. goal INR 2.5-3.5 parox a fib - on Coumadin, currently held for supratherapeutic INR 4.4. mild epigastric TTP - likely secondary to bloating/constipation - will monitor for worsening during daily physical exam DM2 - pharmacy following visual hallucination, resolved R ear pain, dizziness - notified about dizziness at 1100 10/20/20 - will check w/ otoscope. suggestive of R otitis externa - otitis media vs labyrinthitis vs acute URI given the nasal congestion and cough symptoms - deferred medications for dizziness at this time plan: Volsol (acetic acid 2%) 3 drops TID. did not use otic cipro because of patient's levofloxacin allergy FENGI: No maintenance fluids. heart healthy carb consistent diet DVT Prophylaxis: warfarin (held today because of INR 4.4) Code status: DNR/DNI Dispo: discussed dispo plan. patient lives w/ family at home. counseled on tobacco. (2) Acute respiratory failure with hypoxia: (3) Hallucination, visual: (4) Mechanical heart valve present: (5) Epigastric abdominal tenderness: Admission and Anticipated Discharge Date Admission Date: October 16, 2020 Supervising Physician Co-Signing Physician Notes Resident Physician Supervision Note: I independently interviewed and examined the patient and verified the daley history and physical, reviewed labs and image studies, discussed the case with the resident Dr. Le and agree with the findings and care plan. Subjective Breathing feels a little worse than yesterday. Worse when lying down flat. Some discomfort w/ deep breaths. No BM since prior to admission. Minimal flatus but did have flatus x1 this AM. No urinary complaints. Urinates 2-3x/day, amount unchanged per patient. Does not feel ready to go home yet because of breathing. + nasal congestion and R ear ache since last night. Has had hx ear infections in past. No tinnitus. States has had nonproductive cough since prior to admission. 1100 AM update: complaining of dizziness. Not near syncopal and not room spinning. Described as loss of balance when walking to restroom. Review of Systems Review of Systems: Constitutional: Denies fever, chills ENT: Denies sore throat Cardiovascular: Denies Chest pain, chest pressure Respiratory: + nonproductive cough and shortness of breath Gastrointestinal: Denies abdominal pain, diarrhea. + constipation Genitourinary: Denies urinary symptoms including dysuria Musculoskeletal: Denies weakness, muscle aches/pain Psych: No visual hallucinations Physical Exam Physical Exam: General: Grossly A&O. Mild resp distress. Cooperative. HEENT: Atraumatic, normocephalic. Unable to visualize L TM d/t f Pulm: Mild inspiratory rales. Breathing is mildly labored. Symmetrical chest rise. Cardiac: RRR, -mrg. +JVD 9cm. 2+ bilat LE edema. Abdominal: Soft, nondistended. Mild epigastric TTP. Results & Data Results & Data ([facility]) Vital Signs (Past 12 Hours) Vital Signs Temp Pulse Pulse Resp BP Pulse Ox 10/20/20 02:43 36.6 C 76 18 106/56 L 90 10/19/20 23:00 36.9 C 72 20 108/67 95 10/19/20 22:20 71 10/19/20 20:07 36.7 C 66 18 118/74 94 Resident Activity Tracking Resident Involvement: Resident Care Provided Care Provided: Adult Hospital Medicine (1) Acute exacerbation of CHF (congestive heart failure) Heart failure type: diastolic Qualified Code(s): I50.33 - Acute on chronic diastolic (congestive) heart failure
[2020-10-20] MEDS: BUMETANIDE 2 MG in SYRINGE 0 ML IV SCH ×2 (08:50→16:40)
[2020-10-20] MEDS: GABAPENTIN 600 MG TAB PO SCH ×2 (08:51→20:29)
[2020-10-20] MEDS: lamoTRIgine 100 MG TAB PO SCH ×2 (08:51→20:29)
[2020-10-20] MEDS: ATORVASTATIN 40 MG TAB PO SCH (08:51)
[2020-10-20] MEDS: CLOPIDOGREL BISULFATE 75 MG TAB PO SCH (08:51)
[2020-10-20] MEDS: CALCITRIOL 0.25 MCG CAPSULE PO SCH ×2 (08:51→20:29)
[2020-10-20] MEDS: METOPROLOL SUCC 25MG EXT REL TAB PO SCH (08:51)
[2020-10-20] MEDS: VENLAFAXINE HCL XR 150 MG CAPXR PO SCH (08:51)
[2020-10-20] MEDS: PANTOprazole 40 MG TAB PO SCH ×2 (08:51→20:29)
[2020-10-20] MEDS: INSULIN ASPART 100 UNITS/ML 3 ML PEN SC SCH ×4 (08:55→20:28)
[2020-10-20] MEDS: INSULIN DETEMIR FLEXPEN/FLEX TOUCH 100 UNITS/ML 3ML SC SCH (08:56)
--- NOTE | 2020-10-20 10:25 | Pharmacy Report ---
Glycemic Control Progress Note - Date of Service October 20, 2020 - Scope Glycemic Pharmacist consulted for glycemic control to write orders per [facility] inpatient glycemic control protocol. - Objective Accuchecks BSG(last 24 hours):: 10/19/20 10/19/20 10/19/20 11:47 16:58 20:14 POC Glucose 135 H 89 147 H 10/20/20 07:43 POC Glucose 95 - Recent Pertinent Medications The patient is currently receiving: * Basal insulin: Lantus 10-15 units every 12 hours * Correctional Insulin: Novolog Correction per scale ACHS Goal Range: Low 110 mg/dL - High 140 mg/dL Correction Factor: 20 mg/dL/unit * Prandial insulin: Per carb ratio of 1 unit per 7 grams CHO consumed * Oral Agents: - Outpatient Anti-Diabetic Meds Levemir 20 units BID Novolog 20 units AC - Assessment & Plan ASSESSMENT: * See progress note from 10/17/20 for more background info, in short: * Pt receiving SQ basal bolus insulin regimen for hyperglycemia secondary to baseline DM (outpatient regimen on hold). * Patient is currently receiving an average of 35 units of insulin per day * 25 units of basal insulin * 10 units of prandial/correctional insulin * BSGs ranging 89 - 147 mg/dl over the past 24hrs * Changes needed to insulin regimen: * AM Fasting BSG = 95 mg/dl. This is in goal range for patient based on inpatient targets and co-morbidities. BSGs trending down and regimen basal heavy so decrease basal to 20 units/day. * Post-prandial BSGs were excellently controlled. Appears that CR may be too tight so will loosen. * Total daily dose = ~30 units. Reduced doses appropriately. PLAN FOR INPATIENT GLYCEMIC CONTROL: * DECREASING Levemir 10 units SQ BID * Continuing correction factor of 20 mg/dl/unit * LOOSENING carb ratio to 1 unit per 8 grams CHO consumed * Continuing goal range of Low 110 mg/dL - High 140 mg/dL RECOMMENDATIONS FOR DISCHARGE: * see note from 10/17/20 Thank you.
[2020-10-20] MEDS: ACETAMINOPHEN 325 MG TAB PO PRN ×2 (10:42→20:36)
[2020-10-20 13:11] LABS: Basophils # (auto) 0.02 K/uL (0-0.2); Basophils % (auto) 0.2 %; Eosinophils % (auto) 2.4 %; Hematocrit (blood only) 29.8 % (37-47); Hemoglobin 8.9 g/dL (12.0-16.0); Immature Granulocytes # (auto) 0.02 K/uL (0.00-0.02); Immature Granulocytes % (auto) 0.2 %; Lymphocytes # (auto) 0.71 K/uL (1.2-3.4); Lymphocytes % (auto) 8.4 %; Mean Corpuscular Hemoglobin 23.2 pg (25-34); Mean Corpuscular Hgb Conc 29.9 g/dL (32-36); Mean Corpuscular Volume 77.8 fL (80-100); Mean Platelet Volume 8.7 fL (7.4-10.4); Monocytes % (auto) 8.3 %; Neutrophils # (auto) 6.81 K/uL (1.4-6.5); Neutrophils % (auto) 80.5 %; Nucleated RBC # (auto) 0.03 K/uL (0-0); Nucleated RBC % (auto) 0.3 %; Platelet Count 219 K/uL (130-400); RDW Coefficient of Variation 16.7 % (11.5-14.5); RDW Standard Deviation 47.4 fL (36.4-46.3); Red Blood Count 3.83 M/uL (4.2-5.4); White Blood Count 8.46 K/uL (4.8-10.8)
[2020-10-20 13:29] LABS: BUN Creatinine Ratio 30.5 (10-20); Calcium 9.7 mg/dl (8.5-10.1); Creatinine Clr Calc Pharmacy 54.7 ml/min; Est GFR (African American) 59.3; Est GFR (Non-African American) 51.2; INR 4.4 (0.9-1.1); Potassium 3.9 mmol/L (3.5-5.1); Prothrombin Time 43.3 Seconds (9.0-12.0)
[2020-10-20] MEDS: WARFARIN SOD 7.5 MG TAB PO SCH (13:56)
[2020-10-20] MEDS: ACETIC ACID 2% OTIC SOLN 15 ML BTL OT SCH ×2 (16:39→20:29)
[2020-10-20] MEDS ORDERED: POLYETHYLENE (MIRALAX) 17 GM PACK PO PRN (19:45)
[2020-10-20] MEDS: MONTELUKAST SODIUM 10 MG TABLET PO SCH (20:29)
[2020-10-20] MEDS: oxyCODONE HCL IR 5 MG TAB (IMMEDIATE RELEASE) PO PRN (20:34)
[2020-10-20] MEDS ORDERED: INSULIN DETEMIR FLEXPEN/FLEX TOUCH 100 UNITS/ML 3ML SC SCH (21:00)
[2020-10-20] MEDS: tiZANidine HCL 4 MG TABLET PO PRN (23:15)
[2020-10-21 06:15] LABS: INR 2.6 (0.9-1.1); Prothrombin Time 25.6 Seconds (9.0-12.0)
[2020-10-21 06:21] LABS: Basophils # (auto) 0.02 K/uL (0-0.2); Basophils % (auto) 0.3 %; Eosinophils # (auto) 0.15 K/uL (0-0.5); Eosinophils % (auto) 2.6 %; Hematocrit (blood only) 29.4 % (37-47); Hemoglobin 8.5 g/dL (12.0-16.0); Immature Granulocytes # (auto) 0.01 K/uL (0.00-0.02); Immature Granulocytes % (auto) 0.2 %; Lymphocytes # (auto) 0.75 K/uL (1.2-3.4); Lymphocytes % (auto) 12.9 %; Mean Corpuscular Hemoglobin 22.8 pg (25-34); Mean Corpuscular Hgb Conc 28.9 g/dL (32-36); Mean Corpuscular Volume 78.8 fL (80-100); Mean Platelet Volume 9.3 fL (7.4-10.4); Monocytes # (auto) 0.48 K/uL (0.11-0.59); Monocytes % (auto) 8.2 %; Neutrophils # (auto) 4.41 K/uL (1.4-6.5); Neutrophils % (auto) 75.8 %; Platelet Count 228 K/uL (130-400); RDW Standard Deviation 48.6 fL (36.4-46.3); Red Blood Count 3.73 M/uL (4.2-5.4); White Blood Count 5.82 K/uL (4.8-10.8)
[2020-10-21 06:27] LABS: BUN Creatinine Ratio 26.8 (10-20); Calcium 9.5 mg/dl (8.5-10.1); Creatinine Clr Calc Pharmacy 52.8 ml/min; Est GFR (African American) 56.8; Potassium 3.8 mmol/L (3.5-5.1)
--- NOTE | 2020-10-21 07:04 | Hospitalist Progress Note ---
Date of Service October 21, 2020 Assessment & Plan (1) Acute exacerbation of CHF (congestive heart failure): Jennifer Mendoza is a 69 y/o female with complex PMHx that includes chronic systolic CHF (EF of 20-25%), atrial fibrillation, tobacco abuse, CAD, aortic and mitral mechanical valves, COPD and T2DM who was admitted on 10/16/2020 for systolic CHF exacerbation. Acute on Chronic Systolic CHF - TTE 10/17/2020: EF 20-25% - SOB improved but still on 1-2L NC and crackles/LE edema on exam - I/O: 1.5L UOP in last 24 hours, +1.5L cumulative balance - Cr stable with current diuresis - Currently on Bumex 2mg BID and Toprol XL 25 mg PO QAM, continue - Cardiology following - Palliative care consulted as per discussion with patient. Mechanical Mitral and Aortic Heart Valve - On Warfarin 7.5mg PO daily at home - INR intermittently supratherapeutic, 4.4 on 10/20 --> Warfarin held, 2.6 on 10/21 - Re-started Warfarin today at alternating 5/7.5 mg doses (home dose 7.5mg daily), will start with 7.5mg today - goal INR 2.5-3.5 Paroxysmal Atrial Fibrillation - on Warfarin, dose adjusted as mentioned above CAD - 04/2020 cath w/ LAD SENA x1 - On Plavix 75mg PO QAM and Lipitor 40mg PO QAM, continue Hypoxia - Needing 1-2L NC to maintain oxygenation >90% (no O2 at home) - SOB improved but still crackles/LE edema on exam - Likely 2/2 acute CHF - continue supplemental O2 via NC Constipation - reported lower abdominal pain and no BM for 10 days - Miralax 17g x1 and Senokot x1 this AM - follow clinically for BM and abdominal pain DM2 - continue basal insulin + SSI while hospitalized - pharmacy following Right Ear Pain - otoscopic exam on 10/20 suggestive of AOE - ear pain markedly improved on 10/21 after starting Acetic Acid otic - continue while hospitalized (3 drops TID for total of 5-7 days) Dizziness - suspect orthostatic hypotension based on patient characterization of symptoms - counseled on careful transition from supine to seated to standing positions - continue to monitor especially while being diuresed Mild Epigastric Pain, resolved - likely secondary to bloating/constipation - resolved without intervention - will continue to monitor FEN/GI: Heart-Healthy/DM2 DVT Prophylaxis: Warfarin Code status: DNR/DNI Dispo: Med/surg with tele. Pending palliative consult on 10/22 for further dispo planning. Admission and Anticipated Discharge Date Admission Date: October 16, 2020 Supervising Physician Co-Signing Physician Notes Resident Physician Supervision Note: I independently interviewed and examined the patient and verified the daley history and physical, reviewed labs and image studies, discussed the case with the resident Dr. Herrera and agree with the findings and care plan. Subjective NAEO. Reports improvement in her breathing but still not at baseline - gets short of breath when she walks to the bathroom and during extended conversations. Reports that her ear pain is significantly improved with the acetic acid ear drops. Also reports improvement in her dizziness, which she describes to me as unsteadiness and blurry vision immediately after standing up. Reports lower abdominal pain and no BM for 10 days. Review of Systems Constitutional: no fever and no chills Respiratory: no dyspnea Cardiovascular: + edema (improving); no chest pain and no syncope Gastrointestinal: no nausea and no vomiting Neurologic: no falls and no headache(s) Physical Exam Constitutional: WD/WN, vitals as above Respiratory: able to speak in complete sentences; no respiratory distress, no labored breathing and no cough Auscultation: + diminished lung sounds and + crackles (bilateral lung bases) Cardiovascular: Rate/Rhythm: + irregularly irregular Heart Sounds: no murmur Extremities: + edema (1+ pitting edema to knees bilaterally) Gastrointestinal (Abdomen): normal bowel sounds, soft, nontender, no hepatosplenomegaly Psychiatric: A+Ox3, euthymic affect Results & Data Results & Data ([facility]) Vital Signs (Past 12 Hours) Vital Signs Temp Pulse Pulse Resp BP Pulse Ox 10/21/20 04:00 36.6 C 67 18 105/61 97 10/20/20 23:00 36.5 C 76 18 120/56 L 96 10/20/20 22:20 72 10/20/20 19:47 36.6 C 74 20 121/73 96 Resident Activity Tracking Resident Involvement: Resident Care Provided Care Provided: Adult Hospital Medicine (1) Acute exacerbation of CHF (congestive heart failure) Heart failure type: diastolic Qualified Code(s): I50.33 - Acute on chronic diastolic (congestive) heart failure
[2020-10-21] MEDS: BUMETANIDE 2 MG in SYRINGE 0 ML IV SCH ×2 (08:24→16:11)
[2020-10-21] MEDS: GABAPENTIN 600 MG TAB PO SCH ×2 (08:25→21:07)
[2020-10-21] MEDS: ATORVASTATIN 40 MG TAB PO SCH (08:25)
[2020-10-21] MEDS: VENLAFAXINE HCL XR 150 MG CAPXR PO SCH (08:25)
[2020-10-21] MEDS: PANTOprazole 40 MG TAB PO SCH ×2 (08:25→21:08)
[2020-10-21] MEDS: CALCITRIOL 0.25 MCG CAPSULE PO SCH ×2 (08:25→21:07)
[2020-10-21] MEDS: CLOPIDOGREL BISULFATE 75 MG TAB PO SCH (08:25)
[2020-10-21] MEDS: METOPROLOL SUCC 25MG EXT REL TAB PO SCH (08:26)
[2020-10-21] MEDS: lamoTRIgine 100 MG TAB PO SCH ×2 (08:26→21:06)
[2020-10-21] MEDS: ACETIC ACID 2% OTIC SOLN 15 ML BTL OT SCH ×3 (08:26→21:09)
[2020-10-21] MEDS: INSULIN DETEMIR FLEXPEN/FLEX TOUCH 100 UNITS/ML 3ML SC SCH ×2 (08:31→21:04)
[2020-10-21] MEDS: INSULIN ASPART 100 UNITS/ML 3 ML PEN SC SCH ×4 (08:31→21:04)
--- NOTE | 2020-10-21 08:31 | Pharmacy Report ---
Glycemic Control Progress Note - Date of Service October 21, 2020 - Scope Glycemic Pharmacist consulted for glycemic control to write orders per [facility] inpatient glycemic control protocol. - Objective Accuchecks BSG(last 24 hours):: 10/20/20 10/20/20 10/20/20 11:28 13:02 16:32 Glucose 95 POC Glucose 88 111 H 10/20/20 10/21/20 10/21/20 20:09 05:36 07:46 Glucose 95 POC Glucose 141 H 105 H - Recent Pertinent Medications The patient is currently receiving: * Basal insulin: Levemir 10 units every 12 hours * Correctional Insulin: Novolog Correction per scale ACHS Goal Range: Low 110 mg/dL - High 140 mg/dL Correction Factor: 20 mg/dL/unit * Prandial insulin: Per carb ratio of 1 unit per 8 grams CHO consumed - Outpatient Anti-Diabetic Meds Levemir 20 units BID Novolog 20 units AC - Assessment & Plan ASSESSMENT: * See progress note from 10/17/20 for more background info, in short: * Pt receiving SQ basal bolus insulin regimen for hyperglycemia secondary to baseline DM (outpatient regimen on hold). * Patient is currently receiving an average of 31 units of insulin per day * 20 units of basal insulin * 11 units of prandial/correctional insulin * BSGs ranging 88 - 141 mg/dl over the past 24hrs * Changes needed to insulin regimen: * AM Fasting BSG = 105 mg/dl. This is in goal range for patient based on inpatient targets and co-morbidities. The patient's regimen is currently very basal heavy. Reduce by 20%. * Post-prandial BSGs are in range therefore no changes needed to CF/CR. * Total daily dose = ~25 units. Decreased insulin appropriately. PLAN FOR INPATIENT GLYCEMIC CONTROL: * DECREASING Lantus to 8 units SQ BID * LOOSENING correction factor to 25 mg/dl/unit * Continuing carb ratio of 1 unit per 8 grams CHO consumed * Continuing goal range of Low 110 mg/dL - High 140 mg/dL RECOMMENDATIONS FOR DISCHARGE: * see note from 10/17/20 Thank you.
[2020-10-21] MEDS ORDERED: SENNA 8.6 MG TAB PO ONE (11:30)
[2020-10-21] MEDS: WARFARIN SOD 7.5 MG TAB PO SCH (16:10)
[2020-10-21] MEDS: ACETAMINOPHEN 325 MG TAB PO PRN ×2 (16:13→22:06)
--- NOTE | 2020-10-21 17:21 | Communication Note ---
Date of Service: October 21, 2020 Time: 17:16 I was just called to assess the patient for increased work of breathing (RR 24) and increased supplemental O2 requirements (1L NC --> 3L NC). Patient reports slightly more difficulty breathing. Appreciated bilateral crackles and decreased air entry bilaterally - both slightly worse than on exam earlier today. Patient also had JVD ~5cm above sternal angle, elicited via HJR. Ordered stat portable CXR to measure for change from previous on 10/16, and ordered Lasix 40mg IV x1. Will continue to monitor, and will sign out this update in status to the evening provider.
[2020-10-21] MEDS ORDERED: FUROSEMIDE 40 MG in SYRINGE 0 ML IV ONE (17:30)
--- NOTE | 2020-10-21 18:21 | XRay Report ---
XR chest 1V portable CLINICAL HISTORY: Increased crackles on physical examination. Jugular venous distention. Suspected in terstitial edema. COMPARISON STUDY: 10/16/2020 FINDINGS: There are postsurgical changes of a midline sternotomy and valvular replacement. The heart remains enlarged. There is no lobar consolidation. There is persistent elevation of interstitium, lik mazin secondary to congestive failure. There are no significant pleural effusions. There are postsurgic al changes of a total left shoulder arthroplasty.[ IMPRESSION: Cardiomegaly and continued radiographic evidence of pulmonary vascular congestion. ACT 112: Negative or not required by law. Electronically signed by: Casey Larson M.D. 10/21/2020 6:20 PM
[2020-10-21] MEDS: MONTELUKAST SODIUM 10 MG TABLET PO SCH (21:07)
[2020-10-21] MEDS: oxyCODONE HCL IR 5 MG TAB (IMMEDIATE RELEASE) PO PRN (21:13)
[2020-10-21] MEDS: tiZANidine HCL 4 MG TABLET PO PRN (22:06)
[2020-10-22 07:35] LABS: Basophils # (auto) 0.02 K/uL (0-0.2); Basophils % (auto) 0.3 %; Eosinophils # (auto) 0.15 K/uL (0-0.5); Eosinophils % (auto) 2.4 %; Hematocrit (blood only) 30.2 % (37-47); Hemoglobin 8.7 g/dL (12.0-16.0); Immature Granulocytes # (auto) 0.01 K/uL (0.00-0.02); Immature Granulocytes % (auto) 0.2 %; Lymphocytes # (auto) 0.89 K/uL (1.2-3.4); Lymphocytes % (auto) 14.2 %; Mean Corpuscular Hemoglobin 22.4 pg (25-34); Mean Corpuscular Hgb Conc 28.8 g/dL (32-36); Mean Corpuscular Volume 77.6 fL (80-100); Mean Platelet Volume 8.9 fL (7.4-10.4); Monocytes # (auto) 0.53 K/uL (0.11-0.59); Monocytes % (auto) 8.5 %; Neutrophils # (auto) 4.65 K/uL (1.4-6.5); Neutrophils % (auto) 74.4 %; Platelet Count 225 K/uL (130-400); Red Blood Count 3.89 M/uL (4.2-5.4); White Blood Count 6.25 K/uL (4.8-10.8)
--- NOTE | 2020-10-22 07:50 | Hospitalist Progress Note ---
Date of Service October 22, 2020 Assessment & Plan (1) Acute exacerbation of CHF (congestive heart failure): Jennifer Mendoza is a 69 y/o female with complex PMHx that includes chronic systolic CHF (EF of 20-25%), atrial fibrillation, tobacco abuse, CAD, aortic and mitral mechanical valves, COPD and T2DM who was admitted on 10/16/2020 for systolic CHF exacerbation. Acute on Chronic Systolic CHF - TTE 10/17/2020: EF 20-25% - SOB improved but still on 1-2L NC and crackles/LE edema on exam - I/O: 1.5L UOP in last 24 hours, +1.5L cumulative balance - Cr stable with current diuresis - Currently on Bumex 2mg BID and Toprol XL 25 mg PO QAM, continue - Start Entresto 24/26mg PO BID - Cardiology following - Palliative care consulted as per discussion with patient. Mechanical Mitral and Aortic Heart Valve - On Warfarin 7.5mg PO daily at home - INR intermittently supratherapeutic, 4.4 on 10/20 --> Warfarin held, 2.6 on 10/21 - Re-started Warfarin on 10/21 at alternating 5/7.5 mg doses (home dose 7.5mg daily) - goal INR 2.5-3.5 Paroxysmal Atrial Fibrillation - on Warfarin, dose adjusted as mentioned above CAD - 04/2020 cath w/ LAD SENA x1 - On Plavix 75mg PO QAM and Lipitor 40mg PO QAM, continue Hypoxia - Needing 1-2L NC to maintain oxygenation >90% (no O2 at home) - SOB improved but still crackles/LE edema on exam - Likely 2/2 acute CHF - continue supplemental O2 via NC Constipation - reported lower abdominal pain and no BM for 10 days - Miralax 17g x1 and Senokot x1 (10/21) - follow clinically for BM and abdominal pain DM2 - continue basal insulin + SSI while hospitalized - pharmacy following Right Ear Pain - otoscopic exam on 10/20 suggestive of AOE - ear pain markedly improved on 10/21 after starting Acetic Acid otic - continue while hospitalized (3 drops TID for total of 5-7 days) Dizziness - suspect orthostatic hypotension based on patient characterization of symptoms - counseled on careful transition from supine to seated to standing positions - continue to monitor especially while being diuresed Mild Epigastric Pain, resolved - likely secondary to bloating/constipation - resolved without intervention - will continue to monitor FEN/GI: Heart-Healthy/DM2 DVT Prophylaxis: Warfarin Code status: DNR/DNI Dispo: Med/surg with tele. Pending palliative consult on 10/22 for further dispo planning. Admission and Anticipated Discharge Date Admission Date: October 16, 2020 Supervising Physician Co-Signing Physician Notes I personally examined the patient and verified all daley points of history and exam, discussed case, and agree with decision making with Dr Bonilla. feeling better breathing better than before. notes that later in the day she worsens but other than just "like when a kid has a fever they get worse" no clear guess as to why vitals noted nad heent nc at mmm lungs faint bibasilar rales but no other r/r/w good effort skin no rashes no pallor or icterus neuro no focal deficits acute on chronic systolic CHF (HFrEF) - discussing goals of care with palliative as well as ourselves. still determining what she might or might not want - but overall goals appear to value a palliative/comfort approach above all else. continue current meds, work to set up home O2, trial of entresto. work towards home as she is comfortable//as goals are better defined. otherwise as above Subjective Pt seen at bedside today. Reports no new symptoms overnight. Says some SOB remains, especially when getting up to walk but otherwise feeling well. No acute distress. Denies CP, palpitations, n/v, fever, chills, diarrhea. Review of Systems Review of Systems: All systems reviewed & are unremarkable except as noted in Subjective Physical Exam Constitutional: WD/WN, vitals as above + obese; no acute distress Respiratory: normal respiratory effort; no respiratory distress and no labored breathing Auscultation: + crackles (bibasilar, mild) Cardiovascular: RRR, no murmur, no edema Heart Sounds: normal S1 and normal S2; no gallop, no murmur and no cardiac rub Extremities: + edema (trace, up to calves bilaterally) Results & Data Results & Data ([facility]) Vital Signs (Past 12 Hours) Vital Signs Temp Pulse Pulse Resp BP BP Pulse Ox 10/22/20 07:35 70 10/22/20 07:19 36.6 C 74 18 131/77 95 10/22/20 04:00 36.4 C L 68 18 115/69 96 10/22/20 00:00 76 10/21/20 23:00 37.0 C 65 18 94/61 L 97 10/21/20 19:56 36.3 C L 72 18 134/81 96 Resident Activity Tracking Resident Involvement: Resident Care Provided Care Provided: Adult Hospital Medicine (1) Acute exacerbation of CHF (congestive heart failure) Heart failure type: diastolic Qualified Code(s): I50.33 - Acute on chronic diastolic (congestive) heart failure
[2020-10-22 07:53] LABS: BUN Creatinine Ratio 22.4 (10-20); Calcium 9.8 mg/dl (8.5-10.1); Creatinine Clr Calc Pharmacy 46.6 ml/min; Est GFR (Non-African American) 41.4; Magnesium 2.2 mg/dl (1.8-2.4); Phosphorus 2.8 mg/dl (2.5-4.9)
[2020-10-22] MEDS: INSULIN ASPART 100 UNITS/ML 3 ML PEN SC SCH ×4 (07:59→21:12)
[2020-10-22] MEDS: VENLAFAXINE HCL XR 150 MG CAPXR PO SCH (08:00)
[2020-10-22] MEDS: lamoTRIgine 100 MG TAB PO SCH ×2 (08:00→21:15)
[2020-10-22] MEDS: BUMETANIDE 2 MG in SYRINGE 0 ML IV SCH ×2 (08:00→17:18)
[2020-10-22] MEDS: GABAPENTIN 600 MG TAB PO SCH ×2 (08:01→21:15)
[2020-10-22] MEDS: ATORVASTATIN 40 MG TAB PO SCH (08:01)
[2020-10-22] MEDS: CLOPIDOGREL BISULFATE 75 MG TAB PO SCH (08:02)
[2020-10-22] MEDS: CALCITRIOL 0.25 MCG CAPSULE PO SCH ×2 (08:02→21:14)
[2020-10-22] MEDS: PANTOprazole 40 MG TAB PO SCH ×2 (08:02→21:15)
[2020-10-22] MEDS: METOPROLOL SUCC 25MG EXT REL TAB PO SCH (08:02)
[2020-10-22] MEDS: ACETIC ACID 2% OTIC SOLN 15 ML BTL OT SCH ×3 (08:03→21:24)
[2020-10-22] MEDS: INSULIN DETEMIR FLEXPEN/FLEX TOUCH 100 UNITS/ML 3ML SC SCH ×3 (08:06→21:13)
--- NOTE | 2020-10-22 09:24 | Pharmacy Report ---
Pharmacy Glycemic Short Note 2 - Date of Service October 22, 2020 - Glycemic Short BSG Results (Last 24 hours): 10/21/20 10/21/20 10/21/20 11:17 16:51 20:37 Glucose POC Glucose 150 H 119 H 227 H 10/22/20 10/22/20 06:58 07:28 Glucose 105 H POC Glucose 133 H ASSESSMENT: * NS received total of 31 units of insulin yesterday * 16 units of basal and 15 units of prandial/correctional * BSGs of 105, 150, 119, and 227 mg/dL * 227 mg/dL may be explained by uncovered meal at dinnertime? - no insulin administered at that time * Fasting BSG of 133 mg/dL this morning - will increase Levemir by ~20% PLAN FOR INPATIENT GLYCEMIC CONTROL: * Basal insulin - increase * Levemir 10 units SC BID * Bolus insulin - continue * NovoLog per scale ACHS or Q6hrs while NPO * Goal Range: Low 110 mg/dL - High 140 mg/dL * Correction Factor: 20 mg/dL/unit * Nutritional / Prandial insulin per carb ratio of 1 unit per 8 grams CHO consumed DISCHARGE RECOMMENDATIONS: * HbA1c on 10/11/2020 was 6.3% which demonstrates excellent outpatient control of T2DM. Goal HbA1c for this patient would be in the 7% - 8% range given patients age and comorbidities. Patient may resume outpatient antidiabetic regimen upon discharge as long as she is not reporting any signs/symptoms of hypoglycemia.
[2020-10-22] MEDS: oxyCODONE HCL IR 5 MG TAB (IMMEDIATE RELEASE) PO PRN ×2 (09:45→21:11)
--- NOTE | 2020-10-22 15:13 | Billing Data ---
Date of Service October 22, 2020 Coding Level of Care Code 71935 Subseq Hosp Care Lvl 3
[2020-10-22] MEDS ORDERED: WARFARIN SOD 5 MG TAB PO SCH (16:00)
--- NOTE | 2020-10-22 17:26 | Cardiology Progress Note ---
Date of Service October 22, 2020 Assessment & Plan (1) Acute on chronic systolic (congestive) heart failure: 2. Rheumatic heart disease post AVR/MVR 3. NICM - EF 30% 4. CAD post SENA to mid LAD 5. PAF/AFL 6. Type 2 DM 7. COPD 8. CVI 9. Depression Weights, I/Os difficult to follow but improving congestion on exam. Renal function stable. Agree with continued BID IV diuretics today. Possible conversion to PO diuretics tomorrow On GDMT with toprol XL, entresto Continue anticoagulation, clopidogrel, statin Will follow Admission and Anticipated Discharge Date Admission Date: October 16, 2020 Subjective Still tired but feels breathing is better than last week. Denies chest pain, palpitations. Telemetry-- unremarkable. Review of Systems Review of Systems: All systems reviewed & are unremarkable except as noted in HPI & below Physical Exam Physical Exam: General: Comfortable, no acute distress Eyes: Sclerae anicteric, extraocular movements intact HENT: Oropharynx clear mucous membranes moist Neck: JVD ~9 Lungs: Clear to auscultation bilaterally, decreased minimally at bases. Cardiac: Regular rate and rhythm, 2/6 LILLIANA Abdomen: Soft, nontender Neuro: Nonfocal Psych: Alert orient x3, normal affect and mood Extremities/Vascular: -- 2+ radial bilaterally -- Trace bilateral LE edema Results & Data ([facility]) Vital Signs (Past 12 Hours) Vital Signs Temp Pulse Pulse Resp BP BP Pulse Ox 10/22/20 15:58 98.1 F 73 20 98/60 L 96 10/22/20 15:00 78 10/22/20 11:48 98.4 F 80 20 113/56 L 95 10/22/20 11:16 95 10/22/20 07:35 70 10/22/20 07:19 97.9 F 74 18 131/77 95 PG Care Time/CCT Total # of Minutes Spent Total Time Spent with Patient: Total time spent is greater than 50% in coordination of care (as documented) at patient's floor/unit and/or counseling patient: Coding Level of Care Code 34079 Subseq Hosp Care Lvl 3 Diagnoses Acute on chronic systolic (congestive) heart failure I50.23
--- NOTE | 2020-10-22 20:14 | Palliative Care Consultation ---
Date of Consultation October 22, 2020 Assessment & Plan (1) Palliative care encounter: This patient is a 69 year old female who presented to the [facility] with a CHF exacerbation. Jennifer has a PMH that includes: chronic systolic CHF (EF of 20-25%), atrial fibrillation, CAD s/p aortic/mitral mechanical valve replacement, COPD (non-oxygen dependent) and T2DM. She is a patient of Mayra Starr PA-C at the CHF clinic. On admission, her medications have been adjusted for more acute management, including starting Entresto and managing fluid balance. She remains on chronic Coumadin for management of her Mechanical Valves and her pAF. She has made some comments with other providers indicating she would like to discuss her care wishes. Palliative Care was consulted to discuss further. I met with Jennifer in room 284-2. She was lying in her bed in no apparent distress. She was grateful to talk with Palliative Care. She expressed that she just doesn't know if she wants to come back to the hospital. She did express that she had some depression from the loss of her daughter, but ultimately, just feels comfortable with declining as she "naturally should". She expressed that she lives with her daughter, in her daughters basement and does all of her own ADL's to date. She mentioned being interested in hearing more about hospice services. She indicated she is not sure she'd like to make a decision about hospice, but would like to gather information. Case management to visit the patient to provide more information. Patient could qualify for initial hospice admission with a diagnosis of COPD or CAD. She does have a relatively high functioning palliative performance scale for hospice, and may end up being a prolonged hospice patient. Confirmed patient is a DNR/DNI and would not want artificial nutrition or hydration. Would benefit from outpatient follow up with palliative care to complete POLST form, provide further discussion from a goals standpoint. At this time, I reached out to the nurse navigator to arrange outpatient f/u. (2) Acute on chronic systolic (congestive) heart failure: Sees Mayra Starr PA-C through the CHF clinic [facility] started this admission. EF 20-25% per most recent ZENY (3) Acute respiratory failure with hypoxia: Currently on 3 LNC. Does not wear supplemental O2 at home, but could benefit from PRN. (4) Bipolar disorder: She is on Effexor 150 mg BID Has chronic depression from the loss of one of her daughters. no SI/SA Active/Remission status: remission status unspecified Qualified Code(s): F31.9 - Bipolar disorder, unspecified History of Present Illness Reason for Consultation: Goals of care Requesting Physician: Dr. Chakraborty Attending Physician: Ron Mahan, History of Present Illness This patient is a 69 year old female who presented to the [facility] with a CHF exacerbation. Jennifer has a PMH that includes: chronic systolic CHF (EF of 20-25%), atrial fibrillation, CAD s/p aortic/mitral mechanical valve replacement, COPD (non-oxygen dependent) and T2DM. She is a patient of Mayra Starr PA-C at the CHF clinic. On admission, her medications have been adjusted for more acute management, including starting Entresto and managing fluid balance. She remains on chronic Coumadin for management of her Mechanical Valves and her pAF. She has made some comments with other providers indicating she would like to discuss her care wishes. Palliative Care was consulted to discuss further. Please see A/P for further details. Thank you for involving palliative care with this michael lady. Allergies Allergy/AdvReac Type Severity Reaction Status Date / Time adhesive Allergy Unknown Rash Verified 10/16/20 22:22 cinacalcet [From Sensipar] Allergy Unknown Swelling Verified 10/16/20 22:22 of the Eye erythromycin base Allergy Unknown VAGINAL Verified 10/16/20 22:22 [From Erythrocin] INFECTION levofloxacin [From Levaquin] Allergy Unknown Hives Verified 10/16/20 22:22 fluticasone AdvReac Intermediate NAUSEA Verified 10/16/20 22:22 [From Advair Diskus] VOMITING lactose AdvReac Unknown Diarrhea Verified 10/16/20 22:22 latex AdvReac Unknown Rash Verified 10/16/20 22:22 salmeterol AdvReac Unknown NAUSEA Verified 10/16/20 22:22 [From Advair Diskus] VOMITING Home Medications Medication Instructions Recorded Confirmed Type walker #1 ea 06/16/19 10/16/20 Rx albuterol sulfate [Ventolin HFA] 1 - 2 puff INH Q4 PRN 11/03/19 10/16/20 History calcitriol 0.5 mcg capsule 0.5 mcg PO BID cap 01/10/20 10/16/20 History tizanidine 4 mg tablet 4 mg PO TID PRN #90 tab 03/14/20 10/16/20 Rx insulin syr/ndl U100 half tanner 0.3 #600 ea 03/15/20 10/16/20 Rx mL 31 gauge x 04/14" diclofenac sodium 1 % topical gel 4 g TOP QID PRN #100 gm 06/07/20 10/16/20 Rx atorvastatin 40 mg tablet 40 mg PO QAM #90 tab 06/08/20 10/16/20 Rx blood sugar diagnostic #400 ea 07/03/20 10/16/20 Rx blood-glucose meter #1 ea 07/03/20 10/16/20 Rx lancets #400 ea 07/03/20 10/16/20 Rx lancing device with lancets kit #1 ea 07/03/20 10/16/20 Rx lisinopril 2.5 mg PO QAM 07/27/20 10/16/20 History omeprazole 40 mg capsule,delayed 40 mg PO BID #180 cap 07/27/20 10/16/20 Rx release clopidogrel 75 mg tablet 75 mg PO QAM #90 tab 07/30/20 10/16/20 Rx insulin aspart U-100 100 unit/mL 20 unit SUBCUT QID #70 ml 08/09/20 10/16/20 Rx subcutaneous solution oxycodone 10 mg tablet 10 mg PO TID PRN #60 tab 08/20/20 10/16/20 Rx venlafaxine 150 mg 150 mg PO QAM #90 cap 08/31/20 10/16/20 Rx capsule,extended release 24 hr lamotrigine 100 mg tablet 100 mg PO BID #90 tab 09/13/20 10/16/20 Rx metoprolol succinate 25 mg 25 mg PO QAM #90 tab 09/13/20 10/16/20 Rx tablet,extended release 24 hr furosemide 80 mg tablet 120 mg PO BID #180 tab 10/08/20 10/16/20 Rx acetaminophen 500 mg tablet 1,000 mg PO HS tab 10/11/20 10/16/20 History insulin detemir U-100 100 unit/mL 20 unit SUBCUT BID ml 10/11/20 10/16/20 History subcutaneous solution montelukast 10 mg tablet 10 mg PO HS tab 10/11/20 10/16/20 History salmeterol 50 mcg/dose blister 1 inh INH BID ea 10/11/20 10/16/20 History powder for inhalation warfarin 5 mg tablet See Rx Instructions PO UD tab 10/11/20 10/16/20 History gabapentin 600 mg tablet 600 mg PO BID 90 Days #180 tab 10/16/20 10/16/20 Rx Patient History Medical History Anemia HX OF Anxiety Arteriosclerosis of coronary artery Asthma RESCUE INHALER 1-2x per month Atrial fibrillation Dx "many years ago" - s/p cardioversion - follows w/ Dr. Stein - on warfarin Atrial flutter Balance problem Bipolar disorder Chronic anticoagulation Chronic back pain Chronic kidney disease Chronic kidney disease (CKD), stage III (moderate) F/U DR RUBY Chronic obstructive pulmonary disease Chronic pain Chronic systolic CHF (congestive heart failure) Depression Diabetes mellitus, type 2 Diabetic peripheral neuropathy Encounter for pre-operative examination Fibromyalgia GERD (gastroesophageal reflux disease) History of meningitis Hx MRSA infection Per infection control 10/21/17: "Patient has a history of MRSA in 2007, but has since been cleared with multiple negative cultures and nasal screens. No contact precautions necessary." Hx of deep venous thrombosis 1968 - RLE Hypercalcemia Hyperlipidemia Hyperparathyroidism Major depression Meralgia paresthetica Microalbuminuria Mild neurocognitive disorder PT REPORTS SOME MEMORY PROBLEMS Obesity Obesity Osteoarthritis Osteopenia Peripheral neuropathy ALL OVER Rheumatic heart disease Sleep apnea CAN'T TOLERATE CPAP SOB (shortness of breath) on exertion Valvular disease Venous insufficiency (chronic) (peripheral) Vitamin D deficiency Surgical History Fusion of spine LUMBAR History of appendectomy History of arthroscopy RIGHT AND LEFT KNEE History of back surgery History of bladder surgery History of bowel resection partial colectomy History of cardiac cath multiple caths -[facility] - MOST RECENT APRIL 2020 STENT X 1 FOR BLOCKAGE History of cardioversion History of carpal tunnel release LEFT/RIGHT History of colonoscopy History of esophagogastroduodenoscopy (EGD) History of heart artery stent APRIL 2020 - BLOCKAGE - STENT X1 History of heart valve replacement 2004 SERGO, MITRAL AND AORTIC VALVE, F/U WITH DR STEIN (NOT GOOD HISTORIAN) History of hysterectomy total abdominal hysterectomy with removal of both ovaries History of parathyroidectomy History of shoulder replacement Lt - 07/2018 [facility] S/P cardiac catheterization 05/14/20 Dr. Thierno Stein- 1 SENA to mid LAD S/P T&A (status post tonsillectomy and adenoidectomy) Family History Mother , in her 40s Cardiomyopathy Myocardial infarction Father , in his 50s Myocardial infarction Daughter , age 17 Heart disease Congenital heart disease Other Diabetes Hypertension Denies family history of Pancreatic cancer Ovarian cancer Prostate cancer Breast cancer Colorectal cancer Uterine cancer Social History Smoking Status: Never smoker Cigarettes Per Day: 3/4PPD-1 PPD/ADVISED NPO; Second Hand Exposure: No; Hx Alcohol Use: No Hx Substance Use: No Preferred Language: Swazi Communication Ability: Effective Visual Impairment: No Limitations Hearing Ability: Hard of Hearing Caddy Master Required: No Beliefs That Will Affect Care: None marital status: Single Current Living Situation: Family Current Living Situation Comment: [facility] current occupational status: retired Other Information That Helps Us Care for You: No Feels Safe at Home: Yes Safety Concerns: Feels Safe At This Time Childhood Exposure to Second-Hand Smoke: Yes Dental Care, Regularly: No Physical Activity Frequency: Does not Exercise Seatbelt Use: always Sunscreen Use: Yes Assistive Devices: Oxygen - Continuous Review of Systems Review of Systems: [place] Symptom Assessment Scale - Revised (ESAS-R) pain: 0/3 tiredness: 0/3 lack of appetite: 0/3 shortness of breath: 1/3 depression: 2/3 anxiety:1/3 PPS: 50% Physical Exam Constitutional: cooperative Respiratory: normal respiratory effort; no respiratory distress Auscultation: + crackles (expiratory ) Cardiovascular: Rate/Rhythm: regular rate and regular rhythm Extremities: normal capillary refill and + edema (bilateral lower extremity ) Gastrointestinal (Abdomen): normal bowel sounds, soft, nontender, no hepatosplenomegaly Percussion/Palpation: abdomen soft Psychiatric: A+Ox3, euthymic affect Eye Contact: good eye contact Insight: good insight Judgement: good judgement Results & Data ([facility]) Vital Signs (Past 12 Hours) Vital Signs Temp Pulse Pulse Resp BP BP Pulse Ox 10/22/20 19:27 37.3 C 81 18 116/60 94 10/22/20 15:58 36.7 C 73 20 98/60 L 96 10/22/20 15:00 78 10/22/20 11:48 36.9 C 80 20 113/56 L 95 10/22/20 11:16 95 PG Care Time/CCT Total # of Minutes Spent Total Time Spent with Patient: Total time spent is greater than 50% in coordination of care (as documented) at patient's floor/unit and/or counseling patient: 70 Coding Level of Care Code 39858 Inpt Consult Level 3 Diagnoses Palliative care encounter Z51.5 Acute on chronic systolic (congestive) heart failure I50.23 Acute respiratory failure with hypoxia J96.01 Bipolar disorder F31.9 Active/Remission status: remission status unspecified Time Spent (min) 70 Time Spent Midlevel Total time spent 70 minutes with > 50% of that time spent assessing the patient, discussing goals of care, collaborating with IDT.
[2020-10-22] MEDS ORDERED: SACUBITRIL-VALSARTAN 24-26 MG TAB PO SCH (21:00)
[2020-10-22] MEDS: tiZANidine HCL 4 MG TABLET PO PRN (21:15)
[2020-10-22] MEDS: MONTELUKAST SODIUM 10 MG TABLET PO SCH (21:15)
[2020-10-22] MEDS: SACUBITRIL-VALSARTAN 24-26 MG TAB PO SCH (21:18)
[2020-10-23] MEDS: ACETAMINOPHEN 325 MG TAB PO PRN ×2 (00:11→21:26)
[2020-10-23 06:54] LABS: Basophils # (auto) 0.01 K/uL (0-0.2); Basophils % (auto) 0.2 %; Eosinophils # (auto) 0.13 K/uL (0-0.5); Eosinophils % (auto) 2.3 %; Hematocrit (blood only) 29.4 % (37-47); Hemoglobin 8.4 g/dL (12.0-16.0); Immature Granulocytes # (auto) 0.01 K/uL (0.00-0.02); Immature Granulocytes % (auto) 0.2 %; Lymphocytes # (auto) 0.89 K/uL (1.2-3.4); Lymphocytes % (auto) 15.9 %; Mean Corpuscular Hemoglobin 22.5 pg (25-34); Mean Corpuscular Hgb Conc 28.6 g/dL (32-36); Mean Corpuscular Volume 78.8 fL (80-100); Mean Platelet Volume 9.3 fL (7.4-10.4); Monocytes % (auto) 7.1 %; Neutrophils # (auto) 4.17 K/uL (1.4-6.5); Neutrophils % (auto) 74.3 %; Platelet Count 242 K/uL (130-400); RDW Coefficient of Variation 17.3 % (11.5-14.5); RDW Standard Deviation 49.6 fL (36.4-46.3); Red Blood Count 3.73 M/uL (4.2-5.4); White Blood Count 5.61 K/uL (4.8-10.8)
[2020-10-23 06:59] LABS: INR 2.4 (0.9-1.1); Prothrombin Time 23.7 Seconds (9.0-12.0)
[2020-10-23 07:19] LABS: BUN Creatinine Ratio 25.5 (10-20); Calcium 9.3 mg/dl (8.5-10.1); Creatinine Clr Calc Pharmacy 55.7 ml/min; Est GFR (African American) 59.3; Est GFR (Non-African American) 51.2; Potassium 3.7 mmol/L (3.5-5.1)
[2020-10-23] MEDS: BUMETANIDE 2 MG in SYRINGE 0 ML IV SCH ×2 (08:19→17:14)
[2020-10-23] MEDS: ATORVASTATIN 40 MG TAB PO SCH (08:19)
[2020-10-23] MEDS: METOPROLOL SUCC 25MG EXT REL TAB PO SCH (08:19)
[2020-10-23] MEDS: lamoTRIgine 100 MG TAB PO SCH ×2 (08:19→21:30)
[2020-10-23] MEDS: GABAPENTIN 600 MG TAB PO SCH ×2 (08:20→21:29)
[2020-10-23] MEDS: CLOPIDOGREL BISULFATE 75 MG TAB PO SCH (08:20)
[2020-10-23] MEDS: PANTOprazole 40 MG TAB PO SCH ×2 (08:20→21:28)
[2020-10-23] MEDS: CALCITRIOL 0.25 MCG CAPSULE PO SCH ×2 (08:20→21:28)
[2020-10-23] MEDS: SACUBITRIL-VALSARTAN 24-26 MG TAB PO SCH ×2 (08:21→21:27)
[2020-10-23] MEDS: VENLAFAXINE HCL XR 150 MG CAPXR PO SCH (08:21)
[2020-10-23] MEDS: ACETIC ACID 2% OTIC SOLN 15 ML BTL OT SCH ×3 (08:21→21:28)
[2020-10-23] MEDS: INSULIN DETEMIR FLEXPEN/FLEX TOUCH 100 UNITS/ML 3ML SC SCH ×2 (08:22→21:27)
[2020-10-23] MEDS: INSULIN ASPART 100 UNITS/ML 3 ML PEN SC SCH ×4 (08:23→21:27)
--- NOTE | 2020-10-23 09:11 | Pharmacy Report ---
Pharmacy Glycemic Short Note 2 - Date of Service October 23, 2020 - Glycemic Short BSG Results (Last 24 hours): 10/22/20 10/22/20 10/22/20 11:22 16:30 20:39 Glucose POC Glucose 135 H 135 H 182 H 10/23/20 10/23/20 06:01 07:39 Glucose 95 POC Glucose 107 H ASSESSMENT: * NS received total of 32 units of insulin yesterday * 20 units of basal and 12 units of prandial/correctional * BSGs of 133, 133, 135, and 182 mg/dL * 182 mg/dL may be explained by uncovered meal at dinnertime? - no insulin administered at that time * Fasting BSG of 107 mg/dL this morning - will continue currently ordered Levemir PLAN FOR INPATIENT GLYCEMIC CONTROL: * Basal insulin - continue * Levemir 10 units SC BID * Bolus insulin - continue * NovoLog per scale ACHS or Q6hrs while NPO * Goal Range: Low 110 mg/dL - High 140 mg/dL * Correction Factor: 20 mg/dL/unit * Nutritional / Prandial insulin per carb ratio of 1 unit per 8 grams CHO consumed DISCHARGE RECOMMENDATIONS: * HbA1c on 10/11/2020 was 6.3% which demonstrates excellent outpatient control of T2DM. Goal HbA1c for this patient would be in the 7% - 8% range given patients age and comorbidities. Patient may resume outpatient antidiabetic regimen upon discharge as long as she is not reporting any signs/symptoms of hypoglycemia.
--- NOTE | 2020-10-23 09:14 | Hospitalist Progress Note ---
Date of Service October 23, 2020 Assessment & Plan (1) Acute exacerbation of CHF (congestive heart failure): Jennifer Mendoza is a 69 y/o female with complex PMHx that includes chronic systolic CHF (EF of 20-25%), atrial fibrillation, tobacco abuse, CAD, aortic and mitral mechanical valves, COPD and T2DM who was admitted on 10/16/2020 for systolic CHF exacerbation. Acute on Chronic Systolic CHF - TTE 10/17/2020: EF 20-25% - SOB improved but still on 1-2L NC and crackles/LE edema on exam - I/O: 1.6L UOP in last 24 hours, -265mL cumulative balance--patient reports that measuring urine output has been difficult, as many times she is not able to place the bucket under the toilet seat before having to go - Cr stable with current diuresis - Currently on Bumex 2mg BID and Toprol XL 25 mg PO QAM, continue - Continue Entresto 24/26mg PO BID--will continue on d/c, recommend BMP check in one week to evaluate - Cardiology following - Palliative care consulted: Patient could qualify for initial hospice admission with a diagnosis of COPD or CAD. She does have a relatively high functioning palliative performance scale for hospice, and may end up being a prolonged hospice patient. Would benefit from outpatient follow up with palliative care to complete POLST form, provide further discussion from a goals standpoint. At this time, I reached out to the nurse navigator to arrange outpatient f/u. - 2-step pending to evaluate level at which she will need O2 at home - Plan is for d/c home tomorrow with hospice services Mechanical Mitral and Aortic Heart Valve - On Warfarin 7.5mg PO daily at home - INR intermittently supratherapeutic, 4.4 on 10/20 --> Warfarin held, 2.6 on 10/21 - Re-started Warfarin on 10/21 at alternating 5/7.5 mg doses (home dose 7.5mg daily) - goal INR 2.5-3.5--at 2.4 today Paroxysmal Atrial Fibrillation - on Warfarin, dose adjusted as mentioned above CAD - 04/2020 cath w/ LAD SENA x1 - On Plavix 75mg PO QAM and Lipitor 40mg PO QAM, continue Hypoxia - Needing 3L NC overnight to maintain oxygenation >90% (no O2 at home) - SOB improved but still crackles/LE edema on exam - Likely 2/2 acute CHF - continue supplemental O2 via NC Constipation - reported lower abdominal pain and no BM for 10 days - Miralax 17g x1 and Senokot x1 (10/21) - follow clinically for BM and abdominal pain DM2 - continue basal insulin + SSI while hospitalized - pharmacy following Right Ear Pain - otoscopic exam on 10/20 suggestive of AOE - ear pain markedly improved on 10/21 after starting Acetic Acid otic - continue while hospitalized (3 drops TID for total of 5-7 days) Dizziness - suspect orthostatic hypotension based on patient characterization of symptoms - counseled on careful transition from supine to seated to standing positions - continue to monitor especially while being diuresed Mild Epigastric Pain, resolved - likely secondary to bloating/constipation - resolved without intervention - will continue to monitor FEN/GI: Heart-Healthy/DM2 DVT Prophylaxis: Warfarin Code status: DNR/DNI Dispo: Med/surg Admission and Anticipated Discharge Date Admission Date: October 16, 2020 Supervising Physician Co-Signing Physician Notes I personally examined the patient and verified all daley points of history and exam, discussed case, and agree with decision making with Dr Bonilla. breathing feels the same. feels good about plans for home, excited to get home - hospice to start. plans on home tomorrow. notes that she still has crackles in her lungs but realizes that this might always be the case for her vitals noted nad heent nc at mmm lungs faint bibasilar rales ongoing but no other r/r/w good effort skin no rashes no pallor or icterus neuro no focal deficits acute on chronic systolic CHF (HFrEF) - discussing goals of care with palliative as well as ourselves. doing reasonably well right now - plan for home/hospice tomorrow. entresto started - seems to be tolerating well. depending on how she progresses/ultimately what her goals are, at least consider BMP in a week since new start to entresto - unless goals become purely comfort only, in which case it could be foregone. 2 step ordered, will need home O2 (although O2 itself should be able to be procured through hospice - 2 step for settings would be helpful to guide patient) otherwise as above Subjective Pt reports she feels better this morning. However, she does mention that overnight she had some SOB and required increased oxygen to 3L NC up from 2L. She says her back pain is better today, and she hopes it will stay this way. I mentioned to her that it's possible she may have to go home with O2, given that she has needed it here to keep sat above 90 despite improving clinically. She does not like the idea but is willing to do it for her own comfort. Review of Systems Review of Systems: All systems reviewed & are unremarkable except as noted in Subjective Physical Exam Constitutional: WD/WN, vitals as above + obese; no acute distress Respiratory: normal respiratory effort; no respiratory distress and no labored breathing Auscultation: + crackles (bibasilar, mild) Cardiovascular: RRR, no murmur, no edema Heart Sounds: normal S1 and normal S2; no gallop, no murmur and no cardiac rub Extremities: + edema (trace, up to calves bilaterally) Results & Data Results & Data ([facility]) Vital Signs (Past 12 Hours) Vital Signs Temp Pulse Pulse Resp BP Pulse Ox 10/23/20 06:51 36.8 C 67 16 101/61 97 10/23/20 03:28 36.7 C 63 18 94/59 L 90 10/23/20 00:30 64 10/23/20 00:06 36.7 C 63 18 82/46 L 96 Resident Activity Tracking Resident Involvement: Resident Care Provided Care Provided: Adult Hospital Medicine (1) Acute exacerbation of CHF (congestive heart failure) Heart failure type: diastolic Qualified Code(s): I50.33 - Acute on chronic diastolic (congestive) heart failure
--- NOTE | 2020-10-23 15:32 | Billing Data ---
Date of Service October 23, 2020 Coding Level of Care Code 34847 Subseq Hosp Care Lvl 3
--- NOTE | 2020-10-23 15:46 | Palliative Care Progress Note ---
Date of Service October 23, 2020 Assessment & Plan (1) Palliative care encounter: Jennifer is planning to go home tomorrow with hospice care to support at home. Her focus is definitely comfort directed and to remain at home until her . I spoke with her daughter on the phone and she is totally supportive of that. I did complete a POLST form with Jennifer to reflect her wishes for comfort directed care, DNR with antibiotics to be determined at the time and with no artificial nutrition or hydration. (2) Breathlessness: Admission and Anticipated Discharge Date Admission Date: October 16, 2020 Subjective Jennifer is resting comfortably in bed and looking forward to going home on hospice tomorrow. She has some mild dyspnea but feels that this is her baseline. She has been out of bed to the bathroom with some mild dyspnea. Review of Systems Review of Systems: [place] Symptom Assessment Scale Pain 0/3 Dyspnea 1/3 Nausea 0/3 Anxiety 0/3 Depression 0/3 Fatigue 2/3 Drowsiness 0/3 Palliative Performance Score 50% Physical Exam Neck: normal visual inspection Respiratory: normal respiratory effort; no labored breathing Musculoskeletal: Extremities: strength 5/5 throughout Skin: no rashes, warm and dry Psychiatric: A+Ox3, euthymic affect Results & Data ([facility]) Vital Signs (Past 12 Hours) Vital Signs Temp Pulse Pulse Resp BP Pulse Ox 10/23/20 11:08 98.4 F 67 18 98/61 L 95 10/23/20 07:30 64 10/23/20 06:51 98.2 F 67 16 101/61 97 PG Care Time/CCT Total # of Minutes Spent Total Time Spent with Patient: Total time spent is greater than 50% in coordination of care (as documented) at patient's floor/unit and/or counseling patient: 40 minutes total time with more than 50% of time spent on discussing hospice and POLST completion. Coding Level of Care Code 14547 Subseq Hosp Care Lvl 3 Diagnoses Palliative care encounter Z51.5 Breathlessness R06.81 Time Spent (min) 40
[2020-10-23] MEDS: WARFARIN SOD 7.5 MG TAB PO SCH (17:14)
[2020-10-23] MEDS: oxyCODONE HCL IR 5 MG TAB (IMMEDIATE RELEASE) PO PRN (21:26)
[2020-10-23] MEDS: MONTELUKAST SODIUM 10 MG TABLET PO SCH (21:29)
[2020-10-23] MEDS: tiZANidine HCL 4 MG TABLET PO PRN (21:56)
[2020-10-24] MEDS: GABAPENTIN 600 MG TAB PO SCH (08:29)
[2020-10-24] MEDS: lamoTRIgine 100 MG TAB PO SCH (08:29)
[2020-10-24] MEDS: METOPROLOL SUCC 25MG EXT REL TAB PO SCH (08:29)
[2020-10-24] MEDS: CLOPIDOGREL BISULFATE 75 MG TAB PO SCH (08:29)
[2020-10-24] MEDS: ATORVASTATIN 40 MG TAB PO SCH (08:30)
[2020-10-24] MEDS: CALCITRIOL 0.25 MCG CAPSULE PO SCH (08:30)
[2020-10-24] MEDS: PANTOprazole 40 MG TAB PO SCH (08:30)
[2020-10-24] MEDS: VENLAFAXINE HCL XR 150 MG CAPXR PO SCH (08:31)
[2020-10-24] MEDS: BUMETANIDE 2 MG in SYRINGE 0 ML IV SCH (08:31)
[2020-10-24] MEDS: SACUBITRIL-VALSARTAN 24-26 MG TAB PO SCH (08:31)
[2020-10-24] MEDS: INSULIN DETEMIR FLEXPEN/FLEX TOUCH 100 UNITS/ML 3ML SC SCH (08:34)
[2020-10-24] MEDS: oxyCODONE HCL IR 5 MG TAB (IMMEDIATE RELEASE) PO PRN (08:35)
[2020-10-24] MEDS: INSULIN ASPART 100 UNITS/ML 3 ML PEN SC SCH ×2 (08:36→12:24)
[2020-10-24] MEDS: ACETIC ACID 2% OTIC SOLN 15 ML BTL OT SCH ×2 (08:38→10:57)
--- NOTE | 2020-10-24 08:59 | Discharge Summary ---
Date of Service October 24, 2020 Admission HPI Per Admitting Provider Pt is 69yo with a PMHx significant for CAD s/p stent placement, Hx of mechanical aortic valve, HFrEF, atrial fibrillation, HTN, HLD, DMII, COPD, asthma, GERD, and Bipolar Disorder who was admitted with acute hypoxic respiratory failure. States that she has been having increasing SOB since May but it peaked tonight and she felt like she could not breathe. She called her PCP who advised that she should come in. States she thought it might be COVID related as she has been having chills in the afternoon (no fevers), a dry cough, clear runny nose and mild periodic chest pain. Follows with Dr. Friedman of Cardiology and has an upcoming appt in October. Also follows with the CHF and anticoagulation clinic. She is a chronic smoker for the last 50 years, almost a pack a day and has no desire to quit. States she had 5 cigarettes today even with her SOB and states that the amount she typically smokes has decreased considerably since May with the SOB. Lives in [place] in a home with her daughter, son-in-law and their kids. States she lives downstairs and they are available to help her if needed. Admission Exam Per Admitting Provider General: Alert, oriented. Mild distress, halting speech, difficulty breathing Skin: No noted rashes or bruises Psych: Appropriate mood and affect Neuro: No gross deficits HEENT: NC/AT Chest: Nontender to palpation. CV: RRR, Normal s1, s2. No murmurs appreciated Resp: Breath sounds clear and decreased bilaterally, ++ increased effort of breathing. Abdomen: Soft, mildly tender in RLQ, protuberant. No guarding. Extremities: ++++ edema in lower extremities bilaterally. Principal Diagnosis Acute CHF exacerbation Discharge Exam Constitutional WD/WN, vitals as above no acute distress Respiratory normal respiratory effort; no labored breathing Auscultation: + crackles (mild bibasilar) Cardiovascular RRR, no murmur, no edema Heart Sounds: normal S1 and normal S2 Extremities: + pedal edema Gastrointestinal (Abdomen) normal bowel sounds, soft, nontender, no hepatosplenomegaly Skin no rashes, warm and dry Psychiatric A+Ox3, euthymic affect Discharge Data Allergies Allergy/AdvReac Type Severity Reaction Status Date / Time adhesive Allergy Unknown Rash Verified 10/16/20 22:22 cinacalcet [From Sensipar] Allergy Unknown Swelling Verified 10/16/20 22:22 of the Eye erythromycin base Allergy Unknown VAGINAL Verified 10/16/20 22:22 [From Erythrocin] INFECTION levofloxacin [From Levaquin] Allergy Unknown Hives Verified 10/16/20 22:22 fluticasone AdvReac Intermediate NAUSEA Verified 10/16/20 22:22 [From Advair Diskus] VOMITING lactose AdvReac Unknown Diarrhea Verified 10/16/20 22:22 latex AdvReac Unknown Rash Verified 10/16/20 22:22 salmeterol AdvReac Unknown NAUSEA Verified 10/16/20 22:22 [From Advair Diskus] VOMITING Consultations 10/16/20 21:26 ED Decision to Admit Stat 10/18/20 10:45 Consult Cardiology Routine 10/19/20 17:05 Consult Palliative Care Routine Hospital Course (1) Acute exacerbation of CHF (congestive heart failure): Jennifer Mendoza is a 69 y/o female with complex PMHx that includes chronic systolic CHF (EF of 20-25%), atrial fibrillation, tobacco abuse, CAD, aortic and mitral mechanical valves, COPD and T2DM who was admitted on 10/16/2020 for systolic CHF exacerbation. Acute on Chronic Systolic CHF - TTE 10/17/2020: EF 20-25% - SOB improved but still on 1-2L NC and crackles/LE edema on exam - I/O: +555mL cumulative balance--patient reports that measuring urine output had been difficult, as many times she is not able to place the bucket under the toilet seat before having to urinate - Cr stable with current diuresis - Bumex 2mg BID and Toprol XL 25 mg PO QAM--continue upon d/c - Entresto 24/26mg PO BID--will continue on d/c, recommend BMP check in one week to evaluate - Home Lasix and Lisinopril will be stopped and substituted with Bumex and Entresto as above - Palliative care plan (10/23): Jennifer is planning to go home tomorrow with [facility] care to support at home. Her focus is definitely comfort directed and to remain at home until her . I spoke with her daughter on the phone and she is totally supportive of that. I did complete a POLST form with Jennifer to reflect her wishes for comfort directed care, DNR with antibiotics to be determined at the time and with no artificial nutrition or hydration. - d/c home with hospice services--will have home O2 set up by hospice Mechanical Mitral and Aortic Heart Valve - On Warfarin 7.5mg PO daily at home - INR intermittently supratherapeutic, 4.4 on 10/20 --> Warfarin held, 2.6 on 10/21 - Re-started Warfarin on 10/21 at alternating 5/7.5 mg doses (home dose 7.5mg daily) - goal INR 2.5-3.5 Paroxysmal Atrial Fibrillation - on Warfarin, dose adjusted as mentioned above CAD - 04/2020 cath w/ LAD SENA x1 - On Plavix 75mg PO QAM and Lipitor 40mg PO QAM, continue Hypoxia - Needing 3L NC overnight to maintain oxygenation >90% (no O2 at home) - SOB improved but still crackles/LE edema on exam - Likely secondary to acute CHF - continue supplemental O2 via NC--will be set up at home by hospice services Constipation - reported lower abdominal pain and no BM for 10 days - Miralax 17g x1 and Senokot x1 (10/21) - Per pt, had BM--constipation resolved DM2 - basal insulin + SSI while hospitalized - continue home regimen upon d/c Right Ear Pain - otoscopic exam on 10/20 suggestive of AOE - ear pain markedly improved on 10/21 after starting Acetic Acid otic - continued while hospitalized (3 drops TID for total of 5 days) Dizziness - suspect orthostatic hypotension based on patient characterization of symptoms - counseled on careful transition from supine to seated to standing positions Mild Epigastric Pain, resolved - likely secondary to bloating/constipation - resolved without intervention FEN/GI: Heart-Healthy/DM2 DVT Prophylaxis: Warfarin Code status: DNR/DNI Dispo: Med/surg Total Time Total Time Spent Total Time Spent (In Minutes): see attending attestation Discharge Plan Discharge Items Patient Disposition: Hospice - Home Reason For Visit: SOB CHF EXACERBATION Discharge Diagnosis: CHF exacerbation Activity: Per Instructions section Non-emergency contact: Primary Care Provider Call non-emergency contact if: you have any medication questions and your symptoms worsen Follow-up/Referrals: Sanya Thurman III, CRNP [Primary Care Provider] - Valeri Love MD [Physician] - Diet: Carb Consistent or DM2 and Heart Healthy Addtl Attending Provider Instructions: You were admitted to [facility] due to shortness of breath. You were found to be in respiratory failure due to a CHF exacerbation. You were treated with diuretics, as well as some blood pressure medications. While you did get better during your admission, you were found to be requiring supplemental oxygen to maintain adequate oxygenation in your blood. As such, after discussion with you, it was decided that having supplemental oxygen at home would be best for you. Additionally, you were started on a new diuretic called Bumex that you should continue to take at home twice daily. You should stop taking the Lasix as this new medication will be taking the place of it. Additionally, you were started on a new medication called Entresto that you should continue to take twice daily as well. Do not take your previously prescribed lisinopril as these medications can interact. As discussed you will have home hospice services to discuss your preferences and needs at home. Pending Studies at Discharge: No Stand-Alone Forms: My [facility], Smoking Cessation Medications and DC Order Prescriptions: New Entresto 24-26 mg Tablet 1 tab PO BID 30 Days Qty: 60 RF: 0 bumetanide 2 mg tablet 2 mg PO BID Qty: 60 RF: 2 Continued acetaminophen 500 mg tablet 1,000 mg PO HS RF: 0 calcitriol 0.5 mcg capsule 0.5 mcg PO BID RF: 0 clopidogrel 75 mg tablet 75 mg PO QAM Qty: 90 RF: 1 Serevent Diskus 50 mcg/dose blister with device 1 inh INH BID RF: 0 Levemir U-100 Insulin 100 unit/mL solution 20 unit SUBCUT BID RF: 0 warfarin 5 mg tablet See Rx Instructions PO UD RF: 0 tizanidine 4 mg tablet 4 mg PO TID PRN (Reason: muscle spasticity) Qty: 90 RF: 1 (DME) BD Insulin Syringe Half Unit 0.3 mL 31 gauge x 5/16" syringe See Dose Instructions .ROUTE .MEDSUPPLY Qty: 600 RF: 1 atorvastatin 40 mg tablet 40 mg PO QAM Qty: 90 RF: 1 (DME) blood sugar diagnostic [Accu-Chek Guide test strips] Strip See Rx Instructions .ROUTE .MEDSUPPLY Qty: 400 RF: 1 (DME) blood-glucose meter [Accu-Chek Guide Glucose Meter] Misc See Rx Instructions .ROUTE .MEDSUPPLY Qty: 1 RF: 0 (DME) lancets [Accu-Chek Fastclix Lancet Drum] Misc See Rx Instructions .ROUTE .MEDSUPPLY Qty: 400 RF: 1 (DME) lancing device with lancets [Accu-Chek FastClix Lancing Dev] Kit See Rx Instructions .ROUTE .MEDSUPPLY Qty: 1 RF: 0 omeprazole 40 mg capsule,delayed release(DR/EC) 40 mg PO BID Qty: 180 RF: 1 Novolog U-100 Insulin aspart 100 unit/mL solution 20 unit SUBCUT QID Qty: 70 RF: 1 venlafaxine [Effexor XR] 150 mg capsule,extended release 24hr 150 mg PO QAM Qty: 90 RF: 0 metoprolol succinate 25 mg tablet extended release 24 hr 25 mg PO QAM Qty: 90 RF: 1 lamotrigine [Lamictal] 100 mg tablet 100 mg PO BID Qty: 90 RF: 2 gabapentin 600 mg tablet 600 mg PO BID 90 Days Qty: 180 RF: 1 (DME) walker misc See Dose Instructions .ROUTE .MEDSUPPLY Qty: 1 RF: 0 oxycodone 10 mg tablet 10 mg PO TID PRN (Reason: PAIN) Qty: 60 RF: 0 diclofenac sodium [Voltaren] 1 % gel 4 g TOP QID PRN (Reason: Joint Pain) Qty: 100 RF: 1 albuterol sulfate [Ventolin HFA] 90 mcg/actuation HFA aerosol inhaler 1 - 2 puff INH Q4 PRN (Reason: shortness of breath or wheezing) RF: 0 lisinopril 5 mg tablet 2.5 mg PO QAM RF: 0 montelukast 10 mg tablet 10 mg PO HS RF: 0 Discontinued furosemide [Lasix] 80 mg tablet 120 mg PO BID Qty: 180 RF: 3 Discharge Orders: Discharge Order (Routine); Ordered 10/24/20 Ordered By: Anil Mcarthur Admission Data Admit Date/Time: 10/16/20 22:05 Attending Provider: Ike Londono Admit Provider: Laura Moseley Primary Care Provider: Griel,Sanya C. III Other Providers: Nii Herrera ; [facility] ; Oralia Ramesh ; Mohamud Man ; Valeri Love Other Interventions: Discharge Summary Assessment (RN) Last Done: 10/24/20 10:17 Supervising Physician Co-Signing Physician Notes Resident Physician Supervision Note: I was present with Dr. Anil Bonilla during the history and exam. I discussed the case with the resident and agree with the findings and plan as documented in the note. Any exceptions or clarifications are listed here: none Patient was seen and she looked quite comfortable. She is being transitioned to home hospice due to her chronic systolic heart failure complicated by COPD diabetes paroxysmal atrial fibrillation. Most of her issues this hospital stay revolved around her systolic heart failure heart failure reduced ejection fraction. She has been stable transition to Entresto and Bumex. She maintains anticoagulated with warfarin due to her mechanical valves both aortic and mitral. Patient will have her oxygen managed by home hospice therapy and will have them inquire about helping her maintain her INR versus having her primary care provider maintain as an outpatient. Patient is seen in her room she is pleasant she is in no particular respiratory distress although she is wearing supplemental oxygen. Patient be discharged to home hospice Documented By: Ike Londono MD Resident Activity Tracking Resident Involvement: Resident Care Provided Care Provided: Adult Hospital Medicine
[2020-10-24] MEDS ORDERED: BUMETANIDE 1 MG TAB PO SCH (09:00)
--- NOTE | 2020-10-24 12:35 | Billing Data ---
Date of Service October 24, 2020 Coding Level of Care Code D/C Day Management >30 mins
== END 2020-10-24 16:32 | disposition hospice, home (50) | DRG 291 ==
LOC: ED 18:02 → SUATTDRO 22:05 → 2N 22:05